=== PATIENT | female | born 1940 | race Caucasian/White ===

== ENCOUNTER 2020-06-05 23:23 | Inpatient (IN) | payer MEDICARE, OTHER, SELFPAY ==
[2020-06-05 23:24] VITALS: PULSE 84; RESP 26; TEMP 36.2; O2SAT 63; BMI 34.2
--- NOTE | 2020-06-05 23:25 | EKG12_ITS ---
Test Reason : SOB Blood Pressure : / mmHG Vent. Rate : 068 BPM Atrial Rate : 277 BPM P-R Int : 000 ms QRS Dur : 098 ms QT Int : 406 ms P-R-T Axes : 000 -02 052 degrees QTc Int : 431 ms Normal sinus rhythm Otherwise normal ECG Confirmed by ELI HAWKINS, SAM ([id number]), graphics editor RY PATTERSON ([id number]) on 06/08/2020 8:37:30 AM Referred By: MARISOL Confirmed By:SAM BENITEZ MD
[2020-06-05 23:31] VITALS: BP 160/66; PULSE 66; PULSE 71; RESP 18; RESP 19; TEMP 36.3; O2SAT 100; O2SAT 99
--- NOTE | 2020-06-05 23:45 | ED.VIS.GEN ---
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 Pulse ox was reported to be 50% on room air. She arrived with nonrebreather. Moving her from the EMS cot to the hospital cot patient was disconnected from oxygen. Her breathing became labored. I was informed her oxygen dropped to 63%. Her breathing was labored. She was placed back on the nonrebreather. She denies history of asthma, COPD or congestive heart failure. She denies chest pain. She denies history of PE or DVT. She denies leg pain or leg swelling. Slight discoloration of her legs. She has no known exposure to Covid. Patient's nurse informed me that she has other medical problems which included COPD and end-stage renal disease. She states she was told by her doctor she cannot have IV contrast. Prior similar symptoms: No Recent Illness/Hospitalization: No - Past Medical History (1) History of hypertension Status: Acute (2) History of breast cancer Status: Acute (3) History of colon cancer Status: Acute (4) History of COPD Status: Chronic (5) History of end stage renal disease Status: Acute Past Medical History - Allergies and Home Meds Allergies/Adverse Reactions: Allergies No Known Allergies Allergy (Verified 03/17/17 13:26) Primary Care Physician: Bryan Tolbert III, MD [Primary Care Provider] - Prior records reviewed: Yes Surgical History: noncontributory Lives: With Family Smoking Status: Former smoker Alcohol: None Drugs: None Review of Systems General: Denies: Chills, Fever, Malaise, Subjective, Sweats Eyes: Denies: Visual changes - bilaterally, Blurred Vision - bilaterally ENT: Denies: Bilateral ear pain, Rhinorrhea, Sore throat Cardiovascular: Denies: Chest pain, Palpitations Respiratory: Reports: Dyspnea, Dyspnea on exertion. Denies: Cough, Sputum, Orthopnea, Paroxysmal nocturnal dyspnea Gastrointestinal: Denies: Abdominal pain, Nausea, Vomiting, Diarrhea, Melena, Hematochezia Genitourinary: Denies: Dysuria, Hematuria, Frequency Musculoskeletal: Denies: Myalgias, Arthralgias, Neck pain, Back pain, Swelling, Extremity Pain, -, - Skin: Denies: Rash, Wounds Neurological: Denies: Headache, Weakness, Parasthesia Endocrine: Denies: Polyuria, Polydipsia Hematologic: Denies: Easy bruising, Easy bleeding Allergy: Denies: Uticaria Physical Exam Vital Signs/Narrative: Vital Signs Temp Pulse Resp BP Pulse Ox 06/05/20 23:31 97.3 F L 66 19 H 160/66 H 99 06/05/20 23:24 97.2 F L 84 26 H 63 Inital Vital Signs reviewed: Yes General: Well nourished, Well developed, Acute Distress Head: Normocephalic, Atraumatic Eyes: Perrl, EOMI. Negative for: Pale conjunctiva, Scleral icterus ENT: Moist mucous membranes, No rhinorrhea Neck: Supple, Nontender, No lymphadenopathy, No JVD, - - He is midline. There is no inspiratory expiratory stridor. Cardiovascular: Regular rate, Regular rhythm, No murmurs, Normal S1, Normal S2 Respiratory: Wheezing, Decreased Air Movement. Negative for: No distress - Initially patient was in no distress. After oxygen was removed she developed distress. Abdomen: Soft, Nontender, Nondistended, Normal bowel sounds, No masses Back: Nontender, Normal Inspection Extremities: Nontender, No edema. Negative for: Calf Tenderness - There is no asymmetry, swelling, discoloration, leg vein distention, palpable cords or tenderness along the distribution of the deep venous system. Skin: Normal color, No rash, No Trauma. Negative for: Cyanosis, Diaphoresis, Jaundice Neurological: Alert, Oriented x3, Cranial nerves II-XII grossly intact, Normal Strength, Normal Sensation Psychological: Normal affect Diagnostic/Tx/Re-eval Chest X-Ray - ED: 1 View, Read by ED Physician, Normal, Heart, Bony Structures, Right Infiltrate, Left Infiltrate, - - There are multiple pulmonary nodules on the right which raises concern for pulmonary embolus. Impressions Chest X-Ray 06/05/20 23:50 IMPRESSION: 1. Cardiomegaly and pulmonary vascular congestion. 2. Right-sided pulmonary nodules. Electronically Signed: Deb Stone MD at 0:36 EST , Service support , Chest CTA 06/06/20 00:47 IMPRESSION: 1. No CTA demonstrated pulmonary embolism or arterial dissection. 2. Findings suggest early pulmonary edema. 3. Pulmonary vascular congestion with COPD. 4. Bilateral basilar atelectasis with possible right lower lobe pneumonia. 5. Intraluminal thrombus within the descending thoracic aorta. Electronically Signed: Deb Stone MD at 2:12 EST , Service support , 06/05/20 23:50 Chest 1 View (Portable) [RAD] Stat 06/06/20 00:47 CTA Chest W/WO Contrast [CT] Stat Laboratory Results 06/05/20 06/05/20 06/05/20 23:30 23:30 23:30 WBC 6.0 RBC 3.37 L Hgb 8.1 L Hct 29.5 L MCV 87.5 MCH 24.0 L MCHC 27.5 L RDW Std Deviation 55.6 H RDW Coeff of Ismael 17.4 H Plt Count 237 MPV 11.6 Immature Gran % (Auto) 1.700 H Neut % (Auto) 79.9 H Lymph % (Auto) 8.7 L [place] % (Auto) 8.5 Eos % (Auto) 1.0 Baso % (Auto) 0.2 Absolute Neuts (auto) 4.8 Absolute Lymphs (auto) 0.52 L Nucleated RBC % 0 Differential Comment SCANNED Platelet Estimate ADEQUATE Polychromasia RARE Hypochromasia 1+ Anisocytosis 1+ Microcytosis 1+ Schistocytes RARE Specimen Type Sample Site pH Bicarbonate Actual Total CO2 Base Excess O2 Saturation O2 % ABG pCO2 ABG pO2 Eliot Test O2 Delivery Device Sodium 143 Potassium 3.9 Chloride 97 L Carbon Dioxide 42.0 H Anion Gap 4 L BUN 39 H Creatinine 1.33 H Estim Creat Clear Calc 27.44 Est GFR (MDRD) Af Amer 49 L Est GFR (MDRD) Non-Af 41 L BUN/Creatinine Ratio 29.3 H Glucose 179 H Lactic Acid 2.6 H* Calcium 9.6 Total Bilirubin 0.60 AST 24 ALT 33 Alkaline Phosphatase 110 Troponin I 0.020 B-Natriuretic Peptide Total Protein 7.0 Albumin 3.4 Globulin 3.6 Albumin/Globulin Ratio 0.9 COVID-19 (NBA) 06/05/20 06/05/20 06/05/20 23:30 23:35 23:56 WBC RBC Hgb Hct MCV MCH MCHC RDW Std Deviation RDW Coeff of Ismael Plt Count MPV Immature Gran % (Auto) Neut % (Auto) Lymph % (Auto) [place] % (Auto) Eos % (Auto) Baso % (Auto) Absolute Neuts (auto) Absolute Lymphs (auto) Nucleated RBC % Differential Comment Platelet Estimate Polychromasia Hypochromasia Anisocytosis Microcytosis Schistocytes Specimen Type YADIRA Sample Site R Radial pH 7.30 L Bicarbonate Actual 43.3 H Total CO2 46 Base Excess 17 H O2 Saturation 49 L O2 % 50 ABG pCO2 87.6 H* ABG pO2 31 L* Eliot Test Positive O2 Delivery Device Venti Mask Sodium Potassium Chloride Carbon Dioxide Anion Gap BUN Creatinine Estim Creat Clear Calc Est GFR (MDRD) Af Amer Est GFR (MDRD) Non-Af BUN/Creatinine Ratio Glucose Lactic Acid Calcium Total Bilirubin AST ALT Alkaline Phosphatase Troponin I B-Natriuretic Peptide 232.8 H Total Protein Albumin Globulin Albumin/Globulin Ratio COVID-19 (NBA) Not Detected Covid test is pending. Patient has a acute respiratory failure with hypercapnia and hypoxia. She is on BiPAP. A MOLST form was completed. Patient specified no CPR and no invasive ventilation. BiPAP is acceptable. Placement of central line, cardioversion, use of pressors are acceptable. No nodules were noted on the CAT scan. Suspect those are infiltrates. BNP of 232 no orthopnea, no pedal edema no PND doubt this is heart failure. Her wheezing improved with aerosols and Decadron. - EKG Initial EKG Interpretation: Sinus Rhythm - Presumed sinus rhythm with a ventricular rate of 68. Unable to determine KY interval because of significant artifact. And beat foreign beat by P waves were noted and suspect KY interval is approximately 160 ms. QRS duration is 98 ms. QT duration is 406 ms. Reading is normal. Prior: Unchanged - EKG performed on November 25, 2011 reveals a sinus rhythm with a ventricular rate of 68. - Medical Decision Making With history of shortness of breath that started [place] need to evaluate for infectious etiology versus cardiac versus VTE. If there is no evidence of pneumonia or cardiac etiology will obtain CTA to rule out PE. COVID-19 test was ordered. Patient stated she does not want to be intubated and does not want CPR performed. Since patient has history of COPD and is wheezing she was treated with DuoNeb and albuterol. Because there is concern for Covid she received 10 mg of Decadron. ABG reveals acute on chronic CO2 retention. Chest x-ray reveals bilateral interstitial infiltrates which raises concern for atypical pneumonia versus Covid. There are also old nodules which raises concern for pulmonary embolus. CTA of the chest was ordered. Patient was informed the reason why the CTA of the chest needed to be performed. She understands this may cause a rise in her creatinine. The lactate elevated due to hypoxia, type a lactic acidosis. The case was discussed with hospitalist. Hospitalist requested 20 of Lasix. - Critical Care Time Critical care time (excluding procedures): 30-74 minutes - Critical care time 37 minutes. This includes obtaining history, review of prior records, documentation, interpretation of laboratory results, initiation of therapy and discussion with hospitalist for admission. ED Disposition - Plan for ED Patient: Disposition: Acute Care Hospital [facility] Diagnosis: Respiratory failure with hypoxia and hypercapnia, Right lower lobe pulmonary infiltrate, COPD with exacerbation, Acute bronchospasm, Severe sepsis Referrals: Bryan Tolbert III, MD [Primary Care Provider] -
--- NOTE | 2020-06-05 23:50 | RAD_ITS ---
STUDY: X-RAY CHEST REASON FOR EXAM: Female, 80 years old patient with shortness of breath. TECHNIQUE: Single AP portable view of the chest. COMPARISON: Prior comparison studies are not available for review at this time. FINDINGS: Cardiac monitoring leads are present. The lungs are expanded. There are prominent bronchovascular markings in both lungs. There appear to be two right-sided mid pulmonary nodular opacities measuring approximately 1.8 cm in size. There is a small right-sided pleural effusion. There is no demonstrated pleural abnormality. There is mild cardiac enlargement. Normal mediastinum and steven. There is prominence of the pulmonary hilar arteries with peripheral pulmonary vascular congestion. There is atherosclerotic calcification of the aortic arch with tortuosity. Normal visualized thoracic spine. Normal visualized ribs, clavicles, and shoulders. There is no demonstrated abnormality of the visualized soft tissue structures of the upper abdomen. RAD/Chest 1 View (Portable) IMPRESSION: 1. Cardiomegaly and pulmonary vascular congestion. 2. Right-sided pulmonary nodules. Electronically Signed: Deb Stone MD at 0:36 EST , Service support ,
--- NOTE | 2020-06-05 23:56 | CPS ---
ABG results read to in ER. Physician aware of critical results.
--- NOTE | 2020-06-05 23:56 | ED.RN ---
PT STATES SHE IS DNRCC-A. NO INTUBATION. PT GAVE ME PERMISSION TO SPEAK WITH HER DAUGHTER ANGELA WHO WILL BE HER POA HER SPOUSE HAS PASSED. PT IS UNSURE IF PAPERWORK STATES DAUGHTER POA. CALLED ANGELA WOODWARD, JEREMIEA, DAUGHTER AT [phone]. PLAN OF CARE GIVEN, QUESTIONS ANSWERED, REASSURED DAUGHTER. DAUGHTER DID VERIFY THAT PT DOES NOT WANT INTUBATED OR CPR.
[2020-06-06] VITALS (36 sets, daily range): BP systolic 120–155; BP diastolic 47–79; PULSE 56–93; RESP 12–24; TEMP 36–36.8; O2SAT 87–100; BMI 34.0
[2020-06-06 00:03] LABS: ALB/GLOB Ratio 0.9 RATIO (0.9-2.4); AST(SGOT) 24 U/L (15-37); Alanine Aminotransfer ALT/SGPT 33 U/L (13-56); Albumin, Serum 3.4 g/dL (3.2-5.0); Alkaline Phosphatase 110 U/L (45-117); Anion Gap 4 (5-15); BUN 39 mg/dL (7-18); BUN/Creat Ratio 29.3 RATIO (10-20); Calcium,Total 9.6 mg/dL (8.5-10.1); Chloride 97 mmol/L (98-107); Creatinine, Serum 1.33 mg/dL (0.55-1.02); EST Glomerular Filtration Rate 41 mL/min (>60); Est Glom Filt Rate - Afr Amer 49 mL/min (>60); Estimated Creatinine Clearance 27.44 ml/min; Globulin 3.6 g/dL (2.2-4.2); Glucose 179 mg/dL (74-106); Potassium 3.9 mmol/L (3.5-5.1); Sodium Level 143 mmol/L (136-145)
[2020-06-06 00:05] LABS: Allen Test Positive; Base Excess 17 mmol/L (-2 to +2); Bicarbonate 43.3 mmol/L (22-26); FI02 50; O2 Delivery Device Venti Mask; PO2 31 mmHG (75-100); SITE R Radial; SO2 49 % (95-99); Total Carbon Dioxide 46 mmol/L; pCO2 87.6 mmHg (35-45)
[2020-06-06 00:07] LABS: Absolute Lymphocyte Count 0.52 X10^3/uL (0.83-4.51); Absolute Neutrophil Count 4.8 X10^3/uL (2.0-7.7); Basophil# 0.01 X10^3/uL; Basophil% 0.2 % (0-1); Eosinophil# 0.06 X10^3/uL; Hematocrit 29.5 % (37-47); Hemoglobin 8.1 g/dL (12.0-15.0); Lactic Acid 2.6 mmol/L (0.4-1.9); Lymphocyte # 0.52 X10^3/ul (4.0); Lymphocyte % 8.7 % (19-41); Mean Corp Hgb Conc 27.5 g/dL (32-36); Mean Corpuscular Volume 87.5 fL (81-99); Mean Platelet Vol. 11.6 fl (6.2-12.0); Monocyte# 0.51 X10^3/uL; Monocyte% 8.5 % (0-10); NRBC Flagged by Analyzer 0 % (0-5); Neutrophil # 4.81 X10^3/uL (2.7-7.7); Neutrophil % 79.9 % (47-70); POSITIVE DIFFERENTIAL YES; Platelet Count 237 K/mm3 (150-450); RBC Distribution Width CV 17.4 % (11.6-14.6); RBC Distribution Width SD 55.6 fl (35.1-43.9); Red Blood Count 3.37 M/mm3 (4.2-5.4)
[2020-06-06 00:11] LABS: Differential Indicated SCAN CRITERIA MET
[2020-06-06] MEDS: Albuterol 2.5 MG/3 ML VIAL.NEB. INHALATION ×3 (00:25)
[2020-06-06] MEDS: Ipratropium/Albuterol Sulfate 3 ML AMPUL.NEB INHALATION ×6 (00:25→22:40)
[2020-06-06 00:38] LABS: BNP,B-Type NATRIURETIC PEPTIDE 232.8 pg/mL (0-100)
[2020-06-06] MEDS: dexAMETHasone 10 MG/ML Vial IV (00:39)
[2020-06-06] MEDS: Ceftriaxone 1 GM/50 ML BAG IV (00:41)
[2020-06-06 00:47] LABS: Anisocytosis 1+; Differential Comment SCANNED; Hypochromasia 1+; Microcytosis 1+
--- NOTE | 2020-06-06 00:47 | CT_ITS ---
STUDY: CTA CHEST REASON FOR EXAM: Female, 80 years old patient with worsening shortness of breath since 05/25/2020. Past medical history of colon and breast cancer. Patient has had HTN, COPD, and emphysema. Prior cholecystectomy and colon resection. RADIATION DOSAGE (If Supplied By Facility): CTDIvol = ( 12.84 ) mGy, DLP = ( 496.04 ) mGycm TECHNIQUE: The examination was performed with the intravenous administration of 100 ml of Isovue-370. Post-processing of the angiographic images was performed, with multiplanar reformation and 3D reconstruction. Individualized dose optimization techniques were used for this CT. COMPARISON: Prior comparison studies are not available for review at this time. FINDINGS: Cardiac monitoring leads are present. Normal enhancement of the main pulmonary artery and right and left pulmonary arteries. Normal enhancement of the bilateral peripheral pulmonary arteries. There is no demonstrated pulmonary embolism. There is prominence of the main pulmonary arteries and peripheral pulmonary arteries, consistent with pulmonary edema. There is atherosclerotic calcification of the aortic arch with tortuosity. Maximum transverse dimension of the ascending thoracic aorta measures approximately 3.5 cm. There is no demonstrated aortic dissection. There appears to be thrombus within the descending thoracic aorta. This could serve as a source for emboli. There is cardiomegaly. There are calcifications of the coronary arteries. Normal mediastinum. Normal hilar regions. Normal visualized trachea and bronchi. The lungs are well expanded. There is heterogeneous groundglass attenuation within both lungs interspersed with multiple lucencies consistent with severe centrilobular emphysema. There is thickening of interlobular septa. There is bilateral basilar dependent atelectasis right lower lobe airspace disease and possible pneumonia.. Normal pleura. Normal chest wall structures. There are degenerative changes of thoracic spine. Increased thoracic kyphosis. The sternum appears to be intact. There is mild curvature of the thoracic spine convexity towards the left. There is a left-sided renal cyst measuring approximately [address]/CTA Chest W/WO Contrast IMPRESSION: 1. No CTA demonstrated pulmonary embolism or arterial dissection. 2. Findings suggest early pulmonary edema. 3. Pulmonary vascular congestion with COPD. 4. Bilateral basilar atelectasis with possible right lower lobe pneumonia. 5. Intraluminal thrombus within the descending thoracic aorta. Electronically Signed: Deb Stone MD at 2:12 EST , Service support ,
[2020-06-06 00:48] LABS: Platelet Estimate ADEQUATE (ADEQ)
[2020-06-06 00:49] LABS: Polychromasia RARE; Schistocytes RARE
[2020-06-06 01:08] LABS: Blood Gas Specimen Type VEN
--- NOTE | 2020-06-06 02:32 | HP.PCM_ITS ---
Problem List (1) Respiratory failure with hypoxia and hypercapnia Status: Acute Qualifiers: Chronicity: acute Qualified Code(s): J96.01 - Acute respiratory failure with hypoxia; J96.02 - Acute respiratory failure with hypercapnia (2) Right lower lobe pulmonary infiltrate Status: Acute (3) COPD with exacerbation Status: Acute (4) History of breast cancer Status: Chronic (5) History of colon cancer Status: Chronic History of Present Illness Date of Admission: 06/06/20 Chief Complaint: SOB - since The patient is a 80 year old F with past medical history of COPD, stage IV CKD comes in with progressive shortness of breath ongoing since . Patient admits to having bilateral leg swelling, denies orthopnea or PND. She lives alone. She has progressive shortness of breath, denies any fever or chills. She denies any sick contact. Her oxygen level was said to be In the 50s on arrival with the EMS. She was managed on 10 L on a nonrebreather mask. Patient was found to be saturating 63% on room air in the ED. The ED, her temperature was 90 7.2F, heart rate 84, respiratory rate 26, 2 saturating 73% room air, improved to 99% on 2 L of oxygen, FiO2 50%. WBC count of 6.0, hemoglobin 8.1, platelet count 237, VBG showed pH 7.3, PCO2 was 87.6, pH was 31. Sodium was 143, potassium 3.9, chloride 97, carbon 39, creatinine 1.33, lactic acid 2.6, BNP 5232.8. COVID-19 PCR negative Chest x-ray showed cardiomegaly, pulmonary vascular congestion, right-sided pulmonary nodules. CTA of the chest showed no PE. Showed early pulmonary edema, pulmonary vascular congestion, lateral basilar atelectasis with possible right lower lobe pneumonia, Past Medical History Past Medical History (Chronic Problems): Chronic Problems History of breast cancer (Chronic) History of colon cancer (Chronic) History of COPD (Chronic) Allergies No Known Allergies Allergy (Verified 03/17/17 13:26) Home Medications: Ambulatory Orders Medication Instructions Recorded Aspirin 325 mg PO DAILY 03/17/17 Diltiazem HCl [Cartia Xt] 300 mg PO DAILY 03/17/17 Doxycycline 100 mg PO DAILY 03/17/17 Lisinopril [Zestril] 10 mg PO DAILY 03/17/17 Oxygen, Home [Home Oxygen] 3 lpm NASAL DAILY 03/17/17 Pravastatin [Pravachol] 20 mg PO DAILY 03/17/17 Sertraline HCl [Zoloft] 50 mg PO DAILY 03/17/17 hydroCHLOROthiazide 12.5 mg PO DAILY 03/17/17 [Hydrochlorothiazide] Cholecalciferol (Vitamin D3) 1 tab PO DAILY 06/05/20 [Vitamin D3] Surgical History: colectomy, mastectomy Psychiatric History: Anxiety, Depression APPLICATION INTEGRATION SPECIALIST History: No pertinent APPLICATION INTEGRATION SPECIALIST history Lives: With Family Smoking Status: Former smoker Alcohol: None Drugs: None - *Family History Maternal History Items: Cancer - colon Paternal History Items: Unknown Review of Systems Constitutional: Reports: Anorexia, Malaise, Weakness, Fatigue. Denies: Chills, Fever, Night Sweats, Weight Change Eyes: Denies: Blurred vision, Cataracts, Conjunctivae Inflammation, Pain, Redness, Vision Change HEENT: Denies: Difficulty Hearing, Difficulty Swallowing, Head Aches, Hearing Changes, Sinus Congestion, Sinus Drainage Cardiovascular: Reports: Edema. Denies: Chest Pain, Light Headedness, Orthopnea, Palpitations, Paroxysmal Noc. Dyspnea, Syncope Respiratory: Reports: Shortness of Breath, Shortness of breath at rest, Shortness of breath upon exertion. Denies: Cough, Hemoptysis, Sputum production Gastrointestinal: Denies: Abdominal Pain, Constipation, Hematemesis, Hematochezia, Nausea, Vomiting Genitourinary: Denies: Dysuria, Frequency, Incontinence, Nocturia Musculoskeletal: Denies: Joint Pain, Joint stiffness, Joint swelling, Joint Tenderness Skin: Denies: Rash, Wounds Neurological: Denies: Numbness, Tingling, Focal weakness Psychiatric: Denies: Anxiety, Depression, Homicidal Ideations, Suicidal Ideations Hematologic/ Lymphatic: Denies: Easy Bruising, Easy Bleeding VTE Information - Inpt Only VTE Present on Admission: No VTE Pharm Prophylaxis ordered?: Yes Patient Problems: Active and Suspected Problems History of hypertension (Acute) History of end stage renal disease (Acute) Respiratory failure with hypoxia and hypercapnia (Acute) Right lower lobe pulmonary infiltrate (Acute) COPD with exacerbation (Acute) Acute bronchospasm (Acute) Severe sepsis (Acute) - Physical Exam Vitals/I&O's: Vital Signs Temp Pulse Resp BP Pulse Ox 97.8 F 63 18 155/69 H 100 06/06/20 01:38 06/06/20 01:38 06/06/20 01:38 06/06/20 01:38 06/06/20 01:38 Oxygen Flow Rate (L/min) 15 Oxygen Delivery Method Bi-pap Weight: 87.725 kg Body Mass Index (BMI) 34.2 Intake and Output for Last 24 Hours 06/04/20 06/05/20 06/06/20 23:59 23:59 23:59 Intake Total 50.5 / 50.5 Balance 50.5 / 50.5 General: Alert, Oriented x3, Cooperative, - - Mild respiratory distress, on BiPAP HEENT: Atraumatic, PERRLA, EOMI, Normocephalic Oral: Moist Mucosa Neck: Supple Lungs: Diminished Cardiovascular: Regular rate, Regular Rhythm, No murmurs Abdomen: Bowel Sounds Present, Soft, Non Tender, Non-Distended, No Hepato- splenomegaly Extremities: Edema - trace bilateral edema Skin: No rashes Musculoskeletal: No Tenderness to Palpation of Joints or Extremities Lymphatic: No Cervical, Supraclavicular, or Inguinal Adenopathy Neurological: Cranial nerves II-XII grossly intact, Neuro grossly intact Psych/Mental Status: Normal Affect, Appropriate Laboratory Results 06/05/20 23:30: WBC 6.0, RBC 3.37 L, Hgb 8.1 L, Hct 29.5 L, MCV 87.5, MCH 24.0 L , MCHC 27.5 L, RDW Std Deviation 55.6 H, RDW Coeff of Ismael 17.4 H, Plt Count 237, MPV 11.6, Immature Gran % (Auto) 1.700 H, Neut % (Auto) 79.9 H, Lymph % (Auto) 8.7 L, [place] % (Auto) 8.5, Eos % (Auto) 1.0, Baso % (Auto) 0.2, Absolute Neuts (auto) 4.8, Absolute Lymphs (auto) 0.52 L, Nucleated RBC % 0, Differential Comment SCANNED, Platelet Estimate ADEQUATE, Polychromasia RARE, Hypochromasia 1+, Anisocytosis 1+, Microcytosis 1+, Schistocytes RARE 06/05/20 23:30: Sodium 143, Potassium 3.9, Chloride 97 L, Carbon Dioxide 42.0 H, Anion Gap 4 L, BUN 39 H, Creatinine 1.33 H, Estim Creat Clear Calc 27.44, Est GFR (MDRD) Af Amer 49 L, Est GFR (MDRD) Non-Af 41 L, BUN/Creatinine Ratio 29.3 H , Glucose 179 H, Calcium 9.6, Total Bilirubin 0.60, AST 24, ALT 33, Alkaline Phosphatase 110, Troponin I 0.020, Total Protein 7.0, Albumin 3.4, Globulin 3.6, Albumin/Globulin Ratio 0.9 06/05/20 23:30: Lactic Acid 2.6 H* 06/05/20 23:30: B-Natriuretic Peptide 232.8 H 06/05/20 23:35: COVID-19 (NBA) Not Detected 06/05/20 23:56: Specimen Type YADIRA, Sample Site R Radial, pH 7.30 L, Bicarbonate Actual 43.3 H, Total CO2 46, Base Excess 17 H, O2 Saturation 49 L, O2 % 50, ABG pCO2 87.6 H*, ABG pO2 31 L*, Eliot Test Positive, O2 Delivery Device Venti Mask Current Medications Sodium Chloride () 250 mls @ 15 mls/hr IV .[id number] PRN PRN Reason: Saline Flush Last Infusion: 06/06/20 00:41 Dose: 0 mls/hr Documented by: Sodium Chloride () 250 mls @ 15 mls/hr IV .[id number] PRN PRN Reason: Additional IVPB Infusion Sodium Chloride 1,000 ml/ N/A 1,000 mls @ 263.175 mls/hr IV .[id number] SHANE Stop: 06/06/20 07:51 Last Admin: 06/06/20 01:10 Dose: 3 ml/kg/hr, 263.2 mls/hr Documented by: Assessment/Plan All Active Problems History of hypertension (Acute) History of end stage renal disease (Acute) Respiratory failure with hypoxia and hypercapnia (Acute) Right lower lobe pulmonary infiltrate (Acute) COPD with exacerbation (Acute) Acute bronchospasm (Acute) Severe sepsis (Acute) 1. Acute respiratory failure secondary to acute COPD exacerbation/probable CHF exacerbation Patient was saturating 63% on room air, improved on BiPAP We will continue and BiPAP, breathing treatments, pulmonology consult 2. Lactic acidosis secondary to hypoxia, admitting lactic acid 2.6, will trend per protocol 3. Acute COPD exacerbation, history of underlying COPD Continue IV Solu-Medrol, breathing treatment Check respiratory panel 4. Probable Acute CHF, no known history of CHF in our system Patient received Lasix 20 mg IV x1 We will continue Lasix 40 mg daily, monitor renal function, 2D echo 5. CKD stage IV, admitting creatinine is 1.33, unclear previous baseline creatinine 6. Hypertension/hyperlipidemia, remains stable Would hold home lisinopril and hydrochlorothiazide for now Continue on home pravastatin 7. Anxiety/depression, continue on Zoloft 8. DVT prophylaxis with heparin subcu 9. CODE STATUS: DNR CCA -ED physician discussed with patient; she does not want to be intubated. I confirmed this with her. We will obtain records from Dr. Bryan Tolbert's office?her primary care doctor?as we do not have much records about patient's history in [facility]. Inpatient E&M: [id number] Init Hosp L3
[2020-06-06] MEDS: Furosemide 20 MG/2 ML VIAL IV (03:09)
[2020-06-06 03:37] LABS: Reflex Lactate? Y
--- NOTE | 2020-06-06 03:42 | PCS.PANDOC ---
PANDEMIC DOCUMENTATION INITIATED: Date: 06/06/20 Time: 03:23
[2020-06-06 04:14] LABS: Absolute Lymphocyte Count 0.11 X10^3/uL (0.83-4.51); Absolute Neutrophil Count 6.2 X10^3/uL (2.0-7.7); Basophil# 0.01 X10^3/uL; Basophil% 0.2 % (0-1); Hematocrit 27.6 % (37-47); Hemoglobin 7.6 g/dL (12.0-15.0); Lymphocyte # 0.11 X10^3/ul (4.0); Lymphocyte % 1.7 % (19-41); Mean Corp Hgb Conc 27.5 g/dL (32-36); Mean Corpuscular Hgb 24.1 pg (27.0-32.0); Mean Corpuscular Volume 87.6 fL (81-99); Mean Platelet Vol. 11.7 fl (6.2-12.0); Monocyte# 0.08 X10^3/uL; Monocyte% 1.2 % (0-10); NRBC Flagged by Analyzer 0 % (0-5); Neutrophil # 6.19 X10^3/uL (2.7-7.7); Neutrophil % 96.3 % (47-70); POSITIVE DIFFERENTIAL YES; Platelet Count 220 K/mm3 (150-450); RBC Distribution Width CV 17.4 % (11.6-14.6); RBC Distribution Width SD 55.1 fl (35.1-43.9); Red Blood Count 3.15 M/mm3 (4.2-5.4); White Blood Count 6.4 K/mm3 (4.4-11.0)
[2020-06-06 04:24] LABS: Differential Indicated SCAN CRITERIA MET
--- NOTE | 2020-06-06 04:30 | ECHOD_ITS ---
Reason For Study: SOB Procedure This was a 2D Doppler, Color Flow transthoracic echocardiogram. The study was technically difficult. Exam performed portable in patient room. Left Ventricle Normal LV size. Moderate concentric left ventricular hypertrophy. Left ventricular systolic function is normal. The estimated ejection fraction is 65 %. There is evidence of diastolic dysfunction. No regional wall motion abnormalities noted. Right Ventricle Normal RV size. Normal systolic function. Atria The left atrium is moderately enlarged. The right atrium is mildly enlarged. No doppler evidence for ASD. Mitral Valve There is mild to moderate mitral annular calcification. Extension of the mitral annular calcification on the base of the posterior mitral valve leaflet. Trivial mitral valve insufficiency. Tricuspid Valve Normal tricuspid valve. Trivial tricuspid valve insufficiency. Unable to estimate RV systolic pressure/pulmonary artery pressure due to technically difficult study. Aortic Valve The aortic valve leaflets not well visualized, however, based upon the 2D echocardiographic images obtained there appears to be diffuse thickening, calcification, and partial restriction. Moderately severe aortic valve stenosis. Pulmonic Valve The pulmonic valve is not well visualized. Great Vessels Normal sized aortic root. Calcified aortic root. Pericardium/Pleural No pericardial effusion. MMode/2D Measurements & Calculations LVIDd: 4.8 cm IVSd: 1.4 cm LVOT diam: 2.0 cm LVIDs: 2.9 cm LVPWd: 1.4 cm LVOT area: 3.1 cm2 RVDd: 3.7 cm FS: 39.9 % Ao root diam: 3.7 cm LAV(MOD-bp): 85.6 ml LVAd ap4: 28.3 cm2 LAV(MOD-bp) Indexed: 45.0 ml/m2 EDV(MOD-sp4): 84.4 ml LAV(MOD-sp2): 91.3 ml EDV(sp4-el): 83.6 ml LAV(MOD-sp4): 77.6 ml LVAs ap4: 15.5 cm2 ESV(MOD-sp4): 31.5 ml ESV(sp4-el): 31.7 ml EF(MOD-sp4): 62.6 % EF(sp4-el): 62.1 % SV(MOD-sp4): 52.8 ml SV(sp4-el): 51.9 ml LA A4 area: 24.5 cm2 LA dimension(2D): 5.4 cm RA A4 area: 24.0 cm2 Doppler Measurements & Calculations MV E max ronaldo: 99.1 cm/sec Lat Peak E' Ronaldo: 8.6 cm/sec Med Peak E' Ronaldo: 6.1 cm/sec MV A max ronaldo: 157.8 cm/sec E/E' lat: 11.5 E/E' med: 16.3 MV E/A: 0.63 MV V2 max: 155.2 cm/sec MV P1/2t max ronaldo: 98.4 cm/sec Ao V2 max: 436.1 cm/sec MV max P.6 mmHg MV P1/2t: 88.9 msec Ao max P.1 mmHg MV V2 mean: 86.0 cm/sec Ao V2 mean: 299.2 cm/sec MV mean P.4 mmHg MV dec slope: 324.1 cm/sec2 Ao mean P.3 mmHg MV V2 VTI: 35.2 cm MVA(P1/2t): 2.5 cm2 Ao V2 VTI: 88.7 cm MVA(VTI): 3.1 cm2 ELIZABETH(I,D): 1.2 cm2 ELIZABETH(V,D): 1.1 cm2 LV V1 max: 150.6 cm/sec SV(LVOT): 109.2 ml PA V2 max: 161.6 cm/sec LV V1 max P.1 mmHg LV V1 mean P.8 mmHg LV V1 mean: 103.1 cm/sec LV V1 VTI: 35.3 cm Interpretation Summary The study was technically difficult. Left ventricular systolic function is normal. The estimated ejection fraction is 65 %. Moderate concentric left ventricular hypertrophy. The left atrium is moderately enlarged. The right atrium is mildly enlarged. There is mild to moderate mitral annular calcification. Extension of the mitral annular calcification on the base of the posterior mitral valve leaflet. Trivial mitral valve insufficiency. Trivial tricuspid valve insufficiency. The aortic valve leaflets not well visualized, however, based upon the 2D echocardiographic images obtained there appears to be diffuse thickening, calcification, and partial restriction. Moderately severe aortic valve stenosis. Calcified aortic root. Unable to estimate RV systolic pressure/pulmonary artery pressure due to technically difficult study. There is evidence of diastolic dysfunction. Ordering Physician: Izzy Duggan Referring Physician: LAURIE Tolbert M.D. Performed By: María Headley RDCS
[2020-06-06 04:37] LABS: AST(SGOT) 26 U/L (15-37); Alanine Aminotransfer ALT/SGPT 32 U/L (13-56); Albumin, Serum 3.3 g/dL (3.2-5.0); Alkaline Phosphatase 101 U/L (45-117); Anion Gap 4 (5-15); BUN 39 mg/dL (7-18); BUN/Creat Ratio 33.1 RATIO (10-20); Calcium,Total 8.9 mg/dL (8.5-10.1); Chloride 97 mmol/L (98-107); Creatinine, Serum 1.18 mg/dL (0.55-1.02); EST Glomerular Filtration Rate 47 mL/min (>60); Est Glom Filt Rate - Afr Amer 57 mL/min (>60); Estimated Creatinine Clearance 30.93 ml/min; Globulin 3.4 g/dL (2.2-4.2); Glucose 176 mg/dL (74-106); Lactic Acid 1.4 mmol/L (0.4-1.9); Potassium 4.1 mmol/L (3.5-5.1); Protein, Total 6.7 g/dL (6.4-8.2); Sodium Level 139 mmol/L (136-145)
[2020-06-06 04:44] LABS: Anisocytosis 1+; Differential Comment SCANNED; Hypochromasia 2+; Polychromasia RARE; Schistocytes RARE
[2020-06-06] MEDS: Heparin Injection (Vial) 5,000 UNIT/ML VIAL 5000 UNIT SC (06:11)
[2020-06-06] MEDS: 0.9% Saline Lock 10 ML Syringe IV ×2 (06:12→16:44)
[2020-06-06 08:03] LABS: Ferritin 21 ng/mL (8-252); Iron 20 ug/dL (50-170); Iron Binding Capacity,Total 535 ug/dL (250-450); PERCENT IRON SATURATION 3.7 % (15.0-55.0)
[2020-06-06] MEDS: dilTIAZem CD 300 MG Capsule PO (09:54)
[2020-06-06] MEDS: Aspirin 325 MG Tablet PO (09:54)
[2020-06-06] MEDS: Sertraline 50 MG Tablet PO (09:55)
[2020-06-06] MEDS: Furosemide 40 MG/4 ML Vial IV ×2 (09:55→21:52)
[2020-06-06] MEDS: levoFLOXacin IV 750 MG/150 ML BAG 100 MG IV (10:08)
--- NOTE | 2020-06-06 10:14 | CASEMGMT ---
ANASTASIIA SHEN assessment: Phone interview with patient for initial transition planning/care coordination assessment as pt is currently in precautions at this time. ANASTASIIA SHEN introduced self and role at [facility], pt voices understanding and consents to assessment at this time. Pt is A/Ox4 at this time and answers all questions appropriately at this time. Pt is currently on 4L nc at this time and speaks in full sentences with no SOB on phone at this time. Per Marixa LAURENT, pt was placed back on bipap after CM assessment complete d/t low sats. Care providers, pharmacy, and demographics verified at this time. Presentation: SOB, worsening since [place] Admitting dx: Resp failure, COPD exac PCP: Didi SULLIVAN Specialists: surgeon Segun Kruger Pharmacy: [facility] Insurance: MCR A/B, [employer] Prescription Benefit: Yes Living Will/HPOA: Pt states does not have LW/HPOA but would like to complete AD info at this time. Matheus SW aware, voices understanding. LNOK: Meghana Carrillo, daughter Living Arrangements: Pt states lives alone in 1 story home and states no concerns at home at this time. Pt states is independent with ADL's. Transportation: Pt states family drives and states no transportation concerns at this time. DME/HHC: Pt states has the following DME: cane, walker, grab bars, BSC, tub bench, transport chair, and 3-4L nc home oxygen thru [facility]. Message left with Cherry at [facility] to check on liter flow order at this time. Pt states no need for any further DME at this time. Pt states no hx of HHC or SNF in the past. Pt states no concerns with going home at time of discharge. Pt states is retired. Pt states does not smoke cigarettes or drink ETOH. Pt states no further concerns/needs at this time. CM to follow for increase home oxygen need, PT/OT notes, and any further discharge planning/needs. Pt Goal: Home Plan[place] ANASTASIIA SHEN
--- NOTE | 2020-06-06 10:35 | NURSING ---
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 increased to 6l now 92%
--- NOTE | 2020-06-06 10:36 | NURSING ---
1015 patient talking on phone o2 sats 79-80% placed back on bipap now up to 94% asymptomatic
--- NOTE | 2020-06-06 13:51 | PCM.PN.HOSP ---
Patient Problems: Active and Suspected Problems History of hypertension (Acute) History of end stage renal disease (Acute) Respiratory failure with hypoxia and hypercapnia (Acute) Right lower lobe pulmonary infiltrate (Acute) COPD with exacerbation (Acute) Acute bronchospasm (Acute) Severe sepsis (Acute) Subjective: Patient seen and examined. She was admitted in the early hours of today with a complaint of shortness of breath. Symptoms have been going on since [place]. She also had associated lower extremity swelling. She was saturating in the 50s when the EMS arrived, and was placed on 10 L of oxygen by nonrebreather mask. On admission in the ED, she was saturating at 63%. Chest x-ray showed pulmonary vascular congestion and right-sided pulmonary nodules and CT of the chest showed no evidence of PE but did show any pulmonary edema with pulmonary vascular congestion as well as lateral basal atelectasis and possible right lower lobe pneumonia. Patient usually wears 3 to 4 L of oxygen at home. She has been managed for acute on chronic hypoxic respiratory failure due to COPD exacerbation and probable heart failure. She is on IV Solu-Medrol and being diuresed with Lasix. Patient seen. She said her shortness of breath was getting better but anytime she talked, it worsened. He denied any chest pain, palpitations or dizziness, nausea vomiting or diarrhea. Review systems otherwise negative. Hemoglobin is dropped from 8.1-7.6. There is no known baseline in the EMR. She had lactic acidosis on admission but this is now trended down to 1.4. Vitals/I&O's: Vital Signs Temp Pulse Resp BP Pulse Ox 98.3 F 75 17 150/79 H 96 06/06/20 08:00 06/06/20 11:05 06/06/20 11:05 06/06/20 10:00 06/06/20 10:30 Oxygen Flow Rate (L/min) 6 Oxygen Delivery Method Nasal Cannula Weight: 185 lb 6.54 oz Body Mass Index (BMI) 34.0 Intake and Output for Last 24 Hours 06/04/20 06/05/20 06/06/20 23:59 23:59 23:59 Intake Total 1647.41 / 1647.41 Output Total 450 / 450 Balance 1197.41 / 1197.41 General: Alert, Oriented x3, Cooperative, No apparent distress HEENT: Atraumatic, PERRLA, EOMI, Normocephalic Oral: Dry Mucosa Neck: Supple, No JVD, Negative Carotid Bruits Lungs: - - diminished breath sounds in all lung grider; wheezing and rackles in all lung grider. Cardiovascular: Regular rate, Normal S1, Normal S2, No murmurs Abdomen: Bowel Sounds Present, Soft, Non Tender, Non-Distended, No Hepato-splenomegaly Extremities: No clubbing, No cyanosis, No edema, Capillary Refill Less than 3 Seconds Skin: No rashes, No breakdown Musculoskeletal: No Tenderness to Palpation of Joints or Extremities Lymphatic: No Cervical, Supraclavicular, or Inguinal Adenopathy Neurological: Cranial nerves II-XII grossly intact, Neuro grossly intact, Motor Exam 5/5 strength throughout Psych/Mental Status: Normal Affect, Appropriate, Alert and oriented to time, place, person, mood and affect Microbiology Past 72 Hours 06/06/20 09:39 Mucosa - Nasopharyngeal Respiratory Panel (PCR) - Final Laboratory Results 06/05/20 23:30: WBC 6.0, RBC 3.37 L, Hgb 8.1 L, Hct 29.5 L, MCV 87.5, MCH 24.0 L, MCHC 27.5 L, RDW Std Deviation 55.6 H, RDW Coeff of Ismael 17.4 H, Plt Count 237, MPV 11.6, Immature Gran % (Auto) 1.700 H, Neut % (Auto) 79.9 H, Lymph % (Auto) 8.7 L, [place] % (Auto) 8.5, Eos % (Auto) 1.0, Baso % (Auto) 0.2, Absolute Neuts (auto) 4.8, Absolute Lymphs (auto) 0.52 L, Nucleated RBC % 0, Differential Comment SCANNED, Platelet Estimate ADEQUATE, Polychromasia RARE, Hypochromasia 1+, Anisocytosis 1+, Microcytosis 1+, Schistocytes RARE 06/05/20 23:30: Sodium 143, Potassium 3.9, Chloride 97 L, Carbon Dioxide 42.0 H, Anion Gap 4 L, BUN 39 H, Creatinine 1.33 H, Estim Creat Clear Calc 27.44, Est GFR (MDRD) Af Amer 49 L, Est GFR (MDRD) Non-Af 41 L, BUN/Creatinine Ratio 29.3 H, Glucose 179 H, Calcium 9.6, Total Bilirubin 0.60, AST 24, ALT 33, Alkaline Phosphatase 110, Troponin I 0.020, Total Protein 7.0, Albumin 3.4, Globulin 3.6, Albumin/Globulin Ratio 0.9 06/05/20 23:30: Lactic Acid 2.6 H* 06/05/20 23:30: B-Natriuretic Peptide 232.8 H 06/05/20 23:35: COVID-19 (NBA) Not Detected 06/05/20 23:56: Specimen Type YADIRA, Sample Site R Radial, pH 7.30 L, Bicarbonate Actual 43.3 H, Total CO2 46, Base Excess 17 H, O2 Saturation 49 L, O2 % 50, ABG pCO2 87.6 H*, ABG pO2 31 L*, Eliot Test Positive, O2 Delivery Device Venti Mask 06/06/20 04:06: WBC 6.4, RBC 3.15 L, Hgb 7.6 L, Hct 27.6 L, MCV 87.6, MCH 24.1 L, MCHC 27.5 L, RDW Std Deviation 55.1 H, RDW Coeff of Ismael 17.4 H, Plt Count 220, MPV 11.7, Immature Gran % (Auto) 0.600, Neut % (Auto) 96.3 H, Lymph % (Auto) 1.7 L, [place] % (Auto) 1.2, Eos % (Auto) 0.0, Baso % (Auto) 0.2, Absolute Neuts (auto) 6.2, Absolute Lymphs (auto) 0.11 L, Nucleated RBC % 0, Differential Comment SCANNED, Polychromasia RARE, Hypochromasia 2+, Anisocytosis 1+, Schistocytes RARE 06/06/20 04:06: Sodium 139, Potassium 4.1, Chloride 97 L, Carbon Dioxide 38.0 H, Anion Gap 4 L, BUN 39 H, Creatinine 1.18 H, Estim Creat Clear Calc 30.93, Est GFR (MDRD) Af Amer 57 L, Est GFR (MDRD) Non-Af 47 L, BUN/Creatinine Ratio 33.1 H, Glucose 176 H, Calcium 8.9, Total Bilirubin 0.30, AST 26, ALT 32, Alkaline Phosphatase 101, Total Protein 6.7, Albumin 3.3, Globulin 3.4, Albumin/Globulin Ratio 1.0 06/06/20 04:06: Lactic Acid 1.4 01/06/21 04:06: Iron 20 L, TIBC 535 H, Iron Saturation 3.7 L, Ferritin 21 Diagnostic Data Chest X-Ray 06/05/20 23:50 IMPRESSION: 1. Cardiomegaly and pulmonary vascular congestion. 2. Right-sided pulmonary nodules. Electronically Signed: Deb Stone MD at 0:36 EST , Service support , Chest CTA 06/06/20 00:47 IMPRESSION: 1. No CTA demonstrated pulmonary embolism or arterial dissection. 2. Findings suggest early pulmonary edema. 3. Pulmonary vascular congestion with COPD. 4. Bilateral basilar atelectasis with possible right lower lobe pneumonia. 5. Intraluminal thrombus within the descending thoracic aorta. Electronically Signed: Deb Stone MD at 2:12 EST , Service support , Current Medications Acetaminophen (Acetaminophen 325 Mg Tablet) 650 mg PO Q6H PRN PRN PRN Reason: Pain Score 1-10/Temp > 100.7 F Al Hydroxide/Mg Hydroxide (Mag Hydrox/Al Hydrox/Simeth 30 Ml Udc) 30 ml PO Q6H PRN PRN PRN Reason: Gastric Burning Albuterol/Ipratropium (Ipratropium/Albuterol Sulfate 3 Ml Ampul.Neb) 3 ml INHALATION Q4H.RT [facility] Last Admin: 06/06/20 10:57 Dose: 3 ml Documented by: Aspirin (Aspirin 325 Mg Tablet) [facility] Last Admin: 06/06/20 09:54 Dose: 325 mg Documented by: Cholecalciferol (Cholecalciferol (Vit D3) 1,000 Unit (25mcg)) 2,000 unit PO DAILY [facility] Last Admin: 06/06/20 09:55 Dose: 2,000 unit Documented by: Diltiazem HCl (Diltiazem Cd 300 Mg Capsule) 300 mg PO DAILY [facility] Last Admin: 06/06/20 09:54 Dose: 300 mg Documented by: Furosemide (Furosemide 40 Mg/4 Ml Vial) 40 mg IV BIDLX [facility] Last Admin: 06/06/20 09:55 Dose: 40 mg Documented by: Levofloxacin (Levaquin Iv) 750 mg in 150 mls @ 100 mls/hr IV Q48 [facility] Last Infusion: 06/06/20 11:55 Dose: Infused Documented by: Methylprednisolone (Methylprednisolone 40 Mg/Ml Vial) 40 mg IV Q8 [facility] Last Admin: 06/06/20 06:11 Dose: 40 mg Documented by: Ondansetron HCl (Ondansetron 4 Mg/2 Ml Vial) 4 mg IV Q8H PRN PRN PRN Reason: NAUSEA/VOMITING Pravastatin Sodium (Pravastatin 20 Mg Tablet) 20 mg PO QHS [facility] Sertraline HCl (Sertraline 50 Mg Tablet) 50 mg PO DAILY [facility] Last Admin: 06/06/20 09:55 Dose: 50 mg Documented by: Sodium Chloride (0.9% Saline Lock 10 Ml Syringe) 10 - 40 ml IV UD PRN PRN Reason: SALINE FLUSH Last Admin: 06/06/20 06:12 Dose: 20 ml Documented by: STROKE Vital Signs/Narrative: Vital Signs Pulse Resp BP Pulse Ox 06/06/20 11:05 75 17 06/06/20 10:30 76 22 H 96 06/06/20 10:00 78 18 150/79 H 87 Medical Necessity - Tobacco Use Smoking Status: Former smoker Tobacco Use: Cigarettes Assessment/Plan All Active Problems History of hypertension (Acute) History of end stage renal disease (Acute) Respiratory failure with hypoxia and hypercapnia (Acute) Right lower lobe pulmonary infiltrate (Acute) COPD with exacerbation (Acute) Acute bronchospasm (Acute) Severe sepsis (Acute) #Acute hypoxic and hypercapnic respiratory failure due to COPD exacerbation and Acute HFpEF Patient usually on 3 to 4 L of oxygen at home. Was requiring 6 L today and had to be put on BiPAP as needed as well. On IV Solu-Medrol and being diuresed with IV Lasix. Pulmonology on board. On breathing treatments with bronchodilators. Titrate oxygen to maintain saturation above 90%. 2D echo showed EF of 65% with normal left ventricular systolic function and no evidence of diastolic dysfunction. Left atrium moderately enlarged and right atrium mildly enlarged with moderately severe aortic valve stenosis. Continue diuresing and monitor intake and output. Fluid restriction 1500 cc daily. #Acute COPD exacerbation: As above. Respiratory panel was negative. Covid test was also negative. 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 2D echo showed severe aortic stenosis. #Descending thoracic aortic thrombus CTA of the chest done was negative for PE. There was a transverse dimension of the ascending thoracic aorta measuring 3.5 cm with no demonstrated aortic dissection and appearance of thrombus within the descending was a source of emboli. Is unclear whether this is a new finding. Will reach out to PCP and also obtain records from PCP. Patient will need anticoagulation for this aortic thrombus. However hemoglobin is dropped to 7.6 and iron panel shows severe iron deficiency anemia. Will check stool for occult blood before deciding on anticoagulation #Iron deficiency anemia. Globin was 8.1 on admission and is now down to 7.6. Iron panel done showed iron level of 20 with TIBC of 535 and iron saturation of 3.7. Ferritin is only 21. Will check stool for occult blood. Patient does have a history of colon cancer and states he has had multiple colonoscopies in the past. She cannot remember exactly when the last one was done. Records requested from [facility]. Will transfuse with 1 unit of packed red blood cells on account of heart failure. Will give Lasix with the blood give oral iron supplementation Give IV PPI #A. fib: On Cardizem. #Hypertension: Lisinopril currently on hold. Hydrochlorothiazide also on hold plan. #Hyperlipidemia: On statin #Depression: On Zoloft DVT prophylaxis: hold heparin o/a of anemia. SCDs Inpatient E&M: [id number] [facility] L3
--- NOTE | 2020-06-06 14:38 | CASEMGMT ---
SW was informed by RN HERMELINDA and RN that patient wanted to complete Healthcare Power of [employer] papers. SW went to patient's room, introduced self and role at [facility]. She said her daughter completed the documents. Patient said she did not sign yet. SW told her SW will be right back and bring another person so we can witness her signing the documents. SW then asked ANASTASIIA SHEN to witness signature. Copies were made and given to patient along with original. A copy was also placed in patient's chart. Yi MONTEZ MSW
--- NOTE | 2020-06-06 16:50 | CON.PCM_ITS ---
Problem List (1) History of hypertension Status: Acute (2) History of breast cancer Status: Chronic (3) History of colon cancer Status: Chronic (4) History of COPD Status: Chronic (5) History of end stage renal disease Status: Acute (6) Right lower lobe pulmonary infiltrate Status: Acute (7) COPD with exacerbation Status: Acute (8) Severe sepsis Status: Acute Reason for Consult Date of Consultation: 06/06/20 Reason for Consultation: COPD exacerbation History of Present Illness: The patient is an 80 year old F, with past medical history listed below, who presented to [facility] on 06/05/2020 secondary to worsening shortness of breath and hypoxia. Patient arrived via EMS and was noted to have a saturation of 50% on room air. Patient arrived on a nonrebreather. Patient reportedly does have a history of COPD, but has been following only with her primary care doctor for the last 10 years. Patient reports symptoms had developed gradually over the last 1 to 2 weeks. In the ER, patient was noted to be 63% on room air. Patient was also tachypneic at 26 breaths/min. Chest x-ray showed bilateral infiltrates with right-sided pulmonary nodules. This was followed by a CTA of the chest suggesting pulmonary edema, bibasilar atelectasis and advanced emphysematous changes. Laboratory work-up showed no leukocytosis, but a relative anemia at 8.1. Chemistries were significant for an elevated bicarbonate of 42, creatinine of 1.33, lactate of 2.6 and normal liver function studies. A VBG showed a pH of 7.3 and BNP was slightly elevated at 232. COVID-19 testing was negative. Patient was admitted to the floor for further evaluation. Patient reports that she feels subjectively improved compared to presentation. Patient reportedly lives alone and develops that she was going downhill for several days. Patient had called her PCP and was placed on doxycycline. Patient reports that she does have a history of COPD that was followed by Dr. Phillip in the past. Patient does not go on prednisone frequently. Patient states her last pulmonary function test was years ago but believes her COPD was relatively advanced. Patient is unclear if she is ever had issues with congestive heart failure previously. Review of systems otherwise negative from a constitutional, HEENT, respiratory, cardiovascular, GI, genitourinary, musculoskeletal, skin, neurologic, psychiatric and hematologic system unless stated above. Past Medical History Past Medical History (Chronic Problems): Chronic Problems History of breast cancer (Chronic) History of colon cancer (Chronic) History of COPD (Chronic) Allergies No Known Allergies Allergy (Verified 03/17/17 13:26) Home Medications: Ambulatory Orders Medication Instructions Recorded Aspirin 325 mg PO DAILY 03/17/17 Diltiazem HCl [Cartia Xt] 300 mg PO DAILY 03/17/17 Doxycycline 100 mg PO DAILY 03/17/17 Lisinopril [Zestril] 10 mg PO DAILY 03/17/17 Oxygen, Home [Home Oxygen] 3 lpm NASAL DAILY 03/17/17 Pravastatin [Pravachol] 20 mg PO DAILY 03/17/17 Sertraline HCl [Zoloft] 50 mg PO DAILY 03/17/17 hydroCHLOROthiazide 12.5 mg PO DAILY 03/17/17 [Hydrochlorothiazide] Cholecalciferol (Vitamin D3) 1 tab PO DAILY 06/05/20 [Vitamin D3] Surgical History: colectomy, mastectomy Psychiatric History: Anxiety, Depression [employer] History: No pertinent [employer] history Lives: With Family Smoking Status: Former smoker Tobacco Use: Cigarettes Alcohol: None Drugs: None - *Family History Maternal History Items: Cancer - colon Paternal History Items: Unknown Review of Systems Comment: See HPI Patient Problems: Active and Suspected Problems History of hypertension (Acute) History of end stage renal disease (Acute) Respiratory failure with hypoxia and hypercapnia (Acute) Right lower lobe pulmonary infiltrate (Acute) COPD with exacerbation (Acute) Acute bronchospasm (Acute) Severe sepsis (Acute) Objective: All imaging was personally reviewed. Echocardiogram showed an EF of 65% with moderate LVH and bilateral atrial enlargement. Patient also noted to have moderately severe aortic stenosis. CT of the chest showed no PE, but patient did have significant emphysematous changes bilaterally. - Physical Exam Vitals/I&O's: Vital Signs Temp Pulse Resp BP Pulse Ox 36.6 C 73 23 H 123/63 H 97 06/06/20 12:00 06/06/20 15:00 06/06/20 15:00 06/06/20 15:00 06/06/20 15:00 Oxygen Flow Rate (L/min) 6 Oxygen Delivery Method Bi-pap Weight: 84.1 kg Body Mass Index (BMI) 34.0 Intake and Output for Last 24 Hours 01/09/1906/05/20 06/06/20 23:59 23:59 23:59 Intake Total 2227.41 / 2227.41 Output Total 1350 / 1350 Balance 877.41 / 877.41 General: Alert, Oriented x3, Cooperative, - - Mild conversational dyspnea. Obese. HEENT: Atraumatic, PERRLA, EOMI, Normocephalic, - - No scleral icterus or injection noted Oral: Moist Mucosa, No Gingival or Mucosal Lesions/ Ulcerations Neck: Supple, No JVD, No Nodes, Trachea Midline Lungs: No rhonchi, Diminished, Rales - Right greater than left, Wheezes - End exhalation Cardiovascular: Normal S1, Normal S2, Irregular Rate, Murmur - Grade 3 out of 6 systolic ejection murmur at the right sternal border, No rub noted, No Gallop Abdomen: Bowel Sounds Present, Soft, Non Tender, Non-Distended, Obese Extremities: No clubbing, No cyanosis, Edema - Trace to 1+ lower extremity Skin: No rashes, No breakdown, - - Dermal atrophy noted Musculoskeletal: No Tenderness to Palpation of Joints or Extremities Lymphatic: No Cervical, Supraclavicular, or Inguinal Adenopathy Neurological: Cranial nerves II-XII grossly intact, Neuro grossly intact, Motor Exam 5/5 strength throughout Psych/Mental Status: Alert and oriented to time, place, person, mood and affect Microbiology Past 72 Hours 06/06/20 09:39 Mucosa - Nasopharyngeal Respiratory Panel (PCR) - Final Laboratory Results 06/05/20 23:30: WBC 6.0, RBC 3.37 L, Hgb 8.1 L, Hct 29.5 L, MCV 87.5, MCH 24.0 L , MCHC 27.5 L, RDW Std Deviation 55.6 H, RDW Coeff of Ismael 17.4 H, Plt Count 237, MPV 11.6, Immature Gran % (Auto) 1.700 H, Neut % (Auto) 79.9 H, Lymph % (Auto) 8.7 L, [place] % (Auto) 8.5, Eos % (Auto) 1.0, Baso % (Auto) 0.2, Absolute Neuts (auto) 4.8, Absolute Lymphs (auto) 0.52 L, Nucleated RBC % 0, Differential Comment SCANNED, Platelet Estimate ADEQUATE, Polychromasia RARE, Hypochromasia 1+, Anisocytosis 1+, Microcytosis 1+, Schistocytes RARE 06/05/20 23:30: Sodium 143, Potassium 3.9, Chloride 97 L, Carbon Dioxide 42.0 H, Anion Gap 4 L, BUN 39 H, Creatinine 1.33 H, Estim Creat Clear Calc 27.44, Est GFR (MDRD) Af Amer 49 L, Est GFR (MDRD) Non-Af 41 L, BUN/Creatinine Ratio 29.3 H , Glucose 179 H, Calcium 9.6, Total Bilirubin 0.60, AST 24, ALT 33, Alkaline Phosphatase 110, Troponin I 0.020, Total Protein 7.0, Albumin 3.4, Globulin 3.6, Albumin/Globulin Ratio 0.9 06/05/20 23:30: Lactic Acid 2.6 H* 06/05/20 23:30: B-Natriuretic Peptide 232.8 H 06/05/20 23:35: COVID-19 (NBA) Not Detected 06/05/20 23:56: Specimen Type YADIRA, Sample Site R Radial, pH 7.30 L, Bicarbonate Actual 43.3 H, Total CO2 46, Base Excess 17 H, O2 Saturation 49 L, O2 % 50, ABG pCO2 87.6 H*, ABG pO2 31 L*, Eliot Test Positive, O2 Delivery Device Venti Mask 06/06/20 04:06: WBC 6.4, RBC 3.15 L, Hgb 7.6 L, Hct 27.6 L, MCV 87.6, MCH 24.1 L , MCHC 27.5 L, RDW Std Deviation 55.1 H, RDW Coeff of Ismael 17.4 H, Plt Count 220, MPV 11.7, Immature Gran % (Auto) 0.600, Neut % (Auto) 96.3 H, Lymph % (Auto) 1.7 L, [place] % (Auto) 1.2, Eos % (Auto) 0.0, Baso % (Auto) 0.2, Absolute Neuts (auto) 6.2, Absolute Lymphs (auto) 0.11 L, Nucleated RBC % 0, Differential Comment SCANNED, Polychromasia RARE, Hypochromasia 2+, Anisocytosis 1+, Schistocytes RARE 06/06/20 04:06: Sodium 139, Potassium 4.1, Chloride 97 L, Carbon Dioxide 38.0 H, Anion Gap 4 L, BUN 39 H, Creatinine 1.18 H, Estim Creat Clear Calc 30.93, Est GFR (MDRD) Af Amer 57 L, Est GFR (MDRD) Non-Af 47 L, BUN/Creatinine Ratio 33.1 H , Glucose 176 H, Calcium 8.9, Total Bilirubin 0.30, AST 26, ALT 32, Alkaline Phosphatase 101, Total Protein 6.7, Albumin 3.3, Globulin 3.4, Albumin/Globulin Ratio 1.0 06/06/20 04:06: Lactic Acid 1.4 06/06/20 04:06: Iron 20 L, TIBC 535 H, Iron Saturation 3.7 L, Ferritin 21 06/06/20 15:52: Blood Type Pending, Antibody Screen Pending, Crossmatch See Det ail Current Medications Acetaminophen (Acetaminophen 325 Mg Tablet) 650 mg PO Q6H PRN PRN PRN Reason: Pain Score 1-10/Temp > 100.7 F Al Hydroxide/Mg Hydroxide (Mag Hydrox/Al Hydrox/Simeth 30 Ml Udc) 30 ml PO Q6H PRN PRN PRN Reason: Gastric Burning Albuterol/Ipratropium (Ipratropium/Albuterol Sulfate 3 Ml Ampul.Neb) 3 ml INHALATION Q4H.RT [facility] Last Admin: 06/06/20 14:40 Dose: 3 ml Documented by: Aspirin ([facility] 325 Mg Tablet) [facility] Admin: 06/06/20 09:54 Dose: 325 mg Documented by: Cholecalciferol (Cholecalciferol (Vit D3) 1,000 Unit (25mcg)) 2,000 unit PO DAILY [facility] Last Admin: 06/06/20 09:55 Dose: 2,000 unit Documented by: Diltiazem HCl (Diltiazem Cd 300 Mg Capsule) 300 mg PO DAILY [facility] Last Admin: 06/06/20 09:54 Dose: 300 mg Documented by: Furosemide (Furosemide 40 Mg/4 Ml Vial) 40 mg IV BIDLX [facility] Last Admin: 06/06/20 09:55 Dose: 40 mg Documented by: Levofloxacin (Levaquin Iv) 750 mg in 150 mls @ 100 mls/hr IV Q48 [facility] Last Infusion: 06/06/20 11:55 Dose: Infused Documented by: Pantoprazole Sodium 40 mg/ (Sodium Chloride) 110 mls @ 330 mls/hr IV Q12 [facility] Last Admin: 06/06/20 16:44 Dose: 330 mls/hr Documented by: Methylprednisolone (Methylprednisolone 40 Mg/Ml Vial) 40 mg IV Q8 [facility] Last Admin: 06/06/20 14:23 Dose: 40 mg Documented by: Ondansetron HCl (Ondansetron 4 Mg/2 Ml Vial) 4 mg IV Q8H PRN PRN PRN Reason: NAUSEA/VOMITING Pravastatin Sodium (Pravastatin 20 Mg Tablet) 20 mg PO QHS [facility] Sertraline HCl (Sertraline 50 Mg Tablet) 50 mg PO DAILY [facility] Last Admin: 06/06/20 09:55 Dose: 50 mg Documented by: Sodium Chloride (0.9% Saline Lock 10 Ml Syringe) 10 - 40 ml IV UD PRN PRN Reason: SALINE FLUSH Last Admin: 06/06/20 16:44 Dose: 10 ml Documented by: Clinical Impression(s) from Imaging Studies Chest X-Ray 06/05/20 23:50 IMPRESSION: 1. Cardiomegaly and pulmonary vascular congestion. 2. Right-sided pulmonary nodules. Electronically Signed: Deb Stone MD at 0:36 EST , Service support , Chest CTA 06/06/20 00:47 IMPRESSION: 1. No CTA demonstrated pulmonary embolism or arterial dissection. 2. Findings suggest early pulmonary edema. 3. Pulmonary vascular congestion with COPD. 4. Bilateral basilar atelectasis with possible right lower lobe pneumonia. 5. Intraluminal thrombus within the descending thoracic aorta. Electronically Signed: Deb Stone MD at 2:12 EST , Service support , Assessment/Plan All Active Problems History of hypertension (Acute) History of end stage renal disease (Acute) Respiratory failure with hypoxia and hypercapnia (Acute) Right lower lobe pulmonary infiltrate (Acute) COPD with exacerbation (Acute) Acute bronchospasm (Acute) Severe sepsis (Acute) RECOMMENDATIONS: 1. Continue antibiotics, bronchodilators and steroids 2. Agree with diuretic challenge 3. Wean oxygen as tolerated 4. Walking oximetry prior to discharge 5. Repeat complete PFT as an outpatient IMPRESSIONS: 1. Acute hypoxic respiratory failure secondary to probable COPD exacerbation Patient may have an element of concomitant congestive heart failure, but advanced emphysematous changes are noted on CT scan of the chest. Patient has a negative viral panel, but empiric antibiotics until cultures can be obtained would be appropriate. Agree with challenge of diuretic therapy. Patient is appropriately on antibiotics, bronchodilators and steroids. Patient will need a walking oximetry prior to discharge. Some concern for protracted hypoxia and would be at risk for pulmonary hypertension despite echo findings. This would also be complicated by aortic stenosis. 2. Descending aortic thrombus Unclear etiology. Patient may need a CTA of the abdomen and pelvis for evaluation of dissection. Patient is not showing any signs or symptoms of peripheral embolization on my exam. Patient does have a decreased hemoglobin and this will exacerbate underlying lung disease. 3. A. fib/aortic stenosis/advanced age/hypertension/hyperlipidemia/depression Complicates care, management, recovery and prognosis. Likely okay to continue with baseline medications except for lisinopril may need to be held secondary to active diuresis. Okay to continue statin Zoloft from my perspective. Inpatient E&M: 16094 Init Hosp L2
[2020-06-06] MEDS: Pravastatin 20 MG Tablet PO (21:53)
--- NOTE | 2020-06-06 23:00 | CPS ---
pt stated does not want to wear bipap tonight-pt states breathing well sats 95% on 3 l/m
[2020-06-07] VITALS (16 sets, daily range): BP systolic 146–159; BP diastolic 58–92; PULSE 68–79; RESP 15–26; TEMP 36.5–36.7; O2SAT 91–98
[2020-06-07 01:57] LABS: Hematocrit 28.7 % (37-47); Hemoglobin 8.6 g/dL (12.0-15.0)
[2020-06-07 02:56] LABS: International Normalized Ratio 0.9; Partial Thromboplast Time 24.3 Seconds (24.1-36.2); Prothrombin Time (Protime)PT. 11.9 SECONDS (11.7-14.9)
[2020-06-07] MEDS: Heparin Injection (Vial) 5,000 UNIT/ML VIAL 4000 UNIT IV (02:58)
[2020-06-07] MEDS: HEPARIN/D5w 25,000 UNITS 25,000 UNITS/250 ML IV.SOLN. 10 UNITS IV (02:59)
[2020-06-07] MEDS: Ipratropium/Albuterol Sulfate 3 ML AMPUL.NEB INHALATION ×6 (03:01→23:25)
[2020-06-07] MEDS: 0.9% Saline Lock 10 ML Syringe IV (05:07)
[2020-06-07 05:57] LABS: Hematocrit 29.8 % (37-47); Hemoglobin 8.9 g/dL (12.0-15.0); Lymphocyte % 1.9 % (19-41); Mean Corp Hgb Conc 29.9 g/dL (32-36); Mean Corpuscular Hgb 25.2 pg (27.0-32.0); Mean Corpuscular Volume 84.4 fL (81-99); Mean Platelet Vol. 11.8 fl (6.2-12.0); Monocyte# 0.11 X10^3/uL; Monocyte% 2.1 % (0-10); NRBC Flagged by Analyzer 0 % (0-5); Neutrophil # 4.95 X10^3/uL (2.7-7.7); Neutrophil % 95.4 % (47-70); POSITIVE DIFFERENTIAL YES; Platelet Count 208 K/mm3 (150-450); RBC Distribution Width CV 16.7 % (11.6-14.6); RBC Distribution Width SD 50.9 fl (35.1-43.9); Red Blood Count 3.53 M/mm3 (4.2-5.4); White Blood Count 5.2 K/mm3 (4.4-11.0)
[2020-06-07 06:11] LABS: Anion Gap 6 (5-15); BUN 35 mg/dL (7-18); BUN/Creat Ratio 27.3 RATIO (10-20); Calcium,Total 9.1 mg/dL (8.5-10.1); Chloride 91 mmol/L (98-107); Creatinine, Serum 1.28 mg/dL (0.55-1.02); EST Glomerular Filtration Rate 43 mL/min (>60); Est Glom Filt Rate - Afr Amer 51 mL/min (>60); Estimated Creatinine Clearance 28.51 ml/min; Glucose 181 mg/dL (74-106); Magnesium 1.9 mg/dL (1.6-2.6); Phosphorus 3.5 mg/dL (2.5-4.9); Potassium 3.3 mmol/L (3.5-5.1); Sodium Level 138 mmol/L (136-145)
[2020-06-07 06:17] LABS: Differential Indicated SCAN CRITERIA MET
[2020-06-07 06:57] LABS: Differential Comment SCANNED; Hypochromasia 2+
[2020-06-07] MEDS: Furosemide 40 MG/4 ML Vial IV ×2 (09:37→17:40)
[2020-06-07] MEDS: dilTIAZem CD 300 MG Capsule PO (09:37)
[2020-06-07] MEDS: Sertraline 50 MG Tablet PO (09:37)
[2020-06-07 10:03] LABS: Partial Thromboplast Time 67.5 Seconds (24.1-36.2)
--- NOTE | 2020-06-07 10:41 | CASEMGMT ---
OLESYA met with patient and discussed d/c plan. She really wants to go home, but if she went anywhere she would stay here at [facility] in TCU. OLESYA told her SW can put her name on the list in case she is not strong enough for home. OLESYA offered a list of local nursing homes and she refused stating she would only go to TCU. OLESYA told her we will continue to follow and assist with appropriate d/c plan. OLESYA called [facility] with [facility]CU and they would have a bed for patient. Plan: TCU vs home with home health Yi MONTEZ MSW
--- NOTE | 2020-06-07 10:49 | PN_ITS ---
Patient Problems: Active and Suspected Problems History of hypertension (Acute) History of end stage renal disease (Acute) Respiratory failure with hypoxia and hypercapnia (Acute) Right lower lobe pulmonary infiltrate (Acute) COPD with exacerbation (Acute) Acute bronchospasm (Acute) Severe sepsis (Acute) Subjective: Patient did okay overnight. No acute issues were reported. Patient still requiring significant nasal cannula oxygen to maintain saturations. Patient states that she feels subjectively slightly improved compared to yesterday. Patient still having paroxysmal type cough. - Physical Exam Vitals/I&O's: Vital Signs Temp Pulse Resp BP Pulse Ox 36.6 C 78 20 H 159/68 H 96 06/07/20 09:32 06/07/20 09:32 06/07/20 09:32 06/07/20 09:32 06/07/20 09:32 Oxygen Flow Rate (L/min) 5 Oxygen Delivery Method Nasal Cannula Weight: 85 kg Body Mass Index (BMI) 34.0 Intake and Output for Last 24 Hours 06/05/20 06/06/20 06/07/20 23:59 23:59 23:59 Intake Total 2737.41 / 2737.41 185.67 / 185.67 Output Total 1350 / 1350 1000 / 1000 Balance 1387.41 / 1387.41 -814.33 / -814.33 General: Alert, Oriented x3, Cooperative, No apparent distress, - - Only mild conversational dyspnea. Obese. HEENT: Atraumatic, PERRLA, EOMI, Normocephalic, - - No scleral icterus or injection noted. Glasses in place. Oral: Moist Mucosa, No Gingival or Mucosal Lesions/ Ulcerations Neck: Supple, No JVD, No Nodes, Trachea Midline Lungs: No rhonchi, No rales, Diminished, Wheezes - Sporadic at end exhalation Cardiovascular: Regular rate, Regular Rhythm, Normal S1, Normal S2, No murmurs, No rub noted, No Gallop Abdomen: Bowel Sounds Present, Soft, Non Tender, Non-Distended, Obese Extremities: No clubbing, No cyanosis, Edema Skin: No rashes, No breakdown, - - Dermal atrophy noted. Musculoskeletal: No Tenderness to Palpation of Joints or Extremities Lymphatic: No Cervical, Supraclavicular, or Inguinal Adenopathy Neurological: Cranial nerves II-XII grossly intact, Neuro grossly intact, Motor Exam 5/5 strength throughout Psych/Mental Status: Alert and oriented to time, place, person, mood and affect Microbiology Past 72 Hours 06/07/20 09:30 Stool Stool Occult Blood (SHANTELL) - Final 06/06/20 09:39 Mucosa - Nasopharyngeal Respiratory Panel (PCR) - Final Laboratory Results 06/06/20 15:52: Blood Type O POSITIVE, Antibody Screen NEGATIVE, Crossmatch See Detail 06/07/20 01:50: Hgb 8.6 L, Hct 28.7 L 06/07/20 02:40: PT 11.9, INR 0.9, APTT 24.3 06/07/20 02:40: WBC 5.2, RBC 3.53 L, Hgb 8.9 L, Hct 29.8 L, MCV 84.4, MCH 25.2 L , MCHC 29.9 L D, RDW Std Deviation 50.9 H, RDW Coeff of Ismael 16.7 H, Plt Count 208, MPV 11.8, Immature Gran % (Auto) 0.600, Neut % (Auto) 95.4 H, Lymph % (Auto) 1.9 L, Daniels % (Auto) 2.1, Eos % (Auto) 0.0, Baso % (Auto) 0.0, Absolute Neuts (auto) 5.0, Absolute Lymphs (auto) 0.10 L, Nucleated RBC % 0, Differential Comment SCANNED, Hypochromasia 2+ 06/07/20 02:40: Sodium 138, Potassium 3.3 L, Chloride 91 L, Carbon Dioxide 41.0 H, Anion Gap 6, BUN 35 H, Creatinine 1.28 H, Estim Creat Clear Calc 28.51, Est GFR (MDRD) Af Amer 51 L, Est GFR (MDRD) Non-Af 43 L, BUN/Creatinine Ratio 27.3 H , Glucose 181 H, Calcium 9.1, Phosphorus 3.5, Magnesium 1.9 06/07/20 09:30: APTT 67.5 H Current Medications Acetaminophen (Acetaminophen 325 Mg Tablet) 650 mg PO Q6H PRN PRN PRN Reason: Pain Score 1-10/Temp > 100.7 F Al Hydroxide/Mg Hydroxide (Mag Hydrox/Al Hydrox/Simeth 30 Ml Udc) 30 ml PO Q6H PRN PRN PRN Reason: Gastric Burning Albuterol/Ipratropium (Ipratropium/Albuterol Sulfate 3 Ml Ampul.Neb) 3 ml INHALATION Q4H.RT [facility] Last Admin: 06/07/20 06:36 Dose: 3 ml Documented by: Aspirin (Aspirin 325 Mg Tablet) 325 mg PO DAILYCM [facility] Last Admin: 06/06/20 09:54 Dose: 325 mg Documented by: Cholecalciferol (Cholecalciferol (Vit D3) 1,000 Unit (25mcg)) 2,000 unit PO DAILY [facility] Last Admin: 06/07/20 09:37 Dose: 2,000 unit Documented by: Diltiazem HCl (Diltiazem Cd 300 Mg Capsule) 300 mg PO DAILY [facility] Last Admin: 06/07/20 09:37 Dose: 300 mg Documented by: Furosemide (Furosemide 40 Mg/4 Ml Vial) 40 mg IV BIDLX [facility] Last Admin: 06/07/20 09:37 Dose: 40 mg Documented by: Heparin Sodium (Porcine) (Heparin Injection (Vial) 5,000 Unit/Ml Vial) 0 unit IV UD PRN; Protocol PRN Reason: dose adjustment Levofloxacin (Levaquin Iv) 750 mg in 150 mls @ 100 mls/hr IV Q48 [facility] Last Infusion: 06/06/20 11:55 Dose: Infused Documented by: Pantoprazole Sodium 40 mg/ (Sodium Chloride) 110 mls @ 330 mls/hr IV Q12 [facility] Last Infusion: 06/07/20 10:33 Dose: Infused Documented by: Heparin Sodium/Dextrose () 25,000 units in 250 mls @ 10 mls/hr IV .Q25H [facility]; Protocol Last Titration: 06/07/20 10:33 Dose: 900 units/hr, 9 mls/hr Documented by: Methylprednisolone (Methylprednisolone 40 Mg/Ml Vial) 40 mg IV Q8 [facility] Last Admin: 06/07/20 05:06 Dose: 40 mg Documented by: Ondansetron HCl (Ondansetron 4 Mg/2 Ml Vial) 4 mg IV Q8H PRN PRN PRN Reason: NAUSEA/VOMITING Pravastatin Sodium (Pravastatin 20 Mg Tablet) 20 mg PO QHS [facility] Last Admin: 06/06/20 21:53 Dose: 20 mg Documented by: Sertraline HCl (Sertraline 50 Mg Tablet) 50 mg PO DAILY [facility] Last Admin: 06/07/20 09:37 Dose: 50 mg Documented by: Sodium Chloride (0.9% Saline Lock 10 Ml Syringe) 10 - 40 ml IV UD PRN PRN Reason: SALINE FLUSH Last Admin: 06/07/20 05:07 Dose: 10 ml Documented by: Medical Necessity - Tobacco Use Smoking Status: Former smoker Tobacco Use: Cigarettes Assessment/Plan All Active Problems History of hypertension (Acute) History of end stage renal disease (Acute) Respiratory failure with hypoxia and hypercapnia (Acute) Right lower lobe pulmonary infiltrate (Acute) COPD with exacerbation (Acute) Acute bronchospasm (Acute) Severe sepsis (Acute) RECOMMENDATIONS: 1. Continue antibiotics, bronchodilators and steroids at current dosing 2. Agree with diuretic challenge. Potassium repletion as necessary 3. Wean oxygen as tolerated 4. Walking oximetry prior to discharge 5. Repeat complete PFT as an outpatient IMPRESSIONS: 1. Acute hypoxic respiratory failure secondary to probable COPD exacerbation Patient may have an element of concomitant congestive heart failure, but advanced emphysematous changes are noted on CT scan of the chest. Patient has a negative viral panel, but empiric antibiotics until cultures can be obtained would be appropriate. Anticipate 5 days of antibiotics would be sufficient. Agree with challenge of diuretic therapy. Patient is appropriately on antibiotics, bronchodilators and steroids. Patient will need a walking oximetry prior to discharge. Some concern for protracted hypoxia and would be at risk for pulmonary hypertension despite echo findings. Pulmonary hypertension would also be complicated by aortic stenosis. Further outpatient optimization of COPD may also be helpful. 2. Descending aortic thrombus Unclear etiology. Patient may need a CTA of the abdomen and pelvis for evaluation of dissection. Patient is not showing any signs or symptoms of peripheral embolization on my exam. Patient does have a decreased hemoglobin and this will exacerbate underlying lung disease. 3. A. fib/aortic stenosis/advanced age/hypertension/hyperlipidemia/depression Complicates care, management, recovery and prognosis. Likely okay to continue with baseline medications except for lisinopril may need to be held secondary to active diuresis. Okay to continue statin Zoloft from my perspective. Inpatient E&M: 27863 Subs Hosp L2
--- NOTE | 2020-06-07 13:36 | PN_ITS ---
Patient Problems: Active and Suspected Problems History of hypertension (Acute) History of end stage renal disease (Acute) Respiratory failure with hypoxia and hypercapnia (Acute) Right lower lobe pulmonary infiltrate (Acute) COPD with exacerbation (Acute) Acute bronchospasm (Acute) Severe sepsis (Acute) Subjective: Patient seen and examined. She remains short of breath, and says her shortness of breath seems to get worse with movement. She has no other complaints and review of systems is otherwise negative. She has otherwise remained hemodynamically stable. She was on BiPAP at the time I was seeing her though she had been on 5 L of oxygen for most of the day. Potassium was 3.3 today. CBC showed hemoglobin of 8.9. Of note, patient was started on heparin drip overnight on account of descending thoracic aortic thrombus. She was transfused with 1 unit of packed red blood cells yesterday. Vitals/I&O's: Vital Signs Temp Pulse Resp BP Pulse Ox 97.8 F 77 21 H 159/68 H 96 06/07/20 09:32 06/07/20 11:12 06/07/20 11:12 06/07/20 09:32 06/07/20 09:32 Oxygen Flow Rate (L/min) 5 Oxygen Delivery Method Nasal Cannula Weight: 187 lb 6.287 oz Body Mass Index (BMI) 34.0 Intake and Output for Last 24 Hours 06/05/20 06/06/20 06/07/20 23:59 23:59 23:59 Intake Total 2737.41 / 2737.41 185.67 / 185.67 Output Total 1350 / 1350 1000 / 1000 Balance 1387.41 / 1387.41 -814.33 / -814.33 General: Alert, Oriented x3, Cooperative, No apparent distress HEENT: Atraumatic, PERRLA, EOMI, Normocephalic Oral: Dry Mucosa Neck: Supple, No JVD, Negative Carotid Bruits Lungs: - - diminished breath sounds in all lung grider; mild wheezing in all lung grider. On 5L of oxygen, with BIPAP prn Cardiovascular: Regular rate, Normal S1, Normal S2, No murmurs Abdomen: Bowel Sounds Present, Soft, Non Tender, Non-Distended, No Hepato- splenomegaly Extremities: No clubbing, No cyanosis, No edema, Capillary Refill Less than 3 Seconds Skin: No rashes, No breakdown Musculoskeletal: No Tenderness to Palpation of Joints or Extremities Lymphatic: No Cervical, Supraclavicular, or Inguinal Adenopathy Neurological: Cranial nerves II-XII grossly intact, Neuro grossly intact, Motor Exam 5/5 strength throughout Psych/Mental Status: Normal Affect, Appropriate, Alert and oriented to time, place, person, mood and affect Microbiology Past 72 Hours 06/07/20 09:30 Stool Stool Occult Blood (SHANTELL) - Final 06/06/20 09:39 Mucosa - Nasopharyngeal Respiratory Panel (PCR) - Final Laboratory Results 06/06/20 15:52: Blood Type O POSITIVE, Antibody Screen NEGATIVE, Crossmatch See Detail 06/07/20 01:50: Hgb 8.6 L, Hct 28.7 L 06/07/20 02:40: PT 11.9, INR 0.9, APTT 24.3 06/07/20 02:40: WBC 5.2, RBC 3.53 L, Hgb 8.9 L, Hct 29.8 L, MCV 84.4, MCH 25.2 L , MCHC 29.9 L D, RDW Std Deviation 50.9 H, RDW Coeff of Ismael 16.7 H, Plt Count 208, MPV 11.8, Immature Gran % (Auto) 0.600, Neut % (Auto) 95.4 H, Lymph % (Auto) 1.9 L, Appling % (Auto) 2.1, Eos % (Auto) 0.0, Baso % (Auto) 0.0, Absolute Neuts (auto) 5.0, Absolute Lymphs (auto) 0.10 L, Nucleated RBC % 0, Differential Comment SCANNED, Hypochromasia 2+ 06/07/20 02:40: Sodium 138, Potassium 3.3 L, Chloride 91 L, Carbon Dioxide 41.0 H, Anion Gap 6, BUN 35 H, Creatinine 1.28 H, Estim Creat Clear Calc 28.51, Est GFR (MDRD) Af Amer 51 L, Est GFR (MDRD) Non-Af 43 L, BUN/Creatinine Ratio 27.3 H , Glucose 181 H, Calcium 9.1, Phosphorus 3.5, Magnesium 1.9 06/07/20 09:30: APTT 67.5 H Current Medications Acetaminophen (Acetaminophen 325 Mg Tablet) 650 mg PO Q6H PRN PRN PRN Reason: Pain Score 1-10/Temp > 100.7 F Al Hydroxide/Mg Hydroxide (Mag Hydrox/Al Hydrox/Simeth 30 Ml Udc) 30 ml PO Q6H PRN PRN PRN Reason: Gastric Burning Albuterol/Ipratropium (Ipratropium/Albuterol Sulfate 3 Ml Ampul.Neb) 3 ml INHALATION Q4H.RT [facility] Last Admin: 06/07/20 11:12 Dose: 3 ml Documented by: Aspirin (Aspirin 325 Mg Tablet) 325 mg PO DAILYCM [facility] Last Admin: 06/06/20 09:54 Dose: 325 mg Documented by: Bisacodyl (Bisacodyl 5 Mg Tablet) 20 mg PO 1400 ONE Stop: 06/07/20 14:01 Cholecalciferol (Cholecalciferol (Vit D3) 1,000 Unit (25mcg)) 2,000 unit PO DAILY [facility] Last Admin: 06/07/20 09:37 Dose: 2,000 unit Documented by: Diltiazem HCl (Diltiazem Cd 300 Mg Capsule) 300 mg PO DAILY [facility] Last Admin: 06/07/20 09:37 Dose: 300 mg Documented by: Furosemide (Furosemide 40 Mg/4 Ml Vial) 40 mg IV BIDLX [facility] Last Admin: 06/07/20 09:37 Dose: 40 mg Documented by: Heparin Sodium (Porcine) (Heparin Injection (Vial) 5,000 Unit/Ml Vial) 0 unit IV UD PRN; Protocol PRN Reason: dose adjustment Levofloxacin (Levaquin Iv) 750 mg in 150 mls @ 100 mls/hr IV Q48 [facility] Last Infusion: 06/06/20 11:55 Dose: Infused Documented by: Pantoprazole Sodium 40 mg/ (Sodium Chloride) 110 mls @ 330 mls/hr IV Q12 [facility] Last Infusion: 06/07/20 10:33 Dose: Infused Documented by: Heparin Sodium/Dextrose () 25,000 units in 250 mls @ 10 mls/hr IV .Q25H [facility]; Protocol Last Titration: 06/07/20 10:33 Dose: 900 units/hr, 9 mls/hr Documented by: Methylprednisolone (Methylprednisolone 40 Mg/Ml Vial) 40 mg IV Q8 [facility] Last Admin: 06/07/20 05:06 Dose: 40 mg Documented by: Ondansetron HCl (Ondansetron 4 Mg/2 Ml Vial) 4 mg IV Q8H PRN PRN PRN Reason: NAUSEA/VOMITING Polyethylene Glycol (Polyethylene Glycol 3350 Bowel Prep) 0 bottle PO DAILY@1600 ONE Stop: 06/07/20 16:01 Pravastatin Sodium (Pravastatin 20 Mg Tablet) 20 mg PO QHS [facility] Last Admin: 06/06/20 21:53 Dose: 20 mg Documented by: Sertraline HCl (Sertraline 50 Mg Tablet) 50 mg PO DAILY [facility] Last Admin: 06/07/20 09:37 Dose: 50 mg Documented by: Sodium Chloride (0.9% Saline Lock 10 Ml Syringe) 10 - 40 ml IV UD PRN PRN Reason: SALINE FLUSH Last Admin: 06/07/20 05:07 Dose: 10 ml Documented by: STROKE Vital Signs/Narrative: Vital Signs Pulse Resp 06/07/20 11:12 77 21 H Medical Necessity - Tobacco Use Smoking Status: Former smoker Tobacco Use: Cigarettes Assessment/Plan All Active Problems History of hypertension (Acute) History of end stage renal disease (Acute) Respiratory failure with hypoxia and hypercapnia (Acute) Right lower lobe pulmonary infiltrate (Acute) COPD with exacerbation (Acute) Acute bronchospasm (Acute) Severe sepsis (Acute) #Acute hypoxic and hypercapnic respiratory failure due to COPD exacerbation and Acute HFpEF * on 5L and BIPAP prn * On IV Solu-Medrol and being diuresed with IV Lasix. * Pulmonology on board. On breathing treatments with bronchodilators. * Titrate oxygen to maintain saturation above 90%. * 2D echo showed EF of 65% with normal left ventricular systolic function and no evidence of diastolic dysfunction. Left atrium moderately enlarged and right atrium mildly enlarged with moderately severe aortic valve stenosis. * in cumulative positive balance by 573mls * #Acute COPD exacerbation: As above. Respiratory panel was negative. Covid test was also negative. 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 2D echo showed severe aortic stenosis. #Descending thoracic aortic thrombus * CTA of the chest done was negative for PE. There was a transverse dimension of the ascending thoracic aorta measuring 3.5 cm with no demonstrated aortic dissection and appearance of thrombus within the descending was a source of emboli. * I did discuss this with her PCP and there is no record of her having this thrombus in the past. * Patient was started on heparin drip overnight. * Stool for occult blood done is negative. * #Iron deficiency anemia. * It is post transfusion of 1 unit of packed red blood cells. Hemoglobin today is 8.9. * Records obtained from her PCP showed that hemoglobin is usually between 12 and 13. * She does have a history of colon cancer back in 2002 s/p resection. She has been fine since then after she received chemotherapy. * From the records, patient's last colonoscopy was in 2013 and she was supposed received in 2016 but she declined it in 2016. * Iron panel shows severe iron deficiency anemia. Even though stool for occult blood is negative, in light of patient needing anticoagulation on account of the thoracic aortic thrombus, will consult general surgery. * For EGD and colonoscopy tomorrow. * To hold heparin drip at 5 AM on 06/08/2020 * on IV pantoprazole * * #A. fib: On Cardizem. currentlyu rate controlled. #Hypertension: Lisinopril currently on hold. Hydrochlorothiazide also on hold. IV hydralazine prn #Hyperlipidemia: On statin #Depression: On Zoloft DVT prophylaxis: on heparin drip Inpatient E&M: [id number] [facility] Hosp L3
[2020-06-07] MEDS: Bisacodyl 5 MG Tablet 20 MG PO (13:57)
--- NOTE | 2020-06-07 15:54 | CON.PCM_ITS ---
Problem List (1) Iron deficiency anemia Status: Acute Qualifiers: Iron deficiency anemia type: unspecified iron deficiency Qualified Code(s): D50.9 - Iron deficiency anemia, unspecified Reason for Consult Date of Consultation: 06/07/20 History of Present Illness: The patient is a 80 year old F presented to the hospital and was found to have iron deficiency anemia. Fecal occult blood was positive. The patient was found to have a thrombus in her descending aorta and was started on a heparin drip. The patient has a history of right hemicolectomy for colon cancer is not had a colonoscopy since 2013. She is not having any gross blood in her stool has no abdominal pain. Past Medical History Past Medical History (Chronic Problems): Chronic Problems History of breast cancer (Chronic) History of colon cancer (Chronic) History of COPD (Chronic) Allergies No Known Allergies Allergy (Verified 03/17/17 13:26) Home Medications: Ambulatory Orders Medication Instructions Recorded Aspirin 325 mg PO DAILY 03/17/17 Diltiazem HCl [Cartia Xt] 300 mg PO DAILY 03/17/17 Doxycycline 100 mg PO DAILY 03/17/17 Lisinopril [Zestril] 10 mg PO DAILY 03/17/17 Oxygen, Home [Home Oxygen] 3 lpm NASAL DAILY 03/17/17 Pravastatin [Pravachol] 20 mg PO DAILY 03/17/17 Sertraline HCl [Zoloft] 50 mg PO DAILY 03/17/17 hydroCHLOROthiazide 12.5 mg PO DAILY 03/17/17 [Hydrochlorothiazide] Cholecalciferol (Vitamin D3) 1 tab PO DAILY 06/05/20 [Vitamin D3] Surgical History: colectomy, mastectomy Psychiatric History: Anxiety, Depression 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: No pertinent MOTH EXTERMINATOR history Lives: With Family Smoking Status: Former smoker Tobacco Use: Cigarettes Alcohol: None Drugs: None - *Family History Maternal History Items: Cancer - colon Paternal History Items: Unknown Review of Systems Constitutional: Denies: Anorexia, Fever HEENT: Denies: Difficulty Swallowing, Hard of Hearing Cardiovascular: Denies: Chest Pain, Edema Respiratory: Denies: Cough, Shortness of Breath Gastrointestinal: Denies: Abdominal Pain, Constipation, Diarrhea, Hematemesis, Hematochezia, Nausea, Vomiting Musculoskeletal: Denies: Joint Tenderness Skin: Denies: Jaundice Neurological: Denies: Balance problems Psychiatric: Denies: Depression Hematologic/ Lymphatic: Reports: Anemia Patient Problems: Active and Suspected Problems History of hypertension (Acute) History of end stage renal disease (Acute) Respiratory failure with hypoxia and hypercapnia (Acute) Right lower lobe pulmonary infiltrate (Acute) COPD with exacerbation (Acute) Acute bronchospasm (Acute) Severe sepsis (Acute) - Physical Exam Vitals/I&O's: Vital Signs Temp Pulse Resp BP Pulse Ox 97.7 F L 72 20 H 146/82 H 95 06/07/20 15:27 06/07/20 15:27 06/07/20 15:27 06/07/20 15:27 06/07/20 15:27 Oxygen Flow Rate (L/min) 5 Oxygen Delivery Method Nasal Cannula Weight: 187 lb 6.287 oz Body Mass Index (BMI) 34.0 Intake and Output for Last 24 Hours 06/05/20 06/06/20 06/07/20 23:59 23:59 23:59 Intake Total 2737.41 / 2737.41 185.67 / 185.67 Output Total 1350 / 1350 1000 / 1000 Balance 1387.41 / 1387.41 -814.33 / -814.33 General: Alert, Oriented x3 HEENT: Atraumatic Lungs: Normal air movement Cardiovascular: Regular rate, Regular Rhythm Abdomen: Soft, Non Tender, Non-Distended Musculoskeletal: No Muscle Wasting Neurological: Cranial nerves II-XII grossly intact Psych/Mental Status: Normal Affect Microbiology Past 72 Hours 06/07/20 09:30 Stool Stool Occult Blood (SHANTELL) - Final 06/06/20 09:39 Mucosa - Nasopharyngeal Respiratory Panel (PCR) - Final Laboratory Results 06/06/20 15:52: Blood Type O POSITIVE, Antibody Screen NEGATIVE, Crossmatch See Detail 06/07/20 01:50: Hgb 8.6 L, Hct 28.7 L 06/07/20 02:40: PT 11.9, INR 0.9, APTT 24.3 06/07/20 02:40: WBC 5.2, RBC 3.53 L, Hgb 8.9 L, Hct 29.8 L, MCV 84.4, MCH 25.2 L , MCHC 29.9 L D, RDW Std Deviation 50.9 H, RDW Coeff of Ismael 16.7 H, Plt Count 208, MPV 11.8, Immature Gran % (Auto) 0.600, Neut % (Auto) 95.4 H, Lymph % (Auto) 1.9 L, Wirt % (Auto) 2.1, Eos % (Auto) 0.0, Baso % (Auto) 0.0, Absolute Neuts (auto) 5.0, Absolute Lymphs (auto) 0.10 L, Nucleated RBC % 0, Differential Comment SCANNED, Hypochromasia 2+ 06/07/20 02:40: Sodium 138, Potassium 3.3 L, Chloride 91 L, Carbon Dioxide 41.0 H, Anion Gap 6, BUN 35 H, Creatinine 1.28 H, Estim Creat Clear Calc 28.51, Est GFR (MDRD) Af Amer 51 L, Est GFR (MDRD) Non-Af 43 L, BUN/Creatinine Ratio 27.3 H , Glucose 181 H, Calcium 9.1, Phosphorus 3.5, Magnesium 1.9 06/07/20 09:30: APTT 67.5 H Current Medications Acetaminophen (Acetaminophen 325 Mg Tablet) 650 mg PO Q6H PRN PRN PRN Reason: Pain Score 1-10/Temp > 100.7 F Al Hydroxide/Mg Hydroxide (Mag Hydrox/Al Hydrox/Simeth 30 Ml Udc) 30 ml PO Q6H PRN PRN PRN Reason: Gastric Burning Albuterol/Ipratropium (Ipratropium/Albuterol Sulfate 3 Ml Ampul.Neb) 3 ml INHALATION Q4H.RT [facility] Last Admin: 06/07/20 11:12 Dose: 3 ml Documented by: Aspirin (A[facility]in 325 Mg Tablet) [facility] Last Admin: 06/06/20 09:54 Dose: 325 mg Documented by: Cholecalciferol (Cholecalciferol (Vit D3) 1,000 Unit (25mcg)) 2,000 unit PO DAILY [facility] Last Admin: 06/07/20 09:37 Dose: 2,000 unit Documented by: Diltiazem HCl (Diltiazem Cd 300 Mg Capsule) 300 mg PO DAILY [facility] Last Admin: 06/07/20 09:37 Dose: 300 mg Documented by: Furosemide (Furosemide 40 Mg/4 Ml Vial) 40 mg IV BIDLX [facility] Last Admin: 06/07/20 09:37 Dose: 40 mg Documented by: Heparin Sodium (Porcine) (Heparin Injection (Vial) 5,000 Unit/Ml Vial) 0 unit IV UD PRN; Protocol PRN Reason: dose adjustment Levofloxacin (Levaquin Iv) 750 mg in 150 mls @ 100 mls/hr IV Q48 [facility] Last Infusion: 06/06/20 11:55 Dose: Infused Documented by: Pantoprazole Sodium 40 mg/ (Sodium Chloride) 110 mls @ 330 mls/hr IV Q12 [facility] Last Infusion: 06/07/20 10:33 Dose: Infused Documented by: Heparin Sodium/Dextrose () 25,000 units in 250 mls @ 10 mls/hr IV .Q25H [facility]; Protocol Last Titration: 06/07/20 10:33 Dose: 900 units/hr, 9 mls/hr Documented by: Methylprednisolone (Methylprednisolone 40 Mg/Ml Vial) 40 mg IV Q8 [facility] Last Admin: 06/07/20 13:57 Dose: 40 mg Documented by: Ondansetron HCl (Ondansetron 4 Mg/2 Ml Vial) 4 mg IV Q8H PRN PRN PRN Reason: NAUSEA/VOMITING Polyethylene Glycol (Polyethylene Glycol 3350 Bowel Prep) 0 bottle PO DAILY@1600 ONE Stop: 06/07/20 16:01 Pravastatin Sodium (Pravastatin 20 Mg Tablet) 20 mg PO QHS [facility] Last Admin: 06/06/20 21:53 Dose: 20 mg Documented by: Sertraline HCl (Sertraline 50 Mg Tablet) 50 mg PO DAILY [facility] Last Admin: 06/07/20 09:37 Dose: 50 mg Documented by: Sodium Chloride (0.9% Saline Lock 10 Ml Syringe) 10 - 40 ml IV UD PRN PRN Reason: SALINE FLUSH Last Admin: 06/07/20 05:07 Dose: 10 ml Documented by: Assessment/Plan All Active Problems History of hypertension (Acute) History of end stage renal disease (Acute) Respiratory failure with hypoxia and hypercapnia (Acute) Right lower lobe pulmonary infiltrate (Acute) COPD with exacerbation (Acute) Acute bronchospasm (Acute) Severe sepsis (Acute) Iron deficiency anemia (Acute) 80-year-old female with iron deficiency anemia 1. Patient has a thrombus of the descending aorta and requires anticoagulation. The patient has negative fecal occult blood but has positive iron deficiency anemia. The patient is overdue for colonoscopy. She does not describe any ulcer-like symptoms. I was consulted for EGD and colonoscopy before starting the patient on full anticoagulation. The patient is currently on a heparin drip. 2. I explained endoscopy in detail to the patient. I explained the risks including but not limited to stroke or heart attack with anesthesia, perforation of the GI tract, bleeding, infection. I explained that any of these could necessitate further emergency surgery. The patient understands and all questions were answered sufficiently. The patient wishes to proceed with procedure. 3. Patient has bowel prep which is starting now and I will plan for EGD and colonoscopy tomorrow. Hold heparin 5 hours before the procedure. Olvin Newsome MD Pager: [facility] [address] [place] [address], [address] [place] [address] Office:
[2020-06-07] MEDS: Polyethylene Glycol 3350 BOWEL PREP PO (16:42)
[2020-06-07 17:24] LABS: Partial Thromboplast Time 53.8 Seconds (24.1-36.2)
[2020-06-07] MEDS: Pravastatin 20 MG Tablet PO (22:09)
[2020-06-07 23:54] LABS: Partial Thromboplast Time 79.2 Seconds (24.1-36.2)
[2020-06-08] VITALS (16 sets, daily range): BP systolic 112–140; BP diastolic 56–76; PULSE 60–86; RESP 18–22; TEMP 36.3–36.8; O2SAT 91–95; BMI 33.2
[2020-06-08] MEDS: Magnesium Hydroxide 30 ML UDC PO (00:19)
[2020-06-08] MEDS: Polyethylene Glycol 3350 BOWEL PREP 1 BOTTLE PO (00:55)
[2020-06-08] MEDS: Ipratropium/Albuterol Sulfate 3 ML AMPUL.NEB INHALATION ×6 (02:30→23:55)
[2020-06-08] MEDS: 0.9% Saline Lock 10 ML Syringe IV (05:20)
--- NOTE | 2020-06-08 05:55 | EKG12_ITS ---
Test Reason : AM EKG Blood Pressure : / mmHG Vent. Rate : 075 BPM Atrial Rate : 075 BPM P-R Int : 110 ms QRS Dur : 096 ms QT Int : 416 ms P-R-T Axes : 042 001 016 degrees QTc Int : 464 ms Sinus rhythm with short IL with Premature supraventricular complexes Otherwise normal ECG Confirmed by ANABELLE HAWKINS, CAMELIA ([id number]), editorial director RY PATTERSON ([id number]) on 06/11/2020 10:01:55 AM Referred By: MYLES Confirmed By:CAMELIA AHN MD
[2020-06-08 06:35] LABS: Absolute Lymphocyte Count 0.12 X10^3/uL (0.83-4.51); Absolute Neutrophil Count 10.3 X10^3/uL (2.0-7.7); Hematocrit 34.2 % (37-47); Hemoglobin 10.1 g/dL (12.0-15.0); Lymphocyte # 0.12 X10^3/ul (4.0); Lymphocyte % 1.1 % (19-41); Mean Corp Hgb Conc 29.5 g/dL (32-36); Mean Corpuscular Hgb 24.9 pg (27.0-32.0); Mean Corpuscular Volume 84.2 fL (81-99); Mean Platelet Vol. 11.3 fl (6.2-12.0); Monocyte# 0.45 X10^3/uL; Monocyte% 4.1 % (0-10); NRBC Flagged by Analyzer 0 % (0-5); Neutrophil # 10.28 X10^3/uL (2.7-7.7); Neutrophil % 94.2 % (47-70); POSITIVE DIFFERENTIAL YES; Platelet Count 295 K/mm3 (150-450); RBC Distribution Width CV 17.2 % (11.6-14.6); RBC Distribution Width SD 53.2 fl (35.1-43.9); Red Blood Count 4.06 M/mm3 (4.2-5.4); White Blood Count 10.9 K/mm3 (4.4-11.0)
[2020-06-08 06:42] LABS: Differential Indicated SCAN CRITERIA MET
[2020-06-08 06:44] LABS: Prothrombin Time (Protime)PT. 12.1 SECONDS (11.7-14.9)
[2020-06-08 06:47] LABS: Partial Thromboplast Time 56.1 Seconds (24.1-36.2)
[2020-06-08 06:56] LABS: Anion Gap 8 (5-15); Anisocytosis RARE; BUN 44 mg/dL (7-18); BUN/Creat Ratio 25.7 RATIO (10-20); Calcium,Total 8.6 mg/dL (8.5-10.1); Chloride 86 mmol/L (98-107); Creatinine, Serum 1.71 mg/dL (0.55-1.02); Differential Comment SCANNED; EST Glomerular Filtration Rate 30 mL/min (>60); Est Glom Filt Rate - Afr Amer 37 mL/min (>60); Estimated Creatinine Clearance 21.34 ml/min; Glucose 169 mg/dL (74-106); Hypochromasia 1+; Microcytosis RARE; Potassium 3.3 mmol/L (3.5-5.1); Sodium Level 133 mmol/L (136-145)
[2020-06-08] MEDS: levoFLOXacin IV 750 MG/150 ML BAG 100 MG IV (08:34)
[2020-06-08] MEDS: Potassium Chloride 10mEq/100mL 10 MEQ/100 ML IV.SOLN. 100 MEQ IV BOLUS ×4 (08:54→12:23)
--- NOTE | 2020-06-08 09:05 | PCM.PN.PUL ---
Patient Problems: Active and Suspected Problems History of hypertension (Acute) History of end stage renal disease (Acute) Respiratory failure with hypoxia and hypercapnia (Acute) Right lower lobe pulmonary infiltrate (Acute) COPD with exacerbation (Acute) Acute bronchospasm (Acute) Severe sepsis (Acute) Iron deficiency anemia (Acute) Subjective: Patient did well overnight. No acute issues were reported. Patient tolerating baseline nasal cannula oxygen at this time. Patient continues to have a cough. Patient reportedly to have an upper and lower GI. - Physical Exam Vitals/I&O's: Vital Signs Temp Pulse Resp BP Pulse Ox 36.8 C 60 18 112/56 L 93 06/08/20 08:46 06/08/20 08:46 06/08/20 08:46 06/08/20 08:46 06/08/20 08:46 Oxygen Flow Rate (L/min) 3 Oxygen Delivery Method Nasal Cannula Weight: 85 kg Body Mass Index (BMI) 33.2 Intake and Output for Last 24 Hours 06/06/20 06/07/20 06/08/20 23:59 23:59 23:59 Intake Total 2737.41 / 2737.41 360.92 / 360.92 3209.08 / 3209.08 Output Total 1350 / 1350 1000 / 1000 Balance 1387.41 / 1387.41 -639.08 / -639.08 3209.08 / 3209.08 General: Alert, Oriented x3, Cooperative, - - Mild conversational dyspnea. Obese. HEENT: Atraumatic, PERRLA, EOMI, Normocephalic, - - Scleral icterus or injection noted Oral: No Gingival or Mucosal Lesions/ Ulcerations, Dry Mucosa Neck: Supple, No JVD, No Nodes, Trachea Midline Lungs: No rhonchi, No rales, Diminished, Wheezes - Sporadic Cardiovascular: Regular rate, Regular Rhythm, Normal S1, Normal S2, No murmurs, No rub noted, No Gallop Abdomen: Bowel Sounds Present, Soft, Non Tender, Non-Distended, Obese Extremities: No clubbing, No cyanosis, Edema Skin: - - No change from previous Musculoskeletal: No Tenderness to Palpation of Joints or Extremities Lymphatic: No Cervical, Supraclavicular, or Inguinal Adenopathy Neurological: Cranial nerves II-XII grossly intact, Neuro grossly intact, Motor Exam 5/5 strength throughout Psych/Mental Status: Alert and oriented to time, place, person, mood and affect Microbiology Past 72 Hours 06/06/20 00:30 Blood Culture (Wb) - Left Forearm Blood Culture - Preliminary No growth in 48 hours. 06/05/20 23:30 Blood Culture (Wb) - Anticubital Left Blood Culture - Preliminary No growth in 48 hours. 06/07/20 09:30 Stool Stool Occult Blood (SHATNELL) - Final 06/06/20 09:39 Mucosa - Nasopharyngeal Respiratory Panel (PCR) - Final Laboratory Results 06/07/20 09:30: APTT 67.5 H 06/07/20 16:47: APTT 53.8 H 06/07/20 23:34: APTT 79.2 H 06/08/20 06:10: WBC 10.9, RBC 4.06 L, Hgb 10.1 L, Hct 34.2 L, MCV 84.2, MCH 24.9 L, MCHC 29.5 L, RDW Std Deviation 53.2 H, RDW Coeff of Ismael 17.2 H, Plt Count 295, MPV 11.3, Immature Gran % (Auto) 0.600, Neut % (Auto) 94.2 H, Lymph % (Auto) 1.1 L, [place] % (Auto) 4.1, Eos % (Auto) 0.0, Baso % (Auto) 0.0, Absolute Neuts (auto) 10.3 H, Absolute Lymphs (auto) 0.12 L, Nucleated RBC % 0, Differential Comment SCANNED, Hypochromasia 1+, Anisocytosis RARE, Microcytosis RARE 06/08/20 06:10: Sodium 133 L, Potassium 3.3 L, Chloride 86 L, Carbon Dioxide 39.0 H, Anion Gap 8, BUN 44 H, Creatinine 1.71 H, Estim Creat Clear Calc 21.34, Est GFR (MDRD) Af Amer 37 L, Est GFR (MDRD) Non-Af 30 L, BUN/Creatinine Ratio 25.7 H, Glucose 169 H, Calcium 8.6 06/08/20 06:10: PT 12.1, INR 1.0, APTT 56.1 H Current Medications Acetaminophen (Acetaminophen 325 Mg Tablet) 650 mg PO Q6H PRN PRN PRN Reason: Pain Score 1-10/Temp > 100.7 F Al Hydroxide/Mg Hydroxide (Mag Hydrox/Al Hydrox/Simeth 30 Ml Udc) 30 ml PO Q6H PRN PRN PRN Reason: Gastric Burning Albuterol/Ipratropium (Ipratropium/Albuterol Sulfate 3 Ml Ampul.Neb) 3 ml INHALATION Q4H.RT [facility] Last Admin: 06/08/20 06:55 Dose: 3 ml Documented by: Aspirin (Aspirin 325 Mg Tablet) 325 mg PO DAILYCM [facility] Last Admin: 06/06/20 09:54 Dose: 325 mg Documented by: Cholecalciferol (Cholecalciferol (Vit D3) 1,000 Unit (25mcg)) 2,000 unit PO DAILY [facility] Last Admin: 06/07/20 09:37 Dose: 2,000 unit Documented by: Diltiazem HCl (Diltiazem Cd 300 Mg Capsule) 300 mg PO DAILY [facility] Last Admin: 06/07/20 09:37 Dose: 300 mg Documented by: Furosemide (Furosemide 40 Mg/4 Ml Vial) 40 mg IV BIDLX [facility] Last Admin: 06/07/20 17:40 Dose: 40 mg Documented by: Heparin Sodium (Porcine) (Heparin Injection (Vial) 5,000 Unit/Ml Vial) 0 unit IV UD PRN; Protocol PRN Reason: dose adjustment Levofloxacin (Levaquin Iv) 750 mg in 150 mls @ 100 mls/hr IV Q48 [facility] Last Admin: 06/08/20 08:34 Dose: 100 mls/hr Documented by: Pantoprazole Sodium 40 mg/ (Sodium Chloride) 110 mls @ 330 mls/hr IV Q12 [facility] Last Admin: 06/08/20 08:34 Dose: 330 mls/hr Documented by: Heparin Sodium/Dextrose () 25,000 units in 250 mls @ 10 mls/hr IV .Q25H [facility]; Protocol Last Titration: 06/08/20 05:15 Dose: Infused Documented by: Potassium Chloride () 10 meq in 100 mls @ 100 mls/hr IV BOLUS Q1H [facility] Stop: 06/08/20 12:29 Last Admin: 06/08/20 08:54 Dose: 100 mls/hr Documented by: Methylprednisolone (Methylprednisolone 40 Mg/Ml Vial) 40 mg IV Q8 [facility] Last Admin: 06/08/20 05:41 Dose: 40 mg Documented by: Ondansetron HCl (Ondansetron 4 Mg/2 Ml Vial) 4 mg IV Q8H PRN PRN PRN Reason: NAUSEA/VOMITING Pravastatin Sodium (Pravastatin 20 Mg Tablet) 20 mg PO QHS [facility] Last Admin: 06/07/20 22:09 Dose: 20 mg Documented by: Sertraline HCl (Sertraline 50 Mg Tablet) 50 mg PO DAILY [facility] Last Admin: 06/07/20 09:37 Dose: 50 mg Documented by: Sodium Chloride (0.9% Saline Lock 10 Ml Syringe) 10 - 40 ml IV UD PRN PRN Reason: SALINE FLUSH Last Admin: 06/08/20 05:20 Dose: 10 ml Documented by: Medical Necessity - Tobacco Use Smoking Status: Former smoker Tobacco Use: Cigarettes Assessment/Plan All Active Problems History of hypertension (Acute) History of end stage renal disease (Acute) Respiratory failure with hypoxia and hypercapnia (Acute) Right lower lobe pulmonary infiltrate (Acute) COPD with exacerbation (Acute) Acute bronchospasm (Acute) Severe sepsis (Acute) Iron deficiency anemia (Acute) RECOMMENDATIONS: 1. Continue antibiotics, bronchodilators and steroids at current dosing 2. Discontinue diuretic challenge. Potassium repletion as necessary 3. Transition to prednisone tomorrow given procedures today. Anticipate wean over 12 to 14 days 4. Walking oximetry prior to discharge 5. Repeat complete PFT as an outpatient 6. Possible discharge tomorrow pending results of endoscopy IMPRESSIONS: 1. Acute hypoxic respiratory failure secondary to probable COPD exacerbation Patient may have an element of concomitant congestive heart failure, but advanced emphysematous changes are noted on CT scan of the chest. Patient has a negative viral panel, but empiric antibiotics until cultures can be obtained would be appropriate. Anticipate 5 days of antibiotics would be sufficient. Agree with challenge of diuretic therapy. Patient is appropriately on antibiotics, bronchodilators and steroids. Patient will need a walking oximetry prior to discharge. Patient with some renal insufficiency secondary to diuretics. These should be held. Potassium supplementation can be ordered by primary service. Anticipate transition to prednisone therapy tomorrow and wean over the next 12 to 14 days. 2. Descending aortic thrombus Unclear etiology. Patient may need a CTA of the abdomen and pelvis for evaluation of dissection. Patient is not showing any signs or symptoms of peripheral embolization on my exam. Patient does have a decreased hemoglobin and this will exacerbate underlying lung disease. 3. A. fib/aortic stenosis/advanced age/hypertension/hyperlipidemia/depression Complicates care, management, recovery and prognosis. Likely okay to continue with baseline medications except for lisinopril may need to be held secondary to active diuresis. Okay to continue statin Zoloft from my perspective. Inpatient E&M: 73145 Subs Hosp L2
--- NOTE | 2020-06-08 10:13 | NURSING ---
PER AC SCOPE CANCELLED FOR TODAY. PT WILL GO TOMORROW
[2020-06-08] MEDS: HEPARIN/D5w 25,000 UNITS 25,000 UNITS/250 ML IV.SOLN. 9 UNITS IV (10:24)
[2020-06-08] MEDS: Sertraline 50 MG Tablet PO (10:29)
[2020-06-08] MEDS: dilTIAZem CD 300 MG Capsule PO (10:29)
--- NOTE | 2020-06-08 10:53 | CASEMGMT ---
This RN CM received call back from Cherry at [facility] and she states pt's home oxygen order is for 2liters continous. Iram RN updated at this time. CM to follow for increased O2 need and any further discharge planning/needs. Amber LAURENT CM
--- NOTE | 2020-06-08 11:41 | CASEMGMT ---
SW completed a Palliative Care screening tool on patient due to her diagnosis of COPD. She scored between a 3 and 4. SW did not talk with patient about Palliative Care as she has not been seeing a Piggyback Clerk to help manage her COPD. She has not had more than one hospital admission or ED visit. SW could consider re-doing screening tool if patient is readmitted. Yi MONTEZ MSW
--- NOTE | 2020-06-08 12:04 | PCM.PN.SRG ---
Patient Problems: Active and Suspected Problems History of hypertension (Acute) History of end stage renal disease (Acute) Respiratory failure with hypoxia and hypercapnia (Acute) Right lower lobe pulmonary infiltrate (Acute) COPD with exacerbation (Acute) Acute bronchospasm (Acute) Severe sepsis (Acute) Iron deficiency anemia (Acute) Subjective: The patient did not respond to bowel prep yesterday afternoon and received another bowel prep overnight. She did not have any bowel movements until this morning and she is still having thick brown bowel movements. - Physical Exam Vitals/I&O's: Vital Signs Temp Pulse Resp BP Pulse Ox 98.2 F 70 18 112/56 L 91 06/08/20 08:46 06/08/20 10:58 06/08/20 10:58 06/08/20 08:46 06/08/20 09:56 Oxygen Flow Rate (L/min) 3 Oxygen Delivery Method Nasal Cannula Weight: 188 lb 14.978 oz Body Mass Index (BMI) 33.2 Intake and Output for Last 24 Hours 06/06/20 06/07/20 06/08/20 23:59 23:59 23:59 Intake Total 2737.41 / 2737.41 360.92 / 360.92 3669.08 / 3669.08 Output Total 1350 / 1350 1000 / 1000 Balance 1387.41 / 1387.41 -639.08 / -639.08 3669.08 / 3669.08 General: Alert, Oriented x3 Neck: No JVD Cardiovascular: Regular rate, Regular Rhythm Abdomen: Soft, Non Tender, Non-Distended Microbiology Past 72 Hours 06/06/20 00:30 Blood Culture (Wb) - Left Forearm Blood Culture - Preliminary No growth in 48 hours. 06/05/20 23:30 Blood Culture (Wb) - Anticubital Left Blood Culture - Preliminary No growth in 48 hours. 06/07/20 09:30 Stool Stool Occult Blood (SHANTELL) - Final 06/06/20 09:39 Mucosa - Nasopharyngeal Respiratory Panel (PCR) - Final Laboratory Results 06/07/20 16:47: APTT 53.8 H 06/07/20 23:34: APTT 79.2 H 06/08/20 06:10: WBC 10.9, RBC 4.06 L, Hgb 10.1 L, Hct 34.2 L, MCV 84.2, MCH 24.9 L, MCHC 29.5 L, RDW Std Deviation 53.2 H, RDW Coeff of Ismael 17.2 H, Plt Count 295, MPV 11.3, Immature Gran % (Auto) 0.600, Neut % (Auto) 94.2 H, Lymph % (Auto) 1.1 L, [place] % (Auto) 4.1, Eos % (Auto) 0.0, Baso % (Auto) 0.0, Absolute Neuts (auto) 10.3 H, Absolute Lymphs (auto) 0.12 L, Nucleated RBC % 0, Differential Comment SCANNED, Hypochromasia 1+, Anisocytosis RARE, Microcytosis RARE 06/08/20 06:10: Sodium 133 L, Potassium 3.3 L, Chloride 86 L, Carbon Dioxide 39.0 H, Anion Gap 8, BUN 44 H, Creatinine 1.71 H, Estim Creat Clear Calc 21.34, Est GFR (MDRD) Af Amer 37 L, Est GFR (MDRD) Non-Af 30 L, BUN/Creatinine Ratio 25.7 H, Glucose 169 H, Calcium 8.6 06/08/20 06:10: PT 12.1, INR 1.0, APTT 56.1 H Current Medications Acetaminophen (Acetaminophen 325 Mg Tablet) 650 mg PO Q6H PRN PRN PRN Reason: Pain Score 1-10/Temp > 100.7 F Al Hydroxide/Mg Hydroxide (Mag Hydrox/Al Hydrox/Simeth 30 Ml Udc) 30 ml PO Q6H PRN PRN PRN Reason: Gastric Burning Albuterol/Ipratropium (Ipratropium/Albuterol Sulfate 3 Ml Ampul.Neb) 3 ml INHALATION Q4H.RT [facility] Last Admin: 06/08/20 10:57 Dose: 3 ml Documented by: Aspirin ([facility] 325 Mg Tablet) [facility] Last Admin: 06/06/20 09:54 Dose: 325 mg Documented by: Cholecalciferol (Cholecalciferol (Vit D3) 1,000 Unit (25mcg)) 2,000 unit PO DAILY [facility] Last Admin: 06/08/20 10:29 Dose: 2,000 unit Documented by: Diltiazem HCl (Diltiazem Cd 300 Mg Capsule) 300 mg PO DAILY [facility] Last Admin: 06/08/20 10:29 Dose: 300 mg Documented by: Heparin Sodium (Porcine) (Heparin Injection (Vial) 5,000 Unit/Ml Vial) 0 unit IV UD PRN; Protocol PRN Reason: dose adjustment Levofloxacin (Levaquin Iv) 750 mg in 150 mls @ 100 mls/hr IV Q48 [facility] Last Infusion: 06/08/20 10:07 Dose: Infused Documented by: Pantoprazole Sodium 40 mg/ (Sodium Chloride) 110 mls @ 330 mls/hr IV Q12 [facility] Last Infusion: 06/08/20 09:00 Dose: Infused Documented by: Heparin Sodium/Dextrose () 25,000 units in 250 mls @ 10 mls/hr IV .Q25H [facility]; Protocol Last Admin: 06/08/20 10:24 Dose: 900 units/hr, 9 mls/hr Documented by: Potassium Chloride () 10 meq in 100 mls @ 100 mls/hr IV BOLUS Q1H [facility] Stop: 06/08/20 12:29 Last Admin: 06/08/20 11:25 Dose: 100 mls/hr Documented by: Methylprednisolone (Methylprednisolone 40 Mg/Ml Vial) 40 mg IV Q8 [facility] Last Admin: 06/08/20 05:41 Dose: 40 mg Documented by: Ondansetron HCl (Ondansetron 4 Mg/2 Ml Vial) 4 mg IV Q8H PRN PRN PRN Reason: NAUSEA/VOMITING Pravastatin Sodium (Pravastatin 20 Mg Tablet) 20 mg PO QHS [facility] Last Admin: 06/07/20 22:09 Dose: 20 mg Documented by: Sertraline HCl (Sertraline 50 Mg Tablet) 50 mg PO DAILY [facility] Last Admin: 06/08/20 10:29 Dose: 50 mg Documented by: Sodium Chloride (0.9% Saline Lock 10 Ml Syringe) 10 - 40 ml IV UD PRN PRN Reason: SALINE FLUSH Last Admin: 06/08/20 05:20 Dose: 10 ml Documented by: Medical Necessity - Tobacco Use Smoking Status: Former smoker Tobacco Use: Cigarettes Assessment/Plan All Active Problems History of hypertension (Acute) History of end stage renal disease (Acute) Respiratory failure with hypoxia and hypercapnia (Acute) Right lower lobe pulmonary infiltrate (Acute) COPD with exacerbation (Acute) Acute bronchospasm (Acute) Severe sepsis (Acute) Iron deficiency anemia (Acute) 80-year female with iron deficiency anemia 1. The patient has iron deficiency anemia but the bowel prep did not work overnight. She is still having thick brown bowel movements. I have delayed her EGD and colonoscopy till tomorrow Dr. Seo will perform them in the morning. I discussed this with the patient in detail. I will give the patient clears today and make her n.p.o. after midnight. If she is not having clear bowel movements by this afternoon I will order additional prep for her. Patient's heparin drip may continue and stop at midnight. Olvin Newsome MD Pager: [facility] [address] [place] [address], [address] [place] [address] Office:
--- NOTE | 2020-06-08 12:50 | CASEMGMT ---
SW spoke with patient about her plan at d/c. She said she is not sure as tomorrow she is having a colonoscopy and she would like to talk with her family. SW left a list of home health agencies with Medicare ratings in her room in the event she chooses home with home health. There is a bed in TCU for patient should she choose to go to TCU. Plan: d/c to TCU vs home with home health. Yi MONTEZ GEOSPATIAL SCIENTIST
--- NOTE | 2020-06-08 12:58 | PN_ITS ---
Patient Problems: Active and Suspected Problems History of hypertension (Acute) History of end stage renal disease (Acute) Respiratory failure with hypoxia and hypercapnia (Acute) Right lower lobe pulmonary infiltrate (Acute) COPD with exacerbation (Acute) Acute bronchospasm (Acute) Severe sepsis (Acute) Iron deficiency anemia (Acute) Subjective: Patient seen and examined. She has no complaints this morning. Patient was due to have colonoscopy and EGD this morning. However she had not yet started having any bowel movements from her colon prep. Therefore per general surgery, this could not be done today. She is to be started back on her heparin drip and to be put on clear liquid diet and for n.p.o. past midnight. To likely have colonoscopy tomorrow. She has remained hemodynamically stable. She is in cumulative positive balance by 4.5 L. Vitals/I&O's: Vital Signs Temp Pulse Resp BP Pulse Ox 98.2 F 70 18 112/56 L 91 06/08/20 08:46 06/08/20 10:58 06/08/20 10:58 06/08/20 08:46 06/08/20 09:56 Oxygen Flow Rate (L/min) 3 Oxygen Delivery Method Nasal Cannula Weight: 188 lb 14.978 oz Body Mass Index (BMI) 33.2 Intake and Output for Last 24 Hours 06/06/20 06/07/20 06/08/20 23:59 23:59 23:59 Intake Total 2737.41 / 2737.41 360.92 / 360.92 3765.75 / 3765.75 Output Total 1350 / 1350 1000 / 1000 Balance 1387.41 / 1387.41 -639.08 / -639.08 3765.75 / 3765.75 General: Alert, Oriented x3, Cooperative, No apparent distress HEENT: Atraumatic, PERRLA, EOMI, Normocephalic Oral: Dry Mucosa Neck: Supple, No JVD, Negative Carotid Bruits Lungs: - - diminished breath sounds in all lung grider; mild wheezing in all lung grider. On 3L of oxygen, with BIPAP prn Cardiovascular: Regular rate, Normal S1, Normal S2, No murmurs Abdomen: Bowel Sounds Present, Soft, Non Tender, Non-Distended, No Hepato- splenomegaly Extremities: No clubbing, No cyanosis, No edema, Capillary Refill Less than 3 Seconds Skin: No rashes, No breakdown Musculoskeletal: No Tenderness to Palpation of Joints or Extremities Lymphatic: No Cervical, Supraclavicular, or Inguinal Adenopathy Neurological: Cranial nerves II-XII grossly intact, Neuro grossly intact, Motor Exam 5/5 strength throughout Psych/Mental Status: Normal Affect, Appropriate, Alert and oriented to time, place, person, mood and affect Microbiology Past 72 Hours 06/06/20 00:30 Blood Culture (Wb) - Left Forearm Blood Culture - Preliminary No growth in 48 hours. 06/05/20 23:30 Blood Culture (Wb) - Anticubital Left Blood Culture - Preliminary No growth in 48 hours. 06/07/20 09:30 Stool Stool Occult Blood (SHANTELL) - Final 06/06/20 09:39 Mucosa - Nasopharyngeal Respiratory Panel (PCR) - Final Laboratory Results 06/07/20 16:47: APTT 53.8 H 06/07/20 23:34: APTT 79.2 H 06/08/20 06:10: WBC 10.9, RBC 4.06 L, Hgb 10.1 L, Hct 34.2 L, MCV 84.2, MCH 24.9 L, MCHC 29.5 L, RDW Std Deviation 53.2 H, RDW Coeff of Ismael 17.2 H, Plt Count 295, MPV 11.3, Immature Gran % (Auto) 0.600, Neut % (Auto) 94.2 H, Lymph % (Auto) 1.1 L, Mcnairy % (Auto) 4.1, Eos % (Auto) 0.0, Baso % (Auto) 0.0, Absolute Neuts (auto) 10.3 H, Absolute Lymphs (auto) 0.12 L, Nucleated RBC % 0, Differential Comment SCANNED, Hypochromasia 1+, Anisocytosis RARE, Microcytosis RARE 06/08/20 06:10: Sodium 133 L, Potassium 3.3 L, Chloride 86 L, Carbon Dioxide 39.0 H, Anion Gap 8, BUN 44 H, Creatinine 1.71 H, Estim Creat Clear Calc 21.34, Est GFR (MDRD) Af Amer 37 L, Est GFR (MDRD) Non-Af 30 L, BUN/Creatinine Ratio 25.7 H, Glucose 169 H, Calcium 8.6 06/08/20 06:10: PT 12.1, INR 1.0, APTT 56.1 H Diagnostic Data Chest X-Ray 06/05/20 23:50 IMPRESSION: 1. Cardiomegaly and pulmonary vascular congestion. 2. Right-sided pulmonary nodules. Electronically Signed: Deb Stone MD at 0:36 EST , Service support , Chest CTA 06/06/20 00:47 IMPRESSION: 1. No CTA demonstrated pulmonary embolism or arterial dissection. 2. Findings suggest early pulmonary edema. 3. Pulmonary vascular congestion with COPD. 4. Bilateral basilar atelectasis with possible right lower lobe pneumonia. 5. Intraluminal thrombus within the descending thoracic aorta. Electronically Signed: Deb Stone MD at 2:12 EST , Service support , Current Medications Acetaminophen (Acetaminophen 325 Mg Tablet) 650 mg PO Q6H PRN PRN PRN Reason: Pain Score 1-10/Temp > 100.7 F Al Hydroxide/Mg Hydroxide (Mag Hydrox/Al Hydrox/Simeth 30 Ml Udc) 30 ml PO Q6H PRN PRN PRN Reason: Gastric Burning Albuterol/Ipratropium (Ipratropium/Albuterol Sulfate 3 Ml Ampul.Neb) 3 ml INHALATION Q4H.RT [facility] Last Admin: 06/08/20 10:57 Dose: 3 ml Documented by: Aspirin (Aspirin 325 Mg Tablet) [facility] Last Admin: 06/06/20 09:54 Dose: 325 mg Documented by: Cholecalciferol (Cholecalciferol (Vit D3) 1,000 Unit (25mcg)) 2,000 unit PO DAILY [facility] Last Admin: 06/08/20 10:29 Dose: 2,000 unit Documented by: Diltiazem HCl (Diltiazem Cd 300 Mg Capsule) 300 mg PO DAILY [facility] Last Admin: 06/08/20 10:29 Dose: 300 mg Documented by: Heparin Sodium (Porcine) (Heparin Injection (Vial) 5,000 Unit/Ml Vial) 0 unit IV UD PRN; Protocol PRN Reason: dose adjustment Levofloxacin (Levaquin Iv) 750 mg in 150 mls @ 100 mls/hr IV Q48 [facility] Last Infusion: 06/08/20 10:07 Dose: Infused Documented by: Pantoprazole Sodium 40 mg/ (Sodium Chloride) 110 mls @ 330 mls/hr IV Q12 [facility] Last Infusion: 06/08/20 09:00 Dose: Infused Documented by: Heparin Sodium/Dextrose () 25,000 units in 250 mls @ 10 mls/hr IV .Q25H [facility]; Protocol Last Admin: 06/08/20 10:24 Dose: 900 units/hr, 9 mls/hr Documented by: Methylprednisolone (Methylprednisolone 40 Mg/Ml Vial) 40 mg IV Q8 [facility] Last Admin: 06/08/20 05:41 Dose: 40 mg Documented by: Ondansetron HCl (Ondansetron 4 Mg/2 Ml Vial) 4 mg IV Q8H PRN PRN PRN Reason: NAUSEA/VOMITING Pravastatin Sodium (Pravastatin 20 Mg Tablet) 20 mg PO QHS [facility] Last Admin: 06/07/20 22:09 Dose: 20 mg Documented by: Sertraline HCl (Sertraline 50 Mg Tablet) 50 mg PO DAILY [facility] Last Admin: 06/08/20 10:29 Dose: 50 mg Documented by: Sodium Chloride (0.9% Saline Lock 10 Ml Syringe) 10 - 40 ml IV UD PRN PRN Reason: SALINE FLUSH Last Admin: 06/08/20 05:20 Dose: 10 ml Documented by: STROKE Vital Signs/Narrative: Vital Signs Pulse Resp Pulse Ox 06/08/20 10:58 70 18 06/08/20 09:56 91 Medical Necessity - Tobacco Use Smoking Status: Former smoker Tobacco Use: Cigarettes Assessment/Plan All Active Problems History of hypertension (Acute) History of end stage renal disease (Acute) Respiratory failure with hypoxia and hypercapnia (Acute) Right lower lobe pulmonary infiltrate (Acute) COPD with exacerbation (Acute) Acute bronchospasm (Acute) Severe sepsis (Acute) Iron deficiency anemia (Acute) #Acute hypoxic and hypercapnic respiratory failure due to COPD exacerbation and Acute HFpEF * on 3L and BIPAP prn * On IV Solu-Medrol and being diuresed with IV Lasix. * Pulmonology on board. On breathing treatments with bronchodilators. * Titrate oxygen to maintain saturation above 90%. * 2D echo showed EF of 65% with normal left ventricular systolic function and no evidence of diastolic dysfunction. Left atrium moderately enlarged and right atrium mildly enlarged with moderately severe aortic valve stenosis. * in cumulative positive balance by 4.5L, though I doubt this is very accurate a s patient's oxygen levels are improving and she is feeling less short of breath * #Acute COPD exacerbation: As above. Respiratory panel was negative. Covid test was also negative. 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 2D echo showed severe aortic stenosis. #Descending thoracic aortic thrombus * CTA of the chest done was negative for PE. There was a transverse dimension of the ascending thoracic aorta measuring 3.5 cm with no demonstrated aortic dissection and appearance of thrombus within the descending was a source of emboli. * I did discuss this with her PCP and there is no record of her having this thrombus in the past. * on heparin drip * stool for occult blood negative. * #Iron deficiency anemia. * It is post transfusion of 1 unit of packed red blood cells. Hemoglobin today is 8.9. * Records obtained from her PCP showed that hemoglobin is usually between 12 and 13. * She does have a history of colon cancer back in 2002 s/p resection. She has been fine since then after she received chemotherapy. * From the records, patient's last colonoscopy was in 2013 and she was supposed received in 2016 but she declined it in 2017. * Iron panel shows severe iron deficiency anemia. Even though stool for occult blood is negative, in light of patient needing anticoagulation on account of the thoracic aortic thrombus, will consult general surgery. * couldnt have colonoscopy today due to insufficient bowel prep * for colonoscopy tomorrow * #A. fib: On Cardizem. currently rate controlled. #Hypertension: Lisinopril currently on hold. Hydrochlorothiazide also on hold. IV hydralazine prn #Hyperlipidemia: On statin #Depression: On Zoloft DVT prophylaxis: on heparin drip Inpatient E&M: [id number] [facility] Hosp L3
[2020-06-08 17:28] LABS: Partial Thromboplast Time 59.2 Seconds (24.1-36.2)
[2020-06-08] MEDS: Electrolyte Solution/Peg's 4000 ML 2000 ML PO (17:38)
[2020-06-08] MEDS: Pravastatin 20 MG Tablet PO (20:54)
[2020-06-09] VITALS (23 sets, daily range): BP systolic 110–184; BP diastolic 54–161; PULSE 58–96; RESP 14–24; TEMP 35.8–36.7; O2SAT 4–100
[2020-06-09 00:03] LABS: Partial Thromboplast Time 91.9 Seconds (24.1-36.2)
[2020-06-09] MEDS: 0.9% Saline Lock 10 ML Syringe IV ×3 (00:08→20:13)
[2020-06-09] MEDS: Ipratropium/Albuterol Sulfate 3 ML AMPUL.NEB INHALATION ×6 (03:20→23:53)
[2020-06-09] MEDS: Bisacodyl 5 MG Tablet 10 MG PO (04:03)
--- NOTE | 2020-06-09 05:55 | EKG12_ITS ---
Test Reason : AM EKG Blood Pressure : / mmHG Vent. Rate : 068 BPM Atrial Rate : 068 BPM P-R Int : 154 ms QRS Dur : 100 ms QT Int : 436 ms P-R-T Axes : 001 -03 043 degrees QTc Int : 463 ms Normal sinus rhythm Normal ECG When compared with ECG of 08-JUN-2020 06:53, MANUAL COMPARISON REQUIRED, DATA IS UNCONFIRMED Confirmed by ELI HAWKINS, SAM ([id number]), scientific editor RY PATTERSON ([id number]) on 06/11/2020 1:11:19 PM Referred By: WESLEY Confirmed By:SAM BENITEZ MD
--- NOTE | 2020-06-09 08:48 | PCM.PN.PUL ---
Patient Problems: Active and Suspected Problems History of hypertension (Acute) History of end stage renal disease (Acute) Respiratory failure with hypoxia and hypercapnia (Acute) Right lower lobe pulmonary infiltrate (Acute) COPD with exacerbation (Acute) Acute bronchospasm (Acute) Severe sepsis (Acute) Iron deficiency anemia (Acute) Subjective: Patient did okay overnight. Patient is down to baseline oxygen requirements. Patient to have endoscopies this morning. Patient resting comfortably during my evaluation. - Physical Exam Vitals/I&O's: Vital Signs Temp Pulse Resp BP Pulse Ox 36.5 C L 72 18 145/81 H 90 06/09/20 05:58 06/09/20 07:00 06/09/20 06:51 06/09/20 05:58 06/09/20 06:51 Oxygen Flow Rate (L/min) 4 Oxygen Delivery Method Nasal Cannula Weight: 85.9 kg Body Mass Index (BMI) 33.2 Intake and Output for Last 24 Hours 06/07/20 06/08/20 06/09/20 23:59 23:59 23:59 Intake Total 360.92 / 360.92 3975.75 / 4725.75 873.45 / 873.45 Output Total 1000 / 1000 150 / 150 Balance -639.08 / -639.08 3975.75 / 4725.75 723.45 / 723.45 General: Alert, Oriented x3, Cooperative, No apparent distress, - - Obese. No conversational dyspnea. HEENT: Atraumatic, PERRLA, EOMI, Normocephalic, - - No scleral icterus or injection noted Oral: Moist Mucosa, No Gingival or Mucosal Lesions/ Ulcerations Neck: Supple, No JVD, No Nodes, Trachea Midline Lungs: No rhonchi, No wheeze, No rales, Diminished, - - Symmetric expansion Cardiovascular: Regular rate, Regular Rhythm, Normal S1, Normal S2, No murmurs, No rub noted, No Gallop Abdomen: Bowel Sounds Present, Soft, Non Tender, Non-Distended, Obese Extremities: No clubbing, No cyanosis, No edema Skin: - Musculoskeletal: No Tenderness to Palpation of Joints or Extremities - Dermal atrophy noted Lymphatic: No Cervical, Supraclavicular, or Inguinal Adenopathy Neurological: Cranial nerves II-XII grossly intact, Neuro grossly intact, Motor Exam 5/5 strength throughout Psych/Mental Status: Normal Affect, Appropriate Microbiology Past 72 Hours 06/06/20 00:30 Blood Culture (Wb) - Left Forearm Blood Culture - Preliminary No growth in 48 hours. 06/05/20 23:30 Blood Culture (Wb) - Anticubital Left Blood Culture - Preliminary No growth in 48 hours. 06/07/20 09:30 Stool Stool Occult Blood (SHANTELL) - Final 06/06/20 09:39 Mucosa - Nasopharyngeal Respiratory Panel (PCR) - Final Laboratory Results 06/08/20 16:53: APTT 59.2 H 06/08/20 22:56: APTT 91.9 H* Current Medications Acetaminophen (Acetaminophen 325 Mg Tablet) 650 mg PO Q6H PRN PRN PRN Reason: Pain Score 1-10/Temp > 100.7 F Al Hydroxide/Mg Hydroxide (Mag Hydrox/Al Hydrox/Simeth 30 Ml Udc) 30 ml PO Q6H PRN PRN PRN Reason: Gastric Burning Albuterol/Ipratropium (Ipratropium/Albuterol Sulfate 3 Ml Ampul.Neb) 3 ml INHALATION Q4H.RT [facility] Last Admin: 06/09/20 06:51 Dose: 3 ml Documented by: Aspirin (Aspirin 325 Mg Tablet) [facility] Last Admin: 06/06/20 09:54 Dose: 325 mg Documented by: Cholecalciferol (Cholecalciferol (Vit D3) 1,000 Unit (25mcg)) 2,000 unit PO DAILY [facility] Last Admin: 06/08/20 10:29 Dose: 2,000 unit Documented by: Diltiazem HCl (Diltiazem Cd 300 Mg Capsule) 300 mg PO DAILY [facility] Last Admin: 06/08/20 10:29 Dose: 300 mg Documented by: Heparin Sodium (Porcine) (Heparin Injection (Vial) 5,000 Unit/Ml Vial) 0 unit IV UD PRN; Protocol PRN Reason: dose adjustment Levofloxacin (Levaquin Iv) 750 mg in 150 mls @ 100 mls/hr IV Q48 [facility] Last Infusion: 06/08/20 10:07 Dose: Infused Documented by: Pantoprazole Sodium 40 mg/ (Sodium Chloride) 110 mls @ 330 mls/hr IV Q12 [facility] Last Infusion: 06/08/20 22:21 Dose: Infused Documented by: Heparin Sodium/Dextrose () 25,000 units in 250 mls @ 10 mls/hr IV .Q25H [facility]; Protocol Last Titration: 06/09/20 00:07 Dose: 0 units/hr, 0 mls/hr Documented by: Methylprednisolone (Methylprednisolone 40 Mg/Ml Vial) 40 mg IV Q8 [facility] Last Admin: 06/09/20 05:53 Dose: 40 mg Documented by: Ondansetron HCl (Ondansetron 4 Mg/2 Ml Vial) 4 mg IV Q8H PRN PRN PRN Reason: NAUSEA/VOMITING Pravastatin Sodium (Pravastatin 20 Mg Tablet) 20 mg PO QHS [facility] Last Admin: 06/08/20 20:54 Dose: 20 mg Documented by: Sertraline HCl (Sertraline 50 Mg Tablet) 50 mg PO DAILY [facility] Last Admin: 06/08/20 10:29 Dose: 50 mg Documented by: Sodium Chloride (0.9% Saline Lock 10 Ml Syringe) 10 - 40 ml IV UD PRN PRN Reason: SALINE FLUSH Last Admin: 06/09/20 05:54 Dose: 10 ml Documented by: Medical Necessity - Tobacco Use Smoking Status: Former smoker Tobacco Use: Cigarettes Assessment/Plan All Active Problems History of hypertension (Acute) History of end stage renal disease (Acute) Respiratory failure with hypoxia and hypercapnia (Acute) Right lower lobe pulmonary infiltrate (Acute) COPD with exacerbation (Acute) Acute bronchospasm (Acute) Severe sepsis (Acute) Iron deficiency anemia (Acute) RECOMMENDATIONS: 1. Complete 5 days of antibiotics 2. Discontinue diuretic challenge. Potassium repletion as necessary 3. Transition to prednisone when okay with surgery. Anticipate wean over 12 to 14 days 4. Walking oximetry prior to discharge 5. Repeat complete PFT as an outpatient 6. Okay to discharge from a pulmonary perspective with follow-up in office 2 weeks with nurse practitioner IMPRESSIONS: 1. Acute hypoxic respiratory failure secondary to probable COPD exacerbation Patient may have an element of concomitant congestive heart failure, but advanced emphysematous changes are noted on CT scan of the chest. Patient has a negative viral panel, but empiric antibiotics until cultures can be obtained would be appropriate. Anticipate 5 days of antibiotics would be sufficient. Patient is appropriately on antibiotics, bronchodilators and steroids. Patient will need a walking oximetry prior to discharge. Patient with some renal insufficiency secondary to diuretics. These should be held. Potassium supplementation can be ordered by primary service. Anticipate transition to prednisone therapy tomorrow and wean over the next 12 to 14 days. 2. Descending aortic thrombus Unclear etiology. Patient may need a CTA of the abdomen and pelvis for evaluation of dissection. Patient is not showing any signs or symptoms of peripheral embolization on my exam. Patient does have a decreased hemoglobin and this will exacerbate underlying lung disease. 3. A. fib/aortic stenosis/advanced age/hypertension/hyperlipidemia/depression Complicates care, management, recovery and prognosis. Likely okay to continue with baseline medications except for lisinopril may need to be held secondary to active diuresis. Okay to continue statin Zoloft from my perspective. Inpatient E&M: 32183 Subs Hosp L2
--- NOTE | 2020-06-09 08:57 | OP.CCLET_ITS ---
06/09/2020 Bryan Tolbert [address] [place] [address] Re : Upper GI endoscopy procedure for Maxine Sullivan Dear Dr. Tolbert This procedure was performed on Tuesday, June 09, 2020. My impressions and recommendations are as follows: Impressions : - Z-line irregular, 40 cm from the incisors. - Normal examined duodenum. - Normal stomach. - Grade II esophageal varices-single at 20 cm- small. - No specimens collected. Recommendations : - [facility] same day. - Resume previous diet. - Continue present medications. My findings are described in the full procedure note, which is enclosed. If I can be of further assistance, please feel free to contact me at Doctor phone number(s): , Work: . Sincerely, MD Мария Cartagena MD 06/09/2020 8:57:25 AM This report has been signed electronically.
--- NOTE | 2020-06-09 08:57 | OP.EGD_ITS ---
Patient Name: Maxine Sullivan Procedure Date: 06/09/2020 7:10 AM Date of : 1940 Age: 80 Procedure: Upper GI endoscopy Indications: Iron deficiency anemia, Heme positive stool Providers: Мария Urias MD Medicines: Monitored Anesthesia Care Patient Profile: This is an 80 year old female. Complications: No immediate complications. Procedure: Pre-Anesthesia Assessment: - Prior to the procedure, a History and Physical was performed, and patient medications and allergies were reviewed. The patient's tolerance of previous anesthesia was also reviewed. The risks and benefits of the procedure and the sedation options and risks were discussed with the patient. All questions were answered, and informed consent was obtained. Prior Anticoagulants: The patient has taken heparin, last dose was 1 day prior to procedure. ASA Grade Assessment: Per anesthesia. After reviewing the risks and benefits, the patient was deemed in satisfactory condition to undergo the procedure. After obtaining informed consent, the endoscope was passed under direct vision. Throughout the procedure, the patient's blood pressure, pulse, and oxygen saturations were monitored continuously. The Endoscope was introduced through the mouth, and advanced to the second part of duodenum. The upper GI endoscopy was accomplished without difficulty. The patient tolerated the procedure well. Scope In: 8:12:55 AM Scope Out: 8:16:25 AM Total Procedure Duration Time 0 hours 3 minutes 30 seconds Findings: The Z-line was irregular and was found 40 cm from the incisors. The examined duodenum was normal. The cardia and gastric fundus were normal on retroflexion. The stomach was normal. A grade II varix was found in the upper third of the esophagus. It was less than 5 mm in diameter. Impression: - Z-line irregular, 40 cm from the incisors. - Normal examined duodenum. - Normal stomach. - Grade II esophageal varices-single at 20 cm- small. - No specimens collected. Recommendation: - [facility] possible [facility] same day. - Resume previous diet. - Continue present medications. Procedure Code(s): --- Professional --- 43844, Esophagogastroduodenoscopy, flexible, transoral; diagnostic, including collection of specimen(s) by brushing or washing, when performed (separate procedure) Diagnosis Code(s): --- Professional --- K22.8, Other specified diseases of esophagus K21.9, Gastro-esophageal reflux disease without esophagitis D50.9, Iron deficiency anemia, unspecified R19.5, Other fecal abnormalities CPT copyright 2017 [employer]. All rights reserved. The codes documented in this report are preliminary and upon tank builder supervisor review may be revised to meet current compliance requirements. MD Мария Cartagena MD 06/09/2020 8:57:25 AM This report has been signed electronically. Number of Addenda: 0 Note Initiated On: 06/09/2020 7:10 AM
--- NOTE | 2020-06-09 09:04 | OP.CCLET_ITS ---
06/09/2020 Bryan [address]bert [address] [place] [address] Re : Colonoscopy procedure for Maxine Sullivan Dear Dr. Tolbert This procedure was performed on Tuesday, June 09, 2020. My impressions and recommendations are as follows: Impressions : - Hemorrhoids found on perianal exam. - Non-bleeding internal hemorrhoids. - Diverticulosis in the sigmoid colon and in the descending colon. - Stool in the transverse colon. - No specimens collected. Recommendations : - [facility] to [facility] for possible discharge same day. - High fiber diet. - Continue present medications. - No repeat colonoscopy due to current age (66 years or older). My findings are described in the full procedure note, which is enclosed. If I can be of further assistance, please feel free to contact me at Doctor phone number(s): , Work: . Sincerely, MD Мария Cartagena MD 06/09/2020 9:04:04 AM This report has been signed electronically.
--- NOTE | 2020-06-09 09:04 | OP.COLON_ITS ---
Patient Name: Maxine Sullivan Procedure Date: 06/09/2020 8:18 AM Date of : 1940 Age: 80 Procedure: Colonoscopy Indications: Heme positive stool, Iron deficiency anemia Providers: Мария Urias MD Medicines: Monitored Anesthesia Care Patient Profile: This is an 80 year old female. This is an 80 year old female. Last Colonoscopy: date unknown. Complications: No immediate complications. Procedure: Pre-Anesthesia Assessment: - Prior to the procedure, a History and Physical was performed, and patient medications and allergies were reviewed. The patient's tolerance of previous anesthesia was also reviewed. The risks and benefits of the procedure and the sedation options and risks were discussed with the patient. All questions were answered, and informed consent was obtained. Prior Anticoagulants: The patient has taken heparin, last dose was 1 day prior to procedure. ASA Grade Assessment: Per anesthesia. After reviewing the risks and benefits, the patient was deemed in satisfactory condition to undergo the procedure. After I obtained informed consent, the scope was passed under direct vision. Throughout the procedure, the patient's blood pressure, pulse, and oxygen saturations were monitored continuously. The colonoscope was introduced through the anus and advanced to the ileocolonic anastomosis. The colonoscopy was somewhat difficult due to poor bowel prep. The patient tolerated the procedure well. The quality of the bowel preparation was adequate to identify polyps 6 mm and larger in size. Scope In: 8:19:50 AM Scope Withdrawal Time 0 hours 12 minutes 9 seconds Scope Out: 8:45:12 AM Total Procedure Duration Time 0 hours 25 minutes 22 seconds Findings: Hemorrhoids were found on perianal exam. Non-bleeding internal hemorrhoids were found. The hemorrhoids were Grade I (internal hemorrhoids that do not prolapse). Many small and large-mouthed diverticula were found in the sigmoid colon and descending colon. A moderate amount of semi-liquid Fibrous debris stool was found in the transverse colon, interfering with visualization. Lavage of the area was performed, resulting in incomplete clearance with fair visualization. Impression: - Hemorrhoids found on perianal exam. - Non-bleeding internal hemorrhoids. - Diverticulosis in the sigmoid colon and in the descending colon. - Stool in the transverse colon. - No specimens collected. Recommendation: - [facility] same day. - High fiber diet. - Continue present medications. - No repeat colonoscopy due to current age (66 years or older). Procedure Code(s): --- Professional --- 53025, Colonoscopy, flexible; diagnostic, including collection of specimen(s) by brushing or washing, when performed (separate procedure) Diagnosis Code(s): --- Professional --- K64.0, First degree hemorrhoids R19.5, Other fecal abnormalities D50.9, Iron deficiency anemia, unspecified K57.30, Diverticulosis of large intestine without perforation or abscess without bleeding CPT copyright 2017 [employer]. All rights reserved. The codes documented in this report are preliminary and upon recruiting coordinator review may be revised to meet current compliance requirements. MD Мария Cartagena MD 06/09/2020 9:04:04 AM This report has been signed electronically. Number of Addenda: 0 Note Initiated On: 06/09/2020 8:18 AM
[2020-06-09] MEDS: dilTIAZem CD 300 MG Capsule PO (10:16)
[2020-06-09] MEDS: Sertraline 50 MG Tablet PO (10:16)
[2020-06-09 10:20] LABS: Absolute Lymphocyte Count 0.07 X10^3/uL (0.83-4.51); Absolute Neutrophil Count 6.5 X10^3/uL (2.0-7.7); Hematocrit 30.2 % (37-47); Lymphocyte # 0.07 X10^3/ul (4.0); Mean Corp Hgb Conc 29.8 g/dL (32-36); Mean Corpuscular Hgb 24.7 pg (27.0-32.0); Mean Corpuscular Volume 82.7 fL (81-99); Mean Platelet Vol. 11.1 fl (6.2-12.0); Monocyte# 0.36 X10^3/uL; Monocyte% 5.1 % (0-10); NRBC Flagged by Analyzer 0 % (0-5); Neutrophil # 6.54 X10^3/uL (2.7-7.7); Neutrophil % 93.2 % (47-70); POSITIVE DIFFERENTIAL YES; Platelet Count 230 K/mm3 (150-450); RBC Distribution Width CV 17.1 % (11.6-14.6); RBC Distribution Width SD 51.4 fl (35.1-43.9); Red Blood Count 3.65 M/mm3 (4.2-5.4)
[2020-06-09 10:22] LABS: Differential Indicated SCAN CRITERIA MET
[2020-06-09 10:28] LABS: International Normalized Ratio 0.9; Partial Thromboplast Time 25.1 Seconds (24.1-36.2); Prothrombin Time (Protime)PT. 12.1 SECONDS (11.7-14.9)
--- NOTE | 2020-06-09 10:36 | CASEMGMT ---
SW met w/pt in room, she states she wants to go home, is agreeable to home health care. She states her children are available and can assist her at home. OLESYA let CM know, she will follow up w/pt regarding home care. OLESYA left a message on the TCU referral line letting Emely know pt is going home. ANGELICA Redd
[2020-06-09 10:41] LABS: Anion Gap 11 (5-15); BUN 51 mg/dL (7-18); BUN/Creat Ratio 30.2 RATIO (10-20); Calcium,Total 7.7 mg/dL (8.5-10.1); Chloride 83 mmol/L (98-107); Creatinine, Serum 1.69 mg/dL (0.55-1.02); EST Glomerular Filtration Rate 31 mL/min (>60); Est Glom Filt Rate - Afr Amer 37 mL/min (>60); Glucose 142 mg/dL (74-106); Potassium 3.5 mmol/L (3.5-5.1); Sodium Level 129 mmol/L (136-145)
[2020-06-09 10:58] LABS: Hypochromasia 2+; Platelet Estimate ADEQUATE (ADEQ); Polychromasia RARE; Schistocytes RARE
--- NOTE | 2020-06-09 11:34 | CASEMGMT ---
SW assisted pt in completing LW/POA on this admission. ANGELICA Redd
--- NOTE | 2020-06-09 12:12 | CM.UR ---
Met face to face with patient and daughter. Explained that I was there to discuss home health with her. She states, Oh, I don't need that. Her daughter interjected stating, Yes, you do. I explained that SN and PT was recommended. She asked what a nurse would do. Explained that a nurse would listen to her lungs, check her bp, check her oxygen level, etc. She was agreeable to both SN and PT then. Asked if they knew a HHC they would like to use. Both patient and daughter state they don't know anything about any HHC agencies. Explained I can bring them a list of HHC agencies explaining there are many around. Mentioned the hospital has one. Said we can't use them. Offered to give a list so they can look at others but she declined. Explained they will call her within a couple days of her going home. Daughter mentions they were going to send her home today but she is still too weak so she is staying til tomorrow. Explained if her o2 needs increase we will also fax new orders to [facility]. Sandy Kirby RN, CCM.
--- NOTE | 2020-06-09 12:51 | PN_ITS ---
Patient Problems: Active and Suspected Problems History of hypertension (Acute) History of end stage renal disease (Acute) Respiratory failure with hypoxia and hypercapnia (Acute) Right lower lobe pulmonary infiltrate (Acute) COPD with exacerbation (Acute) Acute bronchospasm (Acute) Severe sepsis (Acute) Iron deficiency anemia (Acute) Subjective: Patient seen and examined. She had just come back from a EGD and colonoscopy. She did feel quite worn out from the procedure but had no active complaints. Review of symptoms otherwise negative. She has remained hemodynamically stable. Sodium is down to 129 today and bicarb is 35. Potassium was 3.5 and creatinine is trended down slightly to 1.69. Hemoglobin is 9. Vitals/I&O's: Vital Signs Temp Pulse Resp BP Pulse Ox 97.4 F L 63 18 113/86 H 94 06/09/20 09:36 06/09/20 10:22 06/09/20 10:22 06/09/20 09:36 06/09/20 09:36 Oxygen Flow Rate (L/min) 4 Oxygen Delivery Method Nasal Cannula Weight: 189 lb 6.033 oz Body Mass Index (BMI) 33.2 Intake and Output for Last 24 Hours 06/07/20 06/08/20 06/09/20 23:59 23:59 23:59 Intake Total 360.92 / 360.92 3975.75 / 4725.75 983.45 / 983.45 Output Total 1000 / 1000 150 / 150 Balance -639.08 / -639.08 3975.75 / 4725.75 833.45 / 833.45 General: Alert, Oriented x3, Cooperative, No apparent distress, lethargic HEENT: Atraumatic, PERRLA, EOMI, Normocephalic Oral: Dry Mucosa Neck: Supple, No JVD, Negative Carotid Bruits Lungs: - - diminished breath sounds in all lung grider; mild wheezing in all lung grider. On 5L of oxygen Cardiovascular: Regular rate, Normal S1, Normal S2, No murmurs Abdomen: Bowel Sounds Present, Soft, Non Tender, Non-Distended, No Hepato- splenomegaly Extremities: No clubbing, No cyanosis, No edema, Capillary Refill Less than 3 Seconds Skin: No rashes, No breakdown Musculoskeletal: No Tenderness to Palpation of Joints or Extremities Lymphatic: No Cervical, Supraclavicular, or Inguinal Adenopathy Neurological: Cranial nerves II-XII grossly intact, Neuro grossly intact, Motor Exam 5/5 strength throughout Psych/Mental Status: Normal Affect, Appropriate, Alert and oriented to time, place, person, mood and affect Microbiology Past 72 Hours 06/06/20 00:30 Blood Culture (Wb) - Left Forearm Blood Culture - Preliminary No growth in 48 hours. 06/05/20 23:30 Blood Culture (Wb) - Anticubital Left Blood Culture - Preliminary No growth in 48 hours. 06/07/20 09:30 Stool Stool Occult Blood (SHANTELL) - Final 06/06/20 09:39 Mucosa - Nasopharyngeal Respiratory Panel (PCR) - Final Laboratory Results 06/08/20 16:53: APTT 59.2 H 06/08/20 22:56: APTT 91.9 H* 06/09/20 10:12: WBC 7.0, RBC 3.65 L, Hgb 9.0 L, Hct 30.2 L, MCV 82.7, MCH 24.7 L , MCHC 29.8 L, RDW Std Deviation 51.4 H, RDW Coeff of Ismael 17.1 H, Plt Count 230, MPV 11.1, Immature Gran % (Auto) 0.700, Neut % (Auto) 93.2 H, Lymph % (Auto) 1.0 L, [place] % (Auto) 5.1, Eos % (Auto) 0.0, Baso % (Auto) 0.0, Absolute Neuts (auto) 6.5, Absolute Lymphs (auto) 0.07 L, Nucleated RBC % 0, Platelet Estimate ADEQUATE, Polychromasia RARE, Hypochromasia 2+, Schistocytes RARE 06/09/20 10:12: PT 12.1, INR 0.9, APTT 25.1 06/09/20 10:12: Sodium 129 L, Potassium 3.5, Chloride 83 L, Carbon Dioxide 35.0 H, Anion Gap 11, BUN 51 H, Creatinine 1.69 H, Estim Creat Clear Calc 21.60, Est GFR (MDRD) Af Amer 37 L, Est GFR (MDRD) Non-Af 31 L, BUN/Creatinine Ratio 30.2 H , Glucose 142 H, Calcium 7.7 L Diagnostic Data Chest X-Ray 06/05/20 23:50 IMPRESSION: 1. Cardiomegaly and pulmonary vascular congestion. 2. Right-sided pulmonary nodules. Electronically Signed: Deb Stone MD at 0:36 EST , Service support , Chest CTA 06/06/20 00:47 IMPRESSION: 1. No CTA demonstrated pulmonary embolism or arterial dissection. 2. Findings suggest early pulmonary edema. 3. Pulmonary vascular congestion with COPD. 4. Bilateral basilar atelectasis with possible right lower lobe pneumonia. 5. Intraluminal thrombus within the descending thoracic aorta. Electronically Signed: Deb Stone MD at 2:12 EST , Service support , Current Medications Acetaminophen (Acetaminophen 325 Mg Tablet) 650 mg PO Q6H PRN PRN PRN Reason: Pain Score 1-10/Temp > 100.7 F Al Hydroxide/Mg Hydroxide (Mag Hydrox/Al Hydrox/Simeth 30 Ml Udc) 30 ml PO Q6H PRN PRN PRN Reason: Gastric Burning Albuterol/Ipratropium (Ipratropium/Albuterol Sulfate 3 Ml Ampul.Neb) 3 ml INHALATION Q4H.RT [facility] Last Admin: 06/09/20 10:22 Dose: 3 ml Documented by: Apixaban (Apixaban 2.5 Mg Tablet) 2.5 mg PO BID SHANE Aspirin (Aspirin 325 Mg Tablet) 325 mg PO DAILYCM [facility] Last Admin: 06/06/20 09:54 Dose: 325 mg Documented by: Cholecalciferol (Cholecalciferol (Vit D3) 1,000 Unit (25mcg)) 2,000 unit PO DAILY [facility] Last Admin: 06/09/20 10:16 Dose: 2,000 unit Documented by: Diltiazem HCl (Diltiazem Cd 300 Mg Capsule) 300 mg PO DAILY [facility] Last Admin: 06/09/20 10:16 Dose: 300 mg Documented by: Levofloxacin (Levaquin Iv) 750 mg in 150 mls @ 100 mls/hr IV Q48 [facility] Last Infusion: 06/08/20 10:07 Dose: Infused Documented by: Pantoprazole Sodium 40 mg/ (Sodium Chloride) 110 mls @ 330 mls/hr IV Q12 [facility] Last Infusion: 06/09/20 10:34 Dose: Infused Documented by: Methylprednisolone (Methylprednisolone 40 Mg/Ml Vial) 40 mg IV Q8 [facility] Last Admin: 06/09/20 05:53 Dose: 40 mg Documented by: Ondansetron HCl (Ondansetron 4 Mg/2 Ml Vial) 4 mg IV Q8H PRN PRN PRN Reason: NAUSEA/VOMITING Pravastatin Sodium (Pravastatin 20 Mg Tablet) 20 mg PO QHS [facility] Last Admin: 06/08/20 20:54 Dose: 20 mg Documented by: Sertraline HCl (Sertraline 50 Mg Tablet) 50 mg PO DAILY [facility] Last Admin: 06/09/20 10:16 Dose: 50 mg Documented by: Sodium Chloride (0.9% Saline Lock 10 Ml Syringe) 10 - 40 ml IV UD PRN PRN Reason: SALINE FLUSH Last Admin: 06/09/20 05:54 Dose: 10 ml Documented by: STROKE Vital Signs/Narrative: Vital Signs Temp Pulse Resp BP Pulse Ox 06/09/20 10:22 63 18 06/09/20 09:36 97.4 F L 75 20 H 113/86 H 94 06/09/20 09:15 97.6 F L 69 18 149/70 H 97 06/09/20 09:10 73 18 184/161 H 4 06/09/20 09:05 74 18 140/112 H 97 06/09/20 09:00 62 18 158/95 H 4 06/09/20 08:55 62 18 119/54 L 100 Medical Necessity - Tobacco Use Smoking Status: Former smoker Tobacco Use: Cigarettes Assessment/Plan All Active Problems History of hypertension (Acute) History of end stage renal disease (Acute) Respiratory failure with hypoxia and hypercapnia (Acute) Right lower lobe pulmonary infiltrate (Acute) COPD with exacerbation (Acute) Acute bronchospasm (Acute) Severe sepsis (Acute) Iron deficiency anemia (Acute) #Acute hypoxic and hypercapnic respiratory failure due to COPD exacerbation and Acute HFpEF * on 5L today, and BIPAP prn * On IV Solu-Medrol and being diuresed with IV Lasix. Will switch to PO lasix today. * Pulmonology on board. On breathing treatments with bronchodilators. * Titrate oxygen to maintain saturation above 90%. * 2D echo showed EF of 65% with normal left ventricular systolic function and no evidence of diastolic dysfunction. Left atrium moderately enlarged and right atrium mildly enlarged with moderately severe aortic valve stenosis. * * #Acute COPD exacerbation: As above. Respiratory panel was negative. Covid test was also negative. 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 2D echo showed severe aortic stenosis. #Descending thoracic aortic thrombus * CTA of the chest done was negative for PE. There was a transverse dimension of the ascending thoracic aorta measuring 3.5 cm with no demonstrated aortic dissection and appearance of thrombus within the descending was a source of emboli. * I did discuss this with her PCP and there is no record of her having this thrombus in the past. * on heparin drip; switch to PO eliquis 2.5mg bid. In light of patient's extensive comorbidities and frail status, I dont think she will be and ideal candidate for surgery. * To follow up with her PCP, for referral to cardiothoracic surgery as appropriate * stool for occult blood negative. * #Iron deficiency anemia. * It is post transfusion of 1 unit of packed red blood cells. Hemoglobin today is 9 * Records obtained from her PCP showed that hemoglobin is usually between 12 and 13. * She does have a history of colon cancer back in 2002 s/p resection. She has been fine since then after she received chemotherapy. * From the records, patient's last colonoscopy was in 2013 and she was supposed received in 2016 but she declined it in 2016. 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 * give IV venofer #A. fib: On Cardizem. currently rate controlled. #Hypertension: Lisinopril currently on hold. Hydrochlorothiazide also on hold. IV hydralazine prn #Hyperlipidemia: On statin #Depression: On Zoloft DVT prophylaxis:now on eliquis Inpatient E&M: 30018 Subs Hosp L2
[2020-06-09] MEDS: APIXABAN 2.5 MG TABLET PO ×2 (13:36→20:10)
--- NOTE | 2020-06-09 15:19 | CPS ---
Pt was increased to 10 lpm. Saturation to 98%. Pt was offered Bipap for increased work of breathing but refused. Pt's nurse was informed of pt's increase in oxygen and her refusal of Bipap.
--- NOTE | 2020-06-09 15:53 | CPS ---
Pt agreed to being placed on Bipap. Pt was placed on at previous settings of 12/01. Pt resting comfortably on Bipap.
[2020-06-09] MEDS: Pravastatin 20 MG Tablet PO (20:10)
[2020-06-10] VITALS (19 sets, daily range): BP systolic 115–160; BP diastolic 44–75; PULSE 55–70; RESP 14–24; TEMP 36.3–36.7; O2SAT 93–99
[2020-06-10] MEDS: Ipratropium/Albuterol Sulfate 3 ML AMPUL.NEB INHALATION ×6 (03:46→23:32)
[2020-06-10] MEDS: 0.9% Saline Lock 10 ML Syringe IV ×2 (05:18→20:53)
--- NOTE | 2020-06-10 05:55 | EKG12_ITS ---
Test Reason : AM EKG Blood Pressure : / mmHG Vent. Rate : 061 BPM Atrial Rate : 061 BPM P-R Int : 146 ms QRS Dur : 104 ms QT Int : 444 ms P-R-T Axes : -28 -08 -03 degrees QTc Int : 446 ms Sinus rhythm with Premature atrial complexes Otherwise normal ECG When compared with ECG of 09-JUN-2020 05:30, MANUAL COMPARISON REQUIRED, DATA IS UNCONFIRMED Confirmed by ELI HAWKINS, SAM ([id number]), commissioning editor RY PATTERSON ([id number]) on 06/11/2020 1:13:19 PM Referred By: DR OLSON Confirmed By:SAM BENITEZ MD
[2020-06-10 05:57] LABS: Absolute Lymphocyte Count 0.07 X10^3/uL (0.83-4.51); Absolute Neutrophil Count 4.5 X10^3/uL (2.0-7.7); Hematocrit 29.3 % (37-47); Hemoglobin 8.7 g/dL (12.0-15.0); Lymphocyte # 0.07 X10^3/ul (4.0); Lymphocyte % 1.4 % (19-41); Mean Corp Hgb Conc 29.7 g/dL (32-36); Mean Corpuscular Hgb 24.8 pg (27.0-32.0); Mean Corpuscular Volume 83.5 fL (81-99); Monocyte# 0.36 X10^3/uL; Monocyte% 7.3 % (0-10); NRBC Flagged by Analyzer 0 % (0-5); Neutrophil # 4.51 X10^3/uL (2.7-7.7); Neutrophil % 90.9 % (47-70); POSITIVE DIFFERENTIAL YES; Platelet Count 198 K/mm3 (150-450); RBC Distribution Width CV 17.1 % (11.6-14.6); RBC Distribution Width SD 51.7 fl (35.1-43.9); Red Blood Count 3.51 M/mm3 (4.2-5.4)
[2020-06-10 06:01] LABS: Differential Indicated SCAN CRITERIA MET
[2020-06-10 06:36] LABS: Anion Gap 5 (5-15); BUN 44 mg/dL (7-18); BUN/Creat Ratio 30.1 RATIO (10-20); Calcium,Total 8.1 mg/dL (8.5-10.1); Chloride 91 mmol/L (98-107); Creatinine, Serum 1.46 mg/dL (0.55-1.02); EST Glomerular Filtration Rate 37 mL/min (>60); Est Glom Filt Rate - Afr Amer 44 mL/min (>60); Glucose 143 mg/dL (74-106); Potassium 3.8 mmol/L (3.5-5.1); Sodium Level 136 mmol/L (136-145)
--- NOTE | 2020-06-10 09:01 | PN_ITS ---
Patient Problems: Active and Suspected Problems History of hypertension (Acute) History of end stage renal disease (Acute) Respiratory failure with hypoxia and hypercapnia (Acute) Right lower lobe pulmonary infiltrate (Acute) COPD with exacerbation (Acute) Acute bronchospasm (Acute) Severe sepsis (Acute) Iron deficiency anemia (Acute) Subjective: Patient did okay through procedures yesterday. However, overnight, patient's oxygen requirements is increased to 9 L/min. Patient states that she feels more weak and shaky compared to previous. No bleeding has been reported. - Physical Exam Vitals/I&O's: Vital Signs Temp Pulse Resp BP Pulse Ox 36.5 C L 60 16 115/75 96 06/10/20 05:16 06/10/20 07:08 06/10/20 07:08 06/10/20 05:16 06/10/20 07:08 Oxygen Flow Rate (L/min) 9 Oxygen Delivery Method Nasal Cannula Weight: 83.8 kg Body Mass Index (BMI) 33.2 Intake and Output for Last 24 Hours 06/08/20 06/09/20 06/10/20 23:59 23:59 23:59 Intake Total 3975.75 / 4725.75 1992.45 / 1992.45 0 / 0 Output Total 650 / 650 300 / 300 Balance 3975.75 / 4725.75 1343.45 / 1343.45 -300 / -300 General: Alert, Oriented x3, Cooperative, - - Slight increase in conversational dyspnea HEENT: Atraumatic, PERRLA, EOMI, Normocephalic, - - Slight jaw tremor noted. Oral: Moist Mucosa, No Gingival or Mucosal Lesions/ Ulcerations Neck: Supple, No Nodes, Trachea Midline, JVD, Right Lungs: No rhonchi, No wheeze, Diminished, Rales - Right base, - - Symmetric expansion Cardiovascular: Normal S1, Normal S2, No murmurs, Irregular Rate, No rub noted, No Gallop Abdomen: Bowel Sounds Present, Soft, Non Tender, Non-Distended, Obese Extremities: No clubbing, No cyanosis, Edema - 1+ lower extremities Skin: - - Dermal atrophy. Musculoskeletal: No Tenderness to Palpation of Joints or Extremities Lymphatic: No Cervical, Supraclavicular, or Inguinal Adenopathy Neurological: Cranial nerves II-XII grossly intact, Neuro grossly intact, Motor Exam 5/5 strength throughout Psych/Mental Status: Anxious, Restless Microbiology Past 72 Hours 06/06/20 00:30 Blood Culture (Wb) - Left Forearm Blood Culture - Preliminary No growth in 48 hours. 06/05/20 23:30 Blood Culture (Wb) - Anticubital Left Blood Culture - Preliminary No growth in 48 hours. 06/07/20 09:30 Stool Stool Occult Blood (SHANTELL) - Final Laboratory Results 06/09/20 10:12: WBC 7.0, RBC 3.65 L, Hgb 9.0 L, Hct 30.2 L, MCV 82.7, MCH 24.7 L , MCHC 29.8 L, RDW Std Deviation 51.4 H, RDW Coeff of Ismael 17.1 H, Plt Count 230, MPV 11.1, Immature Gran % (Auto) 0.700, Neut % (Auto) 93.2 H, Lymph % (Auto) 1.0 L, [place] % (Auto) 5.1, Eos % (Auto) 0.0, Baso % (Auto) 0.0, Absolute Neuts (auto) 6.5, Absolute Lymphs (auto) 0.07 L, Nucleated RBC % 0, Platelet Estimate ADEQUATE, Polychromasia RARE, Hypochromasia 2+, Schistocytes RARE 06/09/20 10:12: PT 12.1, INR 0.9, APTT 25.1 06/09/20 10:12: Sodium 129 L, Potassium 3.5, Chloride 83 L, Carbon Dioxide 35.0 H, Anion Gap 11, BUN 51 H, Creatinine 1.69 H, Estim Creat Clear Calc 21.60, Est GFR (MDRD) Af Amer 37 L, Est GFR (MDRD) Non-Af 31 L, BUN/Creatinine Ratio 30.2 H , Glucose 142 H, Calcium 7.7 L 06/10/20 05:25: WBC 5.0, RBC 3.51 L, Hgb 8.7 L, Hct 29.3 L, MCV 83.5, MCH 24.8 L , MCHC 29.7 L, RDW Std Deviation 51.7 H, RDW Coeff of Ismael 17.1 H, Plt Count 198, MPV 12.0, Immature Gran % (Auto) 0.400, Neut % (Auto) 90.9 H, Lymph % (Auto) 1.4 L, [place] % (Auto) 7.3, Eos % (Auto) 0.0, Baso % (Auto) 0.0, Absolute Neuts (auto) 4.5, Absolute Lymphs (auto) 0.07 L, Nucleated RBC % 0 06/10/20 05:25: Sodium 136, Potassium 3.8, Chloride 91 L, Carbon Dioxide 40.0 H, Anion Gap 5, BUN 44 H, Creatinine 1.46 H, Estim Creat Clear Calc 25.00, Est GFR (MDRD) Af Amer 44 L, Est GFR (MDRD) Non-Af 37 L, BUN/Creatinine Ratio 30.1 H, Glucose 143 H, Calcium 8.1 L Current Medications Acetaminophen (Acetaminophen 325 Mg Tablet) 650 mg PO Q6H PRN PRN PRN Reason: Pain Score 1-10/Temp > 100.7 F Al Hydroxide/Mg Hydroxide (Mag Hydrox/Al Hydrox/Simeth 30 Ml Udc) 30 ml PO Q6H PRN PRN PRN Reason: Gastric Burning Albuterol/Ipratropium (Ipratropium/Albuterol Sulfate 3 Ml Ampul.Neb) 3 ml INHALATION Q4H.RT [facility] Last Admin: 06/10/20 07:08 Dose: 3 ml Documented by: Apixaban (Apixaban 2.5 Mg Tablet) 2.5 mg PO BID [facility] Last Admin: 06/09/20 20:10 Dose: 2.5 mg Documented by: Aspirin ([facility] 325 Mg Tablet) [facility] Last Admin: 06/06/20 09:54 Dose: 325 mg Documented by: Cholecalciferol (Cholecalciferol (Vit D3) 1,000 Unit (25mcg)) 2,000 unit PO DAILY [facility] Last Admin: 06/09/20 10:16 Dose: 2,000 unit Documented by: Diltiazem HCl (Diltiazem Cd 300 Mg Capsule) 300 mg PO DAILY [facility] Last Admin: 06/09/20 10:16 Dose: 300 mg Documented by: Levofloxacin (Levaquin Iv) 750 mg in 150 mls @ 100 mls/hr IV Q48 [facility] Last Infusion: 06/08/20 10:07 Dose: Infused Documented by: Pantoprazole Sodium 40 mg/ (Sodium Chloride) 110 mls @ 330 mls/hr IV Q12 [facility] Last Infusion: 06/09/20 20:33 Dose: Infused Documented by: Ondansetron HCl (Ondansetron 4 Mg/2 Ml Vial) 4 mg IV Q8H PRN PRN PRN Reason: NAUSEA/VOMITING Pravastatin Sodium (Pravastatin 20 Mg Tablet) 20 mg PO QHS [facility] Last Admin: 06/09/20 20:10 Dose: 20 mg Documented by: Prednisone (Prednisone 20 Mg Tablet) 40 mg PO DAILY@0800 [facility] Sertraline HCl (Sertraline 50 Mg Tablet) 50 mg PO DAILY [facility] Last Admin: 06/09/20 10:16 Dose: 50 mg Documented by: Sodium Chloride (0.9% Saline Lock 10 Ml Syringe) 10 - 40 ml IV UD PRN PRN Reason: SALINE FLUSH Last Admin: 06/10/20 05:18 Dose: 10 ml Documented by: Medical Necessity - Tobacco Use Smoking Status: Former smoker Tobacco Use: Cigarettes Assessment/Plan All Active Problems History of hypertension (Acute) History of end stage renal disease (Acute) Respiratory failure with hypoxia and hypercapnia (Acute) Right lower lobe pulmonary infiltrate (Acute) COPD with exacerbation (Acute) Acute bronchospasm (Acute) Severe sepsis (Acute) Iron deficiency anemia (Acute) RECOMMENDATIONS: 1. Complete 5 days of antibiotics 2. We will give a dose of Lasix today given increased FiO2 3. Transition to prednisone and wean over 12 to 14 days 4. Walking oximetry prior to discharge 5. Repeat complete PFT as an outpatient 6. Okay to discharge from a pulmonary perspective with follow-up in office 2 weeks with nurse practitioner if makes it to baseline oxygen requirements IMPRESSIONS: 1. Acute hypoxic respiratory failure secondary to probable COPD exacerbation Patient may have an element of concomitant congestive heart failure, but advanced emphysematous changes are noted on CT scan of the chest. Patient has a negative viral panel, but empiric antibiotics until cultures can be obtained would be appropriate. Anticipate 5 days of antibiotics would be sufficient. Patient is appropriately on antibiotics, bronchodilators and steroids. Patient will be transitioned to prednisone. This can wean over the next 12 to 14 days. Increased oxygen today may be secondary to volume. Patient will be given a dose of Lasix. If patient makes it to baseline oxygen requirement, potentially able to discharge later today from a pulmonary perspective with a 2-week follow-up with nurse practitioner. 2. Descending aortic thrombus Unclear etiology. Patient may need a CTA of the abdomen and pelvis for evaluation of dissection. Patient is not showing any signs or symptoms of peripheral embolization on my exam. Patient does have a decreased hemoglobin and this will exacerbate underlying lung disease. Patient reportedly is to have this evaluated as an outpatient. 3. A. fib/aortic stenosis/advanced age/hypertension/hyperlipidemia/depression Complicates care, management, recovery and prognosis. Likely okay to continue with baseline medications except for lisinopril may need to be held secondary to active diuresis. Okay to continue statin Zoloft from my perspective. Inpatient E&M: 95523 Subs Hosp L2
[2020-06-10] MEDS: Furosemide 20 MG/2 ML VIAL IV (09:27)
[2020-06-10] MEDS: Sertraline 50 MG Tablet PO (09:28)
[2020-06-10] MEDS: dilTIAZem CD 300 MG Capsule PO (09:29)
[2020-06-10] MEDS: APIXABAN 2.5 MG TABLET PO ×2 (09:29→20:53)
[2020-06-10] MEDS: levoFLOXacin IV 750 MG/150 ML BAG 100 MG IV (09:44)
[2020-06-10] MEDS: predniSONE 20 MG Tablet 40 MG PO (11:42)
--- NOTE | 2020-06-10 12:30 | PN_ITS ---
Patient Problems: Active and Suspected Problems History of hypertension (Acute) History of end stage renal disease (Acute) Respiratory failure with hypoxia and hypercapnia (Acute) Right lower lobe pulmonary infiltrate (Acute) COPD with exacerbation (Acute) Acute bronchospasm (Acute) Severe sepsis (Acute) Iron deficiency anemia (Acute) Subjective: Patient seen and examined. She got more short of breath overnight, and is now on 9L of oxygen. She has no other complaints this morning, and review of systems is otherwise negative. Vitals/I&O's: Vital Signs Temp Pulse Resp BP Pulse Ox 97.3 F L 62 16 121/44 H 95 06/10/20 09:14 06/10/20 10:56 06/10/20 10:56 06/10/20 09:14 06/10/20 09:38 Oxygen Flow Rate (L/min) 9 Oxygen Delivery Method Nasal Cannula Weight: 184 lb 11.958 oz Body Mass Index (BMI) 33.2 Intake and Output for Last 24 Hours 06/08/20 06/09/20 06/10/20 23:59 23:59 23:59 Intake Total 3975.75 / 4725.75 1993.45 / 1992.45 260 / 260 Output Total 650 / 650 300 / 300 Balance 3975.75 / 4725.75 1343.45 / 1343.45 -40 / -40 General: Alert, Oriented x3, Cooperative, No apparent distress HEENT: Atraumatic, PERRLA, EOMI, Normocephalic Oral: Dry Mucosa Neck: Supple, No JVD, Negative Carotid Bruits Lungs: - - diminished breath sounds in all lung grider; coarse crackles in all lung grider bilaterally. On 9L of oxygen, with BIPAP prn Cardiovascular: Regular rate, Normal S1, Normal S2, No murmurs Abdomen: Bowel Sounds Present, Soft, Non Tender, Non-Distended, No Hepato- splenomegaly Extremities: No clubbing, No cyanosis, No edema, Capillary Refill Less than 3 Seconds Skin: No rashes, No breakdown Musculoskeletal: No Tenderness to Palpation of Joints or Extremities Lymphatic: No Cervical, Supraclavicular, or Inguinal Adenopathy Neurological: Cranial nerves II-XII grossly intact, Neuro grossly intact, Motor Exam 5/5 strength throughout Psych/Mental Status: Normal Affect, Appropriate, Alert and oriented to time, place, person, mood and affect Microbiology Past 72 Hours 06/06/20 00:30 Blood Culture (Wb) - Left Forearm Blood Culture - Preliminary No growth in 48 hours. 06/05/20 23:30 Blood Culture (Wb) - Anticubital Left Blood Culture - Preliminary No growth in 48 hours. 06/07/20 09:30 Stool Stool Occult Blood (SHANTELL) - Final Laboratory Results 06/10/20 05:25: WBC 5.0, RBC 3.51 L, Hgb 8.7 L, Hct 29.3 L, MCV 83.5, MCH 24.8 L , MCHC 29.7 L, RDW Std Deviation 51.7 H, RDW Coeff of Ismael 17.1 H, Plt Count 198, MPV 12.0, Immature Gran % (Auto) 0.400, Neut % (Auto) 90.9 H, Lymph % (Auto) 1.4 L, [place] % (Auto) 7.3, Eos % (Auto) 0.0, Baso % (Auto) 0.0, Absolute Neuts (auto) 4.5, Absolute Lymphs (auto) 0.07 L, Nucleated RBC % 0 06/10/20 05:25: Sodium 136, Potassium 3.8, Chloride 91 L, Carbon Dioxide 40.0 H, Anion Gap 5, BUN 44 H, Creatinine 1.46 H, Estim Creat Clear Calc 25.00, Est GFR (MDRD) Af Amer 44 L, Est GFR (MDRD) Non-Af 37 L, BUN/Creatinine Ratio 30.1 H, Glucose 143 H, Calcium 8.1 L Current Medications Acetaminophen (Acetaminophen 325 Mg Tablet) 650 mg PO Q6H PRN PRN PRN Reason: Pain Score 1-10/Temp > 100.7 F Al Hydroxide/Mg Hydroxide (Mag Hydrox/Al Hydrox/Simeth 30 Ml Udc) 30 ml PO Q6H PRN PRN PRN Reason: Gastric Burning Albuterol/Ipratropium (Ipratropium/Albuterol Sulfate 3 Ml Ampul.Neb) 3 ml INHALATION Q4H.RT SHANE Last Admin: 06/10/20 10:56 Dose: 3 ml Documented by: Apixaban (Apixaban 2.5 Mg Tablet) 2.5 mg PO BID SHANE Last Admin: 06/10/20 09:29 Dose: 2.5 mg Documented by: Aspirin (Aspirin 325 Mg Tablet) 325 mg PO DAILYCM [facility] Last Admin: 06/06/20 09:54 Dose: 325 mg Documented by: Cholecalciferol (Cholecalciferol (Vit D3) 1,000 Unit (25mcg)) 2,000 unit PO DAILY [facility] Last Admin: 06/10/20 09:28 Dose: 2,000 unit Documented by: Diltiazem HCl (Diltiazem Cd 300 Mg Capsule) 300 mg PO DAILY [facility] Last Admin: 06/10/20 09:29 Dose: 300 mg Documented by: Levofloxacin (Levaquin Iv) 750 mg in 150 mls @ 100 mls/hr IV Q48 [facility] Last Infusion: 06/10/20 12:28 Dose: Infused Documented by: Pantoprazole Sodium 40 mg/ (Sodium Chloride) 110 mls @ 330 mls/hr IV Q12 [facility] Last Infusion: 06/10/20 10:33 Dose: Infused Documented by: Ondansetron HCl (Ondansetron 4 Mg/2 Ml Vial) 4 mg IV Q8H PRN PRN PRN Reason: NAUSEA/VOMITING Pravastatin Sodium (Pravastatin 20 Mg Tablet) 20 mg PO QHS [facility] Last Admin: 06/09/20 20:10 Dose: 20 mg Documented by: Prednisone (Prednisone 20 Mg Tablet) 40 mg PO DAILY@0800 [facility] Last Admin: 06/10/20 11:42 Dose: 40 mg Documented by: Sertraline HCl (Sertraline 50 Mg Tablet) 50 mg PO DAILY [facility] Last Admin: 06/10/20 09:28 Dose: 50 mg Documented by: Sodium Chloride (0.9% Saline Lock 10 Ml Syringe) 10 - 40 ml IV UD PRN PRN Reason: SALINE FLUSH Last Admin: 06/10/20 05:18 Dose: 10 ml Documented by: STROKE Vital Signs/Narrative: Vital Signs Temp Pulse Resp BP Pulse Ox 06/10/20 10:56 62 16 06/10/20 09:38 95 06/10/20 09:14 97.3 F L 63 20 H 121/44 H 95 Medical Necessity - Tobacco Use Smoking Status: Former smoker Tobacco Use: Cigarettes Assessment/Plan All Active Problems History of hypertension (Acute) History of end stage renal disease (Acute) Respiratory failure with hypoxia and hypercapnia (Acute) Right lower lobe pulmonary infiltrate (Acute) COPD with exacerbation (Acute) Acute bronchospasm (Acute) Severe sepsis (Acute) Iron deficiency anemia (Acute) #Acute hypoxic and hypercapnic respiratory failure due to COPD exacerbation and Acute HFpEF * up to 9L today. she says she got more short of breath overnight. * will keep on IV lasix. now on PO prednisone 40mg daily * Pulmonology on board. On breathing treatments with bronchodilators. * Titrate oxygen to maintain saturation above 90%. * 2D echo showed EF of 65% with normal left ventricular systolic function and no evidence of diastolic dysfunction. Left atrium moderately enlarged and right atrium mildly enlarged with moderately severe aortic valve stenosis. * * #Acute COPD exacerbation: As above. Respiratory panel was negative. Covid test was also negative. 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 2D echo showed severe aortic stenosis. #Descending thoracic aortic thrombus * CTA of the chest done was negative for PE. There was a transverse dimension of the ascending thoracic aorta measuring 3.5 cm with no demonstrated aortic dissection and appearance of thrombus within the descending was a source of emboli. * on eliquis 2.5mg bid. * To follow up with her PCP, for referral to cardiothoracic surgery as appropriate * stool for occult blood negative. * #Iron deficiency anemia. * is post transfusion of 1 unit of packed red blood cells. Hemoglobin today is 8.7 * Records obtained from her PCP showed that hemoglobin is usually between 12 and 13. * She does have a history of colon cancer back in 2002 s/p resection. She has been fine since then after she received chemotherapy. * From the records, patient's last colonoscopy was in 2013 and she was supposed received in 2016 but she declined it in 2017. * colonoscopy during this admission was negative for any evidence of bleeding; EGD showed a grade II varix in the esophagus, with no evidence of bleeding. * give IV venofer #A. fib: On Cardizem. currently rate controlled. #Hypertension: Lisinopril currently on hold. Hydrochlorothiazide also on hold. IV hydralazine prn #Hyperlipidemia: On statin #Depression: On Zoloft DVT prophylaxis:on eliquis Inpatient E&M: [id number] [facility] Hosp L2
--- NOTE | 2020-06-10 15:16 | CPS ---
Pt decreased to 7 lpm. Saturation 95%. Nurse aware of change
[2020-06-10] MEDS: Furosemide 40 MG/4 ML Vial IV (17:14)
[2020-06-10] MEDS: Pravastatin 20 MG Tablet PO (20:53)
[2020-06-11] VITALS (14 sets, daily range): BP systolic 110–149; BP diastolic 45–53; PULSE 57–67; RESP 16–20; TEMP 36.8–37.1; O2SAT 88–95
[2020-06-11 06:01] LABS: Absolute Lymphocyte Count 0.08 X10^3/uL (0.83-4.51); Absolute Neutrophil Count 6.2 X10^3/uL (2.0-7.7); Basophil# 0.01 X10^3/uL; Basophil% 0.1 % (0-1); Hematocrit 27.8 % (37-47); Hemoglobin 7.9 g/dL (12.0-15.0); Lymphocyte # 0.08 X10^3/ul (4.0); Lymphocyte % 1.2 % (19-41); Mean Corp Hgb Conc 28.4 g/dL (32-36); Mean Corpuscular Hgb 24.5 pg (27.0-32.0); Mean Corpuscular Volume 86.1 fL (81-99); Mean Platelet Vol. 11.6 fl (6.2-12.0); Monocyte# 0.63 X10^3/uL; Monocyte% 9.1 % (0-10); NRBC Flagged by Analyzer 0 % (0-5); Neutrophil # 6.17 X10^3/uL (2.7-7.7); Neutrophil % 88.9 % (47-70); POSITIVE DIFFERENTIAL YES; Platelet Count 182 K/mm3 (150-450); RBC Distribution Width CV 17.1 % (11.6-14.6); RBC Distribution Width SD 53.6 fl (35.1-43.9); Red Blood Count 3.23 M/mm3 (4.2-5.4); White Blood Count 6.9 K/mm3 (4.4-11.0)
[2020-06-11 06:14] LABS: Differential Indicated SCAN CRITERIA MET
[2020-06-11 06:34] LABS: BUN 46 mg/dL (7-18); BUN/Creat Ratio 30.5 RATIO (10-20); Calcium,Total 7.8 mg/dL (8.5-10.1); Carbon Dioxide > 45.0 mmol/L (21.0-32.0); Chloride 92 mmol/L (98-107); Creatinine, Serum 1.51 mg/dL (0.55-1.02); EST Glomerular Filtration Rate 35 mL/min (>60); Est Glom Filt Rate - Afr Amer 43 mL/min (>60); Estimated Creatinine Clearance 24.17 ml/min; Glucose 139 mg/dL (74-106); Potassium 3.7 mmol/L (3.5-5.1); Sodium Level 138 mmol/L (136-145)
[2020-06-11] MEDS: Ipratropium/Albuterol Sulfate 3 ML AMPUL.NEB INHALATION ×4 (07:01→20:01)
[2020-06-11] MEDS: Furosemide 40 MG/4 ML Vial IV ×2 (08:23→17:07)
[2020-06-11] MEDS: dilTIAZem CD 300 MG Capsule PO (08:26)
[2020-06-11] MEDS: APIXABAN 2.5 MG TABLET PO ×2 (08:26→21:31)
[2020-06-11] MEDS: predniSONE 20 MG Tablet 40 MG PO (08:26)
[2020-06-11] MEDS: 0.9% Saline Lock 10 ML Syringe IV ×3 (08:26→21:31)
[2020-06-11] MEDS: Sertraline 50 MG Tablet PO (08:27)
--- NOTE | 2020-06-11 10:18 | PN_ITS ---
Patient Problems: Active and Suspected Problems History of hypertension (Acute) History of end stage renal disease (Acute) Respiratory failure with hypoxia and hypercapnia (Acute) Right lower lobe pulmonary infiltrate (Acute) COPD with exacerbation (Acute) Acute bronchospasm (Acute) Severe sepsis (Acute) Iron deficiency anemia (Acute) Reason for Visit: Acute hypoxic respiratory failure COPD with acute exacerbation Acute congestive heart failure with preserved ejection fraction Subjective: Patient is an 80-year-old with past medical history segment for COPD, congestive heart failure admitted with progressive shortness of breath Objective: GENERAL: cooperative HEENT: Atraumatic; EYES; Anicteric, Normal Conjunctiva NECK; supple, normal thyroid, RESPIRATORY: Diminished to auscultation CARDIOVASCULAR: Regular S1 S2, systolic murmur GI: soft, normoactive bowel sounds, : No Renal angle tenderness; EXTREMITIES: No edema, no clubbing, MUSCULOSKELETAL: no muscle waisting NEURO: Awake; no lateralizing signs. SKIN: No Rash PSYCH; Flat affect Vitals/I&O's: Vital Signs Temp Pulse Resp BP Pulse Ox 98.8 F 63 20 H 119/45 L 94 06/11/20 09:45 06/11/20 09:45 06/11/20 09:45 06/11/20 09:45 06/11/20 09:45 Oxygen Flow Rate (L/min) 4 Oxygen Delivery Method Nasal Cannula Weight: 85.5 kg Body Mass Index (BMI) 33.2 Intake and Output for Last 24 Hours 06/09/20 06/10/20 06/11/20 23:59 23:59 23:59 Intake Total 1992.45 / 1992.45 1090 / 1090 105.5 / 105.5 Output Total 650 / 650 2100 / 2100 300 / 300 Balance 1343.45 / 1343.45 -1010 / -1010 -194.5 / -194.5 Microbiology Past 72 Hours 06/06/20 00:30 Blood Culture (Wb) - Left Forearm Blood Culture - Final No growth in 5 days. 06/05/20 23:30 Blood Culture (Wb) - Anticubital Left Blood Culture - Final No growth in 5 days. Laboratory Results 06/11/20 05:45: WBC 6.9, RBC 3.23 L, Hgb 7.9 L, Hct 27.8 L, MCV 86.1, MCH 24.5 L , MCHC 28.4 L, RDW Std Deviation 53.6 H, RDW Coeff of Ismael 17.1 H, Plt Count 182, MPV 11.6, Immature Gran % (Auto) 0.700, Neut % (Auto) 88.9 H, Lymph % (Auto) 1.2 L, [place] % (Auto) 9.1, Eos % (Auto) 0.0, Baso % (Auto) 0.1, Absolute Neuts (auto) 6.2, Absolute Lymphs (auto) 0.08 L, Nucleated RBC % 0 06/11/20 05:45: Sodium 138, Potassium 3.7, Chloride 92 L, Carbon Dioxide > 45.0 H*, Anion Gap TNP, BUN 46 H, Creatinine 1.51 H, Estim Creat Clear Calc 24.17, Est GFR (MDRD) Af Amer 43 L, Est GFR (MDRD) Non-Af 35 L, BUN/Creatinine Ratio 30.5 H, Glucose 139 H, Calcium 7.8 L Current Medications Acetaminophen (Acetaminophen 325 Mg Tablet) 650 mg PO Q6H PRN PRN PRN Reason: Pain Score 1-10/Temp > 100.7 F Al Hydroxide/Mg Hydroxide (Mag Hydrox/Al Hydrox/Simeth 30 Ml Udc) 30 ml PO Q6H PRN PRN PRN Reason: Gastric Burning Albuterol/Ipratropium (Ipratropium/Albuterol Sulfate 3 Ml Ampul.Neb) 3 ml INHALATION Q4H.RT [facility] Last Admin: 06/11/20 07:01 Dose: 3 ml Documented by: Apixaban (Apixaban 2.5 Mg Tablet) 2.5 mg PO BID [facility] Last Admin: 06/11/20 08:26 Dose: 2.5 mg Documented by: Aspirin ([facility] 325 Mg Tablet) [facility] Last Admin: 06/06/20 09:54 Dose: 325 mg Documented by: Cholecalciferol (Cholecalciferol (Vit D3) 1,000 Unit (25mcg)) 2,000 unit PO DAILY [facility] Last Admin: 06/11/20 08:26 Dose: 2,000 unit Documented by: Diltiazem HCl (Diltiazem Cd 300 Mg Capsule) 300 mg PO DAILY [facility] Last Admin: 06/11/20 08:26 Dose: 300 mg Documented by: Furosemide (Furosemide 40 Mg/4 Ml Vial) 40 mg IV BID@1000,1800 [facility] Last Admin: 06/11/20 08:23 Dose: 40 mg Documented by: Levofloxacin (Levaquin Iv) 750 mg in 150 mls @ 100 mls/hr IV Q48 [facility] Last Infusion: 06/10/20 12:28 Dose: Infused Documented by: Pantoprazole Sodium 40 mg/ (Sodium Chloride) 110 mls @ 330 mls/hr IV Q12 [facility] Last Infusion: 06/11/20 08:26 Dose: 0 mls/hr Documented by: Ondansetron HCl (Ondansetron 4 Mg/2 Ml Vial) 4 mg IV Q8H PRN PRN PRN Reason: NAUSEA/VOMITING Pravastatin Sodium (Pravastatin 20 Mg Tablet) 20 mg PO QHS [facility] Last Admin: 06/10/20 20:53 Dose: 20 mg Documented by: Prednisone (Prednisone 20 Mg Tablet) 40 mg PO DAILY@0800 [facility] Last Admin: 06/11/20 08:26 Dose: 40 mg Documented by: Sertraline HCl (Sertraline 50 Mg Tablet) 50 mg PO DAILY [facility] Last Admin: 06/11/20 08:27 Dose: 50 mg Documented by: Sodium Chloride (0.9% Saline Lock 10 Ml Syringe) 10 - 40 ml IV UD PRN PRN Reason: SALINE FLUSH Last Admin: 06/11/20 08:26 Dose: 10 ml Documented by: STROKE Vital Signs/Narrative: Vital Signs Temp Pulse Resp BP Pulse Ox 06/11/20 09:45 98.8 F 63 20 H 119/45 L 94 06/11/20 07:01 60 16 94 06/11/20 06:53 57 L Medical Necessity - Tobacco Use Smoking Status: Former smoker Tobacco Use: Cigarettes Assessment/Plan All Active Problems History of hypertension (Acute) History of end stage renal disease (Acute) Respiratory failure with hypoxia and hypercapnia (Acute) Right lower lobe pulmonary infiltrate (Acute) COPD with exacerbation (Acute) Acute bronchospasm (Acute) Severe sepsis (Acute) Iron deficiency anemia (Acute) Patient is an 80-year-old with past medical history segment for COPD, congestive heart failure admitted with progressive shortness of breath 1. Acute hypoxic and hypercapnic respiratory failure ?Due to combination of COPD and acute congestive heart failure with preserved ejection fraction 2. COPD with acute exacerbation ?Managed with aerosol treatments as well as prednisone in addition to supplemental oxygen 3. Acute congestive heart failure with preserved ejection fraction ?The echo obtained demonstrated Left ventricular systolic function is normal. The estimated ejection fraction is 65 %. Moderate concentric left ventricular hypertrophy. Moderately severe aortic valve stenosis. Patient is on Lasix 4. Valvular heart disease ?Echo demonstrated evidence of moderate to severe aortic stenosis and to follow- up with cardiology 4. Descending thoracic aortic thrombus ?CT of the chest was negative for PE patient placed on Eliquis 6. Severe iron deficiency anemia ?Patient underwent endoscopic evaluation on 06/09/2020 colonoscopy demonstrated nonbleeding internal hemorrhoids and diverticulosis in the sigmoid colon, EGD revealed normal duodenum and stomach and grade 2 esophageal varices no evidence of bleeding. Patient has since been managed with systemic iron IV Venofer 7. History of colon cancer ?Status post colon resection with subsequent chemotherapy patient has since remained in remission since 2002 8. Paroxysmal atrial fibrillation ?Rate controlled; on systemic with Eliquis 9. Dyslipidemia -Patient is on statin therapy, continued at home dose 10. Essential hypertension ?Antihypertensives on hold patient blood pressure relatively stable 11. Depression ?Patient is on SSRI Inpatient E&M: 45421 Subs Hosp L2
--- NOTE | 2020-06-11 11:44 | CPS ---
Pt increased to 5 lpm. Saturation 92% on 5 lpm. Nurse aware of change
[2020-06-11] MEDS: Pravastatin 20 MG Tablet PO (21:31)
[2020-06-12] VITALS (18 sets, daily range): BP systolic 113–125; BP diastolic 60–97; PULSE 55–68; RESP 12–20; TEMP 36.7–37.1; O2SAT 83–96
[2020-06-12] MEDS: Ipratropium/Albuterol Sulfate 3 ML AMPUL.NEB INHALATION ×3 (01:04→18:29)
[2020-06-12 06:25] LABS: BUN 54 mg/dL (7-18); BUN/Creat Ratio 35.8 RATIO (10-20); Calcium,Total 8.4 mg/dL (8.5-10.1); Carbon Dioxide > 45.0 mmol/L (21.0-32.0); Chloride 90 mmol/L (98-107); Creatinine, Serum 1.51 mg/dL (0.55-1.02); EST Glomerular Filtration Rate 35 mL/min (>60); Est Glom Filt Rate - Afr Amer 43 mL/min (>60); Estimated Creatinine Clearance 24.17 ml/min; Glucose 119 mg/dL (74-106); Magnesium 2.1 mg/dL (1.6-2.6); Potassium 3.7 mmol/L (3.5-5.1); Sodium Level 140 mmol/L (136-145)
[2020-06-12 06:47] LABS: Hematocrit 28.9 % (37-47); Hemoglobin 8.3 g/dL (12.0-15.0); Mean Corp Hgb Conc 28.7 g/dL (32-36); Mean Corpuscular Hgb 24.6 pg (27.0-32.0); Mean Corpuscular Volume 85.8 fL (81-99); Mean Platelet Vol. 11.9 fl (6.2-12.0); Platelet Count 195 K/mm3 (150-450); RBC Distribution Width CV 17.5 % (11.6-14.6); RBC Distribution Width SD 54.9 fl (35.1-43.9); Red Blood Count 3.37 M/mm3 (4.2-5.4); White Blood Count 8.1 K/mm3 (4.4-11.0)
--- NOTE | 2020-06-12 08:25 | DCINST_ITS ---
- Discharge Diagnoses Current Active Problems: Current Active and Chronic Problems History of hypertension (Acute) History of breast cancer (Chronic) History of colon cancer (Chronic) History of COPD (Chronic) History of end stage renal disease (Acute) Respiratory failure with hypoxia and hypercapnia (Acute) Right lower lobe pulmonary infiltrate (Acute) COPD with exacerbation (Acute) Acute bronchospasm (Acute) Severe sepsis (Acute) Iron deficiency anemia (Acute) You will use the following diet at home:: Cardiac, Fluid restricted (specify 2000 mls, 1500 mls) - 1500 Your food should be the consistency of: Regular Allergies/Adverse Reactions: Allergies No Known Allergies Allergy (Verified 03/17/17 13:26) Medications to take at Discharge Aspirin 325 mg PO DAILY 03/17/17 Diltiazem HCl [Cartia Xt] 300 mg PO DAILY 03/17/17 Oxygen, Home [Home Oxygen] 3 lpm NASAL DAILY 03/17/17 Pravastatin [Pravachol] 20 mg PO DAILY 03/17/17 Sertraline HCl [Zoloft] 50 mg PO DAILY 03/17/17 Cholecalciferol (Vitamin D3) [Vitamin D3] 1 tab PO DAILY 06/05/20 Apixaban [Eliquis] 2.5 mg PO BID #120 tab 06/12/20 Furosemide [Lasix] 40 mg PO DAILY #60 tab 06/12/20 Levofloxacin [Levaquin] 500 mg PO DAILY #5 tab 06/12/20 predniSONE tablet 40 mg PO DAILY@0800 #10 tab 06/12/20 The following prescriptions were given: Apixaban [Eliquis] 2.5 mg PO BID #120 tab Transmission Status: Received by SURINDER YAÑEZ [facility] Furosemide [Lasix] 40 mg PO DAILY #60 tab Transmission Status: Received by SURINDER YAÑEZ [facility] Levofloxacin [Levaquin] 500 mg PO DAILY #5 tab Transmission Status: Received by SURINDER [id number] [place] [address] predniSONE tablet 40 mg PO DAILY@0800 #10 tab Transmission Status: Received by SURINDER YAÑEZ [facility] Primary Care Physician: Bryan Tolbert III, MD [Primary Care Provider] - Please follow up with your Primary Care Physician in: in 1-2 weeks Test Results: Test results from this visit will be discussed in further detail at your follow- up appointment, if applicable. Proposed Discharge Date: 06/12/20
--- NOTE | 2020-06-12 08:25 | PCM.DC.SUM ---
Discharge Date and Diagnosis - Problem List Patient Problems: Active and Suspected Problems History of hypertension (Acute) History of end stage renal disease (Acute) Respiratory failure with hypoxia and hypercapnia (Acute) Right lower lobe pulmonary infiltrate (Acute) COPD with exacerbation (Acute) Acute bronchospasm (Acute) Severe sepsis (Acute) Iron deficiency anemia (Acute) Date of Admission: 06/06/20 Date of Discharge: 06/12/20 - Primary Discharge Diagnosis Acute Problems: Active Problems History of hypertension (Acute) History of end stage renal disease (Acute) Respiratory failure with hypoxia and hypercapnia (Acute) Right lower lobe pulmonary infiltrate (Acute) COPD with exacerbation (Acute) Acute bronchospasm (Acute) Severe sepsis (Acute) Iron deficiency anemia (Acute) - Secondary Discharge Diagnosis Chronic Problems: Chronic Problems History of breast cancer (Chronic) History of colon cancer (Chronic) History of COPD (Chronic) Hospital Course and Treatment Imaging Results: Clinical Impression(s) from Imaging Studies Chest X-Ray 06/05/20 23:50 IMPRESSION: 1. Cardiomegaly and pulmonary vascular congestion. 2. Right-sided pulmonary nodules. Electronically Signed: Deb Stone MD at 0:36 EST , Service support , Chest CTA 06/06/20 00:47 IMPRESSION: 1. No CTA demonstrated pulmonary embolism or arterial dissection. 2. Findings suggest early pulmonary edema. 3. Pulmonary vascular congestion with COPD. 4. Bilateral basilar atelectasis with possible right lower lobe pneumonia. 5. Intraluminal thrombus within the descending thoracic aorta. Electronically Signed: Deb Stone MD at 2:12 EST , Service support , Summary of Care Provided: Patient is an 80-year-old with past medical history segment for COPD, congestive heart failure admitted with progressive shortness of breath 1. Acute hypoxic and hypercapnic respiratory failure ?Due to combination of COPD and acute congestive heart failure with preserved ejection fraction 2. COPD with acute exacerbation ?Managed with aerosol treatments as well as prednisone in addition to supplemental oxygen 3. Acute congestive heart failure with preserved ejection fraction ?The echo obtained demonstrated Left ventricular systolic function is normal. The estimated ejection fraction is 65 %. Moderate concentric left ventricular hypertrophy. Moderately severe aortic valve stenosis. Patient was treated with Lasix which was continued on discharge 4. Valvular heart disease ?Echo demonstrated evidence of moderate to severe aortic stenosis and to follow-up with cardiology 4. Descending thoracic aortic thrombus ?CT of the chest was negative for PE patient placed on Eliquis 6. Severe iron deficiency anemia ?Patient underwent endoscopic evaluation on 06/09/2020 colonoscopy demonstrated nonbleeding internal hemorrhoids and diverticulosis in the sigmoid colon, EGD revealed normal duodenum and stomach and grade 2 esophageal varices no evidence of bleeding. Patient has since been managed with systemic iron IV Venofer 7. History of colon cancer ?Status post colon resection with subsequent chemotherapy patient has since remained in remission since 2002 8. Paroxysmal atrial fibrillation ?Rate controlled; on systemic with Eliquis 9. Dyslipidemia -Patient is on statin therapy, continued at home dose 10. Essential hypertension ?Antihypertensives on hold patient blood pressure relatively stable 11. Depression ?Patient is on SSRI Patient Problems: Active and Suspected Problems History of hypertension (Acute) History of end stage renal disease (Acute) Respiratory failure with hypoxia and hypercapnia (Acute) Right lower lobe pulmonary infiltrate (Acute) COPD with exacerbation (Acute) Acute bronchospasm (Acute) Severe sepsis (Acute) Iron deficiency anemia (Acute) Objective: GENERAL: cooperative HEENT: Atraumatic; EYES; Anicteric, Normal Conjunctiva NECK; supple, normal thyroid, RESPIRATORY: Diminished to auscultation CARDIOVASCULAR: Regular S1 S2, systolic murmur GI: soft, normoactive bowel sounds, : No Renal angle tenderness; PSYCH; Flat affect - Physical Exam Vitals/I&O's: Vital Signs Temp Pulse Resp BP Pulse Ox 98.7 F 61 18 125/97 H 95 06/12/20 03:50 06/12/20 07:00 06/12/20 04:05 06/12/20 03:50 06/12/20 08:19 Oxygen Flow Rate (L/min) 6 Oxygen Delivery Method Nasal Cannula Weight: 85.1 kg Body Mass Index (BMI) 33.2 Intake and Output for Last 24 Hours 06/10/20 06/11/20 06/12/20 23:59 23:59 23:59 Intake Total 1090 / 1090 1160.0 / 1160.0 0 / 0 Output Total 2099 / 2099 1350 / 1350 Balance -1010 / -1010 -190.0 / -190.0 0 / 0 Microbiology Past 72 Hours 06/06/20 00:30 Blood Culture (Wb) - Left Forearm Blood Culture - Final No growth in 5 days. 06/05/20 23:30 Blood Culture (Wb) - Anticubital Left Blood Culture - Final No growth in 5 days. Laboratory Results 06/12/20 05:14: Sodium 140, Potassium 3.7, Chloride 90 L, Carbon Dioxide > 45.0 H*, Anion Gap TNP, BUN 54 H, Creatinine 1.51 H, Estim Creat Clear Calc 24.17, Est GFR (MDRD) Af Amer 43 L, Est GFR (MDRD) Non-Af 35 L, BUN/Creatinine Ratio 35.8 H, Glucose 119 H, Calcium 8.4 L, Magnesium 2.1 06/12/20 06:28: WBC 8.1, RBC 3.37 L, Hgb 8.3 L, Hct 28.9 L, MCV 85.8, MCH 24.6 L, MCHC 28.7 L, RDW Std Deviation 54.9 H, RDW Coeff of Ismael 17.5 H, Plt Count 195, MPV 11.9 Current Medications Acetaminophen (Acetaminophen 325 Mg Tablet) 650 mg PO Q6H PRN PRN PRN Reason: Pain Score 1-10/Temp > 100.7 F Al Hydroxide/Mg Hydroxide (Mag Hydrox/Al Hydrox/Simeth 30 Ml Udc) 30 ml PO Q6H PRN PRN PRN Reason: Gastric Burning Albuterol/Ipratropium (Ipratropium/Albuterol Sulfate 3 Ml Ampul.Neb) 3 ml INHALATION Q4H.RT [facility] Last Admin: 06/12/20 01:04 Dose: 3 ml Documented by: Apixaban (Apixaban 2.5 Mg Tablet) 2.5 mg PO BID [facility] Last Admin: 06/11/20 21:31 Dose: 2.5 mg Documented by: Aspirin ([facility] 325 Mg Tablet) [facility] Admin: 06/06/20 09:54 Dose: 325 mg Documented by: Cholecalciferol (Cholecalciferol (Vit D3) 1,000 Unit (25mcg)) 2,000 unit PO DAILY [facility] Last Admin: 06/11/20 08:26 Dose: 2,000 unit Documented by: Diltiazem HCl (Diltiazem Cd 300 Mg Capsule) 300 mg PO DAILY [facility] Last Admin: 06/11/20 08:26 Dose: 300 mg Documented by: Furosemide (Furosemide 40 Mg/4 Ml Vial) 40 mg IV BID@1000,1800 [facility] Last Admin: 06/11/20 17:07 Dose: 40 mg Documented by: Levofloxacin (Levaquin Iv) 750 mg in 150 mls @ 100 mls/hr IV Q48 [facility] Last Infusion: 06/10/20 12:28 Dose: Infused Documented by: Pantoprazole Sodium 40 mg/ (Sodium Chloride) 110 mls @ 330 mls/hr IV Q12 [facility] Last Infusion: 06/11/20 22:00 Dose: Infused Documented by: Ondansetron HCl (Ondansetron 4 Mg/2 Ml Vial) 4 mg IV Q8H PRN PRN PRN Reason: NAUSEA/VOMITING Pravastatin Sodium (Pravastatin 20 Mg Tablet) 20 mg PO QHS [facility] Last Admin: 06/11/20 21:31 Dose: 20 mg Documented by: Prednisone (Prednisone 20 Mg Tablet) 40 mg PO DAILY@0800 [facility] Last Admin: 06/11/20 08:26 Dose: 40 mg Documented by: Sertraline HCl (Sertraline 50 Mg Tablet) 50 mg PO DAILY [facility] Last Admin: 06/11/20 08:27 Dose: 50 mg Documented by: Sodium Chloride (0.9% Saline Lock 10 Ml Syringe) 10 - 40 ml IV UD PRN PRN Reason: SALINE FLUSH Last Admin: 06/11/20 21:31 Dose: 10 ml Documented by: Discharge Diet: Low fat/ Low Cholesterol, 8 Cup Fluid Restriciton Home Medications: Medications to take at Discharge Aspirin 325 mg PO DAILY 03/17/17 Diltiazem HCl [Cartia Xt] 300 mg PO DAILY 03/17/17 Oxygen, Home [Home Oxygen] 3 lpm NASAL DAILY 03/17/17 Pravastatin [Pravachol] 20 mg PO DAILY 03/17/17 Sertraline HCl [Zoloft] 50 mg PO DAILY 03/17/17 Cholecalciferol (Vitamin D3) [Vitamin D3] 1 tab PO DAILY 06/05/20 Apixaban [Eliquis] 2.5 mg PO BID #120 tab 06/12/20 Furosemide [Lasix] 40 mg PO DAILY #60 tab 06/12/20 Levofloxacin [Levaquin] 500 mg PO DAILY #5 tab 06/12/20 predniSONE tablet 40 mg PO DAILY@0800 #10 tab 06/12/20 Following Prescriptions Were Given to Patient: Apixaban [Eliquis] 2.5 mg PO BID #120 tab Transmission Status: Received by [facility] Furosemide [Lasix] 40 mg PO DAILY #60 tab Transmission Status: Received by [facility] [place] [address] Levofloxacin [Levaquin] 500 mg PO DAILY #5 tab Transmission Status: Received by [facility] BELLAMY[address] [place] [address] predniSONE tablet 40 mg PO DAILY@0800 #10 tab Transmission Status: Received by [facility]LLAM[facility] [place] [address] Primary Care Physician: Bryan Tolbert III, MD [Primary Care Provider] - Please follow up with your Primary Care Physician in: in 1-2 weeks Disposition: Home Minutes spent on discharge:: 35 Patient Condition:: Stable Medical Necessity - Tobacco Use Smoking Status: Former smoker Tobacco Use: Cigarettes Meaningful Use Info Meaningful Use Diagnoses (Choose all that apply): CHF - CHF JOSESITO/ARB ordered at discharge?: No Reason JOSESITO/ARB not ordered?: Worsening renal disease Documented LVEF (%): 65 Inpatient E&M: 59677 Disch Hosp
[2020-06-12] MEDS: predniSONE 20 MG Tablet 40 MG PO (08:33)
--- NOTE | 2020-06-12 09:40 | CASEMGMT ---
Addendum entered by Marybeth Cabrera 06/12/20 13:31: D/C summary faxed to [facility] at this time. Amber RN CM Addendum entered by Marybeth Cabrera 06/12/20 13:24: Call back from Kathe at [place] and she states drivers will be out later afternoon and advised them to call daughter to get concentrator set up at home prior to pt discharge, voices understanding. Amber RN CM Addendum entered by Marybeth Cabrera 06/12/20 13:07: Testing on 4L obtained and faxed to [facility] at this time. Amber RN CM Addendum entered by Marybeth Rick 06/12/20 11:56: Pt and daughter updated that pt will need a new 10L concentrator at home, voice understanding. Per Laury, pt needs tested on 4L with ambulation to prove that she needs more than 4L and Claudette RN aware, voices understanding. Amber RN CM Addendum entered by Marybeth Cabrera 06/12/20 11:15: Pt qualifies for 4L nc at rest and 6L with ambulation at this time. New order faxed to [facility] at this time. Call to [facility] to notify of new order at this time and to see if pt's concentrator goes up to 6L at this time. Per Kathe jessica will review at this time and they are also aware that pt to discharge today. Pt also to be sent home on Eliquis at discharge and med e-scribed to [facility]. Call to [facility] pharmacist, and he states 60 day supply that was sent in is $93.63 at this time. Pt provided with Eliquis 30 day trial card with instructions at this time, voices understanding. Pt voices no further questions/concerns/needs at this time. Amber LAURENT CM Original Note: Per Rebecca at [facility], referral was sent over on 06/09/20 for SN and PT. This RN CM to room to discuss with pt and pt is still agreeable to [facility] at this time. Pt to be tested on 2L nc as this is her home order and pt/Claudette RN are aware at this time. Pt voices no further questions/concerns/needs at this time. Call to Rebecca at [facility] to notify that pt to be discharged home today, voices understanding. Amber LAURENT CM
[2020-06-12] MEDS: APIXABAN 2.5 MG TABLET PO (09:59)
[2020-06-12] MEDS: dilTIAZem CD 300 MG Capsule PO (09:59)
[2020-06-12] MEDS: Sertraline 50 MG Tablet PO (09:59)
[2020-06-12] MEDS: Furosemide 40 MG/4 ML Vial IV (10:12)
[2020-06-12] MEDS: levoFLOXacin IV 750 MG/150 ML BAG 100 MG IV (10:59)
--- NOTE | 2020-06-12 11:40 | PHA.DC.MC ---
Pharmacy Service has performed discharge medication reconciliation and counseling for this patient. 1. APIXABAN 2.5MG PO BID 2. FUROSEMIDE 40MG PO DAILY 3. LEVOFLOXACIN 500MG PO DAILY 4. PREDNISONE 40MG PO DAILY X 5 DAYS The patient's discharge medication list was reviewed for discrepancies and discrepancies were resolved. This [facility] spoke with Dr. Hightower regarding aspirin dosing. Pt started on Eliquis and aspirin 325mg was continued. TORB to decrease to 81mg. Patient has some 81mg tablets at home and dose not need a prescription. Home Medications Diltiazem HCl [Cartia Xt] 300 mg PO DAILY 03/17/17 Oxygen, Home [Home Oxygen] 3 lpm NASAL DAILY 03/17/17 Pravastatin [Pravachol] 20 mg PO DAILY 03/17/17 Sertraline HCl [Zoloft] 50 mg PO DAILY 03/17/17 Cholecalciferol (Vitamin D3) [Vitamin D3] 1 tab PO DAILY 06/05/20 Apixaban [Eliquis] 2.5 mg PO BID #120 tab 06/12/20 Aspirin [Aspirin, Baby] 81 mg PO DAILY@0800 06/12/20 Furosemide [Lasix] 40 mg PO DAILY #60 tab 06/12/20 Levofloxacin [Levaquin] 500 mg PO DAILY #5 tab 06/12/20 predniSONE tablet 40 mg PO DAILY@0800 #10 tab 06/12/20 The patient was counseled on the following discharge medications and changes in medications for homegoing were reviewed. The Reason for Use, instructions for use, and potential side effects were reviewed for all new medications. The patient's questions regarding all of their medications were answered. The patient was able to verbally demonstrate an understanding of their discharge medications. Patient was counseled by pharmacy general managerBen.
--- NOTE | 2020-06-13 15:27 | CASEMGMT ---
Addendum entered by Marybeth Cabrera 06/14/20 10:15: Call to pt this am and she answered. Pt states she is 'doing pretty good' since discharge, just tired. Pt states no questions regarding discharge instructions or medications at this time. Pt states [facility] came out yesterday for SOC. Pt states that daughter did have to call 911 yesterday as pt's O2 tube came unhooked from concentrator and they could not get it hooked back up. Pt states they did not think about using portable tank at the time but she does have a portable tank right next to her chair at this time. Pt states was not aware of f/u with Denys Borja on 06/25/20 but is aware now and this RN HERMELINDA advised pt to go back through discharge paperwork, voices understanding. Pt states no suggestions for WC at this time and states 'Everybody was just wonderful.' Pt thanks this RN HERMELINDA for call and states no further questions/concerns/needs at this time. Amber LAURENT CM Addendum entered by Marybeth Cabrera 06/13/20 16:01: Attempted to reach pt again at this time and phone rang and rang and then went to busy signal. ANASTASIIA SHEN will attempt again tomorrow. Amber LAURENT CM Original Note: ANASTASIIA SHEN Discharge F/U Phone Call LACE: 12 Strata: 3 Discharge date: 06/12/20 Call date: 06/13/20 Attempted to reach pt without success at this time as phone is busy, will attempt again later. Amber LAURENT CM Admission dx: Resp failure, COPD exac
== END 2020-06-12 18:47 | disposition home or self-care (01) | DRG 189 ==
LOC: ED 06-06 02:34 → PCU 06-06 02:46
PROVIDERS: Anesthesiology; Internal Medicine Critical Care Medicine; Student in an Organized Health Care Education/Training Program; Surgery; Admitting Provider Internal Medicine; Emergency Provider Emergency Medicine; PCP Family Medicine; Visit Provider Internal Medicine
PROC: 0DJD8ZZ Inspection of Lower Intestinal Tract, Via Natural or Artificial Opening Endoscopic (ICD-10-PCS; CPT 45378; principal; 2020-06-09 07:55)
DX: J96.01 Acute respiratory failure with hypoxia (principal); I50.31 Acute diastolic (congestive) heart failure; J44.1 Chronic obstructive pulmonary disease with (acute) exacerbation; I13.2 Hypertensive heart and chronic kidney disease with heart failure and with stage 5 chronic kidney disease, or end stage renal disease; E87.2 Acidosis; I74.11 Embolism and thrombosis of thoracic aorta; I85.00 Esophageal varices without bleeding; J98.11 Atelectasis; J96.02 Acute respiratory failure with hypercapnia; F32.9 Major depressive disorder, single episode, unspecified; F41.9 Anxiety disorder, unspecified; Z66 Do not resuscitate; D50.9 Iron deficiency anemia, unspecified; I48.0 Paroxysmal atrial fibrillation; K64.0 First degree hemorrhoids; K57.30 Diverticulosis of large intestine without perforation or abscess without bleeding; E78.5 Hyperlipidemia, unspecified; I35.0 Nonrheumatic aortic (valve) stenosis; Z23 Encounter for immunization; Z85.038 Personal history of other malignant neoplasm of large intestine; Z85.3 Personal history of malignant neoplasm of breast; Z79.899 Other long term (current) drug therapy; Z79.82 Long term (current) use of aspirin; Z90.49 Acquired absence of other specified parts of digestive tract; Z87.891 Personal history of nicotine dependence
CPT/HCPCS: 36415; 36600; 71045; 71275; 80048; 80053; 82274; 82728; 82803; 83540; 83550; 83605; 83735; 83880; 84100; 84484; 85014; 85018; 85025; 85027; 85610; 85730; 86850; 86900; 86901; 86920; 86922; 87040; 87633; 87635; 93005; 93306; 94002; 94003; 94640; 94762; 97110; 97162; 97166; 97530; 97535; 97802; 97803; 99251; 99285; G0008; J7030; J7040; J7050; P9016; Q9957; Q9967; 90686; A4216; G0463; J1940; J2916; U0002

== ENCOUNTER 2020-07-15 10:28 | Inpatient (IN) | payer MEDICARE, OTHER, SELFPAY ==
[2020-06-08 00:34] VITALS: BMI 33.2
[2020-07-15] VITALS (19 sets, daily range): BP systolic 117–160; BP diastolic 53–72; PULSE 55–77; RESP 12–22; TEMP 36.5–37.3; O2SAT 82–98; BMI 31.9; BMI 31.1
--- NOTE | 2020-07-15 10:39 | EKG12_ITS ---
Test Reason : SOB Blood Pressure : / mmHG Vent. Rate : 058 BPM Atrial Rate : 058 BPM P-R Int : 152 ms QRS Dur : 096 ms QT Int : 426 ms P-R-T Axes : 060 -02 035 degrees QTc Int : 418 ms Sinus bradycardia with Premature atrial complexes Nonspecific ST abnormality Abnormal ECG Confirmed by ANABELLE HAWKINS, CAMELIA ([id number]), society editor AMI GRAVES ([id number]) on 07/19/2020 1:28:11 PM Referred By: CAIO Confirmed By:CAMELIA AHN MD
--- NOTE | 2020-07-15 10:39 | RAD_ITS ---
STUDY: X-RAY CHEST REASON FOR EXAM: Female, 80 years old. increase SOB TECHNIQUE: Single AP portable view of the chest. 2 images COMPARISON: Chest x-ray 06/05/2020, chest CTA 06/06/2020 FINDINGS: Cardiac monitoring leads are present. In this patient with known emphysematous change that remains interstitial prominence particularly in association with the periphery of the lungs and greater in the right upper lobe than the lung bases though there does appear some hypoventilatory/atelectatic change at both lung bases. The pattern is similar to that seen previously and can be seen on prior CT exam. I suspect this relates to underlying chronic pulmonary fibrotic change. Mild pulmonary vascular congestion however may also contribute as there does appear small persistent right pleural effusion. There is borderline cardiomegaly. Normal mediastinum and steven. Normal visualized pulmonary arteries. There is atherosclerotic calcification of the aorta. There are diffuse degenerative changes of the visualized thoracic spine. Normal visualized ribs, clavicles, and shoulders. There is no demonstrated abnormality of the visualized soft tissue structures of the upper abdomen. RAD/Chest 1 View (Portable) IMPRESSION: Emphysema with chronic interstitial lung disease. There does appear a very small right pleural effusion and superimposed mild pulmonary vascular congestion also considered. No significant interval change. Electronically Signed: Elsa Eubanks MD at 11:39 EST , Service support ,
--- NOTE | 2020-07-15 10:41 | ED.VISSUMM ---
- ER Visit Summary Date of Service: 07/15/20 Chief Complaint: Shortness of breath History of Present Illness: The patient is a [address] Bryan Tolbert. 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 She reports she has shortness of breath began 2 to 3 days ago. Is gradually gotten worse. It is severe with exertion or even eating. It is also worsened by laying flat. She has got minimal relief with her nebulizer and oxygen. She has a nonproductive cough. She denies any fever, chills, or chest pain. Upon EMS arrival patient's pulse ox was 78% on 8 L nasal cannula at home. She denies sick contacts. She reports she does not leave the house. She did has not received a Covid vaccine. On review of systems she complains of generalized weakness. Physical Examination: Vitals: Stable. Afebrile. General: Well-nourished and well-developed. Head: Normocephalic atraumatic. Neck: Supple, no lymphadenopathy. No JVD. Nontender. Cardiovascular: Regular rate and rhythm. No murmurs. Respiratory: Mild respiratory distress. Mild wheezing bilaterally with greatly decreased air movement. Abdominal: Soft, nontender, nondistended, normal bowel sounds. No guarding, rebound, or peritoneal signs. Back: Nontender. Extremities: Nontender, 2+ edema lower extremities bilaterally. Skin: Normal color, no rash. Neurologic: Alert and oriented ?3. Cranial nerves II through XII are intact. Normal strength and sensation. Psych: Normal affect. Test Results: EKG is sinus bradycardia at a rate of 58 with PACs. There are nonspecific ST changes and a great deal of artifact. Troponin 0 0.025. BNP is 347.1. Lactic acid is 0.8. Chem-7 shows a sodium 146, chloride 93, CO2 of greater than 45, BUN 28, creatinine 1.04, glucose 140. CBC shows hemoglobin of 7.1 with hematocrit of 26.7, 7585, lymphocytes of 5, triggering sites 1.6%. COVID-19 is negative. Clinical Impression(s) from Imaging Studies Chest X-Ray 07/15/20 10:39 IMPRESSION: Emphysema with chronic interstitial lung disease. There does appear a very small right pleural effusion and superimposed mild pulmonary vascular congestion also considered. No significant interval change. Electronically Signed: Elsa Eubanks MD at 11:39 EST , Service support , Emergency Department Course and Treatment: Patient had an IV placed. She was given Solu-Medrol IV. She was given albuterol Atrovent aerosols. Her pulse ox is 99% on a nonrebreather. Treatment Plan: Patient had a type and screen sent. She will be discussed with the hospitalist admitted for further evaluation and treatment. Disposition: Admitted in improved condition. Impression: 1. Acute on chronic respiratory failure. 2. Anemia. 3. Coagulopathy on Eliquis. 3. COPD exacerbation. This note was generated with [employer] dictation software. It may contain incorrect words, spelling, and punctuation that were not noted in review of the chart prior to signing ED Disposition - Plan for ED Patient: Referrals: Bryan Tolbert III, MD [Primary Care Provider] -
[2020-07-15] MEDS: Ipratropium/Albuterol Sulfate 3 ML AMPUL.NEB INHALATION ×3 (10:56→19:51)
[2020-07-15 11:01] LABS: Absolute Lymphocyte Count 0.26 X10^3/uL (0.83-4.51); Absolute Neutrophil Count 4.4 X10^3/uL (2.0-7.7); Basophil# 0.01 X10^3/uL; Basophil% 0.2 % (0-1); Eosinophil# 0.03 X10^3/uL; Eosinophils% 0.6 % (0-5); Hematocrit 26.7 % (37-47); Hemoglobin 7.1 g/dL (12.0-15.0); Lymphocyte # 0.26 X10^3/ul (4.0); Mean Corp Hgb Conc 26.6 g/dL (32-36); Mean Corpuscular Hgb 27.5 pg (27.0-32.0); Mean Corpuscular Volume 103.5 fL (81-99); Mean Platelet Vol. 10.1 fl (6.2-12.0); Monocyte# 0.41 X10^3/uL; NRBC Flagged by Analyzer 0.6 % (0-5); Neutrophil # 4.36 X10^3/uL (2.7-7.7); Neutrophil % 84.6 % (47-70); POSITIVE DIFFERENTIAL YES; POSITIVE MORPHOLOGY YES; Platelet Count 252 K/mm3 (150-450); RBC Distribution Width CV 21.3 % (11.6-14.6); RBC Distribution Width SD 80.7 fl (35.1-43.9); Red Blood Count 2.58 M/mm3 (4.2-5.4); White Blood Count 5.2 K/mm3 (4.4-11.0)
[2020-07-15 11:12] LABS: Differential Indicated SCAN CRITERIA MET
[2020-07-15 11:16] LABS: Anisocytosis 2+; Differential Comment SCANNED; Macrocytosis 1+; Microcytosis 1+
[2020-07-15] MEDS: MethylPREDNISolone 125 MG/2 ML Vial IV (11:25)
[2020-07-15 11:26] LABS: BNP,B-Type NATRIURETIC PEPTIDE 347.1 pg/mL (0-100)
[2020-07-15 11:27] LABS: Lactic Acid 0.8 mmol/L (0.4-1.9)
[2020-07-15 11:31] LABS: BUN 28 mg/dL (7-18); BUN/Creat Ratio 26.9 RATIO (10-20); Calcium,Total 9.6 mg/dL (8.5-10.1); Carbon Dioxide > 45.0 mmol/L (21.0-32.0); Chloride 93 mmol/L (98-107); Creatinine, Serum 1.04 mg/dL (0.55-1.02); EST Glomerular Filtration Rate 54 mL/min (>60); Est Glom Filt Rate - Afr Amer 65 mL/min (>60); Estimated Creatinine Clearance 35.09 ml/min; Glucose 140 mg/dL (74-106); Potassium 3.5 mmol/L (3.5-5.1); Sodium Level 146 mmol/L (136-145)
--- NOTE | 2020-07-15 11:53 | HP.PCM_ITS ---
Problem List (1) Acute bronchospasm Status: Acute (2) COPD with exacerbation Status: Acute (3) History of hypertension Status: Chronic (4) Iron deficiency anemia Status: Chronic Qualifiers: Iron deficiency anemia type: unspecified iron deficiency Qualified Code(s): D50.9 - Iron deficiency anemia, unspecified (5) Respiratory failure with hypoxia and hypercapnia Status: Acute Qualifiers: Chronicity: acute Qualified Code(s): J96.01 - Acute respiratory failure with hypoxia; J96.02 - Acute respiratory failure with hypercapnia (6) Right lower lobe pulmonary infiltrate Status: Resolved (7) Severe sepsis Status: Resolved (8) History of COPD Status: Chronic (9) History of breast cancer Status: Chronic (10) History of colon cancer Status: Chronic History of Present Illness Date of Admission: 07/15/20 Chief Complaint: Shortness of breath The patient is a 80 year old F with multiple comorbidities including COPD and chronic congestive heart failure who presented with shortness of breath. 3 days prior to her admission. She has noticed increasing shortness of breath with minimal activity. She also did experience wheezing as well as a nonproductive cough. Patient also did notice swelling involving both lower extremities. She finally called the squad and was brought to the ED. Upon arrival at patient's home found her to be hypoxic saturating 79% on 8 L of home oxygen. Was placed on nonrebreather and transferred to the ED. history obtained in the emergency department demonstrated Emphysema with chronic interstitial lung disease. There does appear a very small right pleural effusion and superimposed mild pulmonary vascular congestion also considered. No significant interval change. She did receive aerosol treatment as well as Lasix and admitted to a monitored bed for further management Past Medical History Past Medical History (Chronic Problems): Chronic Problems History of hypertension (Chronic) History of breast cancer (Chronic) History of colon cancer (Chronic) History of COPD (Chronic) Iron deficiency anemia (Chronic) Allergies No Known Allergies Allergy (Verified 07/15/20 10:35) Home Medications: Ambulatory Orders Medication Instructions Recorded Diltiazem HCl [Cartia Xt] 300 mg PO DAILY 03/17/17 Oxygen, Home [Home Oxygen] 4 - 6 lpm NASAL DAILY 03/17/17 Pravastatin [Pravachol] 20 mg PO DAILY 03/17/17 Sertraline HCl [Zoloft] 50 mg PO DAILY 03/17/17 Cholecalciferol (Vitamin D3) 1 tab PO DAILY 06/05/20 [Vitamin D3] Apixaban [Eliquis] 2.5 mg PO BID #120 tab 06/12/20 Aspirin [Aspirin, Baby] 81 mg PO DAILY@0800 06/12/20 Furosemide [Lasix] 40 mg PO DAILY #60 tab 06/12/20 Surgical History: colectomy, mastectomy Psychiatric History: Anxiety, Depression 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 Denies: Chest Pain, Orthopnea, Palpitations Respiratory: Reports: Cough, Shortness of Breath Gastrointestinal: Denies: Abdominal Pain, Hematemesis, Hematochezia, Nausea, Melena, Vomiting Genitourinary: Denies: Dysuria, Frequency, Hematuria, Urgency Musculoskeletal: Denies: Joint Pain, Joint Tenderness Skin: Denies: Rash Neurological: Denies: Focal weakness, Numbness, Tingling Psychiatric: Denies: Homicidal Ideations, Suicidal Ideations Hematologic/ Lymphatic: Denies: Easy Bruising, Easy Bleeding VTE Information - Inpt Only VTE Present on Admission: No VTE Mechan Device Prophylaxis: None VTE Pharm Prophylaxis ordered?: Yes Patient Problems: Active and Suspected Problems Respiratory failure with hypoxia and hypercapnia (Acute) COPD with exacerbation (Acute) Acute bronchospasm (Acute) Objective: GENERAL: cooperative but dyspneic at rest HEENT: Atraumatic; EYES; Anicteric, Normal Conjunctiva NECK; supple, normal thyroid, RESPIRATORY: Diminished to auscultation CARDIOVASCULAR: Regular S1 S2, systolic murmur GI: soft, normoactive bowel sounds, : No Renal angle tenderness; EXTREMITIES: jasbir edema, no clubbing, MUSCULOSKELETAL: no muscle waisting NEURO: Awake; no lateralizing signs. SKIN: No Rash PSYCH; Flat affect - Physical Exam Vitals/I&O's: Vital Signs Temp Pulse Resp BP Pulse Ox 97.8 F 55 L 20 H 141/62 H 92 07/15/20 10:29 07/15/20 11:28 07/15/20 11:28 07/15/20 11:28 07/15/20 11:28 Oxygen Flow Rate (L/min) 9 Oxygen Delivery Method Nasal Cannula Weight: 81.9 kg Body Mass Index (BMI) 31.9 Microbiology Past 72 Hours 07/15/20 11:07 Mucosa - Nose SARS-CoV-2 Antigen (Rapid) - Final Laboratory Results 07/15/20 10:50: WBC 5.2, RBC 2.58 L, Hgb 7.1 L, Hct 26.7 L, MCV 103.5 H, MCH 27.5, MCHC 26.6 L, RDW Std Deviation 80.7 H, RDW Coeff of Ismael 21.3 H, Plt Count 252, MPV 10.1, Immature Gran % (Auto) 1.600 H, Neut % (Auto) 84.6 H, Lymph % (Auto) 5.0 L, Dunn % (Auto) 8.0, Eos % (Auto) 0.6, Baso % (Auto) 0.2, Absolute Neuts (auto) 4.4, Absolute Lymphs (auto) 0.26 L, Nucleated RBC % 0.6, Differential Comment SCANNED, Anisocytosis 2+, Microcytosis 1+, Macrocytosis 1+ 07/15/20 10:50: Sodium 146 H, Potassium 3.5, Chloride 93 L, Carbon Dioxide > 45.0 H*, Anion Gap TNP, BUN 28 H, Creatinine 1.04 H, Estim Creat Clear Calc 35.09, Est GFR (MDRD) Af Amer 65, Est GFR (MDRD) Non-Af 54 L, BUN/Creatinine Ratio 26.9 H, Glucose 140 H, Calcium 9.6, Troponin I 0.025 07/15/20 10:50: Lactic Acid 0.8 07/15/20 10:50: B-Natriuretic Peptide 347.1 H Assessment/Plan All Active Problems Respiratory failure with hypoxia and hypercapnia (Acute) Right lower lobe pulmonary infiltrate (Resolved) COPD with exacerbation (Acute) Acute bronchospasm (Acute) Severe sepsis (Resolved) Patient is an 80-year-old with past medical history segment for COPD, congestive heart failure admitted with progressive shortness of breath 1. Acute hypoxic and hypercapnic respiratory failure ?Due to combination of COPD and acute congestive heart failure with preserved ejection fraction 2. COPD with acute exacerbation ?Admitted to monitored bed patient managed with aerosol treatments as well as systemic steroids in addition to supplemental oxygen 3. Acute congestive heart failure with preserved ejection fraction ?2D echo obtained on 06/06/2020 demonstrated EF of 65% with moderate concentric left ventricular hypertrophy. Patient has been admitted to monitored bed placed on fluid restriction strict input and output, daily weight as well as treatment with IV Lasix with subsequent monitoring of electrolyte 4. Valvular heart disease ?Echo demonstrated evidence of moderate to severe aortic stenosis during patient previous admission. 4. Descending thoracic aortic thrombus ?CT of the chest was negative for PE patient placed on Eliquis. Did continue 6. Severe iron deficiency anemia ?Patient underwent endoscopic evaluation on 06/09/2020 colonoscopy demonstrated nonbleeding internal hemorrhoids and diverticulosis in the sigmoid colon, EGD revealed normal duodenum and stomach and grade 2 esophageal varices no evidence of bleeding. With patient presented with symptomatic anemia and order was given for patient to be transfused with 1 unit PRBC with subsequent monitoring of H&H ordered 7. History of colon cancer ?Status post colon resection with subsequent chemotherapy patient has since remained in remission since 2002 8. Paroxysmal atrial fibrillation ?Rate controlled; on systemic with Eliquis 9. Dyslipidemia -Patient is on statin therapy, continued at home dose 10. Essential hypertension ?Antihypertensives on hold patient blood pressure relatively stable 11. Depression ?Patient is on SSRI 12. DVT prophylaxis ?On Eliquis Advance planning; did discuss with the patient regarding advanced directives as well as CODE STATUS. Did explain the various scenarios involved ( FULL CODE, DNR CCA, DNR CCA with no intubation, and DNR CC and what each meant) patient elected to be DNR CCA no intubation. Order was placed. Time spent on discussion 18 minutes. Inpatient E&M: 89484 Init Hosp L3 Procedures: 89545 Advncd Care Plan 30 Min
[2020-07-15] MEDS: Furosemide 40 MG/4 ML Vial IV ×2 (13:53→17:24)
[2020-07-15 21:28] LABS: Blood Gas Specimen Type ART
[2020-07-15 21:29] LABS: Allen Test POS; FI02 65; O2 Delivery Device CPAP; SITE L RADIAL
[2020-07-15 21:30] LABS: Base Excess > 30 mmol/L (-2 to +2); Bicarbonate 67.1 mmol/L (22-26); PO2 71 mmHG (75-100); SO2 93 % (95-99); Time Given 2100; Total Carbon Dioxide > 50 mmol/L; pCO2 84.3 mmHg (35-45)
[2020-07-15] MEDS: APIXABAN 2.5 MG TABLET PO (21:59)
[2020-07-15] MEDS: Pravastatin 20 MG Tablet PO (21:59)
--- NOTE | 2020-07-15 23:24 | PCS.PANDOC ---
PANDEMIC DOCUMENTATION INITIATED: Date: 07/15/2020 Time: 1900
--- NOTE | 2020-07-15 23:43 | CPS ---
Dr. Johnson notified regarding pt.'s critical ABG values. pCO2 = 84.3mmHg & BE(ecf) > 30 mmol/L
[2020-07-16] VITALS (25 sets, daily range): BP systolic 114–150; BP diastolic 49–70; PULSE 57–88; RESP 12–24; TEMP 36.3–37.2; O2SAT 53–98
[2020-07-16] MEDS: Ipratropium/Albuterol Sulfate 3 ML AMPUL.NEB INHALATION ×6 (03:29→22:29)
[2020-07-16] MEDS: 0.9% Saline Lock 10 ML Syringe IV ×4 (05:11→18:12)
[2020-07-16 06:00] LABS: Absolute Lymphocyte Count 0.08 X10^3/uL (0.83-4.51); Absolute Neutrophil Count 4.7 X10^3/uL (2.0-7.7); Basophil# 0.01 X10^3/uL; Basophil% 0.2 % (0-1); Hematocrit 27.9 % (37-47); Hemoglobin 7.9 g/dL (12.0-15.0); Lymphocyte # 0.08 X10^3/ul (4.0); Lymphocyte % 1.6 % (19-41); Mean Corp Hgb Conc 28.3 g/dL (32-36); Mean Corpuscular Hgb 27.4 pg (27.0-32.0); Mean Corpuscular Volume 96.9 fL (81-99); Mean Platelet Vol. 10.6 fl (6.2-12.0); Neutrophil % 94.4 % (47-70); POSITIVE DIFFERENTIAL YES; POSITIVE MORPHOLOGY YES; Platelet Count 256 K/mm3 (150-450); RBC Distribution Width CV 20.8 % (11.6-14.6); RBC Distribution Width SD 73.8 fl (35.1-43.9); Red Blood Count 2.88 M/mm3 (4.2-5.4)
[2020-07-16 06:24] LABS: Differential Indicated SCAN CRITERIA MET
[2020-07-16 06:45] LABS: BUN 32 mg/dL (7-18); BUN/Creat Ratio 28.8 RATIO (10-20); Calcium,Total 9.2 mg/dL (8.5-10.1); Carbon Dioxide > 45.0 mmol/L (21.0-32.0); Chloride 92 mmol/L (98-107); Creatinine, Serum 1.11 mg/dL (0.55-1.02); EST Glomerular Filtration Rate 50 mL/min (>60); Est Glom Filt Rate - Afr Amer 61 mL/min (>60); Estimated Creatinine Clearance 31.44 ml/min; Glucose 157 mg/dL (74-106); Magnesium 2.4 mg/dL (1.6-2.6); Phosphorus 3.6 mg/dL (2.5-4.9); Potassium 3.9 mmol/L (3.5-5.1); Sodium Level 143 mmol/L (136-145)
[2020-07-16] MEDS: APIXABAN 2.5 MG TABLET PO ×2 (09:32→21:26)
[2020-07-16] MEDS: Furosemide 40 MG/4 ML Vial IV ×2 (09:32→18:12)
[2020-07-16] MEDS: Sertraline 50 MG Tablet PO (09:32)
[2020-07-16] MEDS: dilTIAZem CD 300 MG Capsule PO (09:32)
--- NOTE | 2020-07-16 10:23 | CASEMGMT ---
Patient has a Healthcare Power of Nursing Care Partner (HCPOA) and it is on file at [facility]. She does not have a Healthcare Living Will. Her daughter Meghana Carrillo is her HCPOA. Yi DUNCAN
--- NOTE | 2020-07-16 10:41 | CASEMGMT ---
ANASTASIIA SHEN assessment: Face to Face with patient for initial transition planning/care coordination assessment. ANASTASIIA SHEN introduced self and role at [facility], pt voices understanding and consents to assessment at this time. Pt is sitting up in bed on airvo at this time. Pt is A/Ox4 at this time and answers all questions appropriately at this time. Care providers, pharmacy, and demographics verified at this time. Presentation: SOB since , 2-3wks ago she states she was admitted for same and dx w/ PE. Per EMS, pt was 79%on 8L of oxygen at home, they put her on NRB and got her up to 94% Admitting dx: Acute dyspnea PCP: Didi SULLIVAN Specialists: Pt to have pulmonary consulted here and then f/u with pulm at discharge. [facility]acy: [facility] Insurance: [facility] A/B, [employer] Prescription Benefit: MCR D Living Will/HPOA: Pt states has LW and is aware that it's not on file at [facility] at this time. Pt does have HPOA that is on file at [facility] and her daughter, Meghana Carrillo, is HPOA. LNOK: Meghana Carrillo, daughter/HPOA Living Arrangements: Pt states lives alone in 1 story home with 3 steps in but her son has been staying with her for last several weeks but he will be moving out in the next week or so. Pt states has been having difficulty with ADL's at home and son has been assisting. Transportation: Pt states family drives and states no transportation concerns at this time. DME/HHC: Pt states has the following DME: cane, walker, transport chair, BSC, grab bars, shower chair, and 4-6L home oxygen thru [facility]. Pt states no need for any further DME at this time. Pt is current with [facility]HC for SN at this time and states has not been to SNF in the past. Pt states would like TCU, if SNF recommended at discharge. Pt does state concerns with going home at time of discharge and would like to be put on the TCU list at this time. Pt states safety concerns at home and fear of falling. Pt states daughter can come stay with her after her son moves out. Pt states is retired. Pt states does not smoke cigarettes or drink ETOH. Pt states no further concerns/needs at this time. CM to follow increased O2 need, therapy notes, and any further discharge planning/needs. Advised pt to ask for CM if any further questions/concerns/needs arise, voices understanding. Pt Goal: Home Plan: TBD, pending oxygen need, therapy notes. SStnancy RN CM
--- NOTE | 2020-07-16 10:58 | CASEMGMT ---
Per RN CM patient is not sure she will be able to return home at d/c. She asked to have her name put on the TCU list. SW called [facility] and put patient's name on the list. TCU does not have any beds currently and it is not know when they will have beds. This changes often so SW will continue to follow. Yi MONTEZ MSW
--- NOTE | 2020-07-16 14:21 | PCM.CONS.PUL ---
Problem List (1) History of hypertension Status: Chronic (2) History of breast cancer Status: Chronic (3) History of colon cancer Status: Chronic (4) History of COPD Status: Chronic (5) History of end stage renal disease Status: Inactive (6) Respiratory failure with hypoxia and hypercapnia Status: Acute Qualifiers: Chronicity: acute Qualified Code(s): J96.01 - Acute respiratory failure with hypoxia; J96.02 - Acute respiratory failure with hypercapnia (7) Iron deficiency anemia Status: Chronic Qualifiers: Iron deficiency anemia type: unspecified iron deficiency Qualified Code(s): D50.9 - Iron deficiency anemia, unspecified Reason for Consult Date of Consultation: 07/16/20 Reason for Consultation: Acute on chronic hypoxic respiratory failure History of Present Illness: The patient is an 80 year old F, with past medical history listed below, who presented to [facility] on 07/15/2020 secondary to progressive shortness of breath over the last 2 to 3 days. Patient reportedly had noticed worsening shortness of breath with lower extremity edema. Patient states that the breathlessness was also worse with lying flat. Patient had denied any constitutional symptoms such as fever, chills, productive cough or chest pain. Patient is on 4 to 6 L at baseline. Patient reportedly had noted that her pulse ox was 70% on 8 L, so called EMS to transport her to the emergency department for evaluation. In the emergency department, patient was noted to be sinus bradycardia with an elevated BNP of 347, but normal lactate and troponin. Chemistry showed an elevated bicarbonate and anemia of 7.1. COVID-19 testing was negative. However, patient was requiring significant amount of oxygen, so chest x-ray was obtained showing no significant change compared to last month. Patient was admitted to the floor on Airvo for evaluation. Since being admitted to the hospital, patient feels subjectively improved. Patient is requiring Airvo with 47% FiO2 to maintain saturations. Patient was seen last month for a similar type presentation and had completed antibiotics and steroids at that time. Patient did not follow-up with our office secondary to the thought that her PCP would be able to manage her condition. Patient does not routinely change her oxygen requirements at home and has been using between 4 and 6 L nasal cannula. Patient does state that her saturations tends to be in the 80s most of the time. Patient also admits that she intermittently does not take her Lasix secondary to interference with normal activities. Review of systems otherwise negative from a constitutional, HEENT, respiratory, cardiovascular, GI, genitourinary, musculoskeletal, skin, neurologic, psychiatric and hematologic system unless stated above. Past Medical History Past Medical History (Chronic Problems): Chronic Problems History of hypertension (Chronic) History of breast cancer (Chronic) History of colon cancer (Chronic) History of COPD (Chronic) Iron deficiency anemia (Chronic) Allergies No Known Allergies Allergy (Verified 07/15/20 10:35) Home Medications: Ambulatory Orders Medication Instructions Recorded Diltiazem HCl [Cartia Xt] 300 mg PO DAILY 03/17/17 Oxygen, Home [Home Oxygen] 4 - 6 lpm NASAL DAILY 03/17/17 Pravastatin [Pravachol] 20 mg PO DAILY 03/17/17 Sertraline HCl [Zoloft] 50 mg PO DAILY 03/17/17 Cholecalciferol (Vitamin D3) 1 tab PO DAILY 06/05/20 [Vitamin D3] Apixaban [Eliquis] 2.5 mg PO BID #120 tab 06/12/20 Aspirin [Aspirin, Baby] 81 mg PO DAILY@0800 06/12/20 Furosemide [Lasix] 40 mg PO DAILY #60 tab 06/12/20 Surgical History: colectomy, mastectomy Psychiatric History: Anxiety, Depression SENIOR ACCOUNTING 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 There does not appear to be any significant change in chest x-rays. CT showed extensive emphysematous changes without nodules or mediastinal lymphadenopathy. - Physical Exam Vitals/I&O's: Vital Signs Temp Pulse Resp BP Pulse Ox 36.9 C 71 20 H 130/64 H 92 07/16/20 09:28 07/16/20 10:29 07/16/20 10:29 07/16/20 09:28 07/16/20 13:30 Oxygen Flow Rate (L/min) 40 Oxygen Delivery Method Airvo Weight: 79.6 kg Body Mass Index (BMI) 31.1 Intake and Output for Last 24 Hours 07/14/20 07/15/20 07/16/20 23:59 23:59 23:59 Intake Total 100 / 100 645 / 645 Output Total 1600 / 1600 900 / 900 Balance -1500 / -1500 -255 / -255 General: Alert, Oriented x3, Cooperative, No apparent distress, - - No conversational dyspnea. Obese. Appears stated age. HEENT: Atraumatic, PERRLA, EOMI, Normocephalic, - - No scleral icterus or injection noted Oral: Moist Mucosa, No Gingival or Mucosal Lesions/ Ulcerations Neck: Supple, No JVD, No Nodes, Trachea Midline Lungs: No rhonchi, No wheeze, No rales, Diminished, - - Symmetric expansion. No dullness to percussion Cardiovascular: Normal S1, No murmurs, Irregular Rate, No rub noted, No Gallop, - - Accentuated S2. Abdomen: Bowel Sounds Present, Soft, Non Tender, Non-Distended, Obese Extremities: No cyanosis, Clubbing, Edema Skin: No rashes, No breakdown, - - Dermal atrophy Musculoskeletal: No Tenderness to Palpation of Joints or Extremities Lymphatic: No Cervical, Supraclavicular, or Inguinal Adenopathy Neurological: Cranial nerves II-XII grossly intact, Neuro grossly intact, Motor Exam 5/5 strength throughout Psych/Mental Status: Alert and oriented to time, place, person, mood and affect Microbiology Past 72 Hours 07/15/20 11:07 Mucosa - Nose SARS-CoV-2 Antigen (Rapid) - Final Laboratory Results 07/15/20 11:47: Crossmatch See Detail 07/15/20 21:00: Specimen Type ART, Sample Site L RADIAL, pH 7.50 H, Bicarbonate Actual 67.1 H, Total CO2 > 50, Base Excess > 30 H, O2 Saturation 93 L, O2 % 65, ABG pCO2 84.3 H*, ABG pO2 71 L, Eliot Test POS, O2 Delivery Device CPAP, Liter Flow 55.0, Blood Gas Notified Whom CHELO HAWKINS, Blood Gas Notified Time 209907/16/20 05:36: WBC 5.0, RBC 2.88 L, Hgb 7.9 L, Hct 27.9 L, MCV 96.9 D, MCH 27.4, MCHC 28.3 L D, RDW Std Deviation 73.8 H, RDW Coeff of Ismael 20.8 H, Plt Count 256, MPV 10.6, Immature Gran % (Auto) 1.800 H, Neut % (Auto) 94.4 H, Lymph % (Auto) 1.6 L, [place] % (Auto) 2.0, Eos % (Auto) 0.0, Baso % (Auto) 0.2, Absolute Neuts (auto) 4.7, Absolute Lymphs (auto) 0.08 L, Nucleated RBC % 1.0 07/16/20 05:36: Sodium 143, Potassium 3.9, Chloride 92 L, Carbon Dioxide > 45.0 H*, Anion Gap TNP, BUN 32 H, Creatinine 1.11 H, Estim Creat Clear Calc 31.44, Est GFR (MDRD) Af Amer 61, Est GFR (MDRD) Non-Af 50 L, BUN/Creatinine Ratio 28.8 H, Glucose 157 H, Calcium 9.2, Phosphorus 3.6, Magnesium 2.4 Current Medications Acetaminophen (Acetaminophen 325 Mg Tablet) 650 mg PO Q6H PRN PRN PRN Reason: Pain Score 1-10/Temp > 100.7 F Al Hydroxide/Mg Hydroxide (Mag Hydrox/Al Hydrox/Simeth 30 Ml Udc) 30 ml PO Q6H PRN PRN PRN Reason: Gastric Burning Albuterol Sulfate (Albuterol 2.5 Mg/3 Ml Vial.Neb.) 2.5 mg INHALATION Q2H PRN PRN PRN Reason: SOB/Wheezing Albuterol/Ipratropium (Ipratropium/Albuterol Sulfate 3 Ml Ampul.Neb) 3 ml INHALATION Q4H.RT [facility] Last Admin: 07/16/20 10:29 Dose: 3 ml Documented by: Apixaban (Apixaban 2.5 Mg Tablet) 2.5 mg PO BID [facility] Last Admin: 07/16/20 09:32 Dose: 2.5 mg Documented by: Cholecalciferol (Cholecalciferol (Vit D3) 1,000 Unit (25mcg)) [facility] Last Admin: 07/16/20 09:32 Dose: 2,000 unit Documented by: Diltiazem HCl (Diltiazem Cd 300 Mg Capsule) 300 mg PO DAILY [facility] Last Admin: 07/16/20 09:32 Dose: 300 mg Documented by: Furosemide (Furosemide 40 Mg/4 Ml Vial) 40 mg IV BID@1000,1800 [facility] Last Admin: 07/16/20 09:32 Dose: 40 mg Documented by: Guaifenesin (Guaifenesin 10 Ml Udc (200mg/10ml)) 20 ml PO Q4H PRN PRN PRN Reason: COUGH Melatonin (Melatonin 3 Mg Tablet) 3 mg PO QHS PRN PRN PRN Reason: INSOMNIA Methylprednisolone (Methylprednisolone 40 Mg/Ml Vial) 40 mg IV Q8 [facility] Stop: 07/16/20 22:01 Last Admin: 07/16/20 05:12 Dose: 40 mg Documented by: Nitroglycerin (Nitroglycerin (Inpatient Use) 0.4 Mg Tab.Subl) 0.4 mg SUBLINGUAL Q5M PRN PRN Reason: CARDIAC/CHEST PAIN Ondansetron HCl (Ondansetron 4 Mg/2 Ml Vial) 4 mg IV Q8H PRN PRN PRN Reason: NAUSEA/VOMITING Oxycodone HCl (Oxycodone 5 Mg Tablet) 5 mg PO Q4H PRN PRN PRN Reason: Pain Score 4-10 Pravastatin Sodium (Pravastatin 20 Mg Tablet) 20 mg PO DAILY@2200 [facility] Last Admin: 07/15/20 21:59 Dose: 20 mg Documented by: Prednisone (Prednisone 20 Mg Tablet) 40 mg PO DAILY@0800 [facility] Senna/Docusate Sodium (Senna/Docusate Sodium 1 Tablet) 2 tablet PO BID PRN PRN PRN Reason: Constipation Sertraline HCl (Sertraline 50 Mg Tablet) 50 mg PO DAILY [facility] Last Admin: 07/16/20 09:32 Dose: 50 mg Documented by: Sodium Chloride (0.9% Saline Lock 10 Ml Syringe) 10 - 40 ml IV UD PRN PRN Reason: SALINE FLUSH Last Admin: 07/16/20 09:31 Dose: 10 ml Documented by: Assessment/Plan All Active Problems Respiratory failure with hypoxia and hypercapnia (Acute) Right lower lobe pulmonary infiltrate (Resolved) COPD with exacerbation (Acute) Acute bronchospasm (Acute) Severe sepsis (Resolved) RECOMMENDATIONS: 1. Continue bronchodilators and steroids. Doubt antibiotics indicated 2. Agree with diuretic challenge 3. Wean oxygen as tolerated 4. Walking oximetry prior to discharge 5. Repeat complete PFT as an outpatient IMPRESSIONS: 1. Acute hypoxic respiratory failure secondary to probable cor pulmonale Clinical suspicion patient has cor pulmonale leading to recurrent exacerbations. Patient is recovering quickly and has not had any fevers or leukocytosis noted. Clinical suspicion patient is desaturating at home and not adjusting supplemental oxygen leading to elevated pulmonary artery pressures with extravasation. Agree with diuretic therapy. Antibiotics are likely not indicated. Steroids can be used, but doubt this indicates a true COPD exacerbation. Stressed to the patient the importance of following up with pulmonary for optimization. Patient is on anticoagulation, so a pulmonary embolism is unlikely. 2. Descending aortic thrombus Unclear etiology. This can be followed up as an outpatient and likely does not require inpatient intervention. Patient is not showing any signs or symptoms of peripheral embolization on my exam. Patient does have a decreased hemoglobin and this will exacerbate underlying lung disease. Patient is a very poor operative candidate from known history. 3. A. fib/aortic stenosis/advanced age/hypertension/hyperlipidemia/depression Complicates care, management, recovery and prognosis. Likely okay to continue with baseline medications except for lisinopril may need to be held secondary to active diuresis. Okay to continue statin Zoloft from my perspective. Inpatient E&M: 19080 Init Hosp L3
--- NOTE | 2020-07-16 14:30 | CASEMGMT ---
Pt qualifies for a Palliative referral per the [facility] palliative screening tool at this time. Dr. Andrade aware and states ok for Palliative c/s at this time. Palliative updated at this time. Amber LAURENT CM
--- NOTE | 2020-07-16 15:23 | PN_ITS ---
Patient Problems: Active and Suspected Problems Respiratory failure with hypoxia and hypercapnia (Acute) COPD with exacerbation (Acute) Acute bronchospasm (Acute) Subjective: breathing well on Airvo. Vitals/I&O's: Vital Signs Temp Pulse Resp BP Pulse Ox 36.9 C 61 18 130/64 H 91 07/16/20 09:28 07/16/20 14:45 07/16/20 14:45 07/16/20 09:28 07/16/20 14:45 Oxygen Flow Rate (L/min) 6 Oxygen Delivery Method Nasal Cannula Weight: 79.6 kg Body Mass Index (BMI) 31.1 Intake and Output for Last 24 Hours 07/14/20 07/15/20 07/16/20 23:59 23:59 23:59 Intake Total 100 / 100 645 / 645 Output Total 1600 / 1600 900 / 900 Balance -1500 / -1500 -255 / -255 General: Alert, No apparent distress, - - awake, no conversational dyspnea. on Airvo HEENT: Atraumatic, Normocephalic Oral: Moist Mucosa, No Gingival or Mucosal Lesions/ Ulcerations Neck: No Nodes, Thyroid Normal Size and Texture Lungs: Diminished, - - coarse breath sounds bilaterally. Cardiovascular: Regular rate, Regular Rhythm, Normal S1, Normal S2, No murmurs Abdomen: Bowel Sounds Present, Soft, Non Tender, Non-Distended, No Hepato- splenomegaly Extremities: No edema, No Calf Tenderness Skin: No rashes, No breakdown Musculoskeletal: No Tenderness to Palpation of Joints or Extremities, No Muscle Wasting Psych/Mental Status: Normal Affect, Appropriate Microbiology Past 72 Hours 07/15/20 11:07 Mucosa - Nose SARS-CoV-2 Antigen (Rapid) - Final Laboratory Results 07/15/20 11:47: Crossmatch See Detail 07/15/20 21:00: Specimen Type ART, Sample Site L RADIAL, pH 7.50 H, Bicarbonate Actual 67.1 H, Total CO2 > 50, Base Excess > 30 H, O2 Saturation 93 L, O2 % 65, ABG pCO2 84.3 H*, ABG pO2 71 L, Eliot Test POS, O2 Delivery Device CPAP, Liter Flow 55.0, Blood Gas Notified Whom CHELO HAWKINS, Blood Gas Notified Time 2100 07/16/20 05:36: WBC 5.0, RBC 2.88 L, Hgb 7.9 L, Hct 27.9 L, MCV 96.9 D, MCH 27.4, MCHC 28.3 L D, RDW Std Deviation 73.8 H, RDW Coeff of Ismael 20.8 H, Plt Count 256, MPV 10.6, Immature Gran % (Auto) 1.800 H, Neut % (Auto) 94.4 H, Lymph % (Auto) 1.6 L, Izard % (Auto) 2.0, Eos % (Auto) 0.0, Baso % (Auto) 0.2, Absolute Neuts (auto) 4.7, Absolute Lymphs (auto) 0.08 L, Nucleated RBC % 1.0 07/16/20 05:36: Sodium 143, Potassium 3.9, Chloride 92 L, Carbon Dioxide > 45.0 H*, Anion Gap TNP, BUN 32 H, Creatinine 1.11 H, Estim Creat Clear Calc 31.44, Es t GFR (MDRD) Af Amer 61, Est GFR (MDRD) Non-Af 50 L, BUN/Creatinine Ratio 28.8 H , Glucose 157 H, Calcium 9.2, Phosphorus 3.6, Magnesium 2.4 Current Medications Acetaminophen (Acetaminophen 325 Mg Tablet) 650 mg PO Q6H PRN PRN PRN Reason: Pain Score 1-10/Temp > 100.7 F Al Hydroxide/Mg Hydroxide (Mag Hydrox/Al Hydrox/Simeth 30 Ml Udc) 30 ml PO Q6H PRN PRN PRN Reason: Gastric Burning Albuterol Sulfate (Albuterol 2.5 Mg/3 Ml Vial.Neb.) 2.5 mg INHALATION Q2H PRN PRN PRN Reason: SOB/Wheezing Albuterol/Ipratropium (Ipratropium/Albuterol Sulfate 3 Ml Ampul.Neb) 3 ml INHALATION Q4H.RT [facility] Last Admin: 07/16/20 14:45 Dose: 3 ml Documented by: Apixaban (Apixaban 2.5 Mg Tablet) 2.5 mg PO BID [facility] Last Admin: 07/16/20 09:32 Dose: 2.5 mg Documented by: Cholecalciferol (Cholecalciferol (Vit D3) 1,000 Unit (25mcg)) 2,000 unit PO DAILYCM [facility] Last Admin: 07/16/20 09:32 Dose: 2,000 unit Documented by: Diltiazem HCl (Diltiazem Cd 300 Mg Capsule) 300 mg PO DAILY [facility] Last Admin: 07/16/20 09:32 Dose: 300 mg Documented by: Furosemide (Furosemide 40 Mg/4 Ml Vial) 40 mg IV BID@1000,1800 [facility] Last Admin: 07/16/20 09:32 Dose: 40 mg Documented by: Guaifenesin (Guaifenesin 10 Ml Udc (200mg/10ml)) 20 ml PO Q4H PRN PRN PRN Reason: COUGH Melatonin (Melatonin 3 Mg Tablet) 3 mg PO QHS PRN PRN PRN Reason: INSOMNIA Methylprednisolone (Methylprednisolone 40 Mg/Ml Vial) 40 mg IV Q8 [facility] Stop: 07/16/20 22:01 Last Admin: 07/16/20 14:39 Dose: 40 mg Documented by: Nitroglycerin (Nitroglycerin (Inpatient Use) 0.4 Mg Tab.Subl) 0.4 mg SUBLINGUAL Q5M PRN PRN Reason: CARDIAC/CHEST PAIN Ondansetron HCl (Ondansetron 4 Mg/2 Ml Vial) 4 mg IV Q8H PRN PRN PRN Reason: NAUSEA/VOMITING Oxycodone HCl (Oxycodone 5 Mg Tablet) 5 mg PO Q4H PRN PRN PRN Reason: Pain Score 4-10 Pravastatin Sodium (Pravastatin 20 Mg Tablet) 20 mg PO DAILY@2200 [facility] Last Admin: 07/15/20 21:59 Dose: 20 mg Documented by: Prednisone (Prednisone 20 Mg Tablet) 40 mg PO DAILY@0800 [facility] Senna/Docusate Sodium (Senna/Docusate Sodium 1 Tablet) 2 tablet PO BID PRN PRN PRN Reason: Constipation Sertraline HCl (Sertraline 50 Mg Tablet) 50 mg PO DAILY [facility] Last Admin: 07/16/20 09:32 Dose: 50 mg Documented by: Sodium Chloride (0.9% Saline Lock 10 Ml Syringe) 10 - 40 ml IV UD PRN PRN Reason: SALINE FLUSH Last Admin: 07/16/20 14:39 Dose: 10 ml Documented by: STROKE Vital Signs/Narrative: Vital Signs Pulse Resp Pulse Ox 07/16/20 14:45 61 18 91 07/16/20 14:40 92 07/16/20 13:30 92 Medical Necessity - Tobacco Use Smoking Status: Former smoker Assessment/Plan All Active Problems Respiratory failure with hypoxia and hypercapnia (Acute) Right lower lobe pulmonary infiltrate (Resolved) COPD with exacerbation (Acute) Acute bronchospasm (Acute) Severe sepsis (Resolved) 1. Acute hypoxic and hypercapnic respiratory failure * multifactorial: AECOPD + Ac HFpEF +/- pulmonary HTN (last echo unable to assess RV pressures) * wean oxygen as tolerated * treat the underlying processes * follow up with pulm as outpt * pulm consulted 2. COPD with acute exacerbation * continue BDs and steroids 3. Acute congestive heart failure with preserved ejection fraction * ?2D echo obtained on 06/06/2020 demonstrated EF of 65% with moderate concentric left ventricular hypertrophy. * fluid restriction strict input and output, daily weight as well as treatment with IV Lasix with subsequent monitoring of electrolyte * complicated by severe 4. Valvular heart disease * ?Echo demonstrated evidence of moderate to severe aortic stenosis during patient previous admission. * follow up with cards as outpt. 4. Descending thoracic aortic thrombus * CT of the chest was negative for PE patient placed on Eliquis. Did continue 6. Severe iron deficiency anemia * Patient underwent endoscopic evaluation on 06/09/2020 colonoscopy demonstrated nonbleeding internal hemorrhoids and diverticulosis in the sigmoid colon, EGD revealed normal duodenum and stomach and grade 2 esophageal varices no evidence of bleeding. * With patient presented with symptomatic anemia and order was given for patient to be transfused with 1 unit PRBC with subsequent monitoring of H&H ordered * keep Hg around 8 * 07/16: venofer 7. History of colon cancer * Status post colon resection with subsequent chemotherapy patient has since remained in remission since 2002 8. Paroxysmal atrial fibrillation * Rate controlled; on systemic with Eliquis 9. Dyslipidemia * Patient is on statin therapy, continued at home dose 10. Essential hypertension * Antihypertensives on hold patient blood pressure relatively stable 11. Depression * Patient is on SSRI 12. DVT prophylaxis * On Eliquis Inpatient E&M: 95500 Subs Hosp L2
--- NOTE | 2020-07-16 18:42 | CPS ---
Per Dr.Arthur chavez to keep patient's SpO2 88-92% because of patient's CO2 retention
[2020-07-16] MEDS: Pravastatin 20 MG Tablet PO (21:26)
[2020-07-17] VITALS (36 sets, daily range): BP systolic 94–135; BP diastolic 51–89; PULSE 50–138; RESP 12–24; TEMP 36.4–36.9; O2SAT 84–96
[2020-07-17] MEDS: Ipratropium/Albuterol Sulfate 3 ML AMPUL.NEB INHALATION ×3 (03:08→19:16)
[2020-07-17 05:45] LABS: Absolute Lymphocyte Count 0.08 X10^3/uL (0.83-4.51); Absolute Neutrophil Count 7.6 X10^3/uL (2.0-7.7); Basophil# 0.01 X10^3/uL; Basophil% 0.1 % (0-1); Hemoglobin 7.4 g/dL (12.0-15.0); Lymphocyte # 0.08 X10^3/ul (4.0); Mean Corp Hgb Conc 27.4 g/dL (32-36); Mean Corpuscular Hgb 27.7 pg (27.0-32.0); Mean Corpuscular Volume 101.1 fL (81-99); Mean Platelet Vol. 10.5 fl (6.2-12.0); Monocyte# 0.25 X10^3/uL; Monocyte% 3.1 % (0-10); NRBC Flagged by Analyzer 0.4 % (0-5); Neutrophil # 7.55 X10^3/uL (2.7-7.7); POSITIVE DIFFERENTIAL YES; POSITIVE MORPHOLOGY YES; Platelet Count 234 K/mm3 (150-450); RBC Distribution Width CV 20.4 % (11.6-14.6); RBC Distribution Width SD 76.2 fl (35.1-43.9); Red Blood Count 2.67 M/mm3 (4.2-5.4)
[2020-07-17 05:53] LABS: Differential Indicated SCAN CRITERIA MET
[2020-07-17 06:11] LABS: Hypochromasia 2+; Microcytosis 2+
[2020-07-17 06:25] LABS: ALB/GLOB Ratio 0.9 RATIO (0.9-2.4); AST(SGOT) 18 U/L (15-37); Alanine Aminotransfer ALT/SGPT 13 U/L (13-56); Albumin, Serum 2.7 g/dL (3.2-5.0); Alkaline Phosphatase 75 U/L (45-117); BUN 37 mg/dL (7-18); BUN/Creat Ratio 38.3 RATIO (10-20); Carbon Dioxide > 45.0 mmol/L (21.0-32.0); Chloride 89 mmol/L (98-107); Creatinine, Serum 0.96 mg/dL (0.55-1.02); EST Glomerular Filtration Rate 59 mL/min (>60); Est Glom Filt Rate - Afr Amer 71 mL/min (>60); Estimated Creatinine Clearance 38.02 ml/min; Glucose 177 mg/dL (74-106); Potassium 3.1 mmol/L (3.5-5.1); Protein, Total 5.7 g/dL (6.4-8.2); Sodium Level 140 mmol/L (136-145)
--- NOTE | 2020-07-17 07:08 | EKG12_ITS ---
Test Reason : CP Blood Pressure : / mmHG Vent. Rate : 123 BPM Atrial Rate : 123 BPM P-R Int : 128 ms QRS Dur : 210 ms QT Int : 372 ms P-R-T Axes : 000 -22 -73 degrees QTc Int : 532 ms Atrial Flutter wit 2:1 Block Non-specific intra-ventricular conduction block Abnormal ECG When compared with ECG of 15-JUL-2020 10:44, MANUAL COMPARISON REQUIRED, DATA IS UNCONFIRMED Confirmed by ELI HAWKINS, SAM ([id number]), loan expeditor AMI GRAVES ([id number]) on 07/18/2020 1:31:16 PM Referred By: SAIMA Confirmed By:SAM BENITEZ MD
--- NOTE | 2020-07-17 07:09 | NURSING ---
TELE RHYTHM NOTED TO HAVE CHANGED, EKG ORDERED. RESPIRATORY THERAPY NOTIFIED.
[2020-07-17] MEDS: Nitroglycerin (INPATIENT USE) 0.4 MG TAB.SUBL SUBLINGUAL (07:28)
--- NOTE | 2020-07-17 07:39 | NURSING ---
This RN and dayshift RN received pt vitals, and gave x1 Nitro for chest pressure 4/10.
[2020-07-17] MEDS: Sertraline 50 MG Tablet PO (07:46)
[2020-07-17] MEDS: dilTIAZem CD 300 MG Capsule PO (07:46)
[2020-07-17] MEDS: predniSONE 20 MG Tablet 40 MG PO (07:46)
[2020-07-17] MEDS: APIXABAN 2.5 MG TABLET PO ×2 (07:46→21:16)
[2020-07-17] MEDS: 0.9% Saline Lock 10 ML Syringe IV ×2 (07:54→09:51)
[2020-07-17] MEDS: Potassium Chloride Oral Tablet 20 MEQ 40 MEQ PO ×2 (07:54→18:23)
--- NOTE | 2020-07-17 07:54 | PN_ITS ---
Patient Problems: Active and Suspected Problems Respiratory failure with hypoxia and hypercapnia (Acute) COPD with exacerbation (Acute) Acute bronchospasm (Acute) Subjective: Patient did okay overnight. Patient states she feels improved compared to yesterday. Patient did wear BiPAP for approximately 3 hours overnight, but had some difficulty with pain at the bridge of her nose. Patient was found this morning with a sat of 66% while sleeping on 7 L nasal cannula. Patient did report a headache at that time. - Physical Exam Vitals/I&O's: Vital Signs Temp Pulse Resp BP Pulse Ox 36.5 C L 126 H 20 H 135/83 H 96 07/17/20 07:27 07/17/20 07:28 07/17/20 07:27 07/17/20 07:28 07/17/20 07:27 Oxygen Flow Rate (L/min) 7 Oxygen Delivery Method Airvo Weight: 79.6 kg Body Mass Index (BMI) 31.1 Intake and Output for Last 24 Hours 07/15/20 07/16/20 07/17/20 23:59 23:59 23:59 Intake Total 100 / 100 1155 / 1355 500 / 500 Output Total 1600 / 1600 1150 / 1750 800 / 800 Balance -1500 / -1500 5 / -395 -300 / -300 General: Alert, Oriented x3, Cooperative, - - Morbidly obese. No conversational dyspnea. HEENT: Atraumatic, PERRLA, EOMI, Normocephalic, - - Slight scleral injection without icterus Oral: Moist Mucosa, No Gingival or Mucosal Lesions/ Ulcerations Neck: Supple, No JVD, No Nodes, Trachea Midline Lungs: No rhonchi, No wheeze, No rales, Diminished, - - Symmetric expansion. No dullness to percussion. Cardiovascular: Regular rate, Regular Rhythm, Normal S1, Normal S2, Murmur, No rub noted, No Gallop Abdomen: Bowel Sounds Present, Soft, Non Tender, Non-Distended, Obese Extremities: No cyanosis, Edema Skin: - - No change from previous Musculoskeletal: No Tenderness to Palpation of Joints or Extremities Lymphatic: No Cervical, Supraclavicular, or Inguinal Adenopathy Neurological: Cranial nerves II-XII grossly intact, Neuro grossly intact, Motor Exam 5/5 strength throughout Psych/Mental Status: Alert and oriented to time, place, person, mood and affect Microbiology Past 72 Hours 07/15/20 11:07 Mucosa - Nose SARS-CoV-2 Antigen (Rapid) - Final Laboratory Results 07/17/20 05:35: WBC 8.0, RBC 2.67 L, Hgb 7.4 L, Hct 27.0 L, MCV 101.1 H, MCH 27.7, MCHC 27.4 L, RDW Std Deviation 76.2 H, RDW Coeff of Ismael 20.4 H, Plt Count 234, MPV 10.5, Immature Gran % (Auto) 0.800, Neut % (Auto) 95.0 H, Lymph % (Auto) 1.0 L, Grand % (Auto) 3.1, Eos % (Auto) 0.0, Baso % (Auto) 0.1, Absolute Neuts (auto) 7.6, Absolute Lymphs (auto) 0.08 L, Nucleated RBC % 0.4, Hypochromasia 2+, Microcytosis 2+ 07/17/20 05:35: Sodium 140, Potassium 3.1 L, Chloride 89 L, Carbon Dioxide > 45.0 H*, Anion Gap TNP, BUN 37 H, Creatinine 0.96, Estim Creat Clear Calc 38.02, Est GFR (MDRD) Af Amer 71, Est GFR (MDRD) Non-Af 59 L, BUN/Creatinine Ratio 38.3 H, Glucose 177 H, Calcium 9.0, Total Bilirubin 0.50, AST 18, ALT 13, Alkaline Phosphatase 75, Total Protein 5.7 L, Albumin 2.7 L, Globulin 3.0, Albumin/Globulin Ratio 0.9 07/17/20 05:35: Troponin I 0.049 H Current Medications Acetaminophen (Acetaminophen 325 Mg Tablet) 650 mg PO Q6H PRN PRN PRN Reason: Pain Score 1-10/Temp > 100.7 F Al Hydroxide/Mg Hydroxide (Mag Hydrox/Al Hydrox/Simeth 30 Ml Udc) 30 ml PO Q6H PRN PRN PRN Reason: Gastric Burning Albuterol Sulfate (Albuterol 2.5 Mg/3 Ml Vial.Neb.) 2.5 mg INHALATION Q2H PRN PRN PRN Reason: SOB/Wheezing Albuterol/Ipratropium (Ipratropium/Albuterol Sulfate 3 Ml Ampul.Neb) 3 ml INHALATION Q4H.RT [facility] Last Admin: 07/17/20 03:08 Dose: 3 ml Documented by: Apixaban (Apixaban 2.5 Mg Tablet) 2.5 mg PO BID [facility] Last Admin: 07/16/20 21:26 Dose: 2.5 mg Documented by: Cholecalciferol (Cholecalciferol (Vit D3) 1,000 Unit (25mcg)) [facility] Last Admin: 07/16/20 09:32 Dose: 2,000 unit Documented by: Diltiazem HCl (Diltiazem Cd 300 Mg Capsule) 300 mg PO DAILY [facility] Last Admin: 07/16/20 09:32 Dose: 300 mg Documented by: Furosemide (Furosemide 40 Mg/4 Ml Vial) 40 mg IV BID@1000,1800 [facility] Last Admin: 07/16/20 18:12 Dose: 40 mg Documented by: Guaifenesin (Guaifenesin 10 Ml Udc (200mg/10ml)) 20 ml PO Q4H PRN PRN PRN Reason: COUGH Melatonin (Melatonin 3 Mg Tablet) 3 mg PO QHS PRN PRN PRN Reason: INSOMNIA Nitroglycerin (Nitroglycerin (Inpatient Use) 0.4 Mg Tab.Subl) 0.4 mg SUBLINGUAL Q5M PRN PRN Reason: CARDIAC/CHEST PAIN Last Admin: 07/17/20 07:28 Dose: 0.4 mg Documented by: Ondansetron HCl (Ondansetron 4 Mg/2 Ml Vial) 4 mg IV Q8H PRN PRN PRN Reason: NAUSEA/VOMITING Oxycodone HCl (Oxycodone 5 Mg Tablet) 5 mg PO Q4H PRN PRN PRN Reason: Pain Score 4-10 Potassium Chloride (Potassium Chloride Oral Tablet 20 Meq) [facility] Stop: 07/17/20 17:01 Pravastatin Sodium (Pravastatin 20 Mg Tablet) 20 mg PO DAILY@2200 [facility] Last Admin: 07/16/20 21:26 Dose: 20 mg Documented by: Prednisone (Prednisone 20 Mg Tablet) 40 mg PO DAILY@0800 [facility] Senna/Docusate Sodium (Senna/Docusate Sodium 1 Tablet) 2 tablet PO BID PRN PRN PRN Reason: Constipation Sertraline HCl (Sertraline 50 Mg Tablet) 50 mg PO DAILY [facility] Last Admin: 07/16/20 09:32 Dose: 50 mg Documented by: Sodium Chloride (0.9% Saline Lock 10 Ml Syringe) 10 - 40 ml IV UD PRN PRN Reason: SALINE FLUSH Last Admin: 07/16/20 18:12 Dose: 10 ml Documented by: Medical Necessity - Tobacco Use Smoking Status: Former smoker Assessment/Plan All Active Problems Respiratory failure with hypoxia and hypercapnia (Acute) Right lower lobe pulmonary infiltrate (Resolved) COPD with exacerbation (Acute) Acute bronchospasm (Acute) Severe sepsis (Resolved) RECOMMENDATIONS: 1. Continue bronchodilators and steroids. Doubt antibiotics indicated 2. Agree with diuretic challenge 3. Wean oxygen as tolerated 4. Walking oximetry prior to discharge 5. Repeat complete PFT as an outpatient 6. Patient will need to be evaluated for AVAPS at home secondary to chronic respiratory failure and hypoxia IMPRESSIONS: 1. Acute hypoxic respiratory failure secondary to probable cor pulmonale Clinical suspicion patient has cor pulmonale leading to recurrent exacerbations. Patient is recovering quickly and has not had any fevers or leukocytosis noted. Clinical suspicion patient is desaturating at home and not adjusting supplemental oxygen leading to elevated pulmonary artery pressures with extravasation. Agree with diuretic therapy. Patient with significant desaturation with sleep. This will lead to increased pulmonary artery pressures. Patient does not have an appropriate response to hypoxia indicating persistence. This may be leading to repeated hospitalizations. Patient would be a good candidate for AVAPS at home as this could control oxygenation with addressing CO2 retention. 2. Descending aortic thrombus Unclear etiology. This can be followed up as an outpatient and likely does not require inpatient intervention. Patient is not showing any signs or symptoms of peripheral embolization on my exam. Patient does have a decreased hemoglobin and this will exacerbate underlying lung disease. Patient is a very poor operative candidate from known history. 3. A. fib/aortic stenosis/advanced age/hypertension/hyperlipidemia/depression Complicates care, management, recovery and prognosis. Likely okay to continue with baseline medications except for lisinopril may need to be held secondary to active diuresis. Okay to continue statin Zoloft from my perspective. Inpatient E&M: [id number] [facility] Hosp L3
[2020-07-17] MEDS: Furosemide 40 MG/4 ML Vial IV ×2 (08:03→18:23)
--- NOTE | 2020-07-17 09:00 | NURSING ---
handoff provided to Kevin RN at this time
[2020-07-17] MEDS: dilTIAZem 25 MG/5 ML Vial 10 MG IV BOLUS (09:50)
--- NOTE | 2020-07-17 13:50 | CASEMGMT ---
Call from Elsa at Palliative and she states Krystal COPY HOLDER will be over to see pt after 1500 today. Kevin LAURENT and Marlyn, PCU charge, updated at this time, voices understanding. Amber LAURENT CM
--- NOTE | 2020-07-17 15:36 | PCM.PN.HOSP ---
Patient Problems: Active and Suspected Problems Respiratory failure with hypoxia and hypercapnia (Acute) COPD with exacerbation (Acute) Acute bronchospasm (Acute) Subjective: developed chest pain and hand paresthesia. found to be in aflutter with RVR in 120s. No effect after an hour, so bolused IV dilt then gtt. Subsequent rhythm in 70s, but still in flutter. Vitals/I&O's: Vital Signs Temp Pulse Resp BP Pulse Ox 36.8 C 68 23 H 112/89 H 90 07/17/20 13:00 07/17/20 15:05 07/17/20 15:00 07/17/20 15:00 07/17/20 15:00 Oxygen Flow Rate (L/min) 40 Oxygen Delivery Method Airvo Weight: 79.6 kg Body Mass Index (BMI) 31.1 Intake and Output for Last 24 Hours 07/15/20 07/16/20 07/17/20 23:59 23:59 23:59 Intake Total 100 / 100 1155 / 1355 764.83 / 764.83 Output Total 1600 / 1600 1150 / 1750 1250 / 1250 Balance -1500 / -1500 5 / -395 -485.17 / -485.17 General: Alert, No apparent distress HEENT: Atraumatic, Normocephalic Oral: Moist Mucosa, No Gingival or Mucosal Lesions/ Ulcerations Neck: No Nodes, Thyroid Normal Size and Texture Lungs: Diminished Cardiovascular: Irregular Rate, Tachycardic Abdomen: Bowel Sounds Present, Soft, Non Tender, Non-Distended Extremities: No edema, No Calf Tenderness Skin: No rashes, No breakdown Musculoskeletal: No Tenderness to Palpation of Joints or Extremities, No Muscle Wasting Neurological: Muscle tone normal, Coordination normal Psych/Mental Status: Appropriate, Anxious Microbiology Past 72 Hours 07/15/20 11:16 Blood Culture (Wb) #2 - Left Wrist Blood Culture - Preliminary No growth in 48 hours. 07/15/20 10:50 Blood Culture (Wb) - Anticubital Left Blood Culture - Preliminary No growth in 48 hours. 07/15/20 11:07 Mucosa - Nose SARS-CoV-2 Antigen (Rapid) - Final Laboratory Results 07/17/20 05:35: WBC 8.0, RBC 2.67 L, Hgb 7.4 L, Hct 27.0 L, MCV 101.1 H, MCH 27.7, MCHC 27.4 L, RDW Std Deviation 76.2 H, RDW Coeff of Ismael 20.4 H, Plt Count 234, MPV 10.5, Immature Gran % (Auto) 0.800, Neut % (Auto) 95.0 H, Lymph % (Auto) 1.0 L, Ocean % (Auto) 3.1, Eos % (Auto) 0.0, Baso % (Auto) 0.1, Absolute Neuts (auto) 7.6, Absolute Lymphs (auto) 0.08 L, Nucleated RBC % 0.4, Hypochromasia 2+, Microcytosis 2+ 07/17/20 05:35: Sodium 140, Potassium 3.1 L, Chloride 89 L, Carbon Dioxide > 45.0 H*, Anion Gap TNP, BUN 37 H, Creatinine 0.96, Estim Creat Clear Calc 38.02, Est GFR (MDRD) Af Amer 71, Est GFR (MDRD) Non-Af 59 L, BUN/Creatinine Ratio 38.3 H, Glucose 177 H, Calcium 9.0, Total Bilirubin 0.50, AST 18, ALT 13, Alkaline Phosphatase 75, Total Protein 5.7 L, Albumin 2.7 L, Globulin 3.0, Albumin/Globulin Ratio 0.9 07/17/20 05:35: Troponin I 0.049 H 07/17/20 08:35: Troponin I 0.043 07/17/20 11:05: Troponin I 0.056 H Current Medications Acetaminophen (Acetaminophen 325 Mg Tablet) 650 mg PO Q6H PRN PRN PRN Reason: Pain Score 1-10/Temp > 100.7 F Al Hydroxide/Mg Hydroxide (Mag Hydrox/Al Hydrox/Simeth 30 Ml Udc) 30 ml PO Q6H PRN PRN PRN Reason: Gastric Burning Albuterol Sulfate (Albuterol 2.5 Mg/3 Ml Vial.Neb.) 2.5 mg INHALATION Q2H PRN PRN PRN Reason: SOB/Wheezing Albuterol/Ipratropium (Ipratropium/Albuterol Sulfate 3 Ml Ampul.Neb) 3 ml INHALATION Q4H.RT SHANE Last Admin: 07/17/20 14:36 Dose: 3 ml Documented by: Apixaban (Apixaban 2.5 Mg Tablet) 2.5 mg PO BID [facility] Last Admin: 07/17/20 07:46 Dose: 2.5 mg Documented by: Cholecalciferol (Cholecalciferol (Vit D3) 1,000 Unit (25mcg)) 2,000 unit PO [facility] Last Admin: 07/17/20 07:46 Dose: 2,000 unit Documented by: Diltiazem HCl (Diltiazem Cd 300 Mg Capsule) 300 mg PO DAILY [facility] Last Admin: 07/17/20 07:46 Dose: 300 mg Documented by: Furosemide (Furosemide 40 Mg/4 Ml Vial) 40 mg IV BID@1000,1800 [facility] Last Admin: 07/17/20 08:03 Dose: 40 mg Documented by: Guaifenesin (Guaifenesin 10 Ml Udc (200mg/10ml)) 20 ml PO Q4H PRN PRN PRN Reason: COUGH Diltiazem HCl 125 mg/ Dextrose 125 mls @ 5 mls/hr IV .Q25H [facility]; Protocol Last Titration: 07/17/20 15:00 Dose: 5 mg/hr, 5 mls/hr Documented by: Melatonin (Melatonin 3 Mg Tablet) 3 mg PO QHS PRN PRN PRN Reason: INSOMNIA Nitroglycerin (Nitroglycerin (Inpatient Use) 0.4 Mg Tab.Subl) 0.4 mg SUBLINGUAL Q5M PRN PRN Reason: CARDIAC/CHEST PAIN Last Admin: 07/17/20 07:28 Dose: 0.4 mg Documented by: Ondansetron HCl (Ondansetron 4 Mg/2 Ml Vial) 4 mg IV Q8H PRN PRN PRN Reason: NAUSEA/VOMITING Oxycodone HCl (Oxycodone 5 Mg Tablet) 5 mg PO Q4H PRN PRN PRN Reason: Pain Score 4-10 Potassium Chloride (Potassium Chloride Oral Tablet 20 Meq) 40 meq PO [facility]ID[facility] Stop: 07/17/20 17:01 Last Admin: 07/17/20 07:54 Dose: 40 meq Documented by: Pravastatin Sodium (Pravastatin 20 Mg Tablet) 20 mg PO DAILY@2200 [facility] Last Admin: 07/16/20 21:26 Dose: 20 mg Documented by: Prednisone (Prednisone 20 Mg Tablet) 40 mg PO DAILY@0800 [facility] Last Admin: 07/17/20 07:46 Dose: 40 mg Documented by: Senna/Docusate Sodium (Senna/Docusate Sodium 1 Tablet) 2 tablet PO BID PRN PRN PRN Reason: Constipation Sertraline HCl (Sertraline 50 Mg Tablet) 50 mg PO DAILY [facility]ANE Last Admin: 07/17/20 07:46 Dose: 50 mg Documented by: Sodium Chloride (0.9% Saline Lock 10 Ml Syringe) 10 - 40 ml IV UD PRN PRN Reason: SALINE FLUSH Last Admin: 07/17/20 09:51 Dose: 10 ml Documented by: STROKE Vital Signs/Narrative: Vital Signs Temp Pulse Resp BP Pulse Ox 07/17/20 15:05 68 07/17/20 15:00 68 23 H 112/89 H 90 07/17/20 14:47 72 18 07/17/20 14:00 24 H 101/54 L 90 07/17/20 13:00 36.8 C 76 20 H 126/72 H 92 07/17/20 12:00 67 20 H 106/63 92 Medical Necessity - Tobacco Use Smoking Status: Former smoker Assessment/Plan All Active Problems Respiratory failure with hypoxia and hypercapnia (Acute) Right lower lobe pulmonary infiltrate (Resolved) COPD with exacerbation (Acute) Acute bronchospasm (Acute) Severe sepsis (Resolved) 1. Acute hypoxic and hypercapnic respiratory failure multifactorial: AECOPD + Ac HFpEF +/- pulmonary HTN (last echo unable to assess RV pressures) wean oxygen as tolerated treat the underlying processes follow up with pulm as outpt pulm following 2. COPD with acute exacerbation continue BDs and steroids, changed to prednisone 3. Acute congestive heart failure with preserved ejection fraction 2D echo obtained on 06/06/2020 demonstrated EF of 65% with moderate concentric left ventricular hypertrophy. fluid restriction strict input and output, daily weight as well as treatment with IV Lasix with subsequent monitoring of electrolyte complicated by severe 4. aflutter w RVR improved with dilt bolus and gtt DC gtt and observe with PO dilt if recurs, consult cardiology for further recs (amio). Avoid BBs if able given COPD. 5. Valvular heart disease ?Echo demonstrated evidence of moderate to severe aortic stenosis during patient previous admission. follow up with cards as outpt. 6. Descending thoracic aortic thrombus CT of the chest was negative for PE patient placed on Eliquis. Did continue 7. Severe iron deficiency anemia Patient underwent endoscopic evaluation on 06/09/2020 colonoscopy demonstrated nonbleeding internal hemorrhoids and diverticulosis in the sigmoid colon, EGD revealed normal duodenum and stomach and grade 2 esophageal varices no evidence of bleeding. With patient presented with symptomatic anemia and order was given for patient to be transfused with 1 unit PRBC with subsequent monitoring of H&H ordered keep Hg around 8 07/16: rock 8. History of colon cancer Status post colon resection with subsequent chemotherapy patient has since remained in remission since 2002 9. Paroxysmal atrial fibrillation Rate controlled; on systemic with Eliquis 10. Dyslipidemia Patient is on statin therapy, continued at home dose 11. Essential hypertension Antihypertensives on hold patient blood pressure relatively stable 12. Depression Patient is on SSRI 13. DVT prophylaxis On Eliquis Inpatient E&M: 35929 Subs Hosp L3
--- NOTE | 2020-07-17 17:16 | CON.PCM_ITS ---
Problem List (1) Shortness of breath Status: Acute Comment: acute on chronic (2) Respiratory failure with hypoxia and hypercapnia Status: Acute Qualifiers: Chronicity: acute on chronic Qualified Code(s): J96.21 - Acute and chronic respiratory failure with hypoxia; J96.22 - Acute and chronic respiratory failure with hypercapnia (3) COPD with exacerbation Status: Acute (4) CHF (congestive heart failure) Status: Chronic Qualifiers: Heart failure type: diastolic History of Present Illness Date of Consult: 07/17/20 Reason for Consult: dyspnea Requesting physician: Dr. Andrade Primary care physician: Dr. Bryan Tolbert III, MD - History of Present Illness The patient is a 80 year old F, patient of Dr. Bryan Tolbert, who is being seen today for palliative care consultation at [facility]. She presented with progressive shortness of breath and lower extremity edema over the course of approximately 3 days. She also complained of increased wheezing, nonproductive cough, and an increase in lower extremity edema. Patient wears baseline oxygen with oxygen supplementation of 4 to 6 L, which was recently decreased to 2 to 4 L per nasal cannula. Patient called EMS, who found her to be 79% on 8 L of oxygen. She was admitted for acute hypoxic and hypercapnic respiratory failure, COPD with acute exacerbation, and acute CHF. Chest CT showed extensive and some modest changes/interstitial lung disease. Pulmonary was consulted and recommended to continue bronchodilators and steroids, no antibiotics. Also continued diuresis and wean oxygen as tolerated. Plans to do a walking oximetry prior to discharge and complete PFTs as an outpatient. We will also need evaluated for AVAPS at home secondary to chronic hypoxemic respiratory failure and CO2 retention. Pulmonary reports clinical suspicion for cor pulmonale leading to recurrent exacerbations. Also noted that patient only wore BiPAP overnight last night for approximately 3 hours, but had pain at the bridge of her nose so removed it. She was found this morning with a saturation of 66% while sleeping on 7 L per nasal cannula. Patient had prior admission June 06- for respiratory failure and COPD exacerbation, sepsis, and iron deficiency anemia for which she had an EGD that showed grade 2 esophageal varices with no evidence of bleeding and a normal duodenum. Also showed diverticulosis of the sigmoid colon and nonbleeding internal hemorrhoids. She received 1 unit of PRBCs due to symptomatic anemia. CT the chest 06/06/2020 showed a descending thoracic aortic thrombus for which she was put on anticoagulation, pulmonary edema, and vascular congestion. She also had right lower lobe pneumonia but no PE. An echo at that time revealed moderate to severe aortic stenosis and a preserved ejection fraction of 65%, also moderate concentric LVH. She was diuresed with Lasix and discharged on steroids and her home O2. Other past medical history includes hypertension, invasive lobular right breast cancer, colon cancer, COPD, CHF, anxiety and depression, and SHELDON. She is a former smoker with a [id number] history, quit May 1995. Surgical history includes colectomy and mastectomy. Patient is a DNR CCA with no intubation. Patient notes she has been in remission from stage III ascending colon cancer since 2002. She follows with Dr. Avilez, oncology. She did undergo a 6 months of adjuvant chemotherapy with 5-FU and leucovorin. 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 She declined adjuvant chemotherapy for her breast cancer. Patient noted to have chronic back pain for several years with left lumbar radiculopathy. He has chronic lateral lower extremity neuropathy. Patient does not feel congested in her chest. Denies any current wheezing, shortness of breath, or productive cough. In early June she was having hemoptysis, but denies since. Denies any oral or nasal ulcers, however she has occasional nosebleeds from wearing oxygen. Reports anxiety with use of BiPAP, plus it hurts her her nose and face significantly so she declines to wear. Her shortness of breath really did not improve with blood transfusion, she received 1 unit this admission. She denies any previous cardiac history. Saw Dr. Phillip, home performance consultant in the past. We discussed palliative care, patient would like to enroll for symptom management of her shortness of breath. States it has been much worse the last couple of months and she would like to improve her quality of life. She has a very supportive family of 3 children, 4 grandchildren, and 7 great- grandchildren. All live in the area and are very attentive to her needs. Patient does live alone but her son Denys is living with her until next month. Then, her daughter Meghana plans on moving in with the patient. Meghana is her healthcare and financial POA. Also has a son Yamil. Patient asking if she can receive the COVID vaccination prior to discharge. Patient Problems: Chronic Problems History of hypertension (Chronic) History of breast cancer (Chronic) History of colon cancer (Chronic) History of COPD (Chronic) Iron deficiency anemia (Chronic) CHF (congestive heart failure) (Chronic) Surgical History: colectomy, mastectomy Psychiatric History: Anxiety, Depression Home Medications: Ambulatory Orders Medication Instructions Recorded Diltiazem HCl [Cartia Xt] 300 mg PO DAILY 03/17/17 Oxygen, Home [Home Oxygen] 4 - 6 lpm NASAL DAILY 03/17/17 Pravastatin [Pravachol] 20 mg PO DAILY 03/17/17 Sertraline HCl [Zoloft] 50 mg PO DAILY 03/17/17 Cholecalciferol (Vitamin D3) 1 tab PO DAILY 06/05/20 [Vitamin D3] Apixaban [Eliquis] 2.5 mg PO BID #120 tab 06/12/20 Aspirin [Aspirin, Baby] 81 mg PO DAILY@0800 06/12/20 Furosemide [Lasix] 40 mg PO DAILY #60 tab 06/12/20 Allergies No Known Allergies Allergy (Verified 07/15/20 10:35) Maternal Family History: Family History (Last Updated 07/17/20 @ 18:28 by MARTY Jordan) Sister Alzheimer disease Mother Colon cancer Father CAD (coronary artery disease) History Items: Cancer - colon Paternal Family History: Family History (Last Updated 07/17/20 @ 18:28 by MARTY Jordan) Sister Alzheimer disease Mother Colon cancer Father CAD (coronary artery disease) - Social History Lives: Alone, - - son living there temporarily Smoking Status: Former smoker Alcohol: None Drugs: None Code Status: DNRCC-A Review of Systems Constitutional: Reports: Weakness, Fatigue. Denies: Anorexia, Chills, Fever Eyes: Denies: Vision Change HEENT: Reports: Head Aches. Denies: Difficulty Hearing, Difficulty Swallowing, Sinus Congestion, Sore Throat Cardiovascular: Reports: Edema, Orthopnea. Denies: Chest Pain, Chest Tightness, Syncope Respiratory: Reports: Cough, Shortness of Breath. Denies: Hemoptysis, Sputum production Gastrointestinal: Reports: Constipation. Denies: Abdominal Pain, Diarrhea, Dyspepsia, Hematochezia, Nausea, Melena, Vomiting Genitourinary: Reports: - - s. Denies: Dysuria, Incontinence Musculoskeletal: Reports: Back Pain, Leg Pain Skin: Reports: Dryness. Denies: Rash Neurological: Reports: Numbness, Tingling - bilat LEs. Denies: Slurred speech, Tremor, Seizures Psychiatric: Reports: Anxiety. Denies: Depression Endocrine: Denies: Heat/ Cold Intolerance, Polydipsia Hematologic/ Lymphatic: Reports: Anemia, Easy Bruising, Hx of blood clot, Hx of blood transfusion. Denies: Adenopathy Physical Exam General: Alert, Oriented x3, Cooperative, No apparent distress HEENT: Atraumatic, PERRLA, EOMI Oral: Dry Mucosa Neck: Supple, Trachea Midline Lungs: No rhonchi, No wheeze, No rales, Diminished Cardiovascular: Regular rate, Normal S1, Normal S2, Murmur, - - ectopy Abdomen: Bowel Sounds Present, Soft, Non Tender, Obese Extremities: No clubbing, No cyanosis, Edema, Peripheral Pulses Normal Skin: No rashes, No breakdown, - - arms and legs ecchymotic Musculoskeletal: No Tenderness to Palpation of Joints or Extremities Lymphatic: No Cervical, Supraclavicular, or Inguinal Adenopathy Neurological: Cranial nerves II-XII grossly intact Psych/Mental Status: Normal Affect, Appropriate, Alert and oriented to time, place, person, mood and affect Objective: Vital Signs Temp Pulse Resp BP Pulse Ox 98.2 F 76 21 H 104/54 L 91 07/17/20 13:00 07/17/20 16:20 07/17/20 16:20 07/17/20 16:20 07/17/20 16:20 Oxygen Flow Rate (L/min) 40 Oxygen Delivery Method Airvo Weight: 79.6 kg Body Mass Index (BMI) 31.1 Intake and Output for Last 24 Hours 07/15/20 07/16/20 07/17/20 23:59 23:59 23:59 Intake Total 100 / 100 1155 / 1355 771.50 / 771.50 Output Total 1600 / 1600 1150 / 1750 1250 / 1250 Balance -1500 / -1500 5 / -395 -478.50 / -478.50 Microbiology Past 72 Hours 07/15/20 11:16 Blood Culture - Preliminary Blood Culture (Wb) #2 - Left Wrist No growth in 48 hours. 07/15/20 10:50 Blood Culture - Preliminary Blood Culture (Wb) - Anticubital Left No growth in 48 hours. 07/15/20 11:07 SARS-CoV-2 Antigen (Rapid) - Final Mucosa - Nose Laboratory Tests Past 24 Hrs 07/17/20 07/17/20 07/17/20 05:35 05:35 05:35 WBC 8.0 RBC 2.67 L Hgb 7.4 L Hct 27.0 L MCV 101.1 H MCH 27.7 MCHC 27.4 L RDW Std Deviation 76.2 H RDW Coeff of Ismael 20.4 H Plt Count 234 MPV 10.5 Immature Gran % (Auto) 0.800 Neut % (Auto) 95.0 H Lymph % (Auto) 1.0 L [place] % (Auto) 3.1 Eos % (Auto) 0.0 Baso % (Auto) 0.1 Absolute Neuts (auto) 7.6 Absolute Lymphs (auto) 0.08 L Nucleated RBC % 0.4 Hypochromasia 2+ Microcytosis 2+ Sodium 140 Potassium 3.1 L Chloride 89 L Carbon Dioxide > 45.0 H* Anion Gap TNP BUN 37 H Creatinine 0.96 Estim Creat Clear Calc 38.02 Est GFR (MDRD) Af Amer 71 Est GFR (MDRD) Non-Af 59 L BUN/Creatinine Ratio 38.3 H Glucose 177 H Calcium 9.0 Total Bilirubin 0.50 AST 18 ALT 13 Alkaline Phosphatase 75 Troponin I 0.049 H Total Protein 5.7 L Albumin 2.7 L Globulin 3.0 Albumin/Globulin Ratio 0.9 07/17/20 07/17/20 08:35 11:05 WBC RBC Hgb Hct MCV MCH MCHC RDW Std Deviation RDW Coeff of Ismael Plt Count MPV Immature Gran % (Auto) Neut % (Auto) Lymph % (Auto) [place] % (Auto) Eos % (Auto) Baso % (Auto) Absolute Neuts (auto) Absolute Lymphs (auto) Nucleated RBC % Hypochromasia Microcytosis Sodium Potassium Chloride Carbon Dioxide Anion Gap BUN Creatinine Estim Creat Clear Calc Est GFR (MDRD) Af Amer Est GFR (MDRD) Non-Af BUN/Creatinine Ratio Glucose Calcium Total Bilirubin AST ALT Alkaline Phosphatase Troponin I 0.043 0.056 H Total Protein Albumin Globulin Albumin/Globulin Ratio Assessment/Plan All Active Problems Respiratory failure with hypoxia and hypercapnia (Acute) Right lower lobe pulmonary infiltrate (Resolved) COPD with exacerbation (Acute) Acute bronchospasm (Acute) Severe sepsis (Resolved) Shortness of breath (Acute) 80-year-old female who is being admitted to palliative care for symptom management of shortness of breath, history of COPD, new CHF, and acute hypoxic and hypercapnic respiratory requiring supplemental oxygen. 1. Shortness of breath/: Multifactorial, seems to have been progressing for several months, significantly worsened beginning in June. No recent PFTs. Recent pulmonary hospital consult, will be having PFTs as an outpatient. Admit to palliative care for symptom management shortness of breath and goal of improving quality of life. We discussed options for pharmacological management of her dyspnea, no need to add rx at this point but will reevaluate as an outpatient. Could try a small dose of Roxanol 2.5 mg every 4 hours as needed for shortness of breath if worsens. 2. Acute hypoxic and hypercapnic respiratory failure/COPD with acute exacerbation: Complicates overall care and management, pulmonary and hospitalist to manage.
[2020-07-17] MEDS: MELATONIN 3 MG TABLET PO (21:15)
[2020-07-17] MEDS: Pravastatin 20 MG Tablet PO (21:16)
--- NOTE | 2020-07-17 23:18 | CPS ---
water changed on airvo
[2020-07-18] VITALS (27 sets, daily range): BP systolic 93–123; BP diastolic 53–84; PULSE 68–106; RESP 12–23; TEMP 36.6–37.1; O2SAT 92–100
[2020-07-18 05:58] LABS: Absolute Neutrophil Count 7.6 X10^3/uL (2.0-7.7); Basophil# 0.01 X10^3/uL; Basophil% 0.1 % (0-1); Hematocrit 28.2 % (37-47); Hemoglobin 7.9 g/dL (12.0-15.0); Lymphocyte % 3.5 % (19-41); Mean Corpuscular Hgb 28.2 pg (27.0-32.0); Mean Corpuscular Volume 100.7 fL (81-99); Monocyte# 0.57 X10^3/uL; Monocyte% 6.6 % (0-10); Neutrophil # 7.61 X10^3/uL (2.7-7.7); Neutrophil % 87.5 % (47-70); POSITIVE DIFFERENTIAL YES; POSITIVE MORPHOLOGY YES; Platelet Count 248 K/mm3 (150-450); RBC Distribution Width CV 20.1 % (11.6-14.6); RBC Distribution Width SD 74.4 fl (35.1-43.9); White Blood Count 8.7 K/mm3 (4.4-11.0)
[2020-07-18 06:07] LABS: Differential Indicated SCAN CRITERIA MET
[2020-07-18 06:30] LABS: Anisocytosis 1+; Differential Comment SCANNED; Polychromasia RARE
[2020-07-18 06:31] LABS: Microcytosis RARE
[2020-07-18 06:32] LABS: BUN 42 mg/dL (7-18); BUN/Creat Ratio 42.1 RATIO (10-20); Calcium,Total 8.8 mg/dL (8.5-10.1); Carbon Dioxide > 45.0 mmol/L (21.0-32.0); Chloride 91 mmol/L (98-107); EST Glomerular Filtration Rate 57 mL/min (>60); Est Glom Filt Rate - Afr Amer 69 mL/min (>60); Glucose 144 mg/dL (74-106); Hypochromasia 2+; Macrocytosis RARE; Potassium 3.7 mmol/L (3.5-5.1); Sodium Level 141 mmol/L (136-145)
--- NOTE | 2020-07-18 07:00 | PCM.PN.PUL ---
Patient Problems: Active and Suspected Problems Respiratory failure with hypoxia and hypercapnia (Acute) COPD with exacerbation (Acute) Acute bronchospasm (Acute) Shortness of breath (Acute) acute on chronic Subjective: Patient did okay overnight. Patient has developed A. fib and was started on a Cardizem drip. Patient remains in a flutter with 3-1 block on telemetry. Patient reportedly had refused AVAPS overnight in lieu of Airvo. Oxygenation was much better controlled. Patient is not reporting headache this morning. - Physical Exam Vitals/I&O's: Vital Signs Temp Pulse Resp BP Pulse Ox 36.6 C 68 18 93/53 L 94 07/18/20 04:00 07/18/20 06:00 07/18/20 04:00 07/18/20 06:00 07/18/20 04:00 Oxygen Flow Rate (L/min) 40 Oxygen Delivery Method Airvo Weight: 79.6 kg Body Mass Index (BMI) 31.1 Intake and Output for Last 24 Hours 07/16/20 07/17/20 07/18/20 23:59 23:59 23:59 Intake Total 1155 / 1355 1044.83 / 1049.83 37.5 / 37.5 Output Total 1150 / 1750 1650 / 2300 800 / 800 Balance 5 / -395 -605.17 / -1250.17 -762.5 / -762.5 General: Alert, Oriented x3, Cooperative, No apparent distress, - - Obese. No conversational dyspnea. HEENT: Atraumatic, PERRLA, EOMI, Normocephalic, - - No scleral icterus or injection noted Oral: Moist Mucosa, No Gingival or Mucosal Lesions/ Ulcerations Neck: Supple, No Nodes, Trachea Midline, - - JVD difficult to assess secondary to body habitus Lungs: No rhonchi, No wheeze, No rales, Diminished Cardiovascular: Normal S1, Normal S2, Irregular Rate, Murmur, No rub noted, No Gallop, - - A flutter noted on telemetry Abdomen: Bowel Sounds Present, Soft, Non Tender, Non-Distended Extremities: No clubbing, No cyanosis, Edema Skin: - - No change from previous Musculoskeletal: No Tenderness to Palpation of Joints or Extremities Lymphatic: No Cervical, Supraclavicular, or Inguinal Adenopathy Neurological: Cranial nerves II-XII grossly intact, Neuro grossly intact, Motor Exam 5/5 strength throughout Psych/Mental Status: Alert and oriented to time, place, person, mood and affect Microbiology Past 72 Hours 07/15/20 11:16 Blood Culture (Wb) #2 - Left Wrist Blood Culture - Preliminary No growth in 48 hours. 07/15/20 10:50 Blood Culture (Wb) - Anticubital Left Blood Culture - Preliminary No growth in 48 hours. 07/15/20 11:07 Mucosa - Nose SARS-CoV-2 Antigen (Rapid) - Final Laboratory Results 07/17/20 05:35: Troponin I 0.049 H 07/17/20 08:35: Troponin I 0.043 07/17/20 11:05: Troponin I 0.056 H 07/18/20 05:25: Sodium 141, Potassium 3.7, Chloride 91 L, Carbon Dioxide > 45.0 H*, Anion Gap TNP, BUN 42 H, Creatinine 1.00, Estim Creat Clear Calc 36.50, Est GFR (MDRD) Af Amer 69, Est GFR (MDRD) Non-Af 57 L, BUN/Creatinine Ratio 42.1 H, Glucose 144 H, Calcium 8.8 07/18/20 05:25: WBC 8.7, RBC 2.80 L, Hgb 7.9 L, Hct 28.2 L, MCV 100.7 H, MCH 28.2, MCHC 28.0 L, RDW Std Deviation 74.4 H, RDW Coeff of Ismael 20.1 H, Plt Count 248, MPV 11.0, Immature Gran % (Auto) 2.300 H, Neut % (Auto) 87.5 H, Lymph % (Auto) 3.5 L, [place] % (Auto) 6.6, Eos % (Auto) 0.0, Baso % (Auto) 0.1, Absolute Neuts (auto) 7.6, Absolute Lymphs (auto) 0.30 L, Nucleated RBC % 1.0, Differential Comment SCANNED, Polychromasia RARE, Hypochromasia 2+, Anisocytosis 1+, Microcytosis RARE, Macrocytosis RARE Current Medications Acetaminophen (Acetaminophen 325 Mg Tablet) 650 mg PO Q6H PRN PRN PRN Reason: Pain Score 1-10/Temp > 100.7 F Al Hydroxide/Mg Hydroxide (Mag Hydrox/Al Hydrox/Simeth 30 Ml Udc) 30 ml PO Q6H PRN PRN PRN Reason: Gastric Burning Albuterol Sulfate (Albuterol 2.5 Mg/3 Ml Vial.Neb.) 2.5 mg INHALATION Q2H PRN PRN PRN Reason: SOB/Wheezing Albuterol/Ipratropium (Ipratropium/Albuterol Sulfate 3 Ml Ampul.Neb) 3 ml INHALATION Q4H.RT [facility] Last Admin: 07/17/20 19:16 Dose: 3 ml Documented by: Apixaban (Apixaban 2.5 Mg Tablet) 2.5 mg PO BID [facility] Last Admin: 07/17/20 21:16 Dose: 2.5 mg Documented by: Cholecalciferol (Cholecalciferol (Vit D3) 1,000 Unit (25mcg)) [facility] Last Admin: 07/17/20 07:46 Dose: 2,000 unit Documented by: Furosemide (Furosemide 40 Mg/4 Ml Vial) 40 mg IV BID@1000,1800 [facility] Last Admin: 07/17/20 18:23 Dose: 40 mg Documented by: Guaifenesin (Guaifenesin 10 Ml Udc (200mg/10ml)) 20 ml PO Q4H PRN PRN PRN Reason: COUGH Diltiazem HCl 125 mg/ Dextrose 125 mls @ 5 mls/hr IV .Q25H [facility]; Protocol Last Admin: 07/18/20 06:30 Dose: 5 mg/hr, 5 mls/hr Documented by: Melatonin (Melatonin 3 Mg Tablet) 3 mg PO QHS PRN PRN PRN Reason: INSOMNIA Last Admin: 07/17/20 21:15 Dose: 3 mg Documented by: Nitroglycerin (Nitroglycerin (Inpatient Use) 0.4 Mg Tab.Subl) 0.4 mg SUBLINGUAL Q5M PRN PRN Reason: CARDIAC/CHEST PAIN Last Admin: 07/17/20 07:28 Dose: 0.4 mg Documented by: Ondansetron HCl (Ondansetron 4 Mg/2 Ml Vial) 4 mg IV Q8H PRN PRN PRN Reason: NAUSEA/VOMITING Oxycodone HCl (Oxycodone 5 Mg Tablet) 5 mg PO Q4H PRN PRN PRN Reason: Pain Score 4-10 Pravastatin Sodium (Pravastatin 20 Mg Tablet) 20 mg PO DAILY@2200 [facility] Last Admin: 07/17/20 21:16 Dose: 20 mg Documented by: Prednisone (Prednisone 20 Mg Tablet) 40 mg PO DAILY@0800 [facility] Last Admin: 07/17/20 07:46 Dose: 40 mg Documented by: Senna/Docusate Sodium (Senna/Docusate Sodium 1 Tablet) 2 tablet PO BID PRN PRN PRN Reason: Constipation Sertraline HCl (Sertraline 50 Mg Tablet) 50 mg PO DAILY [facility] Last Admin: 07/17/20 07:46 Dose: 50 mg Documented by: Sodium Chloride (0.9% Saline Lock 10 Ml Syringe) 10 - 40 ml IV UD PRN PRN Reason: SALINE FLUSH Last Admin: 07/17/20 09:51 Dose: 10 ml Documented by: Medical Necessity - Tobacco Use Smoking Status: Former smoker Assessment/Plan All Active Problems Respiratory failure with hypoxia and hypercapnia (Acute) Right lower lobe pulmonary infiltrate (Resolved) COPD with exacerbation (Acute) Acute bronchospasm (Acute) Severe sepsis (Resolved) Shortness of breath (Acute) RECOMMENDATIONS: 1. Continue bronchodilators and steroids. Doubt antibiotics indicated 2. Continue diuretic challenge 3. Wean oxygen as tolerated 4. Walking oximetry prior to discharge 5. Repeat complete PFT as an outpatient 6. Recommend AVAPS with sleep as this can be continued as an outpatient. IMPRESSIONS: 1. Acute hypoxic respiratory failure secondary to probable cor pulmonale Clinical suspicion patient has cor pulmonale leading to recurrent exacerbations. Patient is recovering quickly and has not had any fevers or leukocytosis noted. Clinical suspicion patient is desaturating at home and not adjusting supplemental oxygen leading to elevated pulmonary artery pressures with extravasation. Agree with diuretic therapy. Patient with significant desaturation with sleep. This will lead to increased pulmonary artery pressures. Stressed to the patient that Airvo cannot be continued at home, but AVAPS could be arranged. Patient appears to be tolerating diuresis well at the current dosing. Patient would be a good candidate for AVAPS at home as this could control oxygenation with addressing CO2 retention. 2. Descending aortic thrombus Unclear etiology. This can be followed up as an outpatient and likely does not require inpatient intervention. Patient is not showing any signs or symptoms of peripheral embolization on my exam. Patient does have a decreased hemoglobin and this will exacerbate underlying lung disease. Patient is a very poor operative candidate from known history. 3. A. fib/aortic stenosis/advanced age/hypertension/hyperlipidemia/depression Complicates care, management, recovery and prognosis. Likely okay to continue with baseline medications except for lisinopril may need to be held secondary to active diuresis. Okay to continue statin Zoloft from my perspective. Inpatient E&M: [id number] [facility] H[facility] L3
[2020-07-18] MEDS: Ipratropium/Albuterol Sulfate 3 ML AMPUL.NEB INHALATION ×5 (07:17→22:57)
[2020-07-18] MEDS: Sertraline 50 MG Tablet PO (09:30)
[2020-07-18] MEDS: predniSONE 20 MG Tablet 40 MG PO (09:30)
[2020-07-18] MEDS: APIXABAN 2.5 MG TABLET PO ×2 (09:30→22:48)
[2020-07-18] MEDS: Furosemide 40 MG/4 ML Vial IV ×2 (09:31→18:32)
[2020-07-18] MEDS: dilTIAZem CD 300 MG Capsule PO (10:37)
--- NOTE | 2020-07-18 15:19 | PN_ITS ---
Patient Problems: Active and Suspected Problems Respiratory failure with hypoxia and hypercapnia (Acute) COPD with exacerbation (Acute) Acute bronchospasm (Acute) Shortness of breath (Acute) acute on chronic Subjective: Breathing well. HR controlled. Vitals/I&O's: Vital Signs Temp Pulse Resp BP Pulse Ox 36.9 C 91 22 H 123/84 H 94 07/18/20 10:49 07/18/20 11:21 07/18/20 11:21 07/18/20 10:49 07/18/20 10:49 Oxygen Flow Rate (L/min) 40 Oxygen Delivery Method Airvo Weight: 79.6 kg Body Mass Index (BMI) 31.1 Intake and Output for Last 24 Hours 07/16/20 07/17/20 07/18/20 23:59 23:59 23:59 Intake Total 1155 / 1355 1044.83 / 1049.83 52.5 / 52.5 Output Total 1150 / 1750 1650 / 2300 1600 / 1600 Balance 5 / -395 -605.17 / -1250.17 -1547.5 / -1547.5 General: Alert, No apparent distress HEENT: Atraumatic, Normocephalic Oral: Moist Mucosa, No Gingival or Mucosal Lesions/ Ulcerations Neck: No Nodes, Thyroid Normal Size and Texture Lungs: Diminished, - - coarse breath sounds Cardiovascular: Regular rate, Regular Rhythm, Normal S1, Normal S2, No murmurs Abdomen: Bowel Sounds Present, Soft, Non Tender, Non-Distended, No Hepato- splenomegaly Extremities: No edema, No Calf Tenderness Skin: No rashes, No breakdown Psych/Mental Status: Normal Affect, Appropriate Microbiology Past 72 Hours 07/15/20 11:16 Blood Culture (Wb) #2 - Left Wrist Blood Culture - Preliminary No growth in 48 hours. 07/15/20 10:50 Blood Culture (Wb) - Anticubital Left Blood Culture - Preliminary No growth in 48 hours. 07/15/20 11:07 Mucosa - Nose SARS-CoV-2 Antigen (Rapid) - Final Laboratory Results 07/18/20 05:25: Sodium 141, Potassium 3.7, Chloride 91 L, Carbon Dioxide > 45.0 H*, Anion Gap TNP, BUN 42 H, Creatinine 1.00, Estim Creat Clear Calc 36.50, Est GFR (MDRD) Af Amer 69, Est GFR (MDRD) Non-Af 57 L, BUN/Creatinine Ratio 42.1 H, Glucose 144 H, Calcium 8.8 07/18/20 05:25: WBC 8.7, RBC 2.80 L, Hgb 7.9 L, Hct 28.2 L, MCV 100.7 H, MCH 28.2, MCHC 28.0 L, RDW Std Deviation 74.4 H, RDW Coeff of Ismael 20.1 H, Plt Count 248, MPV 11.0, Immature Gran % (Auto) 2.300 H, Neut % (Auto) 87.5 H, Lymph % (Auto) 3.5 L, [place] % (Auto) 6.6, Eos % (Auto) 0.0, Baso % (Auto) 0.1, Absolute Neuts (auto) 7.6, Absolute Lymphs (auto) 0.30 L, Nucleated RBC % 1.0, D ifferential Comment SCANNED, Polychromasia RARE, Hypochromasia 2+, Anisocytosis 1+, Microcytosis RARE, Macrocytosis RARE Current Medications Acetaminophen (Acetaminophen 325 Mg Tablet) 650 mg PO Q6H PRN PRN PRN Reason: Pain Score 1-10/Temp > 100.7 F Al Hydroxide/Mg Hydroxide (Mag Hydrox/Al Hydrox/Simeth 30 Ml Udc) 30 ml PO Q6H PRN PRN PRN Reason: Gastric Burning Albuterol Sulfate (Albuterol 2.5 Mg/3 Ml Vial.Neb.) 2.5 mg INHALATION Q2H PRN PRN PRN Reason: SOB/Wheezing Albuterol/Ipratropium (Ipratropium/Albuterol Sulfate 3 Ml Ampul.Neb) 3 ml INHALATION Q4H.RT [facility] Last Admin: 07/18/20 15:05 Dose: 3 ml Documented by: Apixaban (Apixaban 2.5 Mg Tablet) 2.5 mg PO BID [facility] Last Admin: 07/18/20 09:30 Dose: 2.5 mg Documented by: Cholecalciferol (Cholecalciferol (Vit D3) 1,000 Unit (25mcg)) 2,000 unit PO DAILYCM [facility] Last Admin: 07/18/20 09:30 Dose: 2,000 unit Documented by: Diltiazem HCl (Diltiazem Cd 300 Mg Capsule) 300 mg PO DAILY [facility] Furosemide (Furosemide 40 Mg/4 Ml Vial) 40 mg IV BID@1000,1800 [facility] Last Admin: 07/18/20 09:31 Dose: 40 mg Documented by: Guaifenesin (Guaifenesin 10 Ml Udc (200mg/10ml)) 20 ml PO Q4H PRN PRN PRN Reason: COUGH Melatonin (Melatonin 3 Mg Tablet) 3 mg PO QHS PRN PRN PRN Reason: INSOMNIA Last Admin: 07/17/20 21:15 Dose: 3 mg Documented by: Nitroglycerin (Nitroglycerin (Inpatient Use) 0.4 Mg Tab.Subl) 0.4 mg SUBLINGUAL Q5M PRN PRN Reason: CARDIAC/CHEST PAIN Last Admin: 07/17/20 07:28 Dose: 0.4 mg Documented by: Ondansetron HCl (Ondansetron 4 Mg/2 Ml Vial) 4 mg IV Q8H PRN PRN PRN Reason: NAUSEA/VOMITING Oxycodone HCl (Oxycodone 5 Mg Tablet) 5 mg PO Q4H PRN PRN PRN Reason: Pain Score 4-10 Pravastatin Sodium (Pravastatin 20 Mg Tablet) 20 mg PO DAILY@2200 [facility] Last Admin: 07/17/20 21:16 Dose: 20 mg Documented by: Prednisone (Prednisone 20 Mg Tablet) 40 mg PO DAILY@0800 [facility] Last Admin: 07/18/20 09:30 Dose: 40 mg Documented by: Senna/Docusate Sodium (Senna/Docusate Sodium 1 Tablet) 2 tablet PO BID PRN PRN PRN Reason: Constipation Sertraline HCl (Sertraline 50 Mg Tablet) 50 mg PO DAILY [facility] Last Admin: 07/18/20 09:30 Dose: 50 mg Documented by: Sodium Chloride (0.9% Saline Lock 10 Ml Syringe) 10 - 40 ml IV UD PRN PRN Reason: SALINE FLUSH Last Admin: 07/17/20 09:51 Dose: 10 ml Documented by: STROKE Vital Signs/Narrative: Vital Signs Pulse Resp 07/18/20 11:21 91 22 H Medical Necessity - Tobacco Use Smoking Status: Former smoker Assessment/Plan All Active Problems Respiratory failure with hypoxia and hypercapnia (Acute) Right lower lobe pulmonary infiltrate (Resolved) COPD with exacerbation (Acute) Acute bronchospasm (Acute) Severe sepsis (Resolved) Shortness of breath (Acute) 1. Acute hypoxic and hypercapnic respiratory failure * multifactorial: AECOPD + Ac HFpEF +/- pulmonary HTN (last echo unable to assess RV pressures) * wean oxygen as tolerated * treat the underlying processes * follow up with pulm as outpt * pulm following * AVAPS as outpt through pulmonology 2. COPD with acute exacerbation * continue BDs and steroids, changed to prednisone 3. Acute congestive heart failure with preserved ejection fraction * 2D echo obtained on 06/06/2020 demonstrated EF of 65% with moderate concentric left ventricular hypertrophy. * fluid restriction strict input and output, daily weight as well as treatment with IV Lasix with subsequent monitoring of electrolyte * complicated by severe * -3.6 liters 4. aflutter w RVR * improved with dilt bolus and gtt, rate-controlled in aflutter * DC gtt and observe with PO dilt (07/17, accidently DC'd PO and not gtt, 07/18 DC'd gtt and resumed PO) * if recurs, consult cardiology for further recs (amio). Avoid BBs if able given COPD. 5. Valvular heart disease * Echo demonstrated evidence of moderate to severe aortic stenosis during patient previous admission. * follow up with cards as outpt. 6. Descending thoracic aortic thrombus * CT of the chest was negative for PE patient placed on Eliquis. Did continue 7. Severe iron deficiency anemia * Patient underwent endoscopic evaluation on 06/09/2020 colonoscopy demonstrated nonbleeding internal hemorrhoids and diverticulosis in the sigmoid colon, EGD revealed normal duodenum and stomach and grade 2 esophageal varices no evidence of bleeding. * With patient presented with symptomatic anemia and order was given for patient to be transfused with 1 unit PRBC with subsequent monitoring of H&H ordered * keep Hg around 8 * 07/16: venofer 8. History of colon cancer * Status post colon resection with subsequent chemotherapy patient has since remained in remission since 2002 9. Paroxysmal atrial fibrillation * Rate controlled; on systemic with Eliquis 10. Dyslipidemia * Patient is on statin therapy, continued at home dose 11. Essential hypertension * Antihypertensives on hold patient blood pressure relatively stable 12. Depression * Patient is on SSRI 13. DVT prophylaxis * On Eliquis Inpatient E&M: [id number] Subs Hosp L2
--- NOTE | 2020-07-18 15:50 | CASEMGMT ---
Social Work SW spoke with TCU and they would be able to accept pt if she chooses to go to TCU at time of discharge. OLESYA will continue to follow for discharge planning. RONNIE Lux
[2020-07-18] MEDS: Pravastatin 20 MG Tablet PO (22:48)
[2020-07-19] VITALS (23 sets, daily range): BP systolic 95–118; BP diastolic 53–60; PULSE 60–87; RESP 12–20; TEMP 36.5–36.8; O2SAT 93–100
[2020-07-19 06:08] LABS: Absolute Lymphocyte Count 0.33 X10^3/uL (0.83-4.51); Absolute Neutrophil Count 6.6 X10^3/uL (2.0-7.7); Basophil# 0.04 X10^3/uL; Basophil% 0.5 % (0-1); Eosinophil# 0.01 X10^3/uL; Eosinophils% 0.1 % (0-5); Hematocrit 30.2 % (37-47); Hemoglobin 8.5 g/dL (12.0-15.0); Lymphocyte # 0.33 X10^3/ul (4.0); Lymphocyte % 4.2 % (19-41); Mean Corp Hgb Conc 28.1 g/dL (32-36); Mean Corpuscular Hgb 28.1 pg (27.0-32.0); Mean Platelet Vol. 10.5 fl (6.2-12.0); Monocyte# 0.67 X10^3/uL; Monocyte% 8.4 % (0-10); NRBC Flagged by Analyzer 1.4 % (0-5); Neutrophil # 6.63 X10^3/uL (2.7-7.7); Neutrophil % 83.5 % (47-70); POSITIVE DIFFERENTIAL YES; POSITIVE MORPHOLOGY YES; Platelet Count 249 K/mm3 (150-450); RBC Distribution Width CV 19.9 % (11.6-14.6); RBC Distribution Width SD 72.7 fl (35.1-43.9); Red Blood Count 3.02 M/mm3 (4.2-5.4); White Blood Count 7.9 K/mm3 (4.4-11.0)
[2020-07-19 06:23] LABS: Differential Indicated SCAN CRITERIA MET
[2020-07-19 06:38] LABS: Differential Comment SCANNED; Hypochromasia 2+; Macrocytosis 1+; Polychromasia RARE; Schistocytes RARE
[2020-07-19 06:39] LABS: Anisocytosis 2+; Microcytosis 1+
[2020-07-19 06:43] LABS: BUN 52 mg/dL (7-18); BUN/Creat Ratio 44.1 RATIO (10-20); Calcium,Total 8.6 mg/dL (8.5-10.1); Carbon Dioxide > 45.0 mmol/L (21.0-32.0); Chloride 92 mmol/L (98-107); Creatinine, Serum 1.18 mg/dL (0.55-1.02); EST Glomerular Filtration Rate 47 mL/min (>60); Est Glom Filt Rate - Afr Amer 57 mL/min (>60); Estimated Creatinine Clearance 30.93 ml/min; Glucose 120 mg/dL (74-106); Potassium 3.7 mmol/L (3.5-5.1); Sodium Level 141 mmol/L (136-145)
--- NOTE | 2020-07-19 07:34 | PN_ITS ---
Patient Problems: Active and Suspected Problems Respiratory failure with hypoxia and hypercapnia (Acute) COPD with exacerbation (Acute) Acute bronchospasm (Acute) Shortness of breath (Acute) acute on chronic Subjective: Patient did well overnight. No acute issues were reported. Patient was able to tolerate BiPAP overnight. On Airvo at this time. - Physical Exam Vitals/I&O's: Vital Signs Temp Pulse Resp BP Pulse Ox 36.6 C 74 19 H 118/60 95 07/19/20 04:16 07/19/20 04:16 07/19/20 04:16 07/19/20 04:16 07/19/20 04:16 Oxygen Flow Rate (L/min) 40 Oxygen Delivery Method Bi-pap Weight: 79.6 kg Body Mass Index (BMI) 31.1 Intake and Output for Last 24 Hours 07/17/20 07/18/20 07/19/20 23:59 23:59 23:59 Intake Total 1044.83 / 1049.83 152.5 / 152.5 0 / 0 Output Total 1650 / 2300 2500 / 2500 150 / 150 Balance -605.17 / -1250.17 -2347.5 / -2347.5 -150 / -150 General: Alert, Oriented x3, Cooperative, No apparent distress, - - Mild conversational dyspnea HEENT: Atraumatic, PERRLA, EOMI, Normocephalic Oral: Moist Mucosa, No Gingival or Mucosal Lesions/ Ulcerations Neck: Supple, No Nodes, Trachea Midline Lungs: No rhonchi, No wheeze, No rales, Diminished Cardiovascular: Normal S1, Normal S2, No murmurs, Irregular Rate, No rub noted, No Gallop Abdomen: Bowel Sounds Present, Soft, Non Tender, Non-Distended Extremities: No clubbing, No cyanosis, Edema Skin: No rashes, No breakdown Musculoskeletal: No Tenderness to Palpation of Joints or Extremities Lymphatic: No Cervical, Supraclavicular, or Inguinal Adenopathy Neurological: Cranial nerves II-XII grossly intact, Neuro grossly intact, Motor Exam 5/5 strength throughout Psych/Mental Status: Alert and oriented to time, place, person, mood and affect Microbiology Past 72 Hours 07/15/20 11:16 Blood Culture (Wb) #2 - Left Wrist Blood Culture - Preliminary No growth in 48 hours. 07/15/20 10:50 Blood Culture (Wb) - Anticubital Left Blood Culture - Preliminary No growth in 48 hours. Laboratory Results 07/19/20 05:50: WBC 7.9, RBC 3.02 L, Hgb 8.5 L, Hct 30.2 L, MCV 100.0 H, MCH 28.1, MCHC 28.1 L, RDW Std Deviation 72.7 H, RDW Coeff of Ismael 19.9 H, Plt Count 249, MPV 10.5, Immature Gran % (Auto) 3.300 H, Neut % (Auto) 83.5 H, Lymph % (Auto) 4.2 L, [place] % (Auto) 8.4, Eos % (Auto) 0.1, Baso % (Auto) 0.5, Absolute Neuts (auto) 6.6, Absolute Lymphs (auto) 0.33 L, Nucleated RBC % 1.4, Differential Comment SCANNED, Polychromasia RARE, Hypochromasia 2+, Anisocytosis 2+, Microcytosis 1+, Macrocytosis 1+, Schistocytes RARE 07/19/20 05:50: Sodium 141, Potassium 3.7, Chloride 92 L, Carbon Dioxide > 45.0 H*, Anion Gap TNP, BUN 52 H, Creatinine 1.18 H, Estim Creat Clear Calc 30.93, Est GFR (MDRD) Af Amer 57 L, Est GFR (MDRD) Non-Af 47 L, BUN/Creatinine Ratio 44.1 H, Glucose 120 H, Calcium 8.6 Current Medications Acetaminophen (Acetaminophen 325 Mg Tablet) 650 mg PO Q6H PRN PRN PRN Reason: Pain Score 1-10/Temp > 100.7 F Al Hydroxide/Mg Hydroxide (Mag Hydrox/Al Hydrox/Simeth 30 Ml Udc) 30 ml PO Q6H PRN PRN PRN Reason: Gastric Burning Albuterol Sulfate (Albuterol 2.5 Mg/3 Ml Vial.Neb.) 2.5 mg INHALATION Q2H PRN PRN PRN Reason: SOB/Wheezing Albuterol/Ipratropium (Ipratropium/Albuterol Sulfate 3 Ml Ampul.Neb) 3 ml INHALATION Q4H.RT [facility] Last Admin: 07/18/20 22:57 Dose: 3 ml Documented by: Apixaban (Apixaban 2.5 Mg Tablet) 2.5 mg PO BID [facility] Last Admin: 07/18/20 22:48 Dose: 2.5 mg Documented by: Cholecalciferol (Cholecalciferol (Vit D3) 1,000 Unit (25mcg)) [facility] Last Admin: 07/18/20 09:30 Dose: 2,000 unit Documented by: Diltiazem HCl (Diltiazem Cd 300 Mg Capsule) 300 mg PO DAILY [facility] BEDS [facility] Furosemide (Furosemide 40 Mg/4 Ml Vial) 40 mg IV BID@1000,1800 [facility]CLUDE 234 BEDS AT [facility] Last Admin: 07/18/20 18:32 Dose: 40 mg Documented by: Guaifenesin (Guaifenesin 10 Ml Udc (200mg/10ml)) 20 ml PO Q4H PRN PRN PRN Reason: COUGH Melatonin (Melatonin 3 Mg Tablet) 3 mg PO QHS PRN PRN PRN Reason: INSOMNIA Last Admin: 07/17/20 21:15 Dose: 3 mg Documented by: Nitroglycerin (Nitroglycerin (Inpatient Use) 0.4 Mg Tab.Subl) 0.4 mg SUBLINGUAL Q5M PRN PRN Reason: CARDIAC/CHEST PAIN Last Admin: 07/17/20 07:28 Dose: 0.4 mg Documented by: Ondansetron HCl (Ondansetron 4 Mg/2 Ml Vial) 4 mg IV Q8H PRN PRN PRN Reason: NAUSEA/VOMITING Oxycodone HCl (Oxycodone 5 Mg Tablet) 5 mg PO Q4H PRN PRN PRN Reason: Pain Score 4-10 Pravastatin Sodium (Pravastatin 20 Mg Tablet) 20 mg PO DAILY@2200 [facility]S [facility]CLUDE 234 BEDS AT [facility] Last Admin: 07/18/20 22:48 Dose: 20 mg Documented by: Prednisone (Prednisone 20 Mg Tablet) 40 mg PO DAILY@0800 [facility]S INCLUDE 234 BEDS AT [facility] Last Admin: 07/18/20 09:30 Dose: 40 mg Documented by: Senna/Docusate Sodium (Senna/Docusate Sodium 1 Tablet) 2 tablet PO BID PRN PRN PRN Reason: Constipation Sertraline HCl (Sertraline 50 Mg Tablet) 50 mg PO DAILY COUNTS INCLUDE 234 BEDS AT [facility] Last Admin: 07/18/20 09:30 Dose: 50 mg Documented by: Sodium Chloride (0.9% Saline Lock 10 Ml Syringe) 10 - 40 ml IV UD PRN PRN Reason: SALINE FLUSH Last Admin: 07/17/20 09:51 Dose: 10 ml Documented by: Medical Necessity - Tobacco Use Smoking Status: Former smoker Assessment/Plan All Active Problems Respiratory failure with hypoxia and hypercapnia (Acute) Right lower lobe pulmonary infiltrate (Resolved) COPD with exacerbation (Acute) Acute bronchospasm (Acute) Severe sepsis (Resolved) Shortness of breath (Acute) RECOMMENDATIONS: 1. Continue bronchodilators and wean steroids. Doubt antibiotics indicated 2. Continue diuretic challenge as tolerated 3. Wean oxygen as tolerated. Attempt low flow cannula 4. Walking oximetry prior to discharge 5. Repeat complete PFT as an outpatient 6. Recommend AVAPS with sleep as this can be continued as an outpatient. IMPRESSIONS: 1. Acute hypoxic respiratory failure secondary to probable cor pulmonale Clinical suspicion patient has cor pulmonale leading to recurrent exacerbations. Patient is recovering quickly and has not had any fevers or leukocytosis noted. Clinical suspicion patient is desaturating at home and not adjusting supplemental oxygen leading to elevated pulmonary artery pressures with extravasation. Agree with diuretic therapy. Patient with significant de saturation with sleep. This will lead to increased pulmonary artery pressures. Patient agreeable to AVAPS. If able to tolerate low flow then may be able to transfer to TCU 2. Descending aortic thrombus Unclear etiology. This can be followed up as an outpatient and likely does not require inpatient intervention. Patient is not showing any signs or symptoms of peripheral embolization on my exam. Patient does have a decreased hemoglobin and this will exacerbate underlying lung disease. Patient is a very poor operative candidate from known history. 3. A. fib/aortic stenosis/advanced age/hypertension/hyperlipidemia/depression Complicates care, management, recovery and prognosis. Rate controlled. Likely okay to continue with baseline medications except for lisinopril may need to be held secondary to active diuresis. Okay to continue statin Zoloft from my perspective. Inpatient E&M: [id number] [facility] Hosp L3
[2020-07-19] MEDS: Ipratropium/Albuterol Sulfate 3 ML AMPUL.NEB INHALATION ×5 (07:43→23:37)
[2020-07-19] MEDS: 0.9% Saline Lock 10 ML Syringe IV ×2 (08:42→17:17)
[2020-07-19] MEDS: Sertraline 50 MG Tablet PO (08:42)
[2020-07-19] MEDS: predniSONE 20 MG Tablet 40 MG PO (08:42)
[2020-07-19] MEDS: Furosemide 40 MG/4 ML Vial IV ×2 (08:42→17:17)
[2020-07-19] MEDS: APIXABAN 2.5 MG TABLET PO ×2 (08:42→22:50)
--- NOTE | 2020-07-19 09:00 | PN_ITS ---
Patient Problems: Active and Suspected Problems Respiratory failure with hypoxia and hypercapnia (Acute) COPD with exacerbation (Acute) Acute bronchospasm (Acute) Shortness of breath (Acute) acute on chronic Subjective: Got up with PT on NC and sats dropped into 40% range. RT called to place back on Airvo. Patients feels somewhat SOB with this, but in no respiratory distress. Feels better overall. Objective: Back to reevaluate the patient and the pulse oximeter was replaced on another finger and the patient continues to be in the chair and is now back up nasal cannula and sats are now 96% Vitals/I&O's: Vital Signs Temp Pulse Resp BP Pulse Ox 36.6 C 87 20 H 102/56 L 94 07/19/20 08:40 07/19/20 08:40 07/19/20 08:40 07/19/20 08:40 07/19/20 08:40 Oxygen Flow Rate (L/min) 6 Oxygen Delivery Method Nasal Cannula Weight: 79.6 kg Body Mass Index (BMI) 31.1 Intake and Output for Last 24 Hours 07/17/20 07/18/20 07/19/20 23:59 23:59 23:59 Intake Total 1044.83 / 1049.83 152.5 / 152.5 0 / 0 Output Total 1650 / 2300 2500 / 2500 150 / 150 Balance -605.17 / -1250.17 -2347.5 / -2347.5 -150 / -150 General: Alert, No apparent distress, - - Sats on the continuous pulse oximeter reading in the 50s but the patient is up in her chair, in no respiratory distress and with no conversational dyspnea and appears very comfortable. HEENT: Atraumatic, Normocephalic Oral: Moist Mucosa, No Gingival or Mucosal Lesions/ Ulcerations Neck: No Nodes, Thyroid Normal Size and Texture Lungs: Clear to auscultation, Diminished Cardiovascular: Regular rate, Regular Rhythm, Normal S1, Normal S2 Abdomen: Bowel Sounds Present, Soft, Non Tender, Non-Distended, No Hepato- splenomegaly Extremities: No edema, No Calf Tenderness, - - no cyanosis Skin: No rashes, No breakdown Musculoskeletal: No Tenderness to Palpation of Joints or Extremities, No Muscle Wasting Neurological: Muscle tone normal, Coordination normal Psych/Mental Status: Normal Affect, Appropriate Microbiology Past 72 Hours 07/15/20 11:16 Blood Culture (Wb) #2 - Left Wrist Blood Culture - Preliminary No growth in 48 hours. 07/15/20 10:50 Blood Culture (Wb) - Anticubital Left Blood Culture - Preliminary No growth in 48 hours. Laboratory Results 07/19/20 05:50: WBC 7.9, RBC 3.02 L, Hgb 8.5 L, Hct 30.2 L, MCV 100.0 H, MCH 28.1, MCHC 28.1 L, RDW Std Deviation 72.7 H, RDW Coeff of Ismael 19.9 H, Plt Count 249, MPV 10.5, Immature Gran % (Auto) 3.300 H, Neut % (Auto) 83.5 H, Lymph % (Auto) 4.2 L, Coffee % (Auto) 8.4, Eos % (Auto) 0.1, Baso % (Auto) 0.5, Absolute Neuts (auto) 6.6, Absolute Lymphs (auto) 0.33 L, Nucleated RBC % 1.4, Differential Comment SCANNED, Polychromasia RARE, Hypochromasia 2+, Anisocytosis 2+, Microcytosis 1+, Macrocytosis 1+, Schistocytes RARE 07/19/20 05:50: Sodium 141, Potassium 3.7, Chloride 92 L, Carbon Dioxide > 45.0 H*, Anion Gap TNP, BUN 52 H, Creatinine 1.18 H, Estim Creat Clear Calc 30.93, Est GFR (MDRD) Af Amer 57 L, Est GFR (MDRD) Non-Af 47 L, BUN/Creatinine Ratio 44.1 H, Glucose 120 H, Calcium 8.6 Current Medications Acetaminophen (Acetaminophen 325 Mg Tablet) 650 mg PO Q6H PRN PRN PRN Reason: Pain Score 1-10/Temp > 100.7 F Al Hydroxide/Mg Hydroxide (Mag Hydrox/Al Hydrox/Simeth 30 Ml Udc) 30 ml PO Q6H PRN PRN PRN Reason: Gastric Burning Albuterol Sulfate (Albuterol 2.5 Mg/3 Ml Vial.Neb.) 2.5 mg INHALATION Q2H PRN PRN PRN Reason: SOB/Wheezing Albuterol/Ipratropium (Ipratropium/Albuterol Sulfate 3 Ml Ampul.Neb) 3 ml INHALATION Q4H.RT [facility] Last Admin: 07/19/20 07:43 Dose: 3 ml Documented by: Apixaban (Apixaban 2.5 Mg Tablet) 2.5 mg PO BID [facility] Last Admin: 07/19/20 08:42 Dose: 2.5 mg Documented by: Cholecalciferol (Cholecalciferol (Vit D3) 1,000 Unit (25mcg)) [facility] Last Admin: 07/19/20 08:42 Dose: 2,000 unit Documented by: Diltiazem HCl (Diltiazem Cd 300 Mg Capsule) 300 mg PO DAILY [facility] Furosemide (Furosemide 40 Mg/4 Ml Vial) 40 mg IV BID@1000,1800 [facility] Last Admin: 07/19/20 08:42 Dose: 40 mg Documented by: Guaifenesin (Guaifenesin 10 Ml Udc (200mg/10ml)) 20 ml PO Q4H PRN PRN PRN Reason: COUGH Melatonin (Melatonin 3 Mg Tablet) 3 mg PO QHS PRN PRN PRN Reason: INSOMNIA Last Admin: 07/17/20 21:15 Dose: 3 mg Documented by: Nitroglycerin (Nitroglycerin (Inpatient Use) 0.4 Mg Tab.Subl) 0.4 mg SUBLINGUAL Q5M PRN PRN Reason: CARDIAC/CHEST PAIN Last Admin: 07/17/20 07:28 Dose: 0.4 mg Documented by: Ondansetron HCl (Ondansetron 4 Mg/2 Ml Vial) 4 mg IV Q8H PRN PRN PRN Reason: NAUSEA/VOMITING Oxycodone HCl (Oxycodone 5 Mg Tablet) 5 mg PO Q4H PRN PRN PRN Reason: Pain Score 4-10 Pravastatin Sodium (Pravastatin 20 Mg Tablet) 20 mg PO DAILY@2200 [facility] Last Admin: 07/18/20 22:48 Dose: 20 mg Documented by: Prednisone (Prednisone 20 Mg Tablet) 40 mg PO DAILY@0800 [facility] Last Admin: 07/19/20 08:42 Dose: 40 mg Documented by: Senna/Docusate Sodium (Senna/Docusate Sodium 1 Tablet) 2 tablet PO BID PRN PRN PRN Reason: Constipation Sertraline HCl (Sertraline 50 Mg Tablet) 50 mg PO DAILY [facility] Last Admin: 07/19/20 08:42 Dose: 50 mg Documented by: Sodium Chloride (0.9% Saline Lock 10 Ml Syringe) 10 - 40 ml IV UD PRN PRN Reason: SALINE FLUSH Last Admin: 07/19/20 08:42 Dose: 10 ml Documented by: STROKE Vital Signs/Narrative: Vital Signs Temp Pulse Resp BP Pulse Ox 07/19/20 08:40 36.6 C 87 20 H 102/56 L 94 07/19/20 08:09 99 07/19/20 07:43 83 17 94 07/19/20 07:00 79 Medical Necessity - Tobacco Use Smoking Status: Former smoker Assessment/Plan All Active Problems Respiratory failure with hypoxia and hypercapnia (Acute) Right lower lobe pulmonary infiltrate (Resolved) COPD with exacerbation (Acute) Acute bronchospasm (Acute) Severe sepsis (Resolved) Shortness of breath (Acute) 1. Acute hypoxic and hypercapnic respiratory failure * multifactorial: AECOPD + Ac HFpEF +/- pulmonary HTN (last echo unable to assess RV pressures) * wean oxygen as tolerated * treat the underlying processes * follow up with pulm as outpt * pulm following * AVAPS as outpt through pulmonology * 07/19: Patient got up with therapy nasal cannula and sats dropped down into the 40 to 50% range. This was with continuous pulse oximeter. This was verified by the physical therapists: Pulse oximeter. Clinically patient does not appear to be in any duress whatsoever. I am concerned that the pulse oximeter on her finger may not be reading properly and it was replaced. Reevaluation patient was back on nasal cannula with sats of 96%. I feel that the 40 to 50% pulse ox was an accurate as patient clinically did not look in any duress. 2. COPD with acute exacerbation * continue BDs and steroids, changed to prednisone 3. Acute congestive heart failure with preserved ejection fraction * 2D echo obtained on 06/06/2020 demonstrated EF of 65% with moderate concentric left ventricular hypertrophy. * fluid restriction strict input and output, daily weight as well as treatment with IV Lasix with subsequent monitoring of electrolyte * complicated by severe * -4.5 liters 4. aflutter w RVR * improved with dilt bolus and gtt, rate-controlled in aflutter * DC gtt and observe with PO dilt (07/17, accidently DC'd PO and not gtt, 07/18 DC'd gtt and resumed PO) * if recurs, consult cardiology for further recs (amio). Avoid BBs if able given COPD. 5. Valvular heart disease * Echo demonstrated evidence of moderate to severe aortic stenosis during patient previous admission. * follow up with cards as outpt. 6. Descending thoracic aortic thrombus * CT of the chest was negative for PE patient placed on Eliquis. Did continue 7. Severe iron deficiency anemia * Patient underwent endoscopic evaluation on 06/09/2020 colonoscopy demonstrated nonbleeding internal hemorrhoids and diverticulosis in the sigmoid colon, EGD revealed normal duodenum and stomach and grade 2 esophageal varices no evidence of bleeding. * With patient presented with symptomatic anemia and order was given for patient to be transfused with 1 unit PRBC with subsequent monitoring of H&H ordered * keep Hg around 8 * 07/16: IV ferric gluconate * 07/19: ferrous sulfate QOD 8. History of colon cancer * Status post colon resection with subsequent chemotherapy patient has since remained in remission since 2002 9. Paroxysmal atrial fibrillation * Rate controlled; on systemic with Eliquis 10. Dyslipidemia * Patient is on statin therapy, continued at home dose 11. Essential hypertension * Antihypertensives on hold patient blood pressure relatively stable 12. Depression * Patient is on SSRI 13. DVT prophylaxis * On Eliquis Inpatient E&M: 86644 Subs Hosp L3
[2020-07-19] MEDS: dilTIAZem CD 300 MG Capsule PO (10:43)
[2020-07-19] MEDS: Ferrous Sulfate 325 MG Tablet PO (10:44)
--- NOTE | 2020-07-19 13:45 | CASEMGMT ---
This RN CM to room to speak with pt at this time. Pt is currently 90-91% on 5L at rest at this time. Pt states her plan is still to go to TCU whenever she is ready for discharge. Pt voices no further questions/concerns/needs at this time. SStaten ANASTASIIA CM
[2020-07-19] MEDS: Pravastatin 20 MG Tablet PO (22:50)
[2020-07-20] VITALS (12 sets, daily range): BP systolic 110–132; BP diastolic 64–71; PULSE 79–88; RESP 12–20; TEMP 36.3–36.8; O2SAT 91–97
[2020-07-20 06:13] LABS: Absolute Lymphocyte Count 0.32 X10^3/uL (0.83-4.51); Absolute Neutrophil Count 6.7 X10^3/uL (2.0-7.7); Basophil# 0.03 X10^3/uL; Basophil% 0.4 % (0-1); Hemoglobin 8.5 g/dL (12.0-15.0); Lymphocyte # 0.32 X10^3/ul (4.0); Mean Corp Hgb Conc 28.3 g/dL (32-36); Mean Corpuscular Hgb 27.7 pg (27.0-32.0); Mean Corpuscular Volume 97.7 fL (81-99); Mean Platelet Vol. 11.3 fl (6.2-12.0); Monocyte# 0.69 X10^3/uL; Monocyte% 8.5 % (0-10); NRBC Flagged by Analyzer 1.9 % (0-5); Neutrophil # 6.71 X10^3/uL (2.7-7.7); Neutrophil % 82.8 % (47-70); POSITIVE DIFFERENTIAL YES; POSITIVE MORPHOLOGY YES; Platelet Count 258 K/mm3 (150-450); RBC Distribution Width CV 20.8 % (11.6-14.6); RBC Distribution Width SD 73.8 fl (35.1-43.9); Red Blood Count 3.07 M/mm3 (4.2-5.4); White Blood Count 8.1 K/mm3 (4.4-11.0)
[2020-07-20 06:31] LABS: Anion Gap 3 (5-15); BUN 57 mg/dL (7-18); Calcium,Total 8.8 mg/dL (8.5-10.1); Chloride 90 mmol/L (98-107); Creatinine, Serum 1.24 mg/dL (0.55-1.02); EST Glomerular Filtration Rate 44 mL/min (>60); Est Glom Filt Rate - Afr Amer 53 mL/min (>60); Estimated Creatinine Clearance 29.43 ml/min; Glucose 115 mg/dL (74-106); Potassium 4.6 mmol/L (3.5-5.1); Sodium Level 137 mmol/L (136-145)
--- NOTE | 2020-07-20 06:45 | NURSING ---
tolerated bipap all night. no c/o chest pain or sob.
[2020-07-20] MEDS: Ipratropium/Albuterol Sulfate 3 ML AMPUL.NEB INHALATION ×3 (06:52→15:06)
[2020-07-20 06:58] LABS: Differential Indicated SCAN CRITERIA MET
[2020-07-20 07:05] LABS: Anisocytosis 1+; Differential Comment SCANNED
[2020-07-20 07:07] LABS: Macrocytosis 1+; Microcytosis RARE
[2020-07-20 07:08] LABS: Hypochromasia 1+; Polychromasia RARE
[2020-07-20 07:10] LABS: Crenated RBC RARE
--- NOTE | 2020-07-20 08:47 | PN_ITS ---
Patient Problems: Active and Suspected Problems Respiratory failure with hypoxia and hypercapnia (Acute) COPD with exacerbation (Acute) Acute bronchospasm (Acute) Shortness of breath (Acute) acute on chronic Subjective: Patient did okay overnight. Patient was able to tolerate AVAPS without difficulty. Patient was also able to tolerate nasal cannula through the day yesterday and feels subjectively improved from a dyspnea standpoint. No chest pain, nausea, vomiting or diarrhea has been reported. - Physical Exam Vitals/I&O's: Vital Signs Temp Pulse Resp BP Pulse Ox 36.3 C L 83 19 H 124/71 H 94 07/20/20 03:26 07/20/20 07:07 07/20/20 06:52 07/20/20 03:26 07/20/20 06:52 Oxygen Flow Rate (L/min) 4 Oxygen Delivery Method Bi-pap Weight: 79.6 kg Body Mass Index (BMI) 31.1 Intake and Output for Last 24 Hours 07/18/20 07/19/20 07/20/20 23:59 23:59 23:59 Intake Total 152.5 / 152.5 500 / 600 100 / 100 Output Total 2500 / 2500 925 / 1375 550 / 550 Balance -2347.5 / -2347.5 -425 / -775 -450 / -450 General: Alert, Oriented x3, Cooperative, No apparent distress, - - Good BiPAP synchrony noted. Obese. HEENT: Atraumatic, PERRLA, EOMI, Normocephalic, - - No scleral icterus or injec tion noted Oral: Moist Mucosa, No Gingival or Mucosal Lesions/ Ulcerations, - - Crowded posterior pharynx Neck: Supple, No Nodes, Trachea Midline, - - Difficult to assess BiPAP Lungs: No rhonchi, No wheeze, No rales, Diminished Cardiovascular: Regular rate, Regular Rhythm, Normal S1, Normal S2, No rub noted, No Gallop Abdomen: Bowel Sounds Present, Soft, Non Tender, Non-Distended, Obese Extremities: No clubbing, No cyanosis, Edema - Improving Skin: - - Dermal atrophy. No significant change compared to previous Musculoskeletal: No Tenderness to Palpation of Joints or Extremities Lymphatic: No Cervical, Supraclavicular, or Inguinal Adenopathy Neurological: Cranial nerves II-XII grossly intact, Neuro grossly intact, Motor Exam 5/5 strength throughout Psych/Mental Status: Alert and oriented to time, place, person, mood and affect Microbiology Past 72 Hours 07/15/20 11:16 Blood Culture (Wb) #2 - Left Wrist Blood Culture - Preliminary No growth in 48 hours. 07/15/20 10:50 Blood Culture (Wb) - Anticubital Left Blood Culture - Preliminary No growth in 48 hours. Laboratory Results 07/20/20 05:32: WBC 8.1, RBC 3.07 L, Hgb 8.5 L, Hct 30.0 L, MCV 97.7, MCH 27.7, MCHC 28.3 L, RDW Std Deviation 73.8 H, RDW Coeff of Ismael 20.8 H, Plt Count 258, MPV 11.3, Immature Gran % (Auto) 4.300 H, Neut % (Auto) 82.8 H, Lymph % (Auto) 4.0 L, [place] % (Auto) 8.5, Eos % (Auto) 0.0, Baso % (Auto) 0.4, Absolute Neuts (auto) 6.7, Absolute Lymphs (auto) 0.32 L, Nucleated RBC % 1.9, Differential Comment SCANNED, Polychromasia RARE, Hypochromasia 1+, Anisocytosis 1+, M icrocytosis RARE, Macrocytosis 1+, Crenated Cell RARE 07/20/20 05:32: Sodium 137, Potassium 4.6, Chloride 90 L, Carbon Dioxide 44.0 H, Anion Gap 3 L, BUN 57 H, Creatinine 1.24 H, Estim Creat Clear Calc 29.43, Est GFR (MDRD) Af Amer 53 L, Est GFR (MDRD) Non-Af 44 L, BUN/Creatinine Ratio 46.0 H , Glucose 115 H, Calcium 8.8 Current Medications Acetaminophen (Acetaminophen 325 Mg Tablet) 650 mg PO Q6H PRN PRN PRN Reason: Pain Score 1-10/Temp > 100.7 F Al Hydroxide/Mg Hydroxide (Mag Hydrox/Al Hydrox/Simeth 30 Ml Udc) 30 ml PO Q6H PRN PRN PRN Reason: Gastric Burning Albuterol Sulfate (Albuterol 2.5 Mg/3 Ml Vial.Neb.) 2.5 mg INHALATION Q2H PRN PRN PRN Reason: SOB/Wheezing Albuterol/Ipratropium (Ipratropium/Albuterol Sulfate 3 Ml Ampul.Neb) 3 ml INHALATION Q4H.RT [facility] Last Admin: 07/20/20 06:52 Dose: 3 ml Documented by: Apixaban (Apixaban 2.5 Mg Tablet) 2.5 mg PO BID [facility] Last Admin: 07/19/20 22:50 Dose: 2.5 mg Documented by: Cholecalciferol (Cholecalciferol (Vit D3) 1,000 Unit (25mcg)) 2,000 unit PO DAILYCM [facility] Last Admin: 07/19/20 08:42 Dose: 2,000 unit Documented by: Diltiazem HCl (Diltiazem Cd 300 Mg Capsule) 300 mg PO DAILY [facility] Last Admin: 07/19/20 10:43 Dose: 300 mg Documented by: Ferrous Sulfate (Ferrous Sulfate 325 Mg Tablet) 325 mg PO QODAY@1200 [facility] Last Admin: 07/19/20 10:44 Dose: 325 mg Documented by: Furosemide (Furosemide 40 Mg/4 Ml Vial) 40 mg IV BID@1000,1800 [facility] Last Admin: 07/19/20 17:17 Dose: 40 mg Documented by: Guaifenesin (Guaifenesin 10 Ml Udc (200mg/10ml)) 20 ml PO Q4H PRN PRN PRN Reason: COUGH Melatonin (Melatonin 3 Mg Tablet) 3 mg PO QHS PRN PRN PRN Reason: INSOMNIA Last Admin: 07/17/20 21:15 Dose: 3 mg Documented by: Nitroglycerin (Nitroglycerin (Inpatient Use) 0.4 Mg Tab.Subl) 0.4 mg SUBLINGUAL Q5M PRN PRN Reason: CARDIAC/CHEST PAIN Last Admin: 07/17/20 07:28 Dose: 0.4 mg Documented by: Ondansetron HCl (Ondansetron 4 Mg/2 Ml Vial) 4 mg IV Q8H PRN PRN PRN Reason: NAUSEA/VOMITING Oxycodone HCl (Oxycodone 5 Mg Tablet) 5 mg PO Q4H PRN PRN PRN Reason: Pain Score 4-10 Pravastatin Sodium (Pravastatin 20 Mg Tablet) 20 mg PO DAILY@2200 [facility] Last Admin: 07/19/20 22:50 Dose: 20 mg Documented by: Prednisone (Prednisone 20 Mg Tablet) 40 mg PO DAILY@0800 [facility] Last Admin: 07/19/20 08:42 Dose: 40 mg Documented by: Senna/Docusate Sodium (Senna/Docusate Sodium 1 Tablet) 2 tablet PO BID PRN PRN PRN Reason: Constipation Sertraline HCl (Sertraline 50 Mg Tablet) 50 mg PO DAILY [facility] Last Admin: 07/19/20 08:42 Dose: 50 mg Documented by: Sodium Chloride (0.9% Saline Lock 10 Ml Syringe) 10 - 40 ml IV UD PRN PRN Reason: SALINE FLUSH Last Admin: 07/19/20 17:17 Dose: 10 ml Documented by: Medical Necessity - Tobacco Use Smoking Status: Former smoker Assessment/Plan All Active Problems Respiratory failure with hypoxia and hypercapnia (Acute) Right lower lobe pulmonary infiltrate (Resolved) COPD with exacerbation (Acute) Acute bronchospasm (Acute) Severe sepsis (Resolved) Shortness of breath (Acute) RECOMMENDATIONS: 1. Continue bronchodilators and wean steroids over the next 9 days 2. Continue diuretic challenge as tolerated. Possibly decrease Lasix tomorrow 3. Wean oxygen as tolerated. Continue low flow cannula during the day 4. Walking oximetry prior to discharge 5. Repeat complete PFT as an outpatient 6. Continue AVAPS indefinitely 7. Likely okay to go to the TCU from my perspective IMPRESSIONS: 1. Acute hypoxic respiratory failure secondary to probable cor pulmonale Clinical suspicion patient has cor pulmonale leading to recurrent exacerbations. Patient is recovering quickly and has not had any fevers or leukocytosis noted. Clinical suspicion patient is desaturating at home and not adjusting supplemental oxygen leading to elevated pulmonary artery pressures with extravasation. Agree with diuretic therapy. Patient with significant desaturation with sleep. This will lead to increased pulmonary artery pressures. Patient has responded well to using AVAPS overnight. Tolerating low flow nasal cannula during the day. Anticipate another 24 to 48 hours of diuresis at the current levels. Okay to go to the TCU from my perspective. Patient should follow-up with nurse practitioner 2 weeks after discharge from the TCU. Do anticipate AVAPS to be continued indefinitely. 2. Descending aortic thrombus Unclear etiology. This can be followed up as an outpatient and likely does not require inpatient intervention. Patient is not showing any signs or symptoms of peripheral embolization on my exam. Patient does have a decreased hemoglobin and this will exacerbate underlying lung disease. Patient is a very poor operative candidate from known history. 3. A. fib/aortic stenosis/advanced age/hypertension/hyperlipidemia/depression Complicates care, management, recovery and prognosis. Rate controlled. Likely okay to continue with baseline medications except for lisinopril may need to be held secondary to active diuresis. Okay to continue statin Zoloft from my perspective. Inpatient E&M: 92035 Subs Hosp L2
--- NOTE | 2020-07-20 09:14 | PCM.TXEXTCAR ---
- Diet 07/15/20 13:00 Diet: Cardiac - Heart Healthy Food consistency:: Regular Liquid Consistency:: Regular/Thin Dietary Modifications:: Sodium Restricted Fluid restriction:: 1500 mL - Routine Orders/Code Status O2 Liters per Minute: 4 O2 Frequency: Continuous Keep PO Greater than or Equal to (%): 90 Routine Lab Work: CBC, BMP Code Status: DNRCC-A - Therapies Weight Bearing: Full weight bearing Physical Therapy: Eval and Treat Occupational Therapy: Eval and Treat - Allergies/Procedures Done in Hospital Allergies/Adverse Reactions: Allergies No Known Allergies Allergy (Verified 07/15/20 10:35) - Type of Care/Length of Stay Estimated LOS: Convalescent Care Less Than 30 days Type of Care Needed: Skilled Rehab Potential: Fair Prognosis: Fair - Additional Orders/Day of Discharge Additional Orders: AVAPS with sleep, naps and as needed. Day of Discharge: 07/20/20 - Dietary and Speech Recommendations Dietitian Recommendations/Changes: Will change diet to Cardiac/sodium-restricted with 1500 ml FR. Monitor need to restrict carbs if blood glucose remains elevated. ONS if intake fails at meals--will defer for now. - Follow Up Care Primary Care Physician: Bryan Tolbert III, MD [Primary Care Provider] - Within 2 Weeks Please Follow Up With: Ciaran Becerra MD When: 2-4 weeks
--- NOTE | 2020-07-20 09:18 | DS.PCM_ITS ---
Discharge Date and Diagnosis - Problem List Patient Problems: Active and Suspected Problems Respiratory failure with hypoxia and hypercapnia (Acute) COPD with exacerbation (Acute) Acute bronchospasm (Acute) Shortness of breath (Acute) acute on chronic Date of Admission: 07/17/20 Date of Discharge: 07/20/20 - Primary Discharge Diagnosis Acute Problems: Active Problems Respiratory failure with hypoxia and hypercapnia (Acute) COPD with exacerbation (Acute) Acute bronchospasm (Acute) Acute HFpEF aflutter with RVR - Secondary Discharge Diagnosis Chronic Problems: Chronic Problems History of hypertension (Chronic) History of breast cancer (Chronic) History of colon cancer (Chronic) History of COPD (Chronic) Iron deficiency anemia (Chronic) CHF (congestive heart failure) (Chronic) Hospital Course and Treatment Imaging Results: Clinical Impression(s) from Imaging Studies Chest X-Ray 07/15/20 10:39 IMPRESSION: Emphysema with chronic interstitial lung disease. There does appear a very small right pleural effusion and superimposed mild pulmonary vascular congestion also considered. No significant interval change. Electronically Signed: Elsa Eubanks MD at 11:39 EST , Service support , [facility] Operations: None Summary of Care Provided: The patient is a 80 year old F presents with shortness of breath.. Combination of acute COPD exacerbation as well as acute heart failure exacerbation complicated by cor pulmonale. Patient was on BiPAP alternating with air Vo. Patient steadily improved with steroids, bronchodilators and furosemide. Patient's status steadily improved during the course of her hospitalization and patient was able to tolerate nasal cannula. Patient diuresed over 5 L. Patient will be discharged to the transitional care unit in stable condition. Patient will require AVAPS indefinitely. Patient need follow-up with pulmonology for further testing and PFTs. 1. Acute hypoxic and hypercapnic respiratory failure * multifactorial: AECOPD + Ac HFpEF +/- pulmonary HTN (last echo unable to assess RV pressures) * wean oxygen as tolerated * treat the underlying processes * follow up with pulm as outpt * pulm following * AVAPS as outpt through pulmonology * 07/19: Patient got up with therapy nasal cannula and sats dropped down into the 40 to 50% range. This was with continuous pulse oximeter. This was verified by the physical therapists: Pulse oximeter. Clinically patient does not appear to be in any duress whatsoever. I am concerned that the pulse oximeter on her finger may not be reading properly and it was replaced. Reevaluation patient was back on nasal cannula with sats of 96%. I feel that the 40 to 50% pulse ox was an accurate as patient clinically did not look in any duress. 2. COPD with acute exacerbation * continue BDs and steroids, changed to prednisone 3. Acute congestive heart failure with preserved ejection fraction * 2D echo obtained on 06/06/2020 demonstrated EF of 65% with moderate concentric left ventricular hypertrophy. * fluid restriction strict input and output, daily weight as well as treatment with IV Lasix with subsequent monitoring of electrolyte * complicated by severe * -5.3 liters * change to PO furosemide 4. aflutter w RVR * improved with dilt bolus and gtt, rate-controlled in aflutter * DC gtt and observe with PO dilt (07/17, accidently DC'd PO and not gtt, 07/18 DC'd gtt and resumed PO) * if recurs, consult cardiology for further recs (amio). Avoid BBs if able given COPD. 5. Valvular heart disease * Echo demonstrated evidence of moderate to severe aortic stenosis during patient previous admission. * follow up with cards as outpt. 6. Descending thoracic aortic thrombus * CT of the chest was negative for PE patient placed on Eliquis. Did continue 7. Severe iron deficiency anemia * Patient underwent endoscopic evaluation on 06/09/2020 colonoscopy demonstrated nonbleeding internal hemorrhoids and diverticulosis in the sigmoid colon, EGD revealed normal duodenum and stomach and grade 2 esophageal varices no evidence of bleeding. * With patient presented with symptomatic anemia and order was given for patient to be transfused with 1 unit PRBC with subsequent monitoring of H&H ordered * keep Hg around 8 * 07/16: IV ferric gluconate * 07/19: ferrous sulfate QOD 8. History of colon cancer * Status post colon resection with subsequent chemotherapy patient has since remained in remission since 2002 9. Paroxysmal atrial fibrillation * Rate controlled; on systemic with Eliquis 10. Dyslipidemia * Patient is on statin therapy, continued at home dose 11. Essential hypertension * Antihypertensives on hold patient blood pressure relatively stable 12. Depression * Patient is on SSRI [] Patient Problems: Active and Suspected Problems Respiratory failure with hypoxia and hypercapnia (Acute) COPD with exacerbation (Acute) Acute bronchospasm (Acute) Shortness of breath (Acute) acute on chronic - Physical Exam Vitals/I&O's: Vital Signs Temp Pulse Resp BP Pulse Ox 36.3 C L 83 19 H 124/71 H 94 07/20/20 03:26 07/20/20 07:07 07/20/20 06:52 07/20/20 03:26 07/20/20 06:52 Oxygen Flow Rate (L/min) 4 Oxygen Delivery Method Bi-pap Weight: 79.6 kg Body Mass Index (BMI) 31.1 Intake and Output for Last 24 Hours 07/18/20 07/19/20 07/20/20 23:59 23:59 23:59 Intake Total 152.5 / 152.5 500 / 600 100 / 100 Output Total 2500 / 2500 925 / 1375 550 / 550 Balance -2347.5 / -2347.5 -425 / -775 -450 / -450 General: Alert, No apparent distress HEENT: Atraumatic, Normocephalic Oral: Moist Mucosa, No Gingival or Mucosal Lesions/ Ulcerations Neck: No Nodes, Thyroid Normal Size and Texture Lungs: Clear to auscultation, Diminished Cardiovascular: Regular rate, Regular Rhythm, Normal S1, Normal S2 Abdomen: Bowel Sounds Present, Soft, Non Tender, Non-Distended, No Hepato- splenomegaly Extremities: No edema, No Calf Tenderness Psych/Mental Status: Normal Affect, Appropriate Microbiology Past 72 Hours 07/15/20 11:16 Blood Culture (Wb) #2 - Left Wrist Blood Culture - Preliminary No growth in 48 hours. 07/15/20 10:50 Blood Culture (Wb) - Anticubital Left Blood Culture - Preliminary No growth in 48 hours. Laboratory Results 07/20/20 05:32: WBC 8.1, RBC 3.07 L, Hgb 8.5 L, Hct 30.0 L, MCV 97.7, MCH 27.7, MCHC 28.3 L, RDW Std Deviation 73.8 H, RDW Coeff of Ismael 20.8 H, Plt Count 258, MPV 11.3, Immature Gran % (Auto) 4.300 H, Neut % (Auto) 82.8 H, Lymph % (Auto) 4.0 L, Gallia % (Auto) 8.5, Eos % (Auto) 0.0, Baso % (Auto) 0.4, Absolute Neuts (auto) 6.7, Absolute Lymphs (auto) 0.32 L, Nucleated RBC % 1.9, Differential Comment SCANNED, Polychromasia RARE, Hypochromasia 1+, Anisocytosis 1+, Microcytosis RARE, Macrocytosis 1+, Crenated Cell RARE 07/20/20 05:32: Sodium 137, Potassium 4.6, Chloride 90 L, Carbon Dioxide 44.0 H, Anion Gap 3 L, BUN 57 H, Creatinine 1.24 H, Estim Creat Clear Calc 29.43, Est GFR (MDRD) Af Amer 53 L, Est GFR (MDRD) Non-Af 44 L, BUN/Creatinine Ratio 46.0 H , Glucose 115 H, Calcium 8.8 Current Medications Acetaminophen (Acetaminophen 325 Mg Tablet) 650 mg PO Q6H PRN PRN PRN Reason: Pain Score 1-10/Temp > 100.7 F Al Hydroxide/Mg Hydroxide (Mag Hydrox/Al Hydrox/Simeth 30 Ml Udc) 30 ml PO Q6H PRN PRN PRN Reason: Gastric Burning Albuterol Sulfate (Albuterol 2.5 Mg/3 Ml Vial.Neb.) 2.5 mg INHALATION Q2H PRN PRN PRN Reason: SOB/Wheezing Albuterol/Ipratropium (Ipratropium/Albuterol Sulfate 3 Ml Ampul.Neb) 3 ml INHALATION Q4H.RT [facility] Last Admin: 07/20/20 06:52 Dose: 3 ml Documented by: Apixaban (Apixaban 2.5 Mg Tablet) 2.5 mg PO BID [facility] Last Admin: 07/19/20 22:50 Dose: 2.5 mg Documented by: Cholecalciferol (Cholecalciferol (Vit D3) 1,000 Unit (25mcg)) 2,000 unit PO DAILYCM [facility] Last Admin: 07/19/20 08:42 Dose: 2,000 unit Documented by: Diltiazem HCl (Diltiazem Cd 300 Mg Capsule) 300 mg PO DAILY [facility] Last Admin: 07/19/20 10:43 Dose: 300 mg Documented by: Ferrous Sulfate (Ferrous Sulfate 325 Mg Tablet) 325 mg PO QODAY@1200 [facility] Last Admin: 07/19/20 10:44 Dose: 325 mg Documented by: Furosemide (Furosemide 40 Mg/4 Ml Vial) 40 mg IV BID@1000,1800 [facility] Last Admin: 07/19/20 17:17 Dose: 40 mg Documented by: Guaifenesin (Guaifenesin 10 Ml Udc (200mg/10ml)) 20 ml PO Q4H PRN PRN PRN Reason: COUGH Melatonin (Melatonin 3 Mg Tablet) 3 mg PO QHS PRN PRN PRN Reason: INSOMNIA Last Admin: 07/17/20 21:15 Dose: 3 mg Documented by: Nitroglycerin (Nitroglycerin (Inpatient Use) 0.4 Mg Tab.Subl) 0.4 mg SUBLINGUAL Q5M PRN PRN Reason: CARDIAC/CHEST PAIN Last Admin: 07/17/20 07:28 Dose: 0.4 mg Documented by: Ondansetron HCl (Ondansetron 4 Mg/2 Ml Vial) 4 mg IV Q8H PRN PRN PRN Reason: NAUSEA/VOMITING Oxycodone HCl (Oxycodone 5 Mg Tablet) 5 mg PO Q4H PRN PRN PRN Reason: Pain Score 4-10 Pravastatin Sodium (Pravastatin 20 Mg Tablet) 20 mg PO DAILY@2200 [facility] Last Admin: 07/19/20 22:50 Dose: 20 mg Documented by: Prednisone (Prednisone 20 Mg Tablet) 30 mg PO DAILY@0800 [facility] Senna/Docusate Sodium (Senna/Docusate Sodium 1 Tablet) 2 tablet PO BID PRN PRN PRN Reason: Constipation Sertraline HCl (Sertraline 50 Mg Tablet) 50 mg PO DAILY [facility] Last Admin: 07/19/20 08:42 Dose: 50 mg Documented by: Sodium Chloride (0.9% Saline Lock 10 Ml Syringe) 10 - 40 ml IV UD PRN PRN Reason: SALINE FLUSH Last Admin: 07/19/20 17:17 Dose: 10 ml Documented by: Discharge Diet: Low fat/ Low Cholesterol Discharge Activity: Return to Normal Activity Call your doctor if you observe: Shortness of breath Home Medications: Medications to take at Discharge Diltiazem HCl [Cartia Xt] 300 mg PO DAILY 03/17/17 Oxygen, Home [Home Oxygen] 4 - 6 lpm NASAL DAILY 03/17/17 Pravastatin [Pravachol] 20 mg PO DAILY 03/17/17 Sertraline HCl [Zoloft] 50 mg PO DAILY 03/17/17 Cholecalciferol (Vitamin D3) [Vitamin D3] 1 tab PO DAILY 06/05/20 Apixaban [Eliquis] 2.5 mg PO BID #120 tab 06/12/20 Aspirin [Aspirin, Baby] 81 mg PO DAILY@0800 06/12/20 Furosemide [Lasix] 40 mg PO DAILY #60 tab 06/12/20 Acetaminophen [Tylenol Tablet] 650 mg PO Q6H PRN PRN tablet 07/20/20 Albuterol Aerosols [Ventolin Aerosols] 2.5 mg INHALATION Q2H PRN PRN vial.neb. 07/20/20 Ferrous Sulfate 325 mg PO QODAY@1200 tablet 07/20/20 Guaifenesin [Robitussin] 20 ml PO Q4H PRN PRN udc 07/20/20 Ipratropium/Albuterol Sulfate [Duoneb] 3 ml INHALATION Q4H.RT ampul.neb 07/20/20 Mag Hydrox/Al Hydrox/Simeth [Mylanta II] 30 ml PO Q6H PRN PRN udc 07/20/20 Melatonin 3 mg PO QHS PRN PRN tablet 07/20/20 Prednisone 10 mg PO DAILY #18 tablet 07/20/20 Following Prescriptions Were Given to Patient: Prednisone 10 mg PO DAILY #18 tablet Primary Care Physician: Bryan Tolbert III, MD [Primary Care Provider] - Within 2 Weeks Please Follow Up With: Ciaran Becerra MD When: 2-4 weeks Disposition: Long Term facility Minutes spent on discharge:: 35 Patient Condition:: Fair Medical Necessity - Tobacco Use Smoking Status: Former smoker Meaningful Use Info Meaningful Use Diagnoses (Choose all that apply): CHF - CHF JOSESITO/ARB ordered at discharge?: No Reason JOSESITO/ARB not ordered?: Hypotension Documented LVEF (%): 65 Inpatient E&M: [id number] Disch Hosp
[2020-07-20] MEDS: APIXABAN 2.5 MG TABLET PO (09:51)
[2020-07-20] MEDS: dilTIAZem CD 300 MG Capsule PO (09:51)
[2020-07-20] MEDS: Sertraline 50 MG Tablet PO (09:52)
[2020-07-20] MEDS: Furosemide 40 MG/4 ML Vial IV (09:52)
[2020-07-20] MEDS: predniSONE 20 MG Tablet 30 MG PO (09:53)
[2020-07-20] MEDS: predniSONE 20 MG Tablet 40 MG PO (09:58)
--- NOTE | 2020-07-20 10:00 | PHA.DC.MR ---
Pharmacy Service has performed discharge medication reconciliation for this patient. The patient's discharge medication list was reviewed for discrepancies and discrepancies were resolved. Home Medications Diltiazem HCl [Cartia Xt] 300 mg PO DAILY 03/17/17 Oxygen, Home [Home Oxygen] 4 - 6 lpm NASAL DAILY 03/17/17 Pravastatin [Pravachol] 20 mg PO DAILY 03/17/17 Sertraline HCl [Zoloft] 50 mg PO DAILY 03/17/17 Cholecalciferol (Vitamin D3) [Vitamin D3] 1 tab PO DAILY 06/05/20 Apixaban [Eliquis] 2.5 mg PO BID #120 tab 06/12/20 Aspirin [Aspirin, Baby] 81 mg PO DAILY@0800 06/12/20 Furosemide [Lasix] 40 mg PO DAILY #60 tab 06/12/20 Acetaminophen [Tylenol Tablet] 650 mg PO Q6H PRN PRN tab 07/20/20 Albuterol Aerosols [Ventolin Aerosols] 2.5 mg INHALATION Q2H PRN PRN vial.neb. 07/20/20 Ferrous Sulfate 325 mg PO QODAY@1200 tab 07/20/20 Guaifenesin [Robitussin] 20 ml PO Q4H PRN PRN udc 07/20/20 Ipratropium/Albuterol Sulfate [Duoneb] 3 ml INHALATION Q4H.RT ampul.neb 07/20/20 Mag Hydrox/Al Hydrox/Simeth [Mylanta II] 30 ml PO Q6H PRN PRN udc 07/20/20 Melatonin 3 mg PO QHS PRN PRN tab 07/20/20 Prednisone 10 mg PO DAILY #18 tab 07/20/20
--- NOTE | 2020-07-20 10:15 | CASEMGMT ---
TCU has a bed for patient. Patient is ready for discharge today. SW spoke with patient and let her know. SW asked if she would like any family to be called. She wanted her daughter called. SW told her SW will talk with her to see if she would like to come see her before she goes as there are no visitors in TCU. She wanted SW to call her daughter. SW did call patient's daughter and left her a voice mail requesting a return call. Plan: [facility] TCU under skilled level of care. Palliative Care did talk with patient while at [facility] and she was in agreement with services. Yi MONTEZ MSW
--- NOTE | 2020-07-20 10:51 | CASEMGMT ---
SW received a call from patient's daughter. She said she will be here in 30-45 minutes. SW notified patient. Plan: D/c to [facility] TCU under skilled level of care. Yi DUNCAN
--- NOTE | 2020-07-20 11:33 | CASEMGMT ---
Emma at [facility] is aware that pt to discharge to TCU today, voices understanding. Amber LAURENT CM
--- NOTE | 2020-07-20 11:35 | CASEMGMT ---
KAYA Prado, updated on palliative referral and recent [facility] HHC as well. Amber LAURENT CM
--- NOTE | 2020-07-20 16:00 | NURSING ---
Called [facility] report to TCU. Questions answered. Will transfer [facility] per their request.
== END 2020-07-20 16:28 | disposition skilled nursing facility (03) | DRG 291 ==
LOC: ED 11:35 → PCU 12:17
PROVIDERS: Internal Medicine Critical Care Medicine; Admitting Provider Internal Medicine; Emergency Provider Emergency Medicine; PCP Family Medicine
DX: I11.0 Hypertensive heart disease with heart failure (principal); I50.31 Acute diastolic (congestive) heart failure; J96.21 Acute and chronic respiratory failure with hypoxia; J96.22 Acute and chronic respiratory failure with hypercapnia; J44.1 Chronic obstructive pulmonary disease with (acute) exacerbation; I48.92 Unspecified atrial flutter; I74.11 Embolism and thrombosis of thoracic aorta; I85.00 Esophageal varices without bleeding; D68.9 Coagulation defect, unspecified; D50.9 Iron deficiency anemia, unspecified; I27.81 Cor pulmonale (chronic); I27.29 Other secondary pulmonary hypertension; I35.0 Nonrheumatic aortic (valve) stenosis; K64.8 Other hemorrhoids; K57.30 Diverticulosis of large intestine without perforation or abscess without bleeding; Z66 Do not resuscitate; F32.9 Major depressive disorder, single episode, unspecified; F41.9 Anxiety disorder, unspecified; I48.0 Paroxysmal atrial fibrillation; E78.5 Hyperlipidemia, unspecified; Z90.49 Acquired absence of other specified parts of digestive tract; Z85.3 Personal history of malignant neoplasm of breast; Z85.038 Personal history of other malignant neoplasm of large intestine; Z79.01 Long term (current) use of anticoagulants; Z87.891 Personal history of nicotine dependence
CPT/HCPCS: 36415; 36600; 71045; 80048; 80053; 82803; 83605; 83735; 83880; 84100; 84484; 85025; 86850; 86900; 86901; 86920; 87040; 87426; 93005; 94002; 94003; 94640; 94660; 94762; 97110; 97162; 97166; 97530; 97535; 99251; 99285; J7040; J7050; P9016; A4216; G0463; J1940; J2916

== ENCOUNTER 2020-07-20 16:38 | Inpatient (IN) | payer MEDICARE, OTHER, SELFPAY ==
[2020-07-15 13:18] VITALS: BMI 31.1
[2020-07-20 16:41] VITALS: BP 124/88; PULSE 78; RESP 18; TEMP 36.3; O2SAT 93
[2020-07-20 17:49] VITALS: BMI 30.7
[2020-07-20 17:51] VITALS: BMI 78.8
[2020-07-20] MEDS: APIXABAN 2.5 MG TABLET PO (18:01)
--- NOTE | 2020-07-20 18:59 | HP.PCM_ITS ---
Problem List (1) Debility Status: Acute (2) Acute on chronic diastolic congestive heart failure Status: Acute (3) Aortic stenosis, severe Status: Chronic (4) Atrial fibrillation Status: Chronic (5) Hypertension Status: Chronic (6) Hyperlipidemia Status: Chronic (7) Vitamin D deficiency Status: Chronic (8) Depression Status: Chronic (9) History of breast cancer Status: Chronic (10) History of colon cancer Status: Chronic (11) COPD with exacerbation Status: Acute (12) Iron deficiency anemia Status: Chronic Qualifiers: (13) Shortness of breath Status: Acute Comment: acute on chronic History of Present Illness Date of Admission: 07/20/20 Chief Complaint: Here for rehabilitation, strengthening, prior to discharge home with family. 07/15/2020 The patient is a 80 year old Female with below past medical history presented to [facility] Emergency Department with shortness of breath. 07/15/2020 Chest X-ray emphysema, chronic interstitial lung disease, small right pleural effusion, mild pulmonary vascular congestion. 07/15/2020 EKG sinus bradycardia with premature atrial contractions, ST ab normality, abnormal EKG. Short of breath x 2-3 days, gradually worse, severe with exertion, dry cough. Worse lying flat, nebulizer not helpful, oxygen not helpful. Pulsox 78% on 8 liters oxygen per nasal cannula at home. Solu-Medrol IV, Duoneb given, Pulsox 99% on nonrebreather. Hemoglobin 7.1. 07/15/2020 Admit to Hospital. Steroids, aerosols, oxygen for COPD exacerbation. IV Lasix for acute on chronic diastolic congestive heart failure. Transfuse 1 unit PRBC for iron deficiency anemia. 07/16/2020 Pulmonary recommended steroids, aerosols, diuretics. Wean oxygen, Pulmonary function test as outpatient. CT chest negative pulmonary embolism, on Eliquis. 07/16/2020 Venofer given. 07/17/2020 Atrial fibrillation with rapid ventricular response improved with cardizem drip, changed to oral cardizem. 07/17/2020 Palliative recommended considering Roxanol 2.5MG Q4H as needed for shortness of breath. 07/19/2020 Pulsox dropped with therapy. Negative 4.5 liters for acute on chronic diastolic congestive heart failure. Iron oral every other day. 07/20/2020 Negative 5.3 liters for acute on chronic diastolic congestive heart failure. IV Lasix changed to PO Lasix. 07/20/2020 Admit to TCU with debility, here for rehabilitation, strengthening, prior to discharge home with family. Past Medical History Past Medical History (Chronic Problems): Chronic Problems History of hypertension (Chronic) History of breast cancer (Chronic) History of colon cancer (Chronic) History of COPD (Chronic) Iron deficiency anemia (Chronic) CHF (congestive heart failure) (Chronic) Aortic stenosis, severe (Chronic) Atrial fibrillation (Chronic) Hypertension (Chronic) Hyperlipidemia (Chronic) Vitamin D deficiency (Chronic) Depression (Chronic) Allergies No Known Allergies Allergy (Verified 07/15/20 10:35) Home Medications: Ambulatory Orders Medication Instructions Recorded Diltiazem HCl [Cartia Xt] 300 mg PO DAILY 03/17/17 Oxygen, Home [Home Oxygen] 4 - 6 lpm NASAL DAILY 03/17/17 Pravastatin [Pravachol] 20 mg PO DAILY 03/17/17 Sertraline HCl [Zoloft] 50 mg PO DAILY 03/17/17 Cholecalciferol (Vitamin D3) 1 tab PO DAILY 06/05/20 [Vitamin D3] Aspirin [Aspirin, Baby] 81 mg PO DAILY@0800 06/12/20 Acetaminophen [Tylenol Tablet] 650 mg PO Q6H PRN PRN tab 07/20/20 Albuterol Aerosols [Ventolin 2.5 mg INHALATION Q2H PRN PRN 07/20/20 Aerosols] vial.neb. Apixaban [Eliquis] 2.5 mg PO BID 07/20/20 Ferrous Sulfate 325 mg PO QODAY@1200 07/20/20 Furosemide [Lasix] 40 mg PO DAILY 07/20/20 Guaifenesin [Robitussin] 20 ml PO Q4H PRN PRN udc 07/20/20 Ipratropium/Albuterol Sulfate 3 ml INHALATION Q4H.RT 07/20/20 [Duoneb] Mag Hydrox/Al Hydrox/Simeth 30 ml PO Q6H PRN PRN udc 07/20/20 [Mylanta II] Melatonin 3 mg PO QHS PRN PRN tab 07/20/20 Prednisone 10 mg PO DAILY 07/20/20 Surgical History: colectomy, mastectomy Psychiatric History: Anxiety, Depression [employer] History: No pertinent [employer] history Lives: Alone Smoking Status: Former smoker Tobacco Use: Cigarettes Alcohol: None Drugs: None - *Family History Maternal Family History: Family History (Last Updated 07/17/20 @ 18:28 by MARTY Jordan) Sister Alzheimer disease Mother Colon cancer Father CAD (coronary artery disease) History Items: Cancer - colon Paternal Family History: Family History (Last Updated 07/17/20 @ 18:28 by MARTY Jordan) Sister Alzheimer disease Mother Colon cancer Father CAD (coronary artery disease) History Items: Unknown Review of Systems Constitutional: Denies: Chills, Fever, Weight Change HEENT: Denies: Head Aches, Sinus Congestion, Sinus Drainage Cardiovascular: Denies: Chest Pain, Palpitations Respiratory: Denies: Cough, Shortness of breath at rest, Sputum production Gastrointestinal: Denies: Abdominal Pain, Nausea, Vomiting Genitourinary: Denies: Dysuria Musculoskeletal: Denies: Joint Pain, Joint Tenderness Skin: Denies: Rash, Wounds Neurological: Denies: Numbness, Tingling, Focal weakness Psychiatric: Denies: Anxiety, Depression, Homicidal Ideations, Suicidal Ideations Hematologic/ Lymphatic: Denies: Easy Bruising, Easy Bleeding VTE Information - Inpt Only VTE Present on Admission: No VTE Mechan Device Prophylaxis: Knee High MITA Hose VTE Pharm Prophylaxis ordered?: No Reason prophylaxis not ordered:: Treatment Not Indicated Patient Problems: Active and Suspected Problems COPD with exacerbation (Acute) Shortness of breath (Acute) acute on chronic Debility (Acute) Acute on chronic diastolic congestive heart failure (Acute) - Physical Exam Vitals/I&O's: Vital Signs Temp Pulse Resp BP Pulse Ox 97.4 F L 78 18 124/88 H 93 07/20/20 16:41 07/20/20 16:41 07/20/20 16:41 07/20/20 16:41 07/20/20 16:41 Oxygen Delivery Method Nasal Cannula Weight: 78.83 kg Body Mass Index (BMI) 30.7 General: Alert, Oriented x3, Cooperative HEENT: Atraumatic, PERRLA, EOMI, Normocephalic Neck: Supple, No JVD, Negative Carotid Bruits Lungs: Normal air movement, Diminished - Bibasilar. Cardiovascular: Regular rate, No murmurs Abdomen: Bowel Sounds Present, Soft, Non Tender Extremities: Capillary Refill Less than 3 Seconds, Edema - 1+ pitting edema. Skin: No rashes, No breakdown Musculoskeletal: No Tenderness to Palpation of Joints or Extremities Neurological: Cranial nerves II-XII grossly intact Psych/Mental Status: Normal Affect, Appropriate Current Medications Acetaminophen (Acetaminophen 325 Mg Tablet) 650 mg PO Q6H PRN PRN PRN Reason: Pain Score 1-10/Temp > 100.7 F Al Hydroxide/Mg Hydroxide (Mag Hydrox/Al Hydrox/Simeth 30 Ml Udc) 30 ml PO Q6H PRN PRN PRN Reason: Gastric Burning Albuterol Sulfate (Albuterol 2.5 Mg/3 Ml Vial.Neb.) 2.5 mg INHALATION Q2H PRN PRN PRN Reason: SOB/Wheezing Albuterol/Ipratropium (Ipratropium/Albuterol Sulfate 3 Ml Ampul.Neb) 3 ml INHALATION Q4H.RT SHANE Apixaban (Apixaban 2.5 Mg Tablet) 2.5 mg PO BID [facility] Last Admin: 07/20/20 18:01 Dose: 2.5 mg Documented by: Aspirin (Aspirin 81 Mg Tab.Chew) 81 mg PO DAILY@0800 [facility] Cholecalciferol (Cholecalciferol (Vit D3) 1,000 Unit (25mcg)) 2,000 unit PO DAILY [facility] Diltiazem HCl (Diltiazem Cd 300 Mg Capsule) 300 mg PO DAILY [facility] Ferrous Sulfate (Ferrous Sulfate 325 Mg Tablet) 325 mg PO QODAY@1200 [facility] Furosemide (Furosemide 40 Mg Tablet) 40 mg PO DAILY [facility] Guaifenesin (Guaifenesin 10 Ml Udc (200mg/10ml)) 20 ml PO Q4H PRN PRN PRN Reason: COUGH Melatonin (Melatonin 3 Mg Tablet) 3 mg PO QHS PRN PRN PRN Reason: INSOMNIA Pravastatin Sodium (Pravastatin 20 Mg Tablet) 20 mg PO DAILY@2200 [facility] Prednisone (Prednisone 10 Mg Tablet) 30 mg PO DAILY@0800 [facility]; Taper Stop: 07/30/20 07:59 Sertraline HCl (Sertraline 50 Mg Tablet) 50 mg PO DAILY [facility] Tuberculin PPD (Tuberculin,Purif.Prot.Deriv. 50 Tu/Ml Vial) 5 tu ID [id number] ONE Stop: 07/21/20 10:01 Tuberculin PPD (Tuberculin,Purif.Prot.Deriv. 50 Tu/Ml Vial) 5 tu ID [id number] ONE Stop: 07/28/20 10:01 Assessment/Plan All Active Problems Respiratory failure with hypoxia and hypercapnia (Acute) Right lower lobe pulmonary infiltrate (Resolved) COPD with exacerbation (Acute) Acute bronchospasm (Acute) Severe sepsis (Resolved) Shortness of breath (Acute) Debility (Acute) Acute on chronic diastolic congestive heart failure (Acute) 80 year old female with below past medical history hospitalized for acute respiratory failure with hypoxia, secondary to COPD exacerbation, acute on chronic diastolic heart failure, complicated by iron deficiency anemia, atrial fibrillation with rapid ventricular response, admitted to TCU with debility, here for rehabilitation, strengthening, prior to discharge home with family. * Debility - PT/OT. * Pain - Tylenol 1000MG Q6H PRN pain (1-10). * Bowel - Miralax 17GM daily, Senna/colace 1 tablet BID, MOM 30ML daily PRN, Dulcolax 10MG PO daily PRN. * Adult immunization - Administer Prevnar 13, Pneumovax 23, Fluzone, COVID19 vaccine as appropriate. * DVT prophylaxis - Not necessary, on Eliquis. * COPD - Duoneb 3ML Q4H RT, Albuterol 2.5MG Q2H PRN, Prednisone 30MG daily thru 07/30/2020. * Atrial fibrillation - Diltiazem 300MG daily, Eliquis 2.5MG BID. * Vitamin D deficiency - D3 2000IU daily. * Iron deficiency anemia - Iron 325MG every other day. * Chronic diastolic congestive heart failure - Lasix 40MG daily. * Cough - Robitussin 20ML Q4H PRN. * Indigestion - Mylanta II 30ML Q6H PRN. * Insomnia - Melatonin 3MG QHS PRN. * Hyperlipidemia - Pravastatin 20MG QHS. * Depression - Sertraline 50MG daily, stable chronic shelter use, GDR not recommended.
[2020-07-20] MEDS: Pravastatin 20 MG Tablet PO (19:38)
[2020-07-20 19:50] VITALS: PULSE 78; RESP 22; O2SAT 92
[2020-07-20] MEDS: Ipratropium/Albuterol Sulfate 3 ML AMPUL.NEB INHALATION ×2 (19:50→22:47)
[2020-07-20 22:47] VITALS: PULSE 83; RESP 18
[2020-07-20 22:57] VITALS: PULSE 83; RESP 12; RESP 18; O2SAT 96
--- NOTE | 2020-07-20 23:44 | CPS ---
Pt.'s AVAP settings: 450VT/12RR/8 PEEP/1.15 I-TIME/24 MAX SC/12 MIN SC/40% FIO2/
[2020-07-21] VITALS (10 sets, daily range): BP systolic 114–122; BP diastolic 61–66; PULSE 71–91; RESP 12–22; TEMP 36.3–36.6; O2SAT 88–98
[2020-07-21] MEDS: Ipratropium/Albuterol Sulfate 3 ML AMPUL.NEB INHALATION ×5 (03:35→23:10)
[2020-07-21] MEDS: Sertraline 50 MG Tablet PO (05:45)
[2020-07-21] MEDS: Polyethylene Glycol 3350 17 GM PACKET PO (05:45)
[2020-07-21] MEDS: dilTIAZem CD 300 MG Capsule PO (05:45)
[2020-07-21] MEDS: Menthol/Lanolin/Calamine/Znox 113 GM Tube 1 APPLIC TOPICAL ×2 (05:45→17:50)
[2020-07-21] MEDS: APIXABAN 2.5 MG TABLET PO ×2 (05:45→17:49)
[2020-07-21] MEDS: Senna/Docusate Sodium 1 Tablet PO ×2 (05:45→17:49)
[2020-07-21] MEDS: Furosemide 40 MG Tablet PO (05:45)
[2020-07-21] MEDS: Nystatin Powder 15gm Bottle 1 APPLIC TOPICAL ×2 (05:46→17:50)
[2020-07-21 07:32] LABS: Absolute Lymphocyte Count 0.42 X10^3/uL (0.83-4.51); Absolute Neutrophil Count 6.2 X10^3/uL (2.0-7.7); Basophil# 0.03 X10^3/uL; Basophil% 0.4 % (0-1); Eosinophil# 0.01 X10^3/uL; Eosinophils% 0.1 % (0-5); Hematocrit 30.3 % (37-47); Hemoglobin 8.8 g/dL (12.0-15.0); Lymphocyte # 0.42 X10^3/ul (4.0); Lymphocyte % 5.6 % (19-41); Mean Corpuscular Hgb 28.4 pg (27.0-32.0); Mean Corpuscular Volume 97.7 fL (81-99); Mean Platelet Vol. 11.3 fl (6.2-12.0); Monocyte# 0.55 X10^3/uL; Monocyte% 7.4 % (0-10); NRBC Flagged by Analyzer 0.7 % (0-5); Neutrophil % 83.4 % (47-70); POSITIVE DIFFERENTIAL YES; POSITIVE MORPHOLOGY YES; Platelet Count 263 K/mm3 (150-450); RBC Distribution Width CV 21.2 % (11.6-14.6); White Blood Count 7.4 K/mm3 (4.4-11.0)
[2020-07-21 07:58] LABS: Differential Indicated SCAN CRITERIA MET
[2020-07-21 08:21] LABS: BUN 55 mg/dL (7-18); BUN/Creat Ratio 45.5 RATIO (10-20); Calcium,Total 9.1 mg/dL (8.5-10.1); Carbon Dioxide > 45.0 mmol/L (21.0-32.0); Chloride 91 mmol/L (98-107); Creatinine, Serum 1.21 mg/dL (0.55-1.02); EST Glomerular Filtration Rate 45 mL/min (>60); Est Glom Filt Rate - Afr Amer 55 mL/min (>60); Estimated Creatinine Clearance 30.16 ml/min; Glucose 101 mg/dL (74-106); Potassium 4.2 mmol/L (3.5-5.1); Sodium Level 140 mmol/L (136-145)
--- NOTE | 2020-07-21 08:24 | NURSING ---
Addendum entered by Manisha Montenegro 07/21/20 11:05: Titrate Oxygen to maintain SPO2 between 88-90%. Pt's Spo2 90% on 2.5L at this time at rest. Original Note: Updated Dr. Bender of critical lab of Co2 >45. Checked Pulse ox 96% on 5L NC. Dr. Bender wants her to stay between 88%-90% Spo2. Turned oxygen down to 3L and pt at 91%. Will continue to monitor pt.
[2020-07-21] MEDS: predniSONE 10 MG Tablet PO (08:31)
[2020-07-21 08:41] LABS: Anisocytosis 1+; Basophilic Stippling 1+; Hypochromasia 2+; Platelet Estimate ADEQUATE (ADEQ); Polychromasia 1+
[2020-07-21] MEDS: Tuberculin,Purif.prot.deriv. 50 TU/ML Vial 5 ML ID (10:26)
[2020-07-21] MEDS: Ferrous Sulfate 325 MG Tablet PO (11:03)
[2020-07-21] MEDS: Pravastatin 20 MG Tablet PO (20:13)
[2020-07-22] VITALS (10 sets, daily range): BP systolic 102–128; BP diastolic 54–67; PULSE 72–105; RESP 12–24; TEMP 36.7–36.8; O2SAT 89–97
[2020-07-22] MEDS: Ipratropium/Albuterol Sulfate 3 ML AMPUL.NEB INHALATION ×6 (02:45→23:00)
[2020-07-22] MEDS: Menthol/Lanolin/Calamine/Znox 113 GM Tube 1 APPLIC TOPICAL ×2 (06:54→17:21)
[2020-07-22] MEDS: Senna/Docusate Sodium 1 Tablet PO ×2 (06:55→17:20)
[2020-07-22] MEDS: Sertraline 50 MG Tablet PO (06:55)
[2020-07-22] MEDS: dilTIAZem CD 300 MG Capsule PO (06:55)
[2020-07-22] MEDS: Furosemide 40 MG Tablet PO (06:55)
[2020-07-22] MEDS: APIXABAN 2.5 MG TABLET PO ×2 (06:56→17:21)
[2020-07-22] MEDS: Polyethylene Glycol 3350 17 GM PACKET PO (06:57)
[2020-07-22] MEDS: Nystatin Powder 15gm Bottle 1 APPLIC TOPICAL ×2 (06:58→17:21)
[2020-07-22 07:51] LABS: BUN 50 mg/dL (7-18); Calcium,Total 8.8 mg/dL (8.5-10.1); Carbon Dioxide > 45.0 mmol/L (21.0-32.0); Chloride 92 mmol/L (98-107); Creatinine, Serum 1.25 mg/dL (0.55-1.02); EST Glomerular Filtration Rate 44 mL/min (>60); Est Glom Filt Rate - Afr Amer 53 mL/min (>60); Glucose 114 mg/dL (74-106); Potassium 4.3 mmol/L (3.5-5.1); Sodium Level 140 mmol/L (136-145)
[2020-07-22] MEDS: predniSONE 10 MG Tablet PO (08:01)
--- NOTE | 2020-07-22 08:06 | NURSING ---
pt 93% on 2.5 liters pt, O2 lowered to 2 liters at this time pt's Spo2 fluctuating between 89% and 90%.
--- NOTE | 2020-07-22 09:48 | NURSING ---
updated Dr. Bender on pt critical lab value Co2 <45. Dr. Bender would like us to continue to monitor Spo2.
[2020-07-22] MEDS: Pravastatin 20 MG Tablet PO (20:42)
[2020-07-23] VITALS (10 sets, daily range): BP systolic 106–114; BP diastolic 59–71; PULSE 74–102; RESP 12–22; TEMP 36.8–36.9; O2SAT 4–95
[2020-07-23] MEDS: Ipratropium/Albuterol Sulfate 3 ML AMPUL.NEB INHALATION ×6 (03:50→23:00)
[2020-07-23] MEDS: Sertraline 50 MG Tablet PO (06:29)
[2020-07-23] MEDS: Furosemide 40 MG Tablet PO (06:29)
[2020-07-23] MEDS: Polyethylene Glycol 3350 17 GM PACKET PO (06:30)
[2020-07-23] MEDS: APIXABAN 2.5 MG TABLET PO ×2 (06:30→17:42)
[2020-07-23] MEDS: dilTIAZem CD 300 MG Capsule PO (06:30)
[2020-07-23] MEDS: Senna/Docusate Sodium 1 Tablet PO ×2 (06:31→17:42)
[2020-07-23] MEDS: Menthol/Lanolin/Calamine/Znox 113 GM Tube 1 APPLIC TOPICAL ×2 (06:39→17:42)
[2020-07-23] MEDS: Nystatin Powder 15gm Bottle 1 APPLIC TOPICAL ×2 (06:39→17:42)
[2020-07-23] MEDS: predniSONE 10 MG Tablet PO (08:08)
[2020-07-23] MEDS: Ferrous Sulfate 325 MG Tablet PO (12:42)
--- NOTE | 2020-07-23 14:43 | CASEMGMT ---
Social Work Met with pt for initial assessment. Discussed code status with pt. Pt confirmed DNR-CCA, no intubation. No changes to MOLST form. Pt has HCPOA paperwork on file naming Meghana rutledge. Acute CM spoke with pt about Palliative Care- pt agreeable. Will notify [facility] at [place]. Explained Medicare benefit. Encouraged to contact secondary insurance to ensure copay coverage. SW to continue to follow. Eve Collado, [employer] CLERK
--- NOTE | 2020-07-23 15:28 | PHA.CONS_ITS ---
<Omar Englei - Last Filed: 07/23/20 15:28> Progress Note - Pharmacy Subjective: TCU Admission Objective: Allergies No Known Allergies Allergy (Verified 07/15/20 10:35) Current Medications Generic Name Dose Route Start Last Admin Trade Name Freq PRN Reason Stop Dose Admin Acetaminophen 1,000 mg 07/20/20 19:21 Acetaminophen 500 Mg Tablet PO Q6H PRN PRN Pain Score 1-10 Al Hydroxide/Mg Hydroxide 30 ml 07/20/20 16:49 Mag Hydrox/Al Hydrox/Simeth 30 Ml Udc PO Q6H PRN PRN Gastric Burning Albuterol Sulfate 2.5 mg 07/20/20 16:49 Albuterol 2.5 Mg/3 Ml Vial.Neb. INHALATION Q2H PRN PRN SOB/Wheezing Albuterol/Ipratropium 3 ml 07/20/20 17:00 07/23/20 10:45 Ipratropium/Albuterol Sulfate 3 Ml Ampul.Neb INHALATION 3 ml Q4H.RT SHANE Administration Apixaban 2.5 mg 07/20/20 18:00 07/23/20 06:30 Apixaban 2.5 Mg Tablet PO 2.5 mg BID SHANE Administration Bisacodyl 10 mg 07/20/20 19:20 Bisacodyl 5 Mg Tablet PO DAILY PRN Constipation Calamine/Phenol 1 applic 07/21/20 06:00 07/23/20 06:39 Menthol/Lanolin/Calamine/Znox 113 Gm Tube TOPICAL 1 applicatio BID SHANE Administration Protocol Cholecalciferol 2,000 unit 07/21/20 06:00 07/23/20 06:29 Cholecalciferol (Vit D3) 1,000 Unit (25mcg) PO 2,000 unit DAILY SHANE Administration Diltiazem HCl 300 mg 07/21/20 06:00 07/23/20 06:30 Diltiazem Cd 300 Mg Capsule PO 300 mg DAILY SHANE Administration Ferrous Sulfate 325 mg 07/21/20 12:00 07/23/20 12:42 Ferrous Sulfate 325 Mg Tablet PO 325 mg QODAY@1200 SHANE Administration Furosemide 40 mg 07/21/20 06:00 07/23/20 06:29 Furosemide 40 Mg Tablet PO 40 mg DAILY SHANE Administration Guaifenesin 20 ml 07/20/20 16:49 Guaifenesin 10 Ml Udc (200mg/10ml) PO Q4H PRN PRN COUGH Magnesium Hydroxide 30 ml 07/20/20 19:20 Magnesium Hydroxide 30 Ml Udc PO DAILY PRN Constipation Melatonin 3 mg 07/20/20 16:49 Melatonin 3 Mg Tablet PO QHS PRN PRN INSOMNIA Nystatin 1 applic 07/21/20 06:00 07/23/20 06:39 Nystatin Powder 15gm Bottle TOPICAL 1 applicatio BID SHANE Administration Protocol Polyethylene Glycol 17 gm 07/21/20 06:00 07/23/20 06:30 Polyethylene Glycol 3350 17 Gm Packet PO 17 gm DAILY SHANE Administration Pravastatin Sodium 20 mg 07/20/20 22:00 07/22/20 20:42 Pravastatin 20 Mg Tablet PO 20 mg DAILY@2200 SHANE Administration Prednisone 30 mg 07/21/20 08:00 07/23/20 08:08 Prednisone 10 Mg Tablet PO 07/30/20 07:59 30 mg DAILY@0800 SHANE Administration Taper Senna/Docusate Sodium 1 tablet 07/21/20 06:00 07/23/20 06:31 Senna/Docusate Sodium 1 Tablet PO 1 tablet BID SHANE Administration Sertraline HCl 50 mg 07/21/20 06:00 07/23/20 06:29 Sertraline 50 Mg Tablet PO 50 mg DAILY SHANE Administration Tuberculin PPD 5 tu 07/28/20 10:00 Tuberculin,Purif.Prot.Deriv. 50 Tu/Ml Vial ID 07/28/20 10:01 X1 ONE Problem List History of breast cancer (Chronic) History of colon cancer (Chronic) COPD with exacerbation (Acute) Iron deficiency anemia (Chronic) Shortness of breath (Acute) Debility (Acute) Acute on chronic diastolic congestive heart failure (Acute) Aortic stenosis, severe (Chronic) Atrial fibrillation (Chronic) Hypertension (Chronic) Hyperlipidemia (Chronic) Vitamin D deficiency (Chronic) Depression (Chronic) Vital Signs Temp Pulse Resp BP Pulse Ox 98.3 F 82 18 114/71 93 07/23/20 15:08 07/23/20 15:08 07/23/20 15:08 07/23/20 15:08 07/23/20 15:08 Oxygen Flow Rate (L/min) 4 Oxygen Delivery Method Nasal Cannula Weight: 80.5 kg Body Mass Index (BMI) 30.7 Sodium 140 mmol/L (136-145) 07/22/20 07:00 Potassium 4.3 mmol/L (3.5-5.1) 07/22/20 07:00 Chloride 92 mmol/L (98-107) L 07/22/20 07:00 Carbon Dioxide > 45.0 mmol/L (21.0-32.0) H* 07/22/20 07:00 Anion Gap TNP 07/22/20 07:00 BUN 50 mg/dL (7-18) H 07/22/20 07:00 Creatinine 1.25 mg/dL (0.55-1.02) H 07/22/20 07:00 Est GFR (MDRD) Af Amer 53 mL/min (>60) L 07/22/20 07:00 Est GFR (MDRD) Non-Af 44 mL/min (>60) L 07/22/20 07:00 BUN/Creatinine Ratio 40.0 RATIO (10-20) H 07/22/20 07:00 Glucose 114 mg/dL (74-106) H 07/22/20 07:00 Assessment/Plan: 1. Pain: acetaminophen 1000mg PO Q6H PRN pain (1-10). Please continue to monitor for increased pain and PRN usage. 2. COPD: Ipratropium/albuterol 3mL inhalation Q4H.RT, albuterol 2.5mg inhalation Q2H PRN SOB/wheezing, Prednisone taper through 07/30/2020. Please continue to monitor HR (last 82 bpm), BP (last 106/59 mmHg), blood sugars (last 114mg/dL), S/S of infection and PRN usage. *3. Atrial fibrillation: diltiazem CD 300mg PO daily and apixaban 2.5mg PO BID. Based on SCr <1.5mg/dL and weight >60kg patient qualifies for regular strength apixaban. Please consider increased apixaban to 5mg PO BID if clinically appropriate. Thanks. Please continue to monitor BP (last 106/59 mmHg), H/H, renal function and S/S of bleeding. 4. Chronic diastolic CHF: furosemide 40mg PO daily. Please continue to monitor renal function and serum potassium (last 4.3 mmol/L). *5. Hyperlipidemia: pravastatin 20mg PO QHS. Please continue to monitor LFTs (last WNL), lipid panel (last unknown) and for muscle pain. Please consider ordering a lipid panel as clinically appropriate. Thanks. 6. Iron deficiency anemia: ferrous sulfate 325mg PO QOD. Please continue to monitor hemoglobin (last 8.8 g/dL), hematocrit (last 30.3%), RBC (last 3.10 M/mm3) and for dark stools. 7. Indigestion: Mylanta II 30 mL Q6H PRN indigestion. Please continue to monitor for increased indigestion and PRN usage. 8. Insomnia: melatonin 3mg PO QHS PRN insomnia. Please continue to monitor for daytime drowsiness and PRN usage. If not adequately working, consider giving melatonin 2 hours before bedtime before dose adjustment. 9. Cough: guaifenesin 20mL PO Q4H PRN cough. Please continue to monitor for increased coughing and PRN usage. *10. Vitamin D deficiency: cholecalciferol 2000units PO daily. Please monitor serum Vitamin D levels (last unknown). Please consider ordering a serum Vitamin D level. Psychotropic Medications: 1. Depression: sertraline 50mg PO daily. Per physician note, GDR not recommended. Please continue to monitor for worsened depression, change in mental status, and GI side effects. Unnecessary Medications: None Bowel Regimen: Miralax 17gm PO daily, senna/docusate 1T PO BID, MOM 30ML PO daily PRN constipation, bisacodyl 10mg PO daily PRN constipation. Please continue to monitor for constipation and PRN usage. Date of Note:: 07/23/20 - Provider Comments Provider responsibility: Provider responsible to enter orders to implement re commendations <Aquilino Bender Chi - Last Filed: 07/23/20 17:26> Progress Note - Pharmacy Subjective: [] Objective: Allergies No Known Allergies Allergy (Verified 07/15/20 10:35) Current Medications Generic Name Dose Route Start Last Admin Trade Name Freq PRN Reason Stop Dose Admin Acetaminophen 1,000 mg 07/20/20 19:21 Acetaminophen 500 Mg Tablet PO Q6H PRN PRN Pain Score 1-10 Al Hydroxide/Mg Hydroxide 30 ml 07/20/20 16:49 Mag Hydrox/Al Hydrox/Simeth 30 Ml Udc PO Q6H PRN PRN Gastric Burning Albuterol Sulfate 2.5 mg 07/20/20 16:49 Albuterol 2.5 Mg/3 Ml Vial.Neb. INHALATION Q2H PRN PRN SOB/Wheezing Albuterol/Ipratropium 3 ml 07/20/20 17:00 07/23/20 15:30 Ipratropium/Albuterol Sulfate 3 Ml Ampul.Neb INHALATION 3 ml Q4H.RT SHANE Administration Apixaban 2.5 mg 07/20/20 18:00 07/23/20 06:30 Apixaban 2.5 Mg Tablet PO 2.5 mg BID SHANE Administration Bisacodyl 10 mg 07/20/20 19:20 Bisacodyl 5 Mg Tablet PO DAILY PRN Constipation Calamine/Phenol 1 applic 07/21/20 06:00 07/23/20 06:39 Menthol/Lanolin/Calamine/Znox 113 Gm Tube TOPICAL 1 applicatio BID SHANE Administration Protocol Cholecalciferol 2,000 unit 07/21/20 06:00 07/23/20 06:29 Cholecalciferol (Vit D3) 1,000 Unit (25mcg) PO 2,000 unit DAILY SHANE Administration Diltiazem HCl 300 mg 07/21/20 06:00 07/23/20 06:30 Diltiazem Cd 300 Mg Capsule PO 300 mg DAILY SHANE Administration Ferrous Sulfate 325 mg 07/21/20 12:00 07/23/20 12:42 Ferrous Sulfate 325 Mg Tablet PO 325 mg QODAY@1200 SHANE Administration Furosemide 40 mg 07/21/20 06:00 07/23/20 06:29 Furosemide 40 Mg Tablet PO 40 mg DAILY SHANE Administration Guaifenesin 20 ml 07/20/20 16:49 Guaifenesin 10 Ml Udc (200mg/10ml) PO Q4H PRN PRN COUGH Magnesium Hydroxide 30 ml 07/20/20 19:20 Magnesium Hydroxide 30 Ml Udc PO DAILY PRN Constipation Melatonin 3 mg 07/20/20 16:49 Melatonin 3 Mg Tablet PO QHS PRN PRN INSOMNIA Nystatin 1 applic 07/21/20 06:00 07/23/20 06:39 Nystatin Powder 15gm Bottle TOPICAL 1 applicatio BID SHANE Administration Protocol Polyethylene Glycol 17 gm 07/21/20 06:00 07/23/20 06:30 Polyethylene Glycol 3350 17 Gm Packet PO 17 gm DAILY SHANE Administration Pravastatin Sodium 20 mg 07/20/20 22:00 07/22/20 20:42 Pravastatin 20 Mg Tablet PO 20 mg DAILY@2200 SHANE Administration Prednisone 30 mg 07/21/20 08:00 07/23/20 08:08 Prednisone 10 Mg Tablet PO 07/30/20 07:59 30 mg DAILY@0800 SHANE Administration Taper Senna/Docusate Sodium 1 tablet 07/21/20 06:00 07/23/20 06:31 Senna/Docusate Sodium 1 Tablet PO 1 tablet BID SHANE Administration Sertraline HCl 50 mg 07/21/20 06:00 07/23/20 06:29 Sertraline 50 Mg Tablet PO 50 mg DAILY SHANE Administration Tuberculin PPD 5 tu 07/28/20 10:00 Tuberculin,Purif.Prot.Deriv. 50 Tu/Ml Vial ID 07/28/20 10:01 X1 ONE Problem List History of breast cancer (Chronic) History of colon cancer (Chronic) COPD with exacerbation (Acute) Iron deficiency anemia (Chronic) Shortness of breath (Acute) Debility (Acute) Acute on chronic diastolic congestive heart failure (Acute) Aortic stenosis, severe (Chronic) Atrial fibrillation (Chronic) Hypertension (Chronic) Hyperlipidemia (Chronic) Vitamin D deficiency (Chronic) Depression (Chronic) Vital Signs Temp Pulse Resp BP Pulse Ox 98.3 F 98 20 H 114/71 93 07/23/20 15:08 07/23/20 15:30 07/23/20 15:30 07/23/20 15:08 07/23/20 15:08 Oxygen Flow Rate (L/min) 4 Oxygen Delivery Method Nasal Cannula Weight: 80.5 kg Body Mass Index (BMI) 30.7 Sodium 140 mmol/L (136-145) 07/22/20 07:00 Potassium 4.3 mmol/L (3.5-5.1) 07/22/20 07:00 Chloride 92 mmol/L (98-107) L 07/22/20 07:00 Carbon Dioxide > 45.0 mmol/L (21.0-32.0) H* 07/22/20 07:00 Anion Gap TNP 07/22/20 07:00 BUN 50 mg/dL (7-18) H 07/22/20 07:00 Creatinine 1.25 mg/dL (0.55-1.02) H 07/22/20 07:00 Est GFR (MDRD) Af Amer 53 mL/min (>60) L 07/22/20 07:00 Est GFR (MDRD) Non-Af 44 mL/min (>60) L 07/22/20 07:00 BUN/Creatinine Ratio 40.0 RATIO (10-20) H 07/22/20 07:00 Glucose 114 mg/dL (74-106) H 07/22/20 07:00 Assessment/Plan: Psychotropic Medications: Unnecessary Medications: Bowel Regimen: - Provider Comments Provider responsibility: Provider responsible to enter orders to implement recommendations Provider Comments to Recommendations by Pharmacy: Agree
[2020-07-23] MEDS: Pravastatin 20 MG Tablet PO (20:03)
[2020-07-24] VITALS (10 sets, daily range): BP systolic 117–132; BP diastolic 46–78; PULSE 72–103; RESP 12–22; TEMP 36.3–36.7; O2SAT 89–96
[2020-07-24] MEDS: Senna/Docusate Sodium 1 Tablet PO ×2 (05:37→17:12)
[2020-07-24] MEDS: Sertraline 50 MG Tablet PO (05:37)
[2020-07-24] MEDS: APIXABAN 2.5 MG TABLET PO ×2 (05:37→17:13)
[2020-07-24] MEDS: Furosemide 40 MG Tablet PO (05:37)
[2020-07-24] MEDS: Polyethylene Glycol 3350 17 GM PACKET PO (05:37)
[2020-07-24] MEDS: Menthol/Lanolin/Calamine/Znox 113 GM Tube 1 APPLIC TOPICAL ×2 (05:38→17:14)
[2020-07-24] MEDS: dilTIAZem CD 300 MG Capsule PO (05:38)
[2020-07-24] MEDS: Nystatin Powder 15gm Bottle 1 APPLIC TOPICAL ×2 (05:38→17:13)
[2020-07-24] MEDS: Ipratropium/Albuterol Sulfate 3 ML AMPUL.NEB INHALATION ×4 (06:40→22:46)
[2020-07-24] MEDS: predniSONE 10 MG Tablet PO (08:35)
[2020-07-24] MEDS: Pravastatin 20 MG Tablet PO (21:53)
--- NOTE | 2020-07-24 23:03 | CPS ---
Same AVAPS settings as before; increased to 35% FiO2 per pt.'s oxygen needs at this time
[2020-07-25] VITALS (9 sets, daily range): BP systolic 106–121; BP diastolic 57–74; PULSE 78–100; RESP 12–20; TEMP 36.4–36.6; O2SAT 90–98
[2020-07-25] MEDS: Menthol/Lanolin/Calamine/Znox 113 GM Tube 1 APPLIC TOPICAL ×2 (06:55→17:17)
[2020-07-25] MEDS: Sertraline 50 MG Tablet PO (06:55)
[2020-07-25] MEDS: APIXABAN 2.5 MG TABLET PO ×2 (06:55→17:17)
[2020-07-25] MEDS: Furosemide 40 MG Tablet PO (06:55)
[2020-07-25] MEDS: Senna/Docusate Sodium 1 Tablet PO ×2 (06:55→17:17)
[2020-07-25] MEDS: dilTIAZem CD 300 MG Capsule PO (06:55)
[2020-07-25] MEDS: Nystatin Powder 15gm Bottle 1 APPLIC TOPICAL ×2 (06:56→17:17)
[2020-07-25] MEDS: Polyethylene Glycol 3350 17 GM PACKET PO (07:06)
[2020-07-25] MEDS: Ipratropium/Albuterol Sulfate 3 ML AMPUL.NEB INHALATION ×4 (07:20→19:05)
[2020-07-25] MEDS: predniSONE 10 MG Tablet PO (08:32)
[2020-07-25] MEDS: Ferrous Sulfate 325 MG Tablet PO (11:39)
--- NOTE | 2020-07-25 12:57 | CASEMGMT ---
Social Work IDT met with patient and dtr via conference call for care plan meeting. Discussed patient's progress in therapy and nursing. Explained Medicare benefit and encouraged pt/dtr to contact secondary insurance to ensure copay coverage. The goal is for pt to return home with 3 steps to enter. Pt inquired about hospital bed. Explained insurance will pay for 80% and pt would be responsible for about $20 copay monthly. Pt states she sleeps in a lift chair but also sits in it during the day. Educated to bed sores and change in position/sleeping arrangements. Pt to consider hosp. bed at [place]. SW to assist with [place] planning. Will continue to follow. DAKOTA CardozoW
[2020-07-25] MEDS: Pravastatin 20 MG Tablet PO (20:34)
[2020-07-26] VITALS (9 sets, daily range): BP systolic 118–139; BP diastolic 61–81; PULSE 73–97; RESP 12–20; TEMP 36.7–37.1; O2SAT 90–99
[2020-07-26] MEDS: Furosemide 40 MG Tablet PO (06:43)
[2020-07-26] MEDS: Senna/Docusate Sodium 1 Tablet PO (06:43)
[2020-07-26] MEDS: Sertraline 50 MG Tablet PO (06:43)
[2020-07-26] MEDS: dilTIAZem CD 300 MG Capsule PO (06:43)
[2020-07-26] MEDS: APIXABAN 2.5 MG TABLET PO ×2 (06:43→17:08)
[2020-07-26] MEDS: Nystatin Powder 15gm Bottle 1 APPLIC TOPICAL ×2 (06:44→17:09)
[2020-07-26] MEDS: Menthol/Lanolin/Calamine/Znox 113 GM Tube 1 APPLIC TOPICAL ×2 (06:44→17:10)
[2020-07-26] MEDS: Ipratropium/Albuterol Sulfate 3 ML AMPUL.NEB INHALATION ×3 (07:00→19:25)
[2020-07-26] MEDS: predniSONE 10 MG Tablet PO (08:45)
--- NOTE | 2020-07-26 13:09 | MDS.RN ---
Completed pain interview for BLANCA 07/27/20.
[2020-07-26] MEDS: Pravastatin 20 MG Tablet PO (20:11)
[2020-07-27] VITALS (8 sets, daily range): BP systolic 125–130; BP diastolic 55–78; PULSE 70–109; RESP 12–22; TEMP 36.3–36.6; O2SAT 89–99
--- NOTE | 2020-07-27 04:03 | CPS ---
decreased fio2 to 30, spo2 was 98 on last check
[2020-07-27] MEDS: Menthol/Lanolin/Calamine/Znox 113 GM Tube 1 APPLIC TOPICAL ×2 (06:47→18:19)
[2020-07-27] MEDS: Furosemide 40 MG Tablet PO (06:47)
[2020-07-27] MEDS: dilTIAZem CD 300 MG Capsule PO (06:47)
[2020-07-27] MEDS: APIXABAN 2.5 MG TABLET PO ×2 (06:47→18:17)
[2020-07-27] MEDS: Nystatin Powder 15gm Bottle 1 APPLIC TOPICAL ×2 (06:48→18:19)
[2020-07-27] MEDS: Sertraline 50 MG Tablet PO (06:55)
[2020-07-27] MEDS: Ipratropium/Albuterol Sulfate 3 ML AMPUL.NEB INHALATION ×3 (07:30→15:28)
[2020-07-27] MEDS: predniSONE 10 MG Tablet PO (08:21)
[2020-07-27] MEDS: Ferrous Sulfate 325 MG Tablet PO (11:03)
[2020-07-27] MEDS: Pravastatin 20 MG Tablet PO (22:10)
[2020-07-28] VITALS (9 sets, daily range): BP systolic 115–116; BP diastolic 56–65; PULSE 75–100; RESP 12–21; TEMP 36.3–37.1; O2SAT 94–96
[2020-07-28] MEDS: Menthol/Lanolin/Calamine/Znox 113 GM Tube 1 APPLIC TOPICAL ×2 (05:47→17:23)
[2020-07-28] MEDS: Furosemide 40 MG Tablet PO (05:48)
[2020-07-28] MEDS: APIXABAN 2.5 MG TABLET PO ×2 (05:48→17:23)
[2020-07-28] MEDS: Nystatin Powder 15gm Bottle 1 APPLIC TOPICAL ×2 (05:48→17:23)
[2020-07-28] MEDS: dilTIAZem CD 300 MG Capsule PO (05:49)
[2020-07-28] MEDS: Sertraline 50 MG Tablet PO (05:49)
[2020-07-28] MEDS: Ipratropium/Albuterol Sulfate 3 ML AMPUL.NEB INHALATION ×3 (06:40→18:55)
[2020-07-28 07:26] LABS: Absolute Lymphocyte Count 0.47 X10^3/uL (0.83-4.51); Absolute Neutrophil Count 7.9 X10^3/uL (2.0-7.7); Basophil# 0.01 X10^3/uL; Basophil% 0.1 % (0-1); Eosinophil# 0.03 X10^3/uL; Eosinophils% 0.3 % (0-5); Hematocrit 31.9 % (37-47); Hemoglobin 8.9 g/dL (12.0-15.0); Lymphocyte # 0.47 X10^3/ul (4.0); Lymphocyte % 5.2 % (19-41); Mean Corp Hgb Conc 27.9 g/dL (32-36); Mean Corpuscular Hgb 28.5 pg (27.0-32.0); Mean Corpuscular Volume 102.2 fL (81-99); Mean Platelet Vol. 10.8 fl (6.2-12.0); Monocyte# 0.52 X10^3/uL; Monocyte% 5.8 % (0-10); NRBC Flagged by Analyzer 0.2 % (0-5); Neutrophil % 87.7 % (47-70); POSITIVE DIFFERENTIAL YES; POSITIVE MORPHOLOGY YES; Platelet Count 313 K/mm3 (150-450); RBC Distribution Width CV 21.2 % (11.6-14.6); RBC Distribution Width SD 80.3 fl (35.1-43.9); Red Blood Count 3.12 M/mm3 (4.2-5.4)
[2020-07-28 07:28] LABS: Differential Indicated SCAN CRITERIA MET
[2020-07-28 07:43] LABS: Anion Gap 2 (5-15); BUN 47 mg/dL (7-18); BUN/Creat Ratio 46.1 RATIO (10-20); Calcium,Total 8.7 mg/dL (8.5-10.1); Chloride 101 mmol/L (98-107); Creatinine, Serum 1.02 mg/dL (0.55-1.02); EST Glomerular Filtration Rate 55 mL/min (>60); Est Glom Filt Rate - Afr Amer 67 mL/min (>60); Estimated Creatinine Clearance 35.78 ml/min; Glucose 98 mg/dL (74-106); Potassium 4.2 mmol/L (3.5-5.1); Sodium Level 144 mmol/L (136-145)
[2020-07-28 07:57] LABS: Anisocytosis 2+; Hypochromasia 1+
[2020-07-28] MEDS: predniSONE 10 MG Tablet PO (08:10)
[2020-07-28] MEDS: Tuberculin,Purif.prot.deriv. 50 TU/ML Vial 5 ML ID (12:04)
[2020-07-28] MEDS: Pravastatin 20 MG Tablet PO (19:54)
[2020-07-29] VITALS (10 sets, daily range): BP systolic 106–108; BP diastolic 58–71; PULSE 76–88; RESP 12–25; TEMP 36.7; O2SAT 94–97
[2020-07-29] MEDS: Sertraline 50 MG Tablet PO (05:28)
[2020-07-29] MEDS: Furosemide 40 MG Tablet PO (05:29)
[2020-07-29] MEDS: Menthol/Lanolin/Calamine/Znox 113 GM Tube 1 APPLIC TOPICAL ×2 (05:29→17:43)
[2020-07-29] MEDS: dilTIAZem CD 300 MG Capsule PO (05:29)
[2020-07-29] MEDS: APIXABAN 2.5 MG TABLET PO ×2 (05:29→17:42)
[2020-07-29] MEDS: Nystatin Powder 15gm Bottle 1 APPLIC TOPICAL ×2 (05:30→17:43)
[2020-07-29] MEDS: predniSONE 10 MG Tablet PO (09:11)
[2020-07-29] MEDS: Ipratropium/Albuterol Sulfate 3 ML AMPUL.NEB INHALATION ×2 (10:21→19:05)
[2020-07-29] MEDS: Ferrous Sulfate 325 MG Tablet PO (11:51)
[2020-07-29] MEDS: Pravastatin 20 MG Tablet PO (19:49)
[2020-07-30] VITALS (9 sets, daily range): BP systolic 112–121; BP diastolic 58–73; PULSE 76–100; RESP 12–22; TEMP 36.3–37.2; O2SAT 90–99
[2020-07-30] MEDS: Sertraline 50 MG Tablet PO (06:42)
[2020-07-30] MEDS: Furosemide 40 MG Tablet PO (06:42)
[2020-07-30] MEDS: APIXABAN 2.5 MG TABLET PO ×2 (06:42→17:36)
[2020-07-30] MEDS: Nystatin Powder 15gm Bottle 1 APPLIC TOPICAL ×2 (06:42→17:38)
[2020-07-30] MEDS: dilTIAZem CD 300 MG Capsule PO (06:42)
[2020-07-30] MEDS: Menthol/Lanolin/Calamine/Znox 113 GM Tube 1 APPLIC TOPICAL ×2 (06:43→17:39)
[2020-07-30] MEDS: Ipratropium/Albuterol Sulfate 3 ML AMPUL.NEB INHALATION ×4 (07:01→20:18)
--- NOTE | 2020-07-30 19:38 | NURSING ---
Pt was suppose to have 2nd Covid vaccine today did not receive. Called and left message with Elana.
[2020-07-30] MEDS: Pravastatin 20 MG Tablet PO (20:18)
[2020-07-31] VITALS (10 sets, daily range): BP systolic 95–113; BP diastolic 60–70; PULSE 63–97; RESP 12–21; TEMP 36.1–36.3; O2SAT 91–94
[2020-07-31] MEDS: Furosemide 40 MG Tablet PO (06:12)
[2020-07-31] MEDS: dilTIAZem CD 300 MG Capsule PO (06:12)
[2020-07-31] MEDS: APIXABAN 2.5 MG TABLET PO ×2 (06:12→17:30)
[2020-07-31] MEDS: Sertraline 50 MG Tablet PO (06:12)
[2020-07-31] MEDS: Nystatin Powder 15gm Bottle 1 APPLIC TOPICAL ×2 (06:14→17:30)
[2020-07-31] MEDS: Menthol/Lanolin/Calamine/Znox 113 GM Tube 1 APPLIC TOPICAL ×2 (06:14→17:31)
[2020-07-31] MEDS: Ipratropium/Albuterol Sulfate 3 ML AMPUL.NEB INHALATION ×4 (07:30→18:55)
--- NOTE | 2020-07-31 09:19 | MDS.RN ---
Information for the mds was obtained from review of the clinical record, interview of resident, staff, and direct observation of resident's care.
[2020-07-31] MEDS: Ferrous Sulfate 325 MG Tablet PO (11:53)
[2020-07-31] MEDS: Pravastatin 20 MG Tablet PO (20:29)
[2020-08-01] VITALS (8 sets, daily range): BP systolic 111–120; BP diastolic 60–70; PULSE 63–101; RESP 12–22; TEMP 35.8–36.6; O2SAT 92–94
[2020-08-01] MEDS: APIXABAN 2.5 MG TABLET PO ×2 (06:26→17:07)
[2020-08-01] MEDS: Furosemide 40 MG Tablet PO (06:26)
[2020-08-01] MEDS: Sertraline 50 MG Tablet PO (06:26)
[2020-08-01] MEDS: Menthol/Lanolin/Calamine/Znox 113 GM Tube 1 APPLIC TOPICAL ×2 (06:26→17:08)
[2020-08-01] MEDS: dilTIAZem CD 300 MG Capsule PO (06:26)
[2020-08-01] MEDS: Nystatin Powder 15gm Bottle 1 APPLIC TOPICAL ×2 (06:27→17:08)
[2020-08-01] MEDS: Ipratropium/Albuterol Sulfate 3 ML AMPUL.NEB INHALATION ×4 (06:45→19:09)
[2020-08-01] MEDS: Pravastatin 20 MG Tablet PO (20:52)
[2020-08-02] VITALS (8 sets, daily range): BP systolic 107–133; BP diastolic 58–67; PULSE 70–87; RESP 12–27; TEMP 36.4–36.8; O2SAT 91–97
[2020-08-02] MEDS: dilTIAZem CD 300 MG Capsule PO (05:07)
[2020-08-02] MEDS: Nystatin Powder 15gm Bottle 1 APPLIC TOPICAL ×2 (05:07→16:34)
[2020-08-02] MEDS: APIXABAN 2.5 MG TABLET PO ×2 (05:07→16:34)
[2020-08-02] MEDS: Menthol/Lanolin/Calamine/Znox 113 GM Tube 1 APPLIC TOPICAL ×2 (05:07→16:35)
[2020-08-02] MEDS: Furosemide 40 MG Tablet PO (05:07)
[2020-08-02] MEDS: Sertraline 50 MG Tablet PO (05:08)
[2020-08-02] MEDS: Ipratropium/Albuterol Sulfate 3 ML AMPUL.NEB INHALATION ×3 (07:30→19:05)
[2020-08-02] MEDS: Ferrous Sulfate 325 MG Tablet PO (12:56)
[2020-08-02] MEDS: Pravastatin 20 MG Tablet PO (20:00)
[2020-08-03] VITALS (7 sets, daily range): BP systolic 105; BP diastolic 53; PULSE 72–78; RESP 12–25; TEMP 35.8; O2SAT 89–96
[2020-08-03] MEDS: Furosemide 40 MG Tablet PO (05:48)
[2020-08-03] MEDS: Sertraline 50 MG Tablet PO (05:48)
[2020-08-03] MEDS: Menthol/Lanolin/Calamine/Znox 113 GM Tube 1 APPLIC TOPICAL ×2 (05:49→17:09)
[2020-08-03] MEDS: Nystatin Powder 15gm Bottle 1 APPLIC TOPICAL ×2 (05:49→17:08)
[2020-08-03] MEDS: dilTIAZem CD 300 MG Capsule PO (05:49)
[2020-08-03] MEDS: APIXABAN 2.5 MG TABLET PO ×2 (05:49→17:08)
[2020-08-03] MEDS: Ipratropium/Albuterol Sulfate 3 ML AMPUL.NEB INHALATION ×4 (06:56→18:33)
[2020-08-03] MEDS: Senna/Docusate Sodium 1 Tablet PO (17:08)
[2020-08-03] MEDS: Pravastatin 20 MG Tablet PO (20:30)
[2020-08-04] VITALS (9 sets, daily range): BP systolic 117–119; BP diastolic 49–66; PULSE 67–84; RESP 12–22; TEMP 36.8–36.9; O2SAT 90–95
[2020-08-04] MEDS: Menthol/Lanolin/Calamine/Znox 113 GM Tube 1 APPLIC TOPICAL ×2 (05:47→17:39)
[2020-08-04] MEDS: dilTIAZem CD 300 MG Capsule PO (05:47)
[2020-08-04] MEDS: Nystatin Powder 15gm Bottle 1 APPLIC TOPICAL ×2 (05:48→17:38)
[2020-08-04] MEDS: Furosemide 40 MG Tablet PO (05:48)
[2020-08-04] MEDS: Sertraline 50 MG Tablet PO (05:48)
[2020-08-04] MEDS: APIXABAN 2.5 MG TABLET PO ×2 (05:48→17:37)
[2020-08-04 07:11] LABS: Absolute Lymphocyte Count 0.32 X10^3/uL (0.83-4.51); Absolute Neutrophil Count 6.2 X10^3/uL (2.0-7.7); Basophil# 0.01 X10^3/uL; Basophil% 0.1 % (0-1); Eosinophil# 0.08 X10^3/uL; Eosinophils% 1.1 % (0-5); Hematocrit 29.9 % (37-47); Hemoglobin 8.5 g/dL (12.0-15.0); Lymphocyte # 0.32 X10^3/ul (4.0); Lymphocyte % 4.5 % (19-41); Mean Corp Hgb Conc 28.4 g/dL (32-36); Mean Corpuscular Hgb 28.6 pg (27.0-32.0); Mean Corpuscular Volume 100.7 fL (81-99); Mean Platelet Vol. 11.3 fl (6.2-12.0); Monocyte# 0.41 X10^3/uL; Monocyte% 5.8 % (0-10); NRBC Flagged by Analyzer 0 % (0-5); Neutrophil # 6.23 X10^3/uL (2.7-7.7); Neutrophil % 88.2 % (47-70); POSITIVE DIFFERENTIAL YES; POSITIVE MORPHOLOGY YES; Platelet Count 216 K/mm3 (150-450); RBC Distribution Width CV 19.7 % (11.6-14.6); RBC Distribution Width SD 74.3 fl (35.1-43.9); Red Blood Count 2.97 M/mm3 (4.2-5.4); White Blood Count 7.1 K/mm3 (4.4-11.0)
[2020-08-04 07:32] LABS: Anion Gap 3 (5-15); BUN 32 mg/dL (7-18); BUN/Creat Ratio 35.7 RATIO (10-20); Calcium,Total 8.9 mg/dL (8.5-10.1); Chloride 99 mmol/L (98-107); Differential Indicated SCAN CRITERIA MET; EST Glomerular Filtration Rate 64 mL/min (>60); Est Glom Filt Rate - Afr Amer 78 mL/min (>60); Estimated Creatinine Clearance 40.55 ml/min; Glucose 115 mg/dL (74-106); Potassium 3.5 mmol/L (3.5-5.1); Sodium Level 142 mmol/L (136-145)
[2020-08-04] MEDS: Ipratropium/Albuterol Sulfate 3 ML AMPUL.NEB INHALATION ×4 (07:35→19:15)
[2020-08-04] MEDS: Acetaminophen 500 MG Tablet 1000 MG PO (08:00)
[2020-08-04 09:12] LABS: Anisocytosis 2+; Differential Comment SCANNED; Macrocytosis 1+; Microcytosis 1+
[2020-08-04] MEDS: Ferrous Sulfate 325 MG Tablet PO (12:00)
[2020-08-04] MEDS: Senna/Docusate Sodium 1 Tablet PO (17:38)
[2020-08-04] MEDS: Pravastatin 20 MG Tablet PO (19:57)
[2020-08-05 02:19] VITALS: RESP 12; O2SAT 93
[2020-08-05 05:00] VITALS: BP 112/44; PULSE 61; RESP 18; TEMP 36.7; O2SAT 91
[2020-08-05] MEDS: Polyethylene Glycol 3350 17 GM PACKET PO (06:13)
[2020-08-05] MEDS: Sertraline 50 MG Tablet PO (06:13)
[2020-08-05] MEDS: Furosemide 40 MG Tablet PO (06:13)
[2020-08-05] MEDS: APIXABAN 2.5 MG TABLET PO ×2 (06:13→16:36)
[2020-08-05] MEDS: dilTIAZem CD 300 MG Capsule PO (06:13)
[2020-08-05] MEDS: Menthol/Lanolin/Calamine/Znox 113 GM Tube 1 APPLIC TOPICAL ×2 (06:20→16:39)
[2020-08-05] MEDS: Nystatin Powder 15gm Bottle 1 APPLIC TOPICAL ×2 (06:21→16:39)
[2020-08-05 06:49] VITALS: PULSE 48; RESP 20; O2SAT 96
[2020-08-05] MEDS: Ipratropium/Albuterol Sulfate 3 ML AMPUL.NEB INHALATION ×4 (06:49→19:15)
--- NOTE | 2020-08-05 11:27 | PCA ---
charted daily weight for wrong day. was meant for 08/05/20
[2020-08-05 15:44] VITALS: PULSE 68; RESP 20
[2020-08-05 19:15] VITALS: PULSE 70; RESP 18
[2020-08-05] MEDS: Pravastatin 20 MG Tablet PO (21:52)
[2020-08-05 22:25] VITALS: PULSE 71; RESP 12; RESP 18; O2SAT 93
[2020-08-06] VITALS (9 sets, daily range): BP systolic 103–127; BP diastolic 59–62; PULSE 59–82; RESP 12–22; TEMP 35.9–36.9; O2SAT 93–99
[2020-08-06 05:37] LABS: Hematocrit 27.9 % (37-47); Hemoglobin 7.7 g/dL (12.0-15.0)
[2020-08-06] MEDS: Menthol/Lanolin/Calamine/Znox 113 GM Tube 1 APPLIC TOPICAL ×2 (06:39→16:20)
[2020-08-06] MEDS: APIXABAN 2.5 MG TABLET PO ×2 (06:41→16:18)
[2020-08-06] MEDS: Furosemide 40 MG Tablet PO (06:41)
[2020-08-06] MEDS: Sertraline 50 MG Tablet PO (06:42)
[2020-08-06] MEDS: Nystatin Powder 15gm Bottle 1 APPLIC TOPICAL ×2 (06:42→16:20)
[2020-08-06] MEDS: dilTIAZem CD 300 MG Capsule PO (06:43)
[2020-08-06] MEDS: Ipratropium/Albuterol Sulfate 3 ML AMPUL.NEB INHALATION ×4 (07:15→18:55)
[2020-08-06] MEDS: Ferrous Sulfate 325 MG Tablet PO (11:35)
[2020-08-06] MEDS: Acetaminophen 500 MG Tablet 1000 MG PO (20:56)
[2020-08-06] MEDS: Pravastatin 20 MG Tablet PO (20:57)
[2020-08-07] VITALS (9 sets, daily range): BP systolic 121–151; BP diastolic 61–69; PULSE 57–70; RESP 12–23; TEMP 36–36.6; O2SAT 89–97
[2020-08-07] MEDS: dilTIAZem CD 300 MG Capsule PO (06:17)
[2020-08-07] MEDS: APIXABAN 2.5 MG TABLET PO ×2 (06:17→17:27)
[2020-08-07] MEDS: Sertraline 50 MG Tablet PO (06:17)
[2020-08-07] MEDS: Furosemide 40 MG Tablet PO (06:17)
[2020-08-07] MEDS: Nystatin Powder 15gm Bottle 1 APPLIC TOPICAL ×2 (06:19→17:28)
[2020-08-07] MEDS: Menthol/Lanolin/Calamine/Znox 113 GM Tube 1 APPLIC TOPICAL ×2 (06:19→17:27)
[2020-08-07] MEDS: Ipratropium/Albuterol Sulfate 3 ML AMPUL.NEB INHALATION ×3 (06:53→18:37)
[2020-08-07] MEDS: Pravastatin 20 MG Tablet PO (21:06)
[2020-08-08] VITALS (9 sets, daily range): BP systolic 100–111; BP diastolic 46–50; PULSE 55–96; RESP 12–22; TEMP 36.8–36.9; O2SAT 3–96
[2020-08-08 05:59] LABS: Hemoglobin 7.5 g/dL (12.0-15.0)
[2020-08-08] MEDS: Furosemide 40 MG Tablet PO ×2 (06:05→18:35)
[2020-08-08] MEDS: APIXABAN 2.5 MG TABLET PO ×2 (06:05→17:17)
[2020-08-08] MEDS: dilTIAZem CD 300 MG Capsule PO (06:05)
[2020-08-08] MEDS: Sertraline 50 MG Tablet PO (06:05)
[2020-08-08] MEDS: Acetaminophen 500 MG Tablet 1000 MG PO (06:08)
[2020-08-08] MEDS: Nystatin Powder 15gm Bottle 1 APPLIC TOPICAL ×2 (06:14→17:17)
[2020-08-08] MEDS: Menthol/Lanolin/Calamine/Znox 113 GM Tube 1 APPLIC TOPICAL ×2 (06:14→17:18)
[2020-08-08] MEDS: Ipratropium/Albuterol Sulfate 3 ML AMPUL.NEB INHALATION ×3 (07:30→19:05)
[2020-08-08] MEDS: Ferrous Sulfate 325 MG Tablet PO (11:21)
--- NOTE | 2020-08-08 11:25 | PCA ---
charted on wrong patient
--- NOTE | 2020-08-08 11:37 | NURSING ---
Pt states she is more SOB than usual and even though her numbers are ok she feels like she can not catch her breath and fells she is not getting better. SPO2 92% on 3 liters at this time, RT called and stated they will be up to administer breathing tx, increased swelling noted to BLE with 2lb weight gain overnight, pt supposed to have F/U with Dr. Becerra on discharge but feels she may need to consult with him sooner. Message left for Dr. Bender and RN updated.
[2020-08-08] MEDS: Pravastatin 20 MG Tablet PO (20:53)
[2020-08-09] VITALS (7 sets, daily range): BP systolic 121–131; BP diastolic 53–63; PULSE 55–67; RESP 12–24; TEMP 36.2–36.7; O2SAT 93–95
[2020-08-09] MEDS: Menthol/Lanolin/Calamine/Znox 113 GM Tube 1 APPLIC TOPICAL ×2 (06:14→17:10)
[2020-08-09] MEDS: Nystatin Powder 15gm Bottle 1 APPLIC TOPICAL ×2 (06:14→17:11)
[2020-08-09] MEDS: dilTIAZem CD 300 MG Capsule PO (06:16)
[2020-08-09] MEDS: Sertraline 50 MG Tablet PO (06:16)
[2020-08-09] MEDS: APIXABAN 2.5 MG TABLET PO ×2 (06:16→17:10)
[2020-08-09] MEDS: Ipratropium/Albuterol Sulfate 3 ML AMPUL.NEB INHALATION ×3 (07:39→18:55)
[2020-08-09] MEDS: Furosemide 40 MG Tablet PO ×2 (09:20→17:10)
[2020-08-09] MEDS: Pravastatin 20 MG Tablet PO (20:16)
[2020-08-10] VITALS (8 sets, daily range): BP systolic 102–108; BP diastolic 47–51; PULSE 57–85; RESP 12–21; TEMP 35.6–36.2; O2SAT 88–97
[2020-08-10] MEDS: MELATONIN 3 MG TABLET PO (00:56)
[2020-08-10 05:43] LABS: Hematocrit 27.5 % (37-47); Hemoglobin 7.7 g/dL (12.0-15.0)
[2020-08-10] MEDS: APIXABAN 2.5 MG TABLET PO ×2 (06:09→17:51)
[2020-08-10] MEDS: dilTIAZem CD 300 MG Capsule PO (06:09)
[2020-08-10] MEDS: Nystatin Powder 15gm Bottle 1 APPLIC TOPICAL ×2 (06:10→17:52)
[2020-08-10] MEDS: Menthol/Lanolin/Calamine/Znox 113 GM Tube 1 APPLIC TOPICAL ×2 (06:10→17:52)
[2020-08-10] MEDS: Sertraline 50 MG Tablet PO (06:10)
[2020-08-10] MEDS: Ipratropium/Albuterol Sulfate 3 ML AMPUL.NEB INHALATION ×4 (06:50→19:46)
[2020-08-10] MEDS: Furosemide 40 MG Tablet PO ×2 (09:48→17:51)
[2020-08-10] MEDS: Ferrous Sulfate 325 MG Tablet PO (12:03)
[2020-08-10] MEDS: Pravastatin 20 MG Tablet PO (20:30)
[2020-08-11] VITALS (10 sets, daily range): BP systolic 105–116; BP diastolic 56–62; PULSE 60–71; RESP 12–24; TEMP 36.4–36.6; O2SAT 88–95
[2020-08-11] MEDS: Menthol/Lanolin/Calamine/Znox 113 GM Tube 1 APPLIC TOPICAL ×2 (05:31→17:39)
[2020-08-11] MEDS: dilTIAZem CD 300 MG Capsule PO (05:32)
[2020-08-11] MEDS: Sertraline 50 MG Tablet PO (05:32)
[2020-08-11] MEDS: APIXABAN 2.5 MG TABLET PO ×2 (05:32→17:37)
[2020-08-11] MEDS: Nystatin Powder 15gm Bottle 1 APPLIC TOPICAL ×2 (05:33→17:38)
[2020-08-11 07:15] LABS: Absolute Lymphocyte Count 0.39 X10^3/uL (0.83-4.51); Absolute Neutrophil Count 2.7 X10^3/uL (2.0-7.7); Basophil# 0.01 X10^3/uL; Basophil% 0.3 % (0-1); Eosinophil# 0.13 X10^3/uL; Eosinophils% 3.6 % (0-5); Hemoglobin 8.1 g/dL (12.0-15.0); Lymphocyte # 0.39 X10^3/ul (4.0); Lymphocyte % 10.9 % (19-41); Mean Corp Hgb Conc 28.9 g/dL (32-36); Mean Corpuscular Hgb 28.1 pg (27.0-32.0); Mean Corpuscular Volume 97.2 fL (81-99); Mean Platelet Vol. 10.5 fl (6.2-12.0); Monocyte# 0.29 X10^3/uL; Monocyte% 8.1 % (0-10); NRBC Flagged by Analyzer 0 % (0-5); Neutrophil # 2.74 X10^3/uL (2.7-7.7); Neutrophil % 76.8 % (47-70); POSITIVE DIFFERENTIAL YES; POSITIVE MORPHOLOGY YES; Platelet Count 177 K/mm3 (150-450); RBC Distribution Width SD 67.6 fl (35.1-43.9); Red Blood Count 2.88 M/mm3 (4.2-5.4); White Blood Count 3.6 K/mm3 (4.4-11.0)
[2020-08-11] MEDS: Ipratropium/Albuterol Sulfate 3 ML AMPUL.NEB INHALATION ×4 (07:18→19:15)
[2020-08-11 07:26] LABS: Differential Indicated SCAN CRITERIA MET
[2020-08-11 07:37] LABS: Anion Gap 3 (5-15); BUN 15 mg/dL (7-18); BUN/Creat Ratio 19.2 RATIO (10-20); Calcium,Total 9.2 mg/dL (8.5-10.1); Chloride 97 mmol/L (98-107); Creatinine, Serum 0.78 mg/dL (0.55-1.02); EST Glomerular Filtration Rate 75 mL/min (>60); Est Glom Filt Rate - Afr Amer 91 mL/min (>60); Glucose 99 mg/dL (74-106); Potassium 3.4 mmol/L (3.5-5.1); Sodium Level 143 mmol/L (136-145)
[2020-08-11 07:44] LABS: Anisocytosis 1+; Hypochromasia 2+; Platelet Estimate ADEQUATE (ADEQ); Polychromasia RARE
[2020-08-11] MEDS: Furosemide 40 MG Tablet PO ×2 (09:32→17:37)
[2020-08-11] MEDS: Pravastatin 20 MG Tablet PO (22:00)
[2020-08-12] VITALS (8 sets, daily range): BP systolic 114; BP diastolic 53; PULSE 69–72; RESP 12–24; TEMP 36.4; O2SAT 90–96
[2020-08-12] MEDS: dilTIAZem CD 300 MG Capsule PO (07:21)
[2020-08-12] MEDS: APIXABAN 2.5 MG TABLET PO ×2 (07:21→17:23)
[2020-08-12] MEDS: Sertraline 50 MG Tablet PO (07:22)
[2020-08-12] MEDS: Nystatin Powder 15gm Bottle 1 APPLIC TOPICAL ×2 (07:23→17:24)
[2020-08-12] MEDS: Menthol/Lanolin/Calamine/Znox 113 GM Tube 1 APPLIC TOPICAL ×2 (07:24→17:25)
[2020-08-12] MEDS: Ipratropium/Albuterol Sulfate 3 ML AMPUL.NEB INHALATION ×4 (07:40→19:15)
[2020-08-12] MEDS: Furosemide 40 MG Tablet PO ×2 (10:55→17:23)
[2020-08-12] MEDS: Ferrous Sulfate 325 MG Tablet PO (10:59)
[2020-08-12] MEDS: Pravastatin 20 MG Tablet PO (21:17)
[2020-08-13] VITALS (9 sets, daily range): BP systolic 110–126; BP diastolic 53–55; PULSE 63–75; RESP 12–25; TEMP 36.4–36.7; O2SAT 90–93
[2020-08-13] MEDS: dilTIAZem CD 300 MG Capsule PO (06:36)
[2020-08-13] MEDS: APIXABAN 2.5 MG TABLET PO ×2 (06:36→16:56)
[2020-08-13] MEDS: Senna/Docusate Sodium 1 Tablet PO (06:36)
[2020-08-13] MEDS: Sertraline 50 MG Tablet PO (06:36)
[2020-08-13] MEDS: Menthol/Lanolin/Calamine/Znox 113 GM Tube 1 APPLIC TOPICAL ×2 (06:37→17:00)
[2020-08-13] MEDS: Nystatin Powder 15gm Bottle 1 APPLIC TOPICAL ×2 (06:37→16:59)
[2020-08-13] MEDS: Ipratropium/Albuterol Sulfate 3 ML AMPUL.NEB INHALATION ×3 (07:14→19:14)
[2020-08-13] MEDS: Furosemide 40 MG Tablet PO ×2 (11:44→16:56)
--- NOTE | 2020-08-13 11:54 | NURSING ---
Addendum entered by Celia Stone 08/16/20 17:13: Called Nat Askew [employer] office to check on orders. No answer left a message still waiting on orders. Original Note: Contacted Nat Askew, [employer] office, to make them aware that pharmacy does not carry Budesonide 1mg/2.5 nebulized in that dose and also does not carry Revefenacin. Spoke with Lili. Waiting for return call.
[2020-08-13 12:14] LABS: Pathologist Review Reviewed
--- NOTE | 2020-08-13 16:17 | NURSING ---
called and updated daughter.
[2020-08-13] MEDS: guaiFENesin 1,200 MG Tablet 1200 MG PO (16:56)
--- NOTE | 2020-08-13 18:50 | PCM.TCUNOT ---
Subjective: Resident seen for regulatory visit. She is sitting in chair, eating supper. Last week, she noted increasing shortness of breath, swelling in her legs. Her furosemide was increased to 40MG twice daily, she appears to be tolerating higher dose diuretic, the swelling in her legs is improved. Although she does not feel her shortness of breath is improved, she appears less short of breath to me today. She has iron deficiency anemia, but her hemoglobin has been steady, slightly increasing. Vitals/I&O's: Vital Signs Temp Pulse Resp BP Pulse Ox 98.1 F 66 20 H 126/53 H 93 08/13/20 14:10 08/13/20 15:25 08/13/20 15:25 08/13/20 14:10 08/13/20 14:10 Oxygen Flow Rate (L/min) 2 Oxygen Delivery Method Nasal Cannula Weight: 79.061 kg Body Mass Index (BMI) 30.7 Intake and Output for Last 24 Hours 08/11/20 08/12/20 08/13/20 22:59 23:59 23:59 Intake Total 720 / 720 Output Total 1100 / 1100 Balance -380 / -380 Laboratory Results 08/11/20 06:38: Diff Path Review Reviewed Past Medical History Past Medical History (Chronic Problems): Chronic Problems (Last Reviewed 08/13/20 @ 10:04 by Nat Askew FELT MACHINE MECHANIC, FELT MACHINE MECHANIC-C) History of hypertension (Chronic) History of breast cancer (Chronic) History of colon cancer (Chronic) History of COPD (Chronic) Iron deficiency anemia (Chronic) CHF (congestive heart failure) (Chronic) Aortic stenosis, severe (Chronic) Atrial fibrillation (Chronic) Hypertension (Chronic) Hyperlipidemia (Chronic) Vitamin D deficiency (Chronic) Depression (Chronic) Medical History: Medical History (Last Reviewed 08/13/20 @ 10:04 by Nat Askew FELT MACHINE MECHANIC, FELT MACHINE MECHANIC-C) History of hypertension (Chronic) Z86.79 History of breast cancer (Chronic) Z85.3 History of colon cancer (Chronic) Z85.038 History of COPD (Chronic) Z87.09 History of end stage renal disease (Inactive) Z87.448 Respiratory failure with hypoxia and hypercapnia (Acute) J96.91, J96.92 Right lower lobe pulmonary infiltrate (Resolved) R91.8 COPD with exacerbation (Acute) J44.1 Acute bronchospasm (Acute) J98.01 Severe sepsis (Resolved) A41.9, R65.20 Iron deficiency anemia (Chronic) D50.9 Shortness of breath (Acute) R06.02 acute on chronic CHF (congestive heart failure) (Chronic) I50.9 Debility (Acute) R53.81 Acute on chronic diastolic congestive heart failure (Acute) I50.33 Aortic stenosis, severe (Chronic) I35.0 Atrial fibrillation (Chronic) I48.91 Hypertension (Chronic) I10 Hyperlipidemia (Chronic) E78.5 Vitamin D deficiency (Chronic) E55.9 Depression (Chronic) F32.9 Allergies No Known Allergies Allergy (Verified 08/13/20 09:44) Home Medications: Ambulatory Orders Medication Instructions Recorded Diltiazem HCl [Cartia Xt] 300 mg PO DAILY 03/17/17 Oxygen, Home [Home Oxygen] 4 - 6 lpm NASAL DAILY 03/17/17 Pravastatin [Pravachol] 20 mg PO DAILY 03/17/17 Sertraline HCl [Zoloft] 50 mg PO DAILY 03/17/17 Cholecalciferol (Vitamin D3) 1 tab PO DAILY 06/05/20 [Vitamin D3] Aspirin [Aspirin, Baby] 81 mg PO DAILY@0800 06/12/20 Acetaminophen [Tylenol Tablet] 650 mg PO Q6H PRN PRN tab 07/20/20 Albuterol Aerosols [Ventolin 2.5 mg INHALATION Q2H PRN PRN 07/20/20 Aerosols] vial.neb. Apixaban [Eliquis] 2.5 mg PO BID 07/20/20 Ferrous Sulfate 325 mg PO QODAY@1200 07/20/20 Furosemide [Lasix] 40 mg PO DAILY 07/20/20 Guaifenesin [Robitussin] 20 ml PO Q4H PRN PRN udc 07/20/20 Ipratropium/Albuterol Sulfate 3 ml INHALATION Q4H.RT 07/20/20 [Duoneb] Mag Hydrox/Al Hydrox/Simeth 30 ml PO Q6H PRN PRN udc 07/20/20 [Mylanta II] Melatonin 3 mg PO QHS PRN PRN tab 07/20/20 Surgical History: Surgical History (Last Reviewed 08/13/20 @ 10:04 by Nat Askew FELT MACHINE MECHANIC, FELT MACHINE MECHANIC-C) H/O mastectomy (Resolved) Z90.10 Surgical History: colectomy, mastectomy Psychiatric History: Anxiety, Depression NEONATAL DOCTOR History: No pertinent NEONATAL DOCTOR history Lives: Alone Smoking Status: Former smoker Tobacco Use: Cigarettes Alcohol: None Drugs: None - *Family History Maternal Family History: Family History (Last Reviewed 08/13/20 @ 10:04 by Nat Askew NP, FELT MACHINE MECHANIC-C) Sister Alzheimer disease Mother Colon cancer Father CAD (coronary artery disease) History Items: Cancer - colon Paternal Family History: Family History (Last Reviewed 08/13/20 @ 10:04 by Nat Askew NP, FELT MACHINE MECHANIC-C) Sister Alzheimer disease Mother Colon cancer Father CAD (coronary artery disease) History Items: Unknown Capacity - Capacity Assessment Tool Can the patient make a choice & communicate that choice?: Yes Can the patient understand benefits, risks and alternatives?: Yes Can the patient make a logical, rational choice?: Yes Is the choice the patient makes consistent w/ their values?: Yes Is there an impending, emergent risk to the patient?: No Does the patient have an Advance Directive?: Yes Is there a Surrogate Available?: Yes i.e. HCPOA: Yes i.e. close relative (spouse, child, parent, sibling)?: Yes Review of Systems Constitutional: Denies: Chills, Fever, Weight Change HEENT: Denies: Head Aches, Sinus Congestion, Sinus Drainage Cardiovascular: Denies: Chest Pain, Palpitations Respiratory: Denies: Cough, Shortness of breath at rest, Sputum production Gastrointestinal: Denies: Abdominal Pain, Nausea, Vomiting Genitourinary: Denies: Dysuria Musculoskeletal: Denies: Joint Pain, Joint Tenderness Skin: Denies: Rash, Wounds Neurological: Denies: Numbness, Tingling, Focal weakness Psychiatric: Denies: Anxiety, Depression, Homicidal Ideations, Suicidal Ideations Hematologic/ Lymphatic: Denies: Easy Bruising, Easy Bleeding Patient Problems: Active and Suspected Problems (Last Reviewed 08/13/20 @ 10:04 by Nat Askew FELT MACHINE MECHANIC, FELT MACHINE MECHANIC-C) COPD with exacerbation (Acute) Shortness of breath (Acute) acute on chronic Debility (Acute) Acute on chronic diastolic congestive heart failure (Acute) - Physical Exam Vitals/I&O's: Vital Signs Temp Pulse Resp BP Pulse Ox 98.1 F 66 20 H 126/53 H 93 08/13/20 14:10 08/13/20 15:25 08/13/20 15:25 08/13/20 14:10 08/13/20 14:10 Oxygen Flow Rate (L/min) 2 Oxygen Delivery Method Nasal Cannula Weight: 79.061 kg Body Mass Index (BMI) 30.7 Intake and Output for Last 24 Hours 08/11/20 08/12/20 08/13/20 22:59 23:59 23:59 Intake Total 720 / 720 Output Total 1100 / 1100 Balance -380 / -380 General: Alert, Oriented x3, Cooperative HEENT: Atraumatic, PERRLA, EOMI, Normocephalic Neck: Supple, No JVD, Negative Carotid Bruits Lungs: Clear to auscultation, Normal air movement Cardiovascular: Regular rate, No murmurs Abdomen: Bowel Sounds Present, Soft, Non Tender Extremities: No edema, Capillary Refill Less than 3 Seconds, Edema - 1+ pitting edema bilateral lower extremities. Skin: No rashes, No breakdown Musculoskeletal: No Tenderness to Palpation of Joints or Extremities Neurological: Cranial nerves II-XII grossly intact Psych/Mental Status: Normal Affect, Appropriate Laboratory Results 08/11/20 06:38: Diff Path Review Reviewed Current Medications Acetaminophen (Acetaminophen 500 Mg Tablet) 1,000 mg PO Q6H PRN PRN PRN Reason: Pain Score 1-10 Last Admin: 08/08/20 06:08 Dose: 1,000 mg Documented by: Al Hydroxide/Mg Hydroxide (Mag Hydrox/Al Hydrox/Simeth 30 Ml Udc) 30 ml PO Q6H PRN PRN PRN Reason: Gastric Burning Albuterol Sulfate (Albuterol 2.5 Mg/3 Ml Vial.Neb.) 2.5 mg INHALATION Q2H PRN PRN PRN Reason: SOB/Wheezing Albuterol/Ipratropium (Ipratropium/Albuterol Sulfate 3 Ml Ampul.Neb) 3 ml INHALATION Q4HWA.RT SHANE Last Admin: 08/13/20 15:25 Dose: 3 ml Documented by: Apixaban (Apixaban 2.5 Mg Tablet) 2.5 mg PO BID [facility] Last Admin: 08/13/20 16:56 Dose: 2.5 mg Documented by: Bisacodyl (Bisacodyl 5 Mg Tablet) 10 mg PO DAILY PRN PRN Reason: Constipation Calamine/Phenol (Menthol/Lanolin/Calamine/Znox 113 Gm Tube) 1 applic TOPICAL BID [facility]; Protocol Last Admin: 08/13/20 17:00 Dose: 1 applicatio Documented by: Cholecalciferol (Cholecalciferol (Vit D3) 1,000 Unit (25mcg)) 2,000 unit PO DAILY [facility] Last Admin: 08/13/20 06:36 Dose: 2,000 unit Documented by: Diltiazem HCl (Diltiazem Cd 300 Mg Capsule) 300 mg PO DAILY [facility] Last Admin: 08/13/20 06:36 Dose: 300 mg Documented by: Ferrous Sulfate (Ferrous Sulfate 325 Mg Tablet) 325 mg PO QODAY@1200 [facility] Last Admin: 08/12/20 10:59 Dose: 325 mg Documented by: Furosemide (Furosemide 40 Mg Tablet) 40 mg PO BID@1000,1800 [facility] Last Admin: 08/13/20 16:56 Dose: 40 mg Documented by: Guaifenesin (Guaifenesin 1,200 Mg Tablet) 1,200 mg PO BID [facility] Last Admin: 08/13/20 16:56 Dose: 1,200 mg Documented by: Magnesium Hydroxide (Magnesium Hydroxide 30 Ml Udc) 30 ml PO DAILY PRN PRN Reason: Constipation Melatonin (Melatonin 3 Mg Tablet) 3 mg PO QHS PRN PRN PRN Reason: INSOMNIA Last Admin: 08/10/20 00:56 Dose: 3 mg Documented by: Nystatin (Nystatin Powder 15gm Bottle) 1 applic TOPICAL BID [facility]; Protocol Last Admin: 08/13/20 16:59 Dose: 1 applicatio Documented by: Polyethylene Glycol (Polyethylene Glycol 3350 17 Gm Packet) 17 gm PO DAILY [facility] Last Admin: 08/13/20 06:36 Dose: Not Given Documented by: Pravastatin Sodium (Pravastatin 20 Mg Tablet) 20 mg PO DAILY@2200 [facility] Last Admin: 08/12/20 21:17 Dose: 20 mg Documented by: Senna/Docusate Sodium (Senna/Docusate Sodium 1 Tablet) 1 tablet PO BID [facility] Last Admin: 08/13/20 17:00 Dose: Not Given Documented by: Sertraline HCl (Sertraline 50 Mg Tablet) 50 mg PO DAILY [facility] Last Admin: 08/13/20 06:36 Dose: 50 mg Documented by: Assessment/Plan All Active Problems (Last Reviewed 08/13/20 @ 10:04 by Nat Askew FELT MACHINE MECHANIC, FELT MACHINE MECHANIC-C) H/O mastectomy (Resolved) Respiratory failure with hypoxia and hypercapnia (Acute) Right lower lobe pulmonary infiltrate (Resolved) COPD with exacerbation (Acute) Acute bronchospasm (Acute) Severe sepsis (Resolved) Shortness of breath (Acute) Debility (Acute) Acute on chronic diastolic congestive heart failure (Acute) 80 year old female with below past medical history hospitalized for acute respiratory failure with hypoxia, secondary to COPD exacerbation, acute on chronic diastolic heart failure, complicated by iron deficiency anemia, atrial fibrillation with rapid ventricular response, admitted to TCU with debility, here for rehabilitation, strengthening, prior to discharge home with family. Debility - PT/OT. Pain - Tylenol 1000MG Q6H PRN pain (1-10). Bowel - Miralax 17GM daily, Senna/colace 1 tablet BID, MOM 30ML daily PRN, Dulcolax 10MG PO daily PRN. Adult immunization - Administer Prevnar 13, Pneumovax 23, Fluzone, COVID19 vaccine as appropriate. DVT prophylaxis - Not necessary, on Eliquis. COPD - Duoneb 3ML Q4H RT, Albuterol 2.5MG Q2H PRN. Atrial fibrillation - Diltiazem 300MG daily, Eliquis 2.5MG BID. Vitamin D deficiency - D3 2000IU daily. Iron deficiency anemia - Iron 325MG every other day, CBC with diff tomorrow. Chronic diastolic congestive heart failure - Lasix 40MG twice daily. Cough - Mucinex 1200MG BID. Indigestion - Mylanta II 30ML Q6H PRN. Insomnia - Melatonin 3MG QHS PRN. Hyperlipidemia - Pravastatin 20MG QHS. 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 Skin irritation - Calmoseptine topical BID. Tinea corporis - Nystatin powder topical BID. Hypokalemia - K 3.4 08/11/2020, check BMP tomorrow.
[2020-08-13] MEDS: Pravastatin 20 MG Tablet PO (20:42)
[2020-08-14] VITALS (9 sets, daily range): BP systolic 107–110; BP diastolic 57–58; PULSE 59–80; RESP 12–22; TEMP 36–36.1; O2SAT 90–94
[2020-08-14 05:48] LABS: Absolute Lymphocyte Count 0.51 X10^3/uL (0.83-4.51); Absolute Neutrophil Count 3.3 X10^3/uL (2.0-7.7); Basophil# 0.01 X10^3/uL; Basophil% 0.2 % (0-1); Eosinophil# 0.15 X10^3/uL; Eosinophils% 3.4 % (0-5); Hematocrit 29.2 % (37-47); Hemoglobin 8.3 g/dL (12.0-15.0); Lymphocyte # 0.51 X10^3/ul (4.0); Lymphocyte % 11.6 % (19-41); Mean Corp Hgb Conc 28.4 g/dL (32-36); Mean Corpuscular Hgb 27.8 pg (27.0-32.0); Mean Corpuscular Volume 97.7 fL (81-99); Mean Platelet Vol. 10.5 fl (6.2-12.0); Monocyte# 0.41 X10^3/uL; Monocyte% 9.3 % (0-10); NRBC Flagged by Analyzer 0 % (0-5); Neutrophil # 3.27 X10^3/uL (2.7-7.7); Neutrophil % 74.6 % (47-70); POSITIVE DIFFERENTIAL YES; POSITIVE MORPHOLOGY YES; Platelet Count 257 K/mm3 (150-450); RBC Distribution Width CV 19.3 % (11.6-14.6); RBC Distribution Width SD 68.4 fl (35.1-43.9); Red Blood Count 2.99 M/mm3 (4.2-5.4); White Blood Count 4.4 K/mm3 (4.4-11.0)
[2020-08-14 05:49] LABS: Differential Indicated SCAN CRITERIA MET
[2020-08-14 06:15] LABS: BUN 21 mg/dL (7-18); BUN/Creat Ratio 19.4 RATIO (10-20); Calcium,Total 9.2 mg/dL (8.5-10.1); Carbon Dioxide > 45.0 mmol/L (21.0-32.0); Chloride 99 mmol/L (98-107); Creatinine, Serum 1.08 mg/dL (0.55-1.02); EST Glomerular Filtration Rate 52 mL/min (>60); Est Glom Filt Rate - Afr Amer 63 mL/min (>60); Estimated Creatinine Clearance 33.79 ml/min; Glucose 103 mg/dL (74-106); Potassium 3.6 mmol/L (3.5-5.1); Sodium Level 144 mmol/L (136-145)
[2020-08-14 06:28] LABS: Differential Comment SCANNED
[2020-08-14 06:29] LABS: Anisocytosis 1+; Hypochromasia 1+; Microcytosis 1+; Schistocytes RARE
[2020-08-14] MEDS: dilTIAZem CD 300 MG Capsule PO (06:47)
[2020-08-14] MEDS: Menthol/Lanolin/Calamine/Znox 113 GM Tube 1 APPLIC TOPICAL ×2 (06:47→17:08)
[2020-08-14] MEDS: APIXABAN 2.5 MG TABLET PO ×2 (06:47→17:07)
[2020-08-14] MEDS: guaiFENesin 1,200 MG Tablet 1200 MG PO ×2 (06:48→17:07)
[2020-08-14] MEDS: Nystatin Powder 15gm Bottle 1 APPLIC TOPICAL ×2 (06:48→17:07)
[2020-08-14] MEDS: Senna/Docusate Sodium 1 Tablet PO (06:49)
[2020-08-14] MEDS: Sertraline 50 MG Tablet PO (06:50)
[2020-08-14] MEDS: Ipratropium/Albuterol Sulfate 3 ML AMPUL.NEB INHALATION ×3 (06:50→20:09)
[2020-08-14] MEDS: Furosemide 40 MG Tablet PO ×2 (09:18→17:07)
--- NOTE | 2020-08-14 10:50 | CASEMGMT ---
Addendum entered by Eve Collado 08/14/20 15:22: Spoke with [facility], [facility] respiratory and sleep lab to discuss qualifications for bipap for pt at DC. Pt requires sleep study. Sleep study scheduled for 08/24. Pt to DC from TCU 08/24 to sleep lab and DC home 08/25. Updated pt on information and pt agreeable. Plan: DC to sleep lab 08/24 Original Note: Social Work Spoke with pt about DC plans. Explained IDT recommending DC 08/25 after pt receives COVID vaccine 08/23. Pt agreeable. Inquired about hospital bed at DC - pt agreeable. Pt has had increase in O2 and is now using bipap. Referral for all DME to [facility] as pt is active with their services. Pt remains agreeable to Palliative - notified [facility] of DC date. Inquired about HHC services. Provided [facility] list of providers including quality and resource use data and consistent with the patient?s preferred geographic region, medical needs, and insurance network. [facility] prior and prefers to use again. Referral made for PT/OT/SN. No other DME needs. Family to transport. Plan: DC home 08/25 with [facility] PT/OT/SN, [facility] - O2, bipap, hospital bed. DAKOTA CardozoW
--- NOTE | 2020-08-14 11:03 | CPS ---
Changed BIPAP circuit and R.T. cleaned mask, pt was concerned since she cleans her own at home.
[2020-08-14] MEDS: Ferrous Sulfate 325 MG Tablet PO (12:06)
--- NOTE | 2020-08-14 19:45 | DCINST_ITS ---
- Discharge Diagnoses Current Active Problems: Current Active and Chronic Problems (Last Reviewed 08/13/20 @ 10:04 by Nat Askew WOODWIND INSTRUMENT REPAIRER, WOODWIND INSTRUMENT REPAIRER-C) History of breast cancer (Chronic) History of colon cancer (Chronic) COPD with exacerbation (Acute) Iron deficiency anemia (Chronic) Shortness of breath (Acute) acute on chronic Debility (Acute) Acute on chronic diastolic congestive heart failure (Acute) Aortic stenosis, severe (Chronic) Atrial fibrillation (Chronic) Hypertension (Chronic) Hyperlipidemia (Chronic) Vitamin D deficiency (Chronic) Depression (Chronic) You will use the following diet at home:: No restrictions, Regular Your food should be the consistency of: Regular Your liquids should be the consistency of: Regular/Thin Discharge Activity: Return to Normal Activity, May Shower, Use Walker Weight Bearing Status: Weight bearing as tolerated Call your doctor if you observe: Fever of 101 or Higher, Inability to urinate, Inability to have a bowel movement, Shortness of breath, Chest pain, Uncontrolled pain Allergies/Adverse Reactions: Allergies No Known Allergies Allergy (Verified 08/13/20 09:44) Medications to take at Discharge Diltiazem HCl [Cartia Xt] 300 mg PO DAILY 03/17/17 Oxygen, Home [Home Oxygen] 4 - 6 lpm NASAL DAILY 03/17/17 Pravastatin [Pravachol] 20 mg PO DAILY 03/17/17 Sertraline HCl [Zoloft] 50 mg PO DAILY 03/17/17 Cholecalciferol (Vitamin D3) [Vitamin D3] 1 tab PO DAILY 06/05/20 Apixaban [Eliquis] 2.5 mg PO BID 07/20/20 Melatonin 3 mg PO QHS PRN PRN tab 07/20/20 Acetaminophen [Tylenol] 1,000 mg PO Q6H PRN PRN tablet 08/14/20 Ferrous Sulfate 325 mg PO QODAY@1200 #30 tablet 08/14/20 Furosemide [Lasix] 40 mg PO BID@1000,1800 #60 tablet 08/14/20 Guaifenesin [Mucinex] 1,200 mg PO BID tablet 08/14/20 Ipratropium/Albuterol Sulfate [Duoneb] 3 ml INHALATION Q4H.RT #120 08/14/20 Menthol/Lanolin/Calamine/Znox [Calmoseptine Ointment] 1 applic TOPICAL BID tube 03/16/21 Nystatin Powder [Mycostatin Powder] 1 applic TOPICAL BID bottle 08/14/20 The following prescriptions were given: Ipratropium/Albuterol Sulfate [Duoneb] 3 ml INHALATION Q4H.RT #120 Ferrous Sulfate 325 mg PO QODAY@1200 #30 tablet Transmission Status: Pending to [facility] Furosemide [Lasix] 40 mg PO BID@1000,1800 #60 tablet Transmission Status: Pending to [facility] Primary Care Physician: Bryan Tolbert III, MD [Primary Care Provider] - Please follow up with your Primary Care Physician in: 1 week. Test Results: Test results from this visit will be discussed in further detail at your follow- up appointment, if applicable. Please Follow Up With: Bryan Tolbert III, MD When: when d/c from TCU Please Follow Up With: [facility] Test When: 2-4 weeks Please Follow Up With: Pulmonary Fuction Test Please Follow Up With: Dr Becerra When: 6 weeks. Please Follow Up With: Nat Askew CNP When: 6 weeks Proposed Discharge Date: 08/24/20
[2020-08-14] MEDS: Pravastatin 20 MG Tablet PO (19:46)
--- NOTE | 2020-08-14 19:47 | PCM.DC.SUM ---
Discharge Date and Diagnosis - Problem List Patient Problems: Active and Suspected Problems (Last Reviewed 08/13/20 @ 10:04 by Nat Askew CAR WASH MANAGER, CAR WASH MANAGER-C) COPD with exacerbation (Acute) Shortness of breath (Acute) acute on chronic Debility (Acute) Acute on chronic diastolic congestive heart failure (Acute) Date of Admission: 07/20/20 Date of Discharge: 08/24/20 - Primary Discharge Diagnosis Acute Problems: Active Problems (Last Reviewed 08/13/20 @ 10:04 by Nat Askew CAR WASH MANAGER, CAR WASH MANAGER-C) COPD with exacerbation (Acute) Shortness of breath (Acute) acute on chronic Debility (Acute) Acute on chronic diastolic congestive heart failure (Acute) - Secondary Discharge Diagnosis Chronic Problems: Chronic Problems (Last Reviewed 08/13/20 @ 10:04 by Nat Askew CAR WASH MANAGER, CAR WASH MANAGER-C) History of hypertension (Chronic) History of breast cancer (Chronic) History of colon cancer (Chronic) History of COPD (Chronic) Iron deficiency anemia (Chronic) CHF (congestive heart failure) (Chronic) Aortic stenosis, severe (Chronic) Atrial fibrillation (Chronic) Hypertension (Chronic) Hyperlipidemia (Chronic) Vitamin D deficiency (Chronic) Depression (Chronic) Hospital Course and Treatment Imaging Results: 07/20/20 16:57 Diet: Cardiac - Heart Healthy Food consistency:: Regular Liquid Consistency:: Regular/Thin Dietary Modifications:: Sodium Restricted Fluid restriction:: 1500 mL Labs (Last 48 Hours) 08/11/20 08/14/20 08/14/20 06:38 05:20 05:20 WBC 4.4 RBC 2.99 L Hgb 8.3 L Hct 29.2 L MCV 97.7 MCH 27.8 MCHC 28.4 L RDW Std Deviation 68.4 H RDW Coeff of Ismael 19.3 H Plt Count 257 MPV 10.5 Immature Gran % (Auto) 0.900 Neut % (Auto) 74.6 H Lymph % (Auto) 11.6 L [place] % (Auto) 9.3 Eos % (Auto) 3.4 Baso % (Auto) 0.2 Absolute Neuts (auto) 3.3 Absolute Lymphs (auto) 0.51 L Nucleated RBC % 0 Differential Comment SCANNED Diff Path Review Reviewed Hypochromasia 1+ Anisocytosis 1+ Microcytosis 1+ Schistocytes RARE Sodium 144 Potassium 3.6 Chloride 99 Carbon Dioxide > 45.0 H* Anion Gap TNP BUN 21 H Creatinine 1.08 H Estim Creat Clear Calc 33.79 Est GFR (MDRD) Af Amer 63 Est GFR (MDRD) Non-Af 52 L BUN/Creatinine Ratio 19.4 Glucose 103 Calcium 9.2 Operations: None Procedures: None Summary of Care Provided: The patient is a 80 year old Female with below past medical history hospitalized for acute respiratory failure with hypoxia, secondary to COPD exacerbation, acute on chronic diastolic heart failure, complicated by iron deficiency anemia, atrial fibrillation with rapid ventricular response, admitted to TCU with debility, here for rehabilitation, strengthening, prior to discharge home with family. On TCU, Furosemide was increased to 40MG twice daily, monitor closely as she may become dehydrated. Discharge to sleep lab 08/24/2020. Discharge home with daughter 08/25/2020, [facility] PT/OT/SN, [place] Durable Medical Equipment - O2, BiPAP, Hospital Bed. Patient Problems: Active and Suspected Problems (Last Reviewed 08/13/20 @ 10:04 by Nat Askew CAR WASH MANAGER, CAR WASH MANAGER-C) COPD with exacerbation (Acute) Shortness of breath (Acute) acute on chronic Debility (Acute) Acute on chronic diastolic congestive heart failure (Acute) - Physical Exam Vitals/I&O's: Vital Signs Temp Pulse Resp BP Pulse Ox 96.8 F L 74 21 H 110/58 L 92 08/14/20 13:50 08/14/20 15:40 08/14/20 15:40 08/14/20 13:50 08/14/20 13:50 Oxygen Flow Rate (L/min) 3 Oxygen Delivery Method Nasal Cannula Weight: 79.107 kg Body Mass Index (BMI) 30.7 Intake and Output for Last 24 Hours 08/12/20 08/13/20 08/14/20 23:59 23:59 23:59 Intake Total 720 / 720 1360 / 1360 Output Total 1100 / 1100 500 / 500 Balance -380 / -380 860 / 860 Laboratory Results 08/14/20 05:20: WBC 4.4, RBC 2.99 L, Hgb 8.3 L, Hct 29.2 L, MCV 97.7, MCH 27.8, MCHC 28.4 L, RDW Std Deviation 68.4 H, RDW Coeff of Ismael 19.3 H, Plt Count 257, MPV 10.5, Immature Gran % (Auto) 0.900, Neut % (Auto) 74.6 H, Lymph % (Auto) 11.6 L, [place] % (Auto) 9.3, Eos % (Auto) 3.4, Baso % (Auto) 0.2, Absolute Neuts (auto) 3.3, Absolute Lymphs (auto) 0.51 L, Nucleated RBC % 0, Differential Comment SCANNED, Hypochromasia 1+, Anisocytosis 1+, Microcytosis 1+, Schistocytes RARE 08/14/20 05:20: Sodium 144, Potassium 3.6, Chloride 99, Carbon Dioxide > 45.0 H*, Anion Gap TNP, BUN 21 H, Creatinine 1.08 H, Estim Creat Clear Calc 33.79, Est GFR (MDRD) Af Amer 63, Est GFR (MDRD) Non-Af 52 L, BUN/Creatinine Ratio 19.4, Glucose 103, Calcium 9.2 Current Medications Acetaminophen (Acetaminophen 500 Mg Tablet) 1,000 mg PO Q6H PRN PRN PRN Reason: Pain Score 1-10 Last Admin: 08/08/20 06:08 Dose: 1,000 mg Documented by: Al Hydroxide/Mg Hydroxide (Mag Hydrox/Al Hydrox/Simeth 30 Ml Udc) 30 ml PO Q6H PRN PRN PRN Reason: Gastric Burning Albuterol Sulfate (Albuterol 2.5 Mg/3 Ml Vial.Neb.) 2.5 mg INHALATION Q2H PRN PRN PRN Reason: SOB/Wheezing Albuterol/Ipratropium (Ipratropium/Albuterol Sulfate 3 Ml Ampul.Neb) 3 ml INHALATION Q4HWA.RT SHANE Last Admin: 08/14/20 11:03 Dose: 3 ml Documented by: Apixaban (Apixaban 2.5 Mg Tablet) 2.5 mg PO BID [facility] Last Admin: 08/14/20 17:07 Dose: 2.5 mg Documented by: Bisacodyl (Bisacodyl 5 Mg Tablet) 10 mg PO DAILY PRN PRN Reason: Constipation Calamine/Phenol (Menthol/Lanolin/Calamine/Znox 113 Gm Tube) 1 applic TOPICAL BID [facility]; Protocol Last Admin: 08/14/20 17:08 Dose: 1 applicatio Documented by: Cholecalciferol (Cholecalciferol (Vit D3) 1,000 Unit (25mcg)) 2,000 unit PO DAILY [facility] Last Admin: 08/14/20 06:50 Dose: 2,000 unit Documented by: Diltiazem HCl (Diltiazem Cd 300 Mg Capsule) 300 mg PO DAILY [facility] Last Admin: 08/14/20 06:47 Dose: 300 mg Documented by: Ferrous Sulfate (Ferrous Sulfate 325 Mg Tablet) 325 mg PO QODAY@1200 [facility] Last Admin: 08/14/20 12:06 Dose: 325 mg Documented by: Furosemide (Furosemide 40 Mg Tablet) 40 mg PO BID@1000,1800 [facility] Last Admin: 08/14/20 17:07 Dose: 40 mg Documented by: Guaifenesin (Guaifenesin 1,200 Mg Tablet) 1,200 mg PO BID [facility] Last Admin: 08/14/20 17:07 Dose: 1,200 mg Documented by: Magnesium Hydroxide (Magnesium Hydroxide 30 Ml Udc) 30 ml PO DAILY PRN PRN Reason: Constipation Melatonin (Melatonin 3 Mg Tablet) 3 mg PO QHS PRN PRN PRN Reason: INSOMNIA Last Admin: 08/10/20 00:56 Dose: 3 mg Documented by: Nystatin (Nystatin Powder 15gm Bottle) 1 applic TOPICAL BID [facility]; Protocol Last Admin: 08/14/20 17:07 Dose: 1 applicatio Documented by: Polyethylene Glycol (Polyethylene Glycol 3350 17 Gm Packet) 17 gm PO DAILY [facility] Last Admin: 08/14/20 06:50 Dose: Not Given Documented by: Pravastatin Sodium (Pravastatin 20 Mg Tablet) 20 mg PO DAILY@2200 [facility] Last Admin: 08/14/20 19:46 Dose: 20 mg Documented by: Senna/Docusate Sodium (Senna/Docusate Sodium 1 Tablet) 1 tablet PO BID [facility] Last Admin: 08/14/20 17:04 Dose: Not Given Documented by: Sertraline HCl (Sertraline 50 Mg Tablet) 50 mg PO DAILY [facility] Last Admin: 08/14/20 06:50 Dose: 50 mg Documented by: Discharge Diet: No Restrictions Discharge Activity: Return to Normal Activity, May Shower, Use Walker Weight Bearing Status: Weight bearing as tolerated Call your doctor if you observe: Fever of 101 or Higher, Inability to urinate, Inability to have a bowel movement, Shortness of breath, Chest pain, Uncontrolled pain Home Medications: Medications to take at Discharge Diltiazem HCl [Cartia Xt] 300 mg PO DAILY 03/17/17 Oxygen, Home [Home Oxygen] 4 - 6 lpm NASAL DAILY 03/17/17 Pravastatin [Pravachol] 20 mg PO DAILY 03/17/17 Sertraline HCl [Zoloft] 50 mg PO DAILY 03/17/17 Cholecalciferol (Vitamin D3) [Vitamin D3] 1 tab PO DAILY 06/05/20 Apixaban [Eliquis] 2.5 mg PO BID 07/20/20 Melatonin 3 mg PO QHS PRN PRN tab 07/20/20 Acetaminophen [Tylenol] 1,000 mg PO Q6H PRN PRN tablet 08/14/20 Ferrous Sulfate 325 mg PO QODAY@1200 #30 tablet 08/14/20 Furosemide [Lasix] 40 mg PO BID@1000,1800 #60 tablet 08/14/20 Guaifenesin [Mucinex] 1,200 mg PO BID tablet 08/14/20 Ipratropium/Albuterol Sulfate [Duoneb] 3 ml INHALATION Q4H.RT #120 08/14/20 Menthol/Lanolin/Calamine/Znox [Calmoseptine Ointment] 1 applic TOPICAL BID tube 08/14/20 Nystatin Powder [Mycostatin Powder] 1 applic TOPICAL BID bottle 08/14/20 Following Prescriptions Were Given to Patient: Ipratropium/Albuterol Sulfate [Duoneb] 3 ml INHALATION Q4H.RT #120 Ferrous Sulfate 325 mg PO QODAY@1200 #30 tablet Transmission Status: Pending to [id number] Furosemide [Lasix] 40 mg PO BID@1000,1800 #60 tablet Transmission Status: Pending to [facility] Primary Care Physician: Bryan Tolbert III, MD [Primary Care Provider] - Please follow up with your Primary Care Physician in: 1 week. Please Follow Up With: Bryan Tolbert III, MD When: when d/c from TCU Please Follow Up With: Pulmonary Fuction Test When: 2-4 weeks Please Follow Up With: Pulmonary Fuction Test Please Follow Up With: Dr Becerra When: 6 weeks. Please Follow Up With: Nat Askew CNP When: 6 weeks Disposition: Home with Home Health Minutes spent on discharge:: 35 Patient Condition:: Stable Medical Necessity - Tobacco Use Smoking Status: Former smoker Tobacco Use: Cigarettes Meaningful Use Info Meaningful Use Diagnoses (Choose all that apply): None applicable
--- NOTE | 2020-08-14 23:34 | CPS ---
Overnight POX performed on 3L O2 per physician request
[2020-08-15] VITALS (7 sets, daily range): BP systolic 132–140; BP diastolic 65–67; PULSE 57–68; RESP 12–24; TEMP 36.1–36.3; O2SAT 90–96
[2020-08-15] MEDS: Sertraline 50 MG Tablet PO (05:31)
[2020-08-15] MEDS: dilTIAZem CD 300 MG Capsule PO (05:31)
[2020-08-15] MEDS: guaiFENesin 1,200 MG Tablet 1200 MG PO ×2 (05:31→17:32)
[2020-08-15] MEDS: APIXABAN 2.5 MG TABLET PO ×2 (05:31→17:32)
[2020-08-15] MEDS: Nystatin Powder 15gm Bottle 1 APPLIC TOPICAL ×2 (05:32→17:32)
[2020-08-15] MEDS: Menthol/Lanolin/Calamine/Znox 113 GM Tube 1 APPLIC TOPICAL ×2 (05:32→17:33)
[2020-08-15] MEDS: Acetaminophen 500 MG Tablet 1000 MG PO (05:35)
[2020-08-15] MEDS: Ipratropium/Albuterol Sulfate 3 ML AMPUL.NEB INHALATION ×4 (07:01→19:45)
[2020-08-15] MEDS: Furosemide 40 MG Tablet PO ×2 (11:33→17:32)
[2020-08-15] MEDS: Pravastatin 20 MG Tablet PO (19:34)
[2020-08-15] MEDS: MELATONIN 3 MG TABLET PO (21:56)
[2020-08-16] VITALS (10 sets, daily range): BP systolic 118–128; BP diastolic 54–60; PULSE 54–67; RESP 12–22; TEMP 36.3–36.6; O2SAT 90–96
[2020-08-16] MEDS: dilTIAZem CD 300 MG Capsule PO (05:32)
[2020-08-16] MEDS: Senna/Docusate Sodium 1 Tablet PO ×2 (05:32→17:54)
[2020-08-16] MEDS: guaiFENesin 1,200 MG Tablet 1200 MG PO ×2 (05:32→17:54)
[2020-08-16] MEDS: Sertraline 50 MG Tablet PO (05:32)
[2020-08-16] MEDS: APIXABAN 2.5 MG TABLET PO ×2 (05:32→17:53)
[2020-08-16] MEDS: Menthol/Lanolin/Calamine/Znox 113 GM Tube 1 APPLIC TOPICAL ×2 (05:33→17:53)
[2020-08-16] MEDS: Nystatin Powder 15gm Bottle 1 APPLIC TOPICAL ×2 (05:34→17:56)
[2020-08-16] MEDS: Ipratropium/Albuterol Sulfate 3 ML AMPUL.NEB INHALATION ×4 (07:02→19:30)
[2020-08-16] MEDS: Furosemide 40 MG Tablet PO ×2 (09:43→17:53)
[2020-08-16] MEDS: Ferrous Sulfate 325 MG Tablet PO (13:11)
[2020-08-16] MEDS: Pravastatin 20 MG Tablet PO (20:05)
[2020-08-16] MEDS: MELATONIN 3 MG TABLET PO (22:15)
[2020-08-17] VITALS (8 sets, daily range): BP systolic 112–113; BP diastolic 63–68; PULSE 55–71; RESP 12–34; TEMP 35.7–36.6; O2SAT 92–100
[2020-08-17] MEDS: guaiFENesin 1,200 MG Tablet 1200 MG PO ×2 (05:52→16:51)
[2020-08-17] MEDS: dilTIAZem CD 300 MG Capsule PO (05:52)
[2020-08-17] MEDS: Sertraline 50 MG Tablet PO (05:52)
[2020-08-17] MEDS: APIXABAN 2.5 MG TABLET PO ×2 (05:52→16:51)
[2020-08-17] MEDS: Nystatin Powder 15gm Bottle 1 APPLIC TOPICAL ×2 (05:54→20:15)
[2020-08-17] MEDS: Menthol/Lanolin/Calamine/Znox 113 GM Tube 1 APPLIC TOPICAL ×2 (05:54→16:51)
--- NOTE | 2020-08-17 08:50 | NURSING ---
Addendum entered by Zari Gipson 08/17/20 16:23: office returned call & want pt to take budesonide 0.5mg BID while here on TCU but start Revefenacin 175mcg/3 ml nebulizer BID along with Budesonide 1m/2.5ml Nebulizer BID at home on Discharge. Dr young aware and send script to pharmacy of pt choice. Original Note: Pulmonary returned call regarding aerosal treatment orders, staff still trying to verify orders from Nat Askew CNP. awaiting another return call.
[2020-08-17] MEDS: Furosemide 40 MG Tablet PO ×2 (10:19→16:51)
[2020-08-17] MEDS: Ipratropium/Albuterol Sulfate 3 ML AMPUL.NEB INHALATION ×3 (10:30→19:07)
[2020-08-17] MEDS: Senna/Docusate Sodium 1 Tablet PO (16:51)
[2020-08-17] MEDS: Acetaminophen 500 MG Tablet 1000 MG PO (20:13)
[2020-08-17] MEDS: Pravastatin 20 MG Tablet PO (20:14)
[2020-08-18] VITALS (9 sets, daily range): BP systolic 105–107; BP diastolic 55–58; PULSE 61–71; RESP 12–25; TEMP 35.8–36.4; O2SAT 88–95
[2020-08-18] MEDS: Sertraline 50 MG Tablet PO (05:27)
[2020-08-18] MEDS: dilTIAZem CD 300 MG Capsule PO (05:27)
[2020-08-18] MEDS: APIXABAN 2.5 MG TABLET PO ×2 (05:27→18:02)
[2020-08-18] MEDS: Ferrous Sulfate 325 MG Tablet PO (05:28)
[2020-08-18] MEDS: Nystatin Powder 15gm Bottle 1 APPLIC TOPICAL ×2 (05:29→20:56)
[2020-08-18] MEDS: Senna/Docusate Sodium 1 Tablet PO (05:29)
[2020-08-18] MEDS: guaiFENesin 1,200 MG Tablet 1200 MG PO ×2 (05:30→18:02)
[2020-08-18] MEDS: Menthol/Lanolin/Calamine/Znox 113 GM Tube 1 APPLIC TOPICAL ×2 (05:34→18:02)
[2020-08-18 07:34] LABS: Absolute Lymphocyte Count 0.51 X10^3/uL (0.83-4.51); Absolute Neutrophil Count 3.6 X10^3/uL (2.0-7.7); Basophil# 0.01 X10^3/uL; Basophil% 0.2 % (0-1); Eosinophil# 0.11 X10^3/uL; Eosinophils% 2.3 % (0-5); Hematocrit 30.9 % (37-47); Hemoglobin 8.6 g/dL (12.0-15.0); Lymphocyte # 0.51 X10^3/ul (4.0); Lymphocyte % 10.7 % (19-41); Mean Corp Hgb Conc 27.8 g/dL (32-36); Mean Corpuscular Volume 96.9 fL (81-99); Mean Platelet Vol. 10.1 fl (6.2-12.0); Monocyte# 0.55 X10^3/uL; Monocyte% 11.5 % (0-10); NRBC Flagged by Analyzer 0 % (0-5); Neutrophil # 3.55 X10^3/uL (2.7-7.7); Neutrophil % 74.5 % (47-70); POSITIVE DIFFERENTIAL YES; POSITIVE MORPHOLOGY YES; Platelet Count 422 K/mm3 (150-450); RBC Distribution Width CV 18.7 % (11.6-14.6); RBC Distribution Width SD 66.7 fl (35.1-43.9); Red Blood Count 3.19 M/mm3 (4.2-5.4); White Blood Count 4.8 K/mm3 (4.4-11.0)
[2020-08-18] MEDS: Ipratropium/Albuterol Sulfate 3 ML AMPUL.NEB INHALATION ×3 (07:38→20:00)
[2020-08-18] MEDS: Budesonide Respules 0.5 MG/2 ML AMPUL.NEB. INHALATION (07:38)
[2020-08-18 07:40] LABS: Differential Indicated SCAN CRITERIA MET
[2020-08-18 08:00] LABS: Anion Gap 2 (5-15); BUN 23 mg/dL (7-18); BUN/Creat Ratio 24.1 RATIO (10-20); Calcium,Total 9.1 mg/dL (8.5-10.1); Chloride 95 mmol/L (98-107); Creatinine, Serum 0.95 mg/dL (0.55-1.02); EST Glomerular Filtration Rate 60 mL/min (>60); Est Glom Filt Rate - Afr Amer 72 mL/min (>60); Estimated Creatinine Clearance 38.42 ml/min; Glucose 98 mg/dL (74-106); Potassium 3.2 mmol/L (3.5-5.1); Sodium Level 142 mmol/L (136-145)
[2020-08-18 08:11] LABS: Anisocytosis 1+; Hypochromasia 1+
[2020-08-18] MEDS: Furosemide 40 MG Tablet PO ×2 (10:53→18:02)
[2020-08-18] MEDS: Potassium Chloride Oral Tablet 20 MEQ 40 MEQ PO (13:57)
[2020-08-18] MEDS: Acetaminophen 500 MG Tablet 1000 MG PO (20:49)
[2020-08-18] MEDS: Pravastatin 20 MG Tablet PO (20:52)
[2020-08-19] VITALS (9 sets, daily range): BP systolic 125–154; BP diastolic 64–70; PULSE 60–71; RESP 12–22; TEMP 36.2–36.7; O2SAT 92–98
[2020-08-19] MEDS: Sertraline 50 MG Tablet PO (06:45)
[2020-08-19] MEDS: dilTIAZem CD 300 MG Capsule PO (06:45)
[2020-08-19] MEDS: Senna/Docusate Sodium 1 Tablet PO ×2 (06:45→19:11)
[2020-08-19] MEDS: guaiFENesin 1,200 MG Tablet 1200 MG PO ×2 (06:45→19:09)
[2020-08-19] MEDS: APIXABAN 2.5 MG TABLET PO ×2 (06:46→19:09)
[2020-08-19] MEDS: Menthol/Lanolin/Calamine/Znox 113 GM Tube 1 APPLIC TOPICAL ×2 (06:49→19:07)
[2020-08-19] MEDS: Nystatin Powder 15gm Bottle 1 APPLIC TOPICAL ×2 (06:49→20:07)
[2020-08-19] MEDS: Budesonide Respules 0.5 MG/2 ML AMPUL.NEB. INHALATION ×2 (07:20→18:53)
[2020-08-19] MEDS: Ipratropium/Albuterol Sulfate 3 ML AMPUL.NEB INHALATION ×4 (07:20→18:53)
[2020-08-19] MEDS: Furosemide 40 MG Tablet PO ×2 (10:27→19:09)
[2020-08-19] MEDS: Potassium Chloride Oral Tablet 20 MEQ PO (10:27)
[2020-08-19] MEDS: Pravastatin 20 MG Tablet PO (20:07)
[2020-08-20] VITALS (9 sets, daily range): BP systolic 110–116; BP diastolic 52–63; PULSE 60–80; RESP 12–23; TEMP 35.8–36.9; O2SAT 91–97
[2020-08-20] MEDS: APIXABAN 2.5 MG TABLET PO ×2 (05:42→17:49)
[2020-08-20] MEDS: guaiFENesin 1,200 MG Tablet 1200 MG PO ×2 (05:42→17:49)
[2020-08-20] MEDS: dilTIAZem CD 300 MG Capsule PO (05:42)
[2020-08-20] MEDS: Sertraline 50 MG Tablet PO (05:42)
[2020-08-20] MEDS: Nystatin Powder 15gm Bottle 1 APPLIC TOPICAL ×2 (05:43→20:39)
[2020-08-20] MEDS: Menthol/Lanolin/Calamine/Znox 113 GM Tube 1 APPLIC TOPICAL ×2 (05:43→17:49)
[2020-08-20] MEDS: Senna/Docusate Sodium 1 Tablet PO ×2 (05:44→17:49)
[2020-08-20 06:03] LABS: Anion Gap 4 (5-15); BUN 12 mg/dL (7-18); BUN/Creat Ratio 12.7 RATIO (10-20); Chloride 103 mmol/L (98-107); Creatinine, Serum 0.95 mg/dL (0.55-1.02); EST Glomerular Filtration Rate 60 mL/min (>60); Est Glom Filt Rate - Afr Amer 73 mL/min (>60); Estimated Creatinine Clearance 38.42 ml/min; Glucose 84 mg/dL (74-106); Potassium 3.5 mmol/L (3.5-5.1); Sodium Level 141 mmol/L (136-145)
[2020-08-20] MEDS: Ipratropium/Albuterol Sulfate 3 ML AMPUL.NEB INHALATION ×3 (06:58→14:30)
[2020-08-20] MEDS: Budesonide Respules 0.5 MG/2 ML AMPUL.NEB. INHALATION (06:59)
[2020-08-20] MEDS: Potassium Chloride Oral Tablet 20 MEQ PO (08:28)
[2020-08-20] MEDS: Furosemide 40 MG Tablet PO ×2 (10:13→17:49)
[2020-08-20] MEDS: Ferrous Sulfate 325 MG Tablet PO (11:38)
[2020-08-20] MEDS: Acetaminophen 500 MG Tablet 1000 MG PO (20:38)
[2020-08-20] MEDS: Pravastatin 20 MG Tablet PO (20:38)
[2020-08-21] VITALS (7 sets, daily range): BP systolic 117–123; BP diastolic 56–70; PULSE 60–76; RESP 12–21; TEMP 36.3–36.4; O2SAT 92–93
[2020-08-21] MEDS: dilTIAZem CD 300 MG Capsule PO (05:16)
[2020-08-21] MEDS: APIXABAN 2.5 MG TABLET PO ×2 (05:16→16:54)
[2020-08-21] MEDS: Sertraline 50 MG Tablet PO (05:16)
[2020-08-21] MEDS: Nystatin Powder 15gm Bottle 1 APPLIC TOPICAL ×2 (05:16→19:33)
[2020-08-21] MEDS: guaiFENesin 1,200 MG Tablet 1200 MG PO ×2 (05:16→16:54)
[2020-08-21] MEDS: Senna/Docusate Sodium 1 Tablet PO (05:16)
[2020-08-21] MEDS: Menthol/Lanolin/Calamine/Znox 113 GM Tube 1 APPLIC TOPICAL ×2 (05:25→16:54)
[2020-08-21] MEDS: Budesonide Respules 0.5 MG/2 ML AMPUL.NEB. INHALATION ×2 (06:45→18:44)
[2020-08-21] MEDS: Ipratropium/Albuterol Sulfate 3 ML AMPUL.NEB INHALATION ×4 (06:45→18:44)
[2020-08-21] MEDS: Potassium Chloride Oral Tablet 20 MEQ PO (08:29)
[2020-08-21] MEDS: Cholecalciferol (VIT D3) 25 MCG TABLET (1,000 UNITS) 2000 MCG PO (08:31)
[2020-08-21] MEDS: Furosemide 40 MG Tablet PO ×2 (09:53→16:54)
[2020-08-21] MEDS: Pravastatin 20 MG Tablet PO (19:33)
[2020-08-21] MEDS: MELATONIN 3 MG TABLET PO (21:45)
[2020-08-22] VITALS (9 sets, daily range): BP systolic 121–123; BP diastolic 53–63; PULSE 61–71; RESP 12–25; TEMP 36.3–36.6; O2SAT 91–96
[2020-08-22] MEDS: dilTIAZem CD 300 MG Capsule PO (05:08)
[2020-08-22] MEDS: Sertraline 50 MG Tablet PO (05:08)
[2020-08-22] MEDS: guaiFENesin 1,200 MG Tablet 1200 MG PO ×2 (05:09→17:06)
[2020-08-22] MEDS: APIXABAN 2.5 MG TABLET PO ×2 (05:09→17:07)
[2020-08-22] MEDS: Menthol/Lanolin/Calamine/Znox 113 GM Tube 1 APPLIC TOPICAL ×2 (05:10→17:07)
[2020-08-22] MEDS: Nystatin Powder 15gm Bottle 1 APPLIC TOPICAL ×2 (05:11→19:35)
[2020-08-22] MEDS: Ipratropium/Albuterol Sulfate 3 ML AMPUL.NEB INHALATION ×3 (06:50→19:00)
[2020-08-22] MEDS: Potassium Chloride Oral Tablet 20 MEQ PO (08:25)
[2020-08-22] MEDS: Cholecalciferol (VIT D3) 25 MCG TABLET (1,000 UNITS) 2000 MCG PO (08:26)
[2020-08-22] MEDS: Furosemide 40 MG Tablet PO ×2 (11:05→17:07)
[2020-08-22] MEDS: Ferrous Sulfate 325 MG Tablet PO (11:05)
--- NOTE | 2020-08-22 19:34 | CPS ---
Pulmicort not given to pt. due to no Pulmicort in med room; pharmacy informed
[2020-08-22] MEDS: Pravastatin 20 MG Tablet PO (19:35)
[2020-08-23] VITALS (9 sets, daily range): BP systolic 106–114; BP diastolic 56–65; PULSE 55–74; RESP 12–23; TEMP 36.3–36.6; O2SAT 75–96
[2020-08-23] MEDS: Acetaminophen 500 MG Tablet 1000 MG PO ×2 (03:29→21:54)
[2020-08-23] MEDS: Sertraline 50 MG Tablet PO (05:08)
[2020-08-23] MEDS: APIXABAN 2.5 MG TABLET PO ×2 (05:08→17:13)
[2020-08-23] MEDS: dilTIAZem CD 300 MG Capsule PO (05:08)
[2020-08-23] MEDS: guaiFENesin 1,200 MG Tablet 1200 MG PO ×2 (05:08→17:13)
[2020-08-23] MEDS: Menthol/Lanolin/Calamine/Znox 113 GM Tube 1 APPLIC TOPICAL ×2 (05:08→17:14)
[2020-08-23] MEDS: Nystatin Powder 15gm Bottle 1 APPLIC TOPICAL ×2 (05:09→23:00)
[2020-08-23] MEDS: Budesonide Respules 0.5 MG/2 ML AMPUL.NEB. INHALATION ×2 (06:50→19:30)
[2020-08-23] MEDS: Ipratropium/Albuterol Sulfate 3 ML AMPUL.NEB INHALATION ×4 (06:50→19:30)
[2020-08-23] MEDS: Potassium Chloride Oral Tablet 20 MEQ PO (08:31)
[2020-08-23] MEDS: Cholecalciferol (VIT D3) 25 MCG TABLET (1,000 UNITS) 2000 MCG PO (08:32)
[2020-08-23] MEDS: Furosemide 40 MG Tablet PO ×2 (09:16→17:13)
--- NOTE | 2020-08-23 09:57 | NURSING ---
PT RECEIVED 2ND COVID SHOT TODAY IN THE LEFT DELT.
--- NOTE | 2020-08-23 14:12 | MDS.RN ---
Pain interview completed for chinyere 08/24/20
--- NOTE | 2020-08-23 14:46 | NURSING ---
HOME QUALIFICATION OXYGEN TEST DONE, SEE MAR FOR RESULTS. IT TAKES PT 3-5 MINS TO RECOVER IF OXYGEN IS BELOW 90%.
[2020-08-23] MEDS: Pravastatin 20 MG Tablet PO (21:54)
[2020-08-24] VITALS (9 sets, daily range): BP systolic 118–126; BP diastolic 57–66; PULSE 64–76; RESP 12–25; TEMP 36–36.5; O2SAT 91–97
[2020-08-24] MEDS: Sertraline 50 MG Tablet PO (05:27)
[2020-08-24] MEDS: dilTIAZem CD 300 MG Capsule PO (05:27)
[2020-08-24] MEDS: APIXABAN 2.5 MG TABLET PO ×2 (05:28→17:26)
[2020-08-24] MEDS: guaiFENesin 1,200 MG Tablet 1200 MG PO ×2 (05:28→17:27)
[2020-08-24] MEDS: Nystatin Powder 15gm Bottle 1 APPLIC TOPICAL (05:32)
[2020-08-24] MEDS: Menthol/Lanolin/Calamine/Znox 113 GM Tube 1 APPLIC TOPICAL ×2 (05:33→17:25)
[2020-08-24] MEDS: Ipratropium/Albuterol Sulfate 3 ML AMPUL.NEB INHALATION ×4 (06:58→19:17)
[2020-08-24] MEDS: Budesonide Respules 0.5 MG/2 ML AMPUL.NEB. INHALATION ×2 (06:58→19:17)
[2020-08-24] MEDS: Potassium Chloride Oral Tablet 20 MEQ PO (08:22)
[2020-08-24] MEDS: Cholecalciferol (VIT D3) 25 MCG TABLET (1,000 UNITS) 2000 MCG PO (08:23)
[2020-08-24] MEDS: Furosemide 40 MG Tablet PO ×2 (10:38→17:26)
[2020-08-24] MEDS: Ferrous Sulfate 325 MG Tablet PO (11:59)
[2020-08-24] MEDS: Pravastatin 20 MG Tablet PO (19:41)
== END 2020-08-24 20:00 | disposition home health service (06) | DRG 292 ==
PROVIDERS: Admitting Provider Family Medicine Geriatric Medicine; PCP Family Medicine; Referring Provider Family Medicine Geriatric Medicine; Visit Provider Family Medicine Geriatric Medicine
DX: I11.0 Hypertensive heart disease with heart failure (principal); J44.1 Chronic obstructive pulmonary disease with (acute) exacerbation; I48.20 Chronic atrial fibrillation, unspecified; I50.32 Chronic diastolic (congestive) heart failure; E78.5 Hyperlipidemia, unspecified; E55.9 Vitamin D deficiency, unspecified; F41.9 Anxiety disorder, unspecified; F32.9 Major depressive disorder, single episode, unspecified; D50.9 Iron deficiency anemia, unspecified; Z85.3 Personal history of malignant neoplasm of breast; Z85.038 Personal history of other malignant neoplasm of large intestine; Z87.891 Personal history of nicotine dependence; Z79.899 Other long term (current) drug therapy; Z79.82 Long term (current) use of aspirin; Z79.01 Long term (current) use of anticoagulants; B35.4 Tinea corporis; E87.6 Hypokalemia
CPT/HCPCS: 36415; 80048; 85014; 85018; 85025; 87635; 94002; 94003; 94618; 94640; 94660; 94762; 97110; 97116; 97162; 97166; 97530; 97535; 97802; U0005; U0003

== ENCOUNTER 2020-08-02 14:13 | Outpatient (RCR) | payer MEDICARE, OTHER, SELFPAY ==
[2020-08-02] MEDS: COVID-19 VACC, MRNA(PFIZER)/PF 30 MCG/0.3 ML SYRINGE IM (11:23)
[2020-08-23] MEDS: COVID-19 VACC, MRNA(PFIZER)/PF 30 MCG/0.3 ML SYRINGE IM (09:16)
== END 2020-11-06 23:59 ==
LOC: IMMUN 14:13
PROVIDERS: PCP Family Medicine; Visit Provider Family Medicine
DX: Z23 Encounter for immunization (principal)
CPT/HCPCS: 0001A; 0002A; 91300

== ENCOUNTER → 2020-08-16 08:38 | Outpatient (CLI) | payer MEDICARE, OTHER, SELFPAY ==
[2020-08-13 09:43] VITALS: BMI 31.1
[2020-08-16 08:15] VITALS: PULSE 66; PULSE 73; PULSE 76; PULSE 78; PULSE 83; PULSE 84; PULSE 90; O2SAT 83; O2SAT 94; O2SAT 95; O2SAT 96; O2SAT 98
--- NOTE | 2020-08-16 09:24 | CPS ---
Room air at rest pt was 85%. Walk started on 4 lpm. At 1 min pt 83%. Pt was increased to 6 lpm. At rest on 6 lpm pt only came up to 90% with no improvement in her S.O.B. Pt was increased to 15 lpm and walk restarted. Pt stopped on her own at 3min for increased work of breathing. Pt was unable to restart walk due to S.O.B.
--- NOTE | 2020-08-17 05:49 | PCM.PSN.6M ---
PSN 6 Minute Walk Test - 6 Minute Walk Test 6 Minute Walk Test: 6 Minute Walk Test PSN:6-Minute Walk Test Start: 08/16/20 09:17 Freq: Status: Active Protocol: [id number] Document 08/16/20 08:15 [facility] (Rec: 08/16/20 09:29 [facility] [id number]) 6 Minute Walk Test Date Performed 08/16/20 Time Performed 08:15 Height 5 ft 3 in Weight: 79.379 kg Weight in Pounds 175.[address]: Karen FIO2 (% Oxygen) 4 Assistive device used: Walker Pre-test Oxygen Flow Rate (L/min) (L/min) 4 Oxygen Delivery Method Nasal Cannula Pulse Ox (%) 94 Pulse Rate (60-100 beats/min) 66 Dyspnea Eveline Scale (0-10) 0.5 Exertion Eveline Scale (6-20) 6 1st minute Oxygen Flow Rate (L/min) (L/min) 4 Oxygen Delivery Method Nasal Cannula Pulse Ox (%) 83 Pulse Rate (60-100 beats/min) 78 Dyspnea Eveline Scale (0-10) 3 Exertion Eveline Scale (6-20) 11 2nd minute Oxygen Flow Rate (L/min) (L/min) 15 Oxygen Delivery Method Nasal Cannula Pulse Ox (%) 96 Pulse Rate (60-100 beats/min) 84 3rd minute Oxygen Flow Rate (L/min) (L/min) 15 Oxygen Delivery Method Nasal Cannula Pulse Ox (%) 95 Pulse Rate (60-100 beats/min) 90 Dyspnea Eveline Scale (0-10) 5 Exertion Eveline Scale (6-20) 13 Number of Rests Taken 1 Reported Symptoms Increased Work of Breathing 4th minute Oxygen Flow Rate (L/min) (L/min) 15 Oxygen Delivery Method Nasal Cannula Pulse Ox (%) 94 Pulse Rate (60-100 beats/min) 83 Dyspnea Eveline Scale (0-10) 3 Number of Rests Taken 1 Reported Symptoms Increased Work of Breathing 5th minute Oxygen Flow Rate (L/min) (L/min) 15 Oxygen Delivery Method Nasal Cannula Pulse Ox (%) 98 Pulse Rate (60-100 beats/min) 78 Dyspnea Eveline Scale (0-10) 3 Number of Rests Taken 1 Reported Symptoms Increased Work of Breathing 6th minute Oxygen Flow Rate (L/min) (L/min) 15 Oxygen Delivery Method Nasal Cannula Pulse Ox (%) 98 Pulse Rate (60-100 beats/min) 76 Dyspnea Eveline Scale (0-10) 2 Number of Rests Taken 1 Reported Symptoms Increased Work of Breathing Post-test Oxygen Flow Rate (L/min) (L/min) 4 Oxygen Delivery Method Nasal Cannula Pulse Ox (%) 98 Pulse Rate (60-100 beats/min) 73 Dyspnea Eveline Scale (0-10) 0.5 Full Laps Walked 3 Partial Lap, Number of Tiles Walked 0 Total Distance Walked (ft) 177 08/16/20 09:24 Cardiopulmonary Services by Dayna Winn Room air at rest pt was 85%. Walk started on 4 lpm. At 1 min pt 83%. Pt was increased to 6 lpm. At rest on 6 lpm pt only came up to 90% with no improvement in her S.O.B. Pt was increased to 15 lpm and walk restarted. Pt stopped on her own at 3min for increased work of breathing. Pt was unable to restart walk due to S.O.B. Initialized on 08/16/20 09:24 - END OF NOTE - Interpretation Interpretation: The patient was noted to be 85% on room air at rest. The patient was then placed on 4 L nasal cannula with improvement to 94%. The patient then desaturated to 83% in the first minute of ambulation. The patient was then placed on 15 L/min to complete testing. In total, the patient traveled only 177 feet over the course of 6 minutes with the assistance of a walker and for breaks. These findings are consistent with severe limitation secondary to respiratory status. - Recommendations Recommendations: The patient requires 6 L nasal cannula at baseline, but measures should be taken to limit exertional consumption of oxygen including assistive devices such as a power wheelchair.
== END ==
PROVIDERS: PCP Family Medicine; Referring Provider Nurse Practitioner Acute Care; Visit Provider Nurse Practitioner Acute Care
DX: J44.9 Chronic obstructive pulmonary disease, unspecified (principal)
CPT/HCPCS: 94618

== ENCOUNTER → 2020-08-24 20:47 | Outpatient (CLI) | payer MEDICARE, OTHER, SELFPAY ==
[2020-08-13 09:43] VITALS: BMI 31.1
== END ==
PROVIDERS: PCP Family Medicine; Referring Provider Family Medicine Geriatric Medicine; Visit Provider Family Medicine Geriatric Medicine
DX: G47.10 Hypersomnia, unspecified (principal)
CPT/HCPCS: 95810

== ENCOUNTER 2020-09-20 05:40 | Inpatient (IN) | payer MEDICARE, OTHER, SELFPAY ==
[2020-08-13 09:43] VITALS: BMI 31.1
[2020-09-20] VITALS (26 sets, daily range): BP systolic 100–168; BP diastolic 51–76; PULSE 22–89; RESP 12–26; TEMP 36.1–37; O2SAT 91–100; BMI 28.5; BMI 28.7
--- NOTE | 2020-09-20 05:42 | RAD_ITS ---
STUDY: X-RAY CHEST REASON FOR EXAM: Female, 80 years old. dyspnea TECHNIQUE: Single AP portable view of the chest. COMPARISON: 07/15/2020. 06/05/2020 FINDINGS: There is mild interstitial prominence in the lungs which appears to be chronic. There are no confluent pulmonary infiltrates. There is no demonstrated pleural abnormality. Normal size heart. Normal mediastinum and steven. There is atherosclerotic calcification of the aortic arch. There are no demonstrated acute fractures or destructive bone lesions. There is no demonstrated abnormality of the visualized soft tissue structures of the upper abdomen. RAD/Chest 1 View (Portable) IMPRESSION: Chronic interstitial changes. No evidence for acute cardiopulmonary pathology. Electronically Signed: Sinan Beaver MD at 6:24 EDT , Service support ,
--- NOTE | 2020-09-20 05:42 | EKG12_ITS ---
Test Reason : SOB Blood Pressure : / mmHG Vent. Rate : 071 BPM Atrial Rate : 071 BPM P-R Int : 152 ms QRS Dur : 120 ms QT Int : 362 ms P-R-T Axes : 104 -10 039 degrees QTc Int : 393 ms Sinus rhythm with Premature supraventricular complexes Otherwise normal ECG Confirmed by MELVIN HAWKINS, ANTHONY ([id number]), food expeditor RY PATTERSON ([id number]) on 09/21/2020 8:20:19 AM Referred By: CHELY Confirmed By:JUSTIN CHARLES MD
--- NOTE | 2020-09-20 05:50 | ED.VIS.GEN ---
History of Present Illness Chief Complaint: Shortness of Breath Informant: Patient Narrative: 80-year-old female presents with concern for shortness of breath. Patient began getting short of breath while watching television last night. Called EMS this morning who brought her in after finding her with a pulse oximetry of 77%. Patient is in respiratory distress and cannot provide extensive medical history at this time. Past Medical History - Allergies and Home Meds Allergies/Adverse Reactions: Allergies No Known Allergies Allergy (Verified 08/13/20 09:44) Primary Care Physician: Bryan Tolbert III, MD [Primary Care Provider] - Prior records reviewed: Yes Past Medical History: - - COPD, CHF Surgical History: colectomy, mastectomy Lives: Alone Smoking Status: Former smoker Alcohol: None Drugs: None - Family History Maternal Family History: Family History (Last Reviewed 08/13/20 @ 10:04 by Nat Askew NP, [employer]ASE PURCHASE TRUCK DRIVER-C) Sister Alzheimer disease Mother Colon cancer Father CAD (coronary artery disease) Family History: Reports: Cancer - colon Paternal Family History: Family History (Last Reviewed 08/13/20 @ 10:04 by Nat Askew NP, [employer] PURCHASE TRUCK DRIVER-C) Sister Alzheimer disease Mother Colon cancer Father CAD (coronary artery disease) Family History: Reports: Unknown Review of Systems General: Denies: Chills, Fever, Sweats Eyes: Denies: Visual changes - bilaterally, Diplopia ENT: Denies: Rhinorrhea, Sore throat Cardiovascular: Denies: Chest pain, Palpitations Respiratory: Reports: Dyspnea. Denies: Cough, Dyspnea on exertion Gastrointestinal: Denies: Abdominal pain, Nausea, Vomiting, Diarrhea, Melena, Hematochezia Genitourinary: Denies: Dysuria, Hematuria, Frequency Musculoskeletal: Denies: Back pain, Extremity Pain Skin: Denies: Rash, Wounds Neurological: Denies: Headache, Weakness, Numbness Physical Exam Vital Signs/Narrative: Vital Signs Temp Pulse Resp BP Pulse Ox 09/20/20 05:41 97.2 F L 73 20 H 168/76 H 91 Inital Vital Signs reviewed: Yes General: Well nourished, Acute Distress Head: Normocephalic, Atraumatic Eyes: Perrl, EOMI ENT: No rhinorrhea, Dry mucous membranes Neck: Supple, Nontender Cardiovascular: Regular rate, Regular rhythm, No murmurs Respiratory: Chest nontender, Wheezing, Diminished, Decreased Air Movement Abdomen: Soft, Nontender, Nondistended, Normal bowel sounds Back: Nontender, Normal Inspection Extremities: Nontender, No edema Skin: Normal color, No rash Neurological: Alert, Oriented x3, Cranial nerves II-XII grossly intact, Normal Strength, Normal Sensation Psychological: Normal affect, Normal Mood Diagnostic/Tx/Re-eval Chest X-Ray - ED: 1 View, Read by ED Physician, Read by Radiologist, Normal Clinical Impression(s) from Imaging Studies Chest X-Ray 09/20/20 05:42 IMPRESSION: Chronic interstitial changes. No evidence for acute cardiopulmonary pathology. Electronically Signed: Sinan Beaver MD at 6:24 EDT , Service support , Laboratory Data 09/20/20 09/20/20 06:00 06:00 WBC 12.4 H RBC 4.25 Hgb 11.2 L Hct 41.6 MCV 97.9 MCH 26.4 L MCHC 26.9 L RDW Std Deviation 66.4 H RDW Coeff of Ismael 18.1 H Plt Count 234 MPV 10.6 Immature Gran % (Auto) 0.900 Neut % (Auto) 85.0 H Lymph % (Auto) 1.8 L [place] % (Auto) 6.4 Eos % (Auto) 5.7 H Baso % (Auto) 0.2 Absolute Neuts (auto) 10.5 H Absolute Lymphs (auto) 0.22 L Nucleated RBC % 0 Sodium 143 Potassium 3.2 L Chloride 91 L Carbon Dioxide > 45.0 H* Anion Gap TNP BUN 37 H Creatinine 1.11 H Estim Creat Clear Calc 34.32 Est GFR (MDRD) Af Amer 61 Est GFR (MDRD) Non-Af 50 L BUN/Creatinine Ratio 33.3 H Glucose 168 H Calcium 10.0 Troponin I < 0.015 - Rhythm Strip Rhythm Strip: Sinus Rhythm Rate: 71 Ectopy: PAC(s) - EKG Initial EKG Interpretation: Sinus Rhythm - Sinus rhythm at 71 bpm. WI interval of 152 ms. QTC of 393 ms. PACs. No evidence of acute depression or elevation. - Medical Decision Making Patient presents in respiratory distress. Patient's eyes are closed however she can answer my questions on arrival. Does not wish to be intubated. Patient placed on BiPAP. Patient was given aerosols as well as Solu-Medrol. Chest x-ray shows chronic changes without acute infiltrate. Interpreted by myself. Radiology concurs. Patient also has a hypokalemia which was replaced IV. Patient is on Lasix with concern for volume overload given significant peripheral edema. Patient's mentation improves on AVAPS. Patient will be admitted to progressive care unit for continued treatment and evaluation. Impression: 1. Acute on chronic hypercapnic and hypoxemic respiratory failure 2. COPD exacerbation 3. CHF exacerbation 4. Hypokalemia - Critical Care Time Critical care time (excluding procedures): 30-74 minutes, Discussing w/Patient &/or Family/Child Life Assistant, Discussing w/Consultants, Performing Direct Patient Care at Bedside ED Disposition - Plan for ED Patient: Disposition: Acute Care [facility] Referrals: Bryan Tolbert III, MD [Primary Care Provider] -
[2020-09-20] MEDS: Albuterol 2.5 MG/3 ML VIAL.NEB. INHALATION ×2 (05:57→05:58)
[2020-09-20] MEDS: Ipratropium/Albuterol Sulfate 3 ML AMPUL.NEB INHALATION ×5 (05:58→23:08)
[2020-09-20 06:05] LABS: Absolute Lymphocyte Count 0.22 X10^3/uL (0.83-4.51); Absolute Neutrophil Count 10.5 X10^3/uL (2.0-7.7); Basophil# 0.03 X10^3/uL; Basophil% 0.2 % (0-1); Eosinophil# 0.71 X10^3/uL; Eosinophils% 5.7 % (0-5); Hematocrit 41.6 % (37-47); Hemoglobin 11.2 g/dL (12.0-15.0); Lymphocyte # 0.22 X10^3/ul (0.83-4.51); Lymphocyte % 1.8 % (19-41); Mean Corp Hgb Conc 26.9 g/dL (32-36); Mean Corpuscular Hgb 26.4 pg (27.0-32.0); Mean Corpuscular Volume 97.9 fL (81-99); Mean Platelet Vol. 10.6 fl (6.2-12.0); Monocyte% 6.4 % (0-10); NRBC Flagged by Analyzer 0 % (0-5); Neutrophil # 10.54 X10^3/uL (2.7-7.7); POSITIVE DIFFERENTIAL YES; POSITIVE MORPHOLOGY YES; Platelet Count 234 K/mm3 (150-450); RBC Distribution Width CV 18.1 % (11.6-14.6); RBC Distribution Width SD 66.4 fl (35.1-43.9); Red Blood Count 4.25 M/mm3 (4.2-5.4); White Blood Count 12.4 K/mm3 (4.4-11.0)
[2020-09-20] MEDS: MethylPREDNISolone 125 MG/2 ML Vial IV (06:05)
[2020-09-20 06:07] LABS: Differential Indicated SCAN CRITERIA MET
[2020-09-20 06:49] LABS: BUN 37 mg/dL (7-18); BUN/Creat Ratio 33.3 RATIO (10-20); Carbon Dioxide > 45.0 mmol/L (21.0-32.0); Chloride 91 mmol/L (98-107); Creatinine, Serum 1.11 mg/dL (0.55-1.02); EST Glomerular Filtration Rate 50 mL/min (>60); Est Glom Filt Rate - Afr Amer 61 mL/min (>60); Estimated Creatinine Clearance 34.32 ml/min; Glucose 168 mg/dL (74-106); Potassium 3.2 mmol/L (3.5-5.1); Sodium Level 143 mmol/L (136-145)
--- NOTE | 2020-09-20 06:49 | ED.RN ---
CO2 >45 REPORTED TO
[2020-09-20] MEDS: Furosemide 40 MG/4 ML Vial IV (07:01)
--- NOTE | 2020-09-20 07:07 | NURSING ---
pcu respiratory failure tereletsky
[2020-09-20 07:22] LABS: Allen Test Positive; Base Excess > 30 mmol/L (-2 to +2); Blood Gas Specimen Type ART; FI02 100; Mode avaps; O2 Delivery Device BiPAP; PEEP 10; PO2 236 mmHG (75-100); RR 12; SITE L Radial; SO2 100 % (95-99); Total Carbon Dioxide > 50 mmol/L; Vt 450; pH 7.27 (7.35-7.45)
[2020-09-20] MEDS: 0.9% Normal Saline 1,000 ML 30 ML IV (07:23)
[2020-09-20 07:24] LABS: pCO2 158.4 mmHg (35-45)
[2020-09-20 07:24] LABS: BNP,B-Type NATRIURETIC PEPTIDE 233.7 pg/mL (0-100)
[2020-09-20] MEDS: Potassium Chloride 10mEq/100mL 10 MEQ/100 ML IV.SOLN. 100 MEQ IV BOLUS ×4 (07:25→10:42)
--- NOTE | 2020-09-20 07:39 | CPS ---
Dr. David Carson aware of critical blood gas results at 0710. Mirela TRANSPORTATION MAINTENANCE OPERATOR
--- NOTE | 2020-09-20 08:14 | HP.PCM_ITS ---
Problem List (1) Shortness of breath Status: Acute Comment: acute on chronic History of Present Illness Date of Admission: 09/20/20 Chief Complaint: Shortness of breath The patient is a 80 year old F who was seen in the emergency room at [facility] after being brought in with complaints of shortness of breath which started early this morning, her pulse ox was low at home, she has chronic respiratory failure and is on home O2 at 8 L. She also has a history of CHF in the past. Patient lives with her daughter. Evaluation in the emergency room showed the patient to be dyspneic and lethargic, and arterial blood gas was obtained which showed a pH of 7.27 PCO2 of 158 and a PO2 of 236. Labs were obtained which showed an elevated white count at 12.4, hemoglobin was 11.2, and was 3 profile showed a slightly low potassium at 3.2, bicarbonate which was over 45, glucose of 168, and a beta natruretic peptide of 233. Chest x-ray showed no evidence for acute cardiopulmonary pathology, there was chronic interstitial changes noted. Patient's Covid antigen test was negative On examination, patient was alert and appropriate I talked with both the patient and her daughter, she desired to be a DNR CC arrest with no intubation. Patient will be transferred to PCU for further care for acute on chronic combined respiratory failure, COPD exacerbation, and hypokalemia- she will be seen in consultation by pulmonary medicine, she will be given IV Solu-Medrol and aggressive aerosol treatments. Prognosis is guarded due to the patient's severe lung disease. Past Medical History Past Medical History (Chronic Problems): Chronic Problems (Last Reviewed 08/13/20 @ 10:04 by Nat Askew INTERCHANGE AGENT, INTERCHANGE AGENT-C) History of hypertension (Chronic) History of breast cancer (Chronic) History of colon cancer (Chronic) History of COPD (Chronic) Iron deficiency anemia (Chronic) CHF (congestive heart failure) (Chronic) Aortic stenosis, severe (Chronic) Atrial fibrillation (Chronic) Hypertension (Chronic) Hyperlipidemia (Chronic) Vitamin D deficiency (Chronic) Depression (Chronic) Medical History: Medical History (Last Reviewed 08/13/20 @ 10:04 by Nat Askew NP, INTERCHANGE AGENT-C) History of hypertension (Chronic) Z86.79 History of breast cancer (Chronic) Z85.3 History of colon cancer (Chronic) Z85.038 History of COPD (Chronic) Z87.09 History of end stage renal disease (Inactive) Z87.448 Respiratory failure with hypoxia and hypercapnia (Acute) J96.91, J96.92 Right lower lobe pulmonary infiltrate (Resolved) R91.8 COPD with exacerbation (Acute) J44.1 Acute bronchospasm (Acute) J98.01 Severe sepsis (Resolved) A41.9, R65.20 Iron deficiency anemia (Chronic) D50.9 Shortness of breath (Acute) R06.02 acute on chronic CHF (congestive heart failure) (Chronic) I50.9 Debility (Acute) R53.81 Acute on chronic diastolic congestive heart failure (Acute) I50.33 Aortic stenosis, severe (Chronic) I35.0 Atrial fibrillation (Chronic) I48.91 Hypertension (Chronic) I10 Hyperlipidemia (Chronic) E78.5 Vitamin D deficiency (Chronic) E55.9 Depression (Chronic) F32.9 Allergies No Known Allergies Allergy (Verified 08/13/20 09:44) Home Medications: Ambulatory Orders Medication Instructions Recorded Diltiazem HCl [Cartia Xt] 300 mg PO DAILY 03/17/17 Oxygen, Home [Home Oxygen] 4 - 6 lpm NASAL DAILY 03/17/17 Pravastatin [Pravachol] 20 mg PO DAILY 03/17/17 Sertraline HCl [Zoloft] 50 mg PO DAILY 03/17/17 Cholecalciferol (Vitamin D3) 1 tab PO DAILY 06/05/20 [Vitamin D3] Apixaban [Eliquis] 2.5 mg PO BID 07/20/20 Acetaminophen [Tylenol] 1,000 mg PO Q6H PRN PRN tablet 08/14/20 Ferrous Sulfate 325 mg PO QODAY@1200 #30 tablet 08/14/20 Furosemide [Lasix] 40 mg PO BID@1000,1800 #60 tablet 08/14/20 Ipratropium/Albuterol Sulfate 3 ml INHALATION Q4H.RT #120 08/14/20 [Duoneb] Menthol/Lanolin/Calamine/Znox 1 applic TOPICAL BID tube 08/14/20 [Calmoseptine Ointment] Budesonide Aerosol [Pulmicort 1 mg INHALATION Q12H #60 unit 08/17/20 Respules] Surgical History: Surgical History (Last Reviewed 08/13/20 @ 10:04 by Nat Askew INTERCHANGE AGENT, INTERCHANGE AGENT-C) H/O mastectomy (Resolved) Z90.10 Surgical History: colectomy, mastectomy Psychiatric History: Anxiety, Depression 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 CUTTER 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: No pertinent HAND FABRIC CUTTER history Lives: With Family Smoking Status: Former smoker Tobacco Use: Non-smoker Alcohol: None Drugs: None - *Family History Maternal Family History: Family History (Last Reviewed 08/13/20 @ 10:04 by Nat Askew NP, INTERCHANGE AGENT-C) Sister Alzheimer disease Mother Colon cancer Father CAD (coronary artery disease) History Items: Cancer - colon Paternal Family History: Family History (Last Reviewed 08/13/20 @ 10:04 by Nat Askew NP, INTERCHANGE AGENT-C) Sister Alzheimer disease Mother Colon cancer Father CAD (coronary artery disease) History Items: Unknown Review of Systems Constitutional: Reports: Weakness, Fatigue. Denies: Anorexia, Chills, Fever, Night Sweats, Weight Change Eyes: Denies: Conjunctivae Inflammation, Double vision, Drainage HEENT: Denies: Dysphasia, Ear Pain, Eye Pain, Nasal bleeding, Nasal Congestion Cardiovascular: Denies: Chest Pain, Claudication, Chest Pressure, Chest Tightness, Edema, Palpitations Respiratory: Reports: Shortness of Breath, Shortness of breath at rest, Shortness of breath upon exertion. Denies: Cough, Hemoptysis Gastrointestinal: Denies: Abdominal Pain, Constipation, Diarrhea, Hematemesis, Hematochezia, Nausea, Melena, Vomiting Genitourinary: Denies: Dysuria, Frequency, Hematuria, Hesitancy, Nocturia, Retention, Urgency Musculoskeletal: Denies: Back Pain, Foot Pain, Hand Pain, Joint Pain, Joint stiffness, Joint swelling, Joint Tenderness Skin: Denies: Dryness, Jaundice, Pruritis, Rash Neurological: Denies: Blurred vision, Double vision, Change in Speech, Slurred speech, Difficulty swallowing, Focal weakness, Headaches, Incoordination, Numbness, Tingling Psychiatric: Denies: Anxiety, Depression, Homicidal Ideations, Suicidal Ideations Endocrine: Denies: Change in Body Habitus, Heat/ Cold Intolerance, Polydipsia, Polyuria Hematologic/ Lymphatic: Denies: Adenopathy, Anemia, Easy Bruising, Easy Bleeding, Petechiae, Purpura VTE Information - Inpt Only VTE Present on Admission: No VTE Mechan Device Prophylaxis: None VTE Pharm Prophylaxis ordered?: No Reason prophylaxis not ordered:: Treatment Not Indicated - Patient on Eliquis - Physical Exam Vitals/I&O's: Vital Signs Temp Pulse Resp BP Pulse Ox 97.0 F L 63 16 111/61 94 09/20/20 08:04 09/20/20 08:04 09/20/20 08:04 09/20/20 08:04 09/20/20 08:04 Oxygen Delivery Method Bi-pap Weight: 75.6 kg Body Mass Index (BMI) 28.5 General: Alert, Oriented x3, Cooperative, Well developed, Well nourished HEENT: Atraumatic, PERRLA, EOMI, Normocephalic Oral: Moist Mucosa Neck: Supple, No JVD, Trachea Midline, Thyroid Normal Size and Texture Lungs: Normal air movement, Diminished, Wheezes - Expiratory wheezes are scattered over both lungs Cardiovascular: Regular rate, Regular Rhythm, Normal S1, Normal S2, PMI Normal, Murmur - 2/6 systolic murmur is noted at the left sternal border and apex, No rub noted Abdomen: Bowel Sounds Present, Soft, Non Tender, Non-Distended Extremities: Capillary Refill Less than 3 Seconds, Edema - Generalized edema is noted over the lower legs bilaterally. Skin: No rashes, No breakdown Musculoskeletal: No Tenderness to Palpation of Joints or Extremities, No Muscle Wasting Neurological: Cranial nerves II-XII grossly intact, Neuro grossly intact, Coordination normal Psych/Mental Status: Normal Affect, Appropriate, Alert and oriented to time, place, person, mood and affect Microbiology Past 72 Hours 09/20/20 05:50 Nasal Secretion SARS-CoV-2 Antigen (Rapid) - Final Laboratory Results 09/20/20 06:00: WBC 12.4 H, RBC 4.25, Hgb 11.2 L, Hct 41.6, MCV 97.9, MCH 26.4 L , MCHC 26.9 L, RDW Std Deviation 66.4 H, RDW Coeff of Ismael 18.1 H, Plt Count 234, MPV 10.6, Immature Gran % (Auto) 0.900, Neut % (Auto) 85.0 H, Lymph % (Auto) 1.8 L, [place] % (Auto) 6.4, Eos % (Auto) 5.7 H, Baso % (Auto) 0.2, Absolute Neuts (auto) 10.5 H, Absolute Lymphs (auto) 0.22 L, Nucleated RBC % 0 09/20/20 06:00: Sodium 143, Potassium 3.2 L, Chloride 91 L, Carbon Dioxide > 45.0 H*, Anion Gap TNP, BUN 37 H, Creatinine 1.11 H, Estim Creat Clear Calc 34.32, Est GFR (MDRD) Af Amer 61, Est GFR (MDRD) Non-Af 50 L, BUN/Creatinine Ratio 33.3 H, Glucose 168 H, Calcium 10.0, Troponin I < 0.015 09/20/20 06:00: B-Natriuretic Peptide 233.7 H 09/20/20 07:06: Specimen Type ART, Sample Site L Radial, pH 7.27 L, Bicarbonate Actual 73.0 H, Total CO2 > 50, Base Excess > 30 H, O2 Saturation 100 H, O2 % 100, ABG pCO2 158.4 H*, ABG pO2 236 H, Eliot Test Positive, Respiration Rate 12, O2 Delivery Device BiPAP, Vent Mode avaps, Tidal Volume 450, POC PEEP 10, Crit Call To/Read Back Yes Current Medications Potassium Chloride () 10 meq in 100 mls @ 100 mls/hr IV BOLUS Q1H [facility] Stop: 09/20/20 10:59 Last Admin: 09/20/20 07:25 Dose: 100 mls/hr Documented by: Sodium Chloride () 1,000 mls @ 30 mls/hr IV .[id number] [facility] Last Admin: 09/20/20 07:23 Dose: 30 mls/hr Documented by: Assessment/Plan All Active Problems (Last Reviewed 08/13/20 @ 10:04 by Nat Askew INTERCHANGE AGENT, INTERCHANGE AGENT- C) H/O mastectomy (Resolved) Respiratory failure with hypoxia and hypercapnia (Acute) Right lower lobe pulmonary infiltrate (Resolved) COPD with exacerbation (Acute) Acute bronchospasm (Acute) Severe sepsis (Resolved) Shortness of breath (Acute) Debility (Acute) Acute on chronic diastolic congestive heart failure (Acute) #1 acute on chronic combined respiratory failure-patient will be admitted to PCU, aerosol treatments will be given, patient will be given IV Solu-Medrol and O2 sat will be monitored, she will be seen in consultation by pulmonary medicine, again patient is a DNR CC arrest with no intubation. #2 acute exacerbation of COPD-patient will be placed on IV Solu-Medrol and aggressive aerosol treatments #3 hypokalemia-patient will be given potassium replacement #4 chronic diastolic congestive heart failure-patient will remain on oral Lasix #5 proximal atrial fibrillation-patient is on Eliquis #6 stage IIIa chronic kidney disease #7 hyperlipidemia #8 chronic anxiety/depression #9 iron deficiency anemia-chronic Inpatient E&M: 45145 Init Hosp L3
--- NOTE | 2020-09-20 08:30 | PCM.CONS.PUL ---
Reason for Consult Date of Consultation: 09/20/20 Reason for Consultation: Acute on chronic combined respiratory failure History of Present Illness: The patient is an 80-year-old female, with a history as outlined below, who presented to the emergency department on September 20 with complaints of shortness of breath. This is now the patient's third hospitalization for breathing related issues since the beginning of the year. The patient did follow-up in the pulmonary medicine clinic in mid July, at which time, a 6-minute walk test and PFTs were ordered. The patient did complete a 6-minute walk test in July which did reveal the need for a minimum of 6 L/min with exertion. PFTs were never completed. The patient did recently complete a diagnostic polysomnogram at the end of July 2020, which revealed evidence of moderate obstructive sleep apnea with an overall AHI of 18.6 events per hour. It is unclear as to whether her primary care provider who ordered the test, provided her with any form of nocturnal Pap therapy. On presentation to the emergency department, the patient was noted to be afebrile and hemodynamically stable. Laboratory evaluation revealed a white blood cell count of 12,000. Chemistry profile was notable for a potassium of 3.2 and bicarbonate of greater than 45. Creatinine was noted to be 1.1. Troponin was negative. BNP was mildly elevated to 233. Chest x-ray was concerning for chronic interstitial changes. The patient was eventually [facility] to [facility] and an arterial blood gas was obtained which revealed a pH of 7.27 with a PCO2 of 159 and PO2 of 236. The patient received aerosol treatments, steroids and IV diuretics. Given that her CODE STATUS was confirmed to be DNR CCA without intubation, she was admitted to the progressive care unit for further management. Upon interviewing the patient at the bedside this morning, she was notably drowsy, making it difficult to obtain any information pertinent to her hospitalization. Past Medical History Past Medical History (Chronic Problems): Chronic Problems (Last Reviewed 08/13/20 @ 10:04 by Nat Askew NP, CHAINSTITCH PANTS OUTSEAMER-C) History of hypertension (Chronic) History of breast cancer (Chronic) History of colon cancer (Chronic) History of COPD (Chronic) Iron deficiency anemia (Chronic) CHF (congestive heart failure) (Chronic) Aortic stenosis, severe (Chronic) Atrial fibrillation (Chronic) Hypertension (Chronic) Hyperlipidemia (Chronic) Vitamin D deficiency (Chronic) Depression (Chronic) Medical History: Medical History (Last Reviewed 08/13/20 @ 10:04 by Nat Askew CHAINSTITCH PANTS OUTSEAMER, CHAINSTITCH PANTS OUTSEAMER-C) History of hypertension (Chronic) Z86.79 History of breast cancer (Chronic) Z85.3 History of colon cancer (Chronic) Z85.038 History of COPD (Chronic) Z87.09 History of end stage renal disease (Inactive) Z87.448 Respiratory failure with hypoxia and hypercapnia (Acute) J96.91, J96.92 Right lower lobe pulmonary infiltrate (Resolved) R91.8 COPD with exacerbation (Acute) J44.1 Acute bronchospasm (Acute) J98.01 Severe sepsis (Resolved) A41.9, R65.20 Iron deficiency anemia (Chronic) D50.9 Shortness of breath (Acute) R06.02 acute on chronic CHF (congestive heart failure) (Chronic) I50.9 Debility (Acute) R53.81 Acute on chronic diastolic congestive heart failure (Acute) I50.33 Aortic stenosis, severe (Chronic) I35.0 Atrial fibrillation (Chronic) I48.91 Hypertension (Chronic) I10 Hyperlipidemia (Chronic) E78.5 Vitamin D deficiency (Chronic) E55.9 Depression (Chronic) F32.9 Allergies No Known Allergies Allergy (Verified 08/13/20 09:44) Home Medications: Ambulatory Orders Medication Instructions Recorded Diltiazem HCl [Cartia Xt] 300 mg PO DAILY 03/17/17 Oxygen, Home [Home Oxygen] 4 - 6 lpm NASAL DAILY 03/17/17 Pravastatin [Pravachol] 20 mg PO DAILY 03/17/17 Sertraline HCl [Zoloft] 50 mg PO DAILY 03/17/17 Cholecalciferol (Vitamin D3) 1 tab PO DAILY 06/05/20 [Vitamin D3] Apixaban [Eliquis] 2.5 mg PO BID 07/20/20 Acetaminophen [Tylenol] 1,000 mg PO Q6H PRN PRN tablet 08/14/20 Ferrous Sulfate 325 mg PO QODAY@1200 #30 tablet 08/14/20 Furosemide [Lasix] 40 mg PO BID@1000,1800 #60 tablet 08/14/20 Ipratropium/Albuterol Sulfate 3 ml INHALATION Q4H.RT #120 08/14/20 [Duoneb] Menthol/Lanolin/Calamine/Znox 1 applic TOPICAL BID tube 08/14/20 [Calmoseptine Ointment] Fluticasone Propion/Salmeterol 1 each IH BID 09/20/20 [[place]ela 250-50 Inhub] Tiotropium [place] [Spiriva] 1 puff INHALATION DAILY 09/20/20 Surgical History: Surgical History (Last Reviewed 08/13/20 @ 10:04 by Nat Askew CHAINSTITCH PANTS OUTSEAMER, CHAINSTITCH PANTS OUTSEAMER-C) H/O mastectomy (Resolved) Z90.10 Surgical History: colectomy, mastectomy Psychiatric History: Anxiety, Depression 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: No pertinent YOUNG ADULT LIBRARIAN history Lives: With Family Smoking Status: Former smoker Tobacco Use: Non-smoker Alcohol: None Drugs: None - *Family History Maternal Family History: Family History (Last Reviewed 08/13/20 @ 10:04 by Nat Askew CHAINSTITCH PANTS OUTSEAMER, CHAINSTITCH PANTS OUTSEAMER-C) Sister Alzheimer disease Mother Colon cancer Father CAD (coronary artery disease) History Items: Cancer - colon Paternal Family History: Family History (Last Reviewed 08/13/20 @ 10:04 by Nat Askew CHAINSTITCH PANTS OUTSEAMER, CHAINSTITCH PANTS OUTSEAMER-C) Sister Alzheimer disease Mother Colon cancer Father CAD (coronary artery disease) History Items: Unknown Review of Systems Unable to obtain accurate/complete ROS d/t: Due to encephalopathy Patient Problems: Active and Suspected Problems (Last Reviewed 08/13/20 @ 10:04 by Nat Askew CHAINSTITCH PANTS OUTSEAMER, CHAINSTITCH PANTS OUTSEAMER-C) Shortness of breath (Acute) acute on chronic Objective: The patient's most recent lab work, culture data and imaging studies have all been personally reviewed. - Physical Exam Vitals/I&O's: Vital Signs Temp Pulse Resp BP Pulse Ox 97.0 F L 64 16 111/61 92 09/20/20 08:04 09/20/20 08:28 09/20/20 08:28 09/20/20 08:04 09/20/20 08:28 Oxygen Delivery Method Bi-pap Weight: 166 lb 10.711 oz Body Mass Index (BMI) 28.5 General: Lethargic, - - Opens eyes transiently to verbal stimulation and then falls quickly back to sleep. HEENT: Atraumatic, Normocephalic Oral: Dry Mucosa, - - Poor dentition Neck: Supple, No Nodes, Trachea Midline Lungs: - - Globally diminished air movement throughout all lung grider Cardiovascular: Regular rate, Regular Rhythm, Murmur Abdomen: Bowel Sounds Present, Soft, Non Tender Extremities: No clubbing, No cyanosis, Edema Skin: No breakdown Musculoskeletal: No Tenderness to Palpation of Joints or Extremities Lymphatic: No Cervical, Supraclavicular, or Inguinal Adenopathy Neurological: - - No focal neurological deficits. Psych/Mental Status: Flat Affect Labs (Last 48 Hours) 09/20/20 09/20/20 09/20/20 06:00 06:00 06:00 WBC 12.4 H RBC 4.25 Hgb 11.2 L Hct 41.6 MCV 97.9 MCH 26.4 L MCHC 26.9 L RDW Std Deviation 66.4 H RDW Coeff of Ismael 18.1 H Plt Count 234 MPV 10.6 Immature Gran % (Auto) 0.900 Neut % (Auto) 85.0 H Lymph % (Auto) 1.8 L [place] % (Auto) 6.4 Eos % (Auto) 5.7 H Baso % (Auto) 0.2 Absolute Neuts (auto) 10.5 H Absolute Lymphs (auto) 0.22 L Nucleated RBC % 0 Specimen Type Sample Site pH Bicarbonate Actual Total CO2 Base Excess O2 Saturation O2 % ABG pCO2 ABG pO2 Eliot Test Respiration Rate O2 Delivery Device Vent Mode Tidal Volume POC PEEP Crit Call To/Read Back Sodium 143 Potassium 3.2 L Chloride 91 L Carbon Dioxide > 45.0 H* Anion Gap TNP BUN 37 H Creatinine 1.11 H Estim Creat Clear Calc 34.32 Est GFR (MDRD) Af Amer 61 Est GFR (MDRD) Non-Af 50 L BUN/Creatinine Ratio 33.3 H Glucose 168 H Calcium 10.0 Troponin I < 0.015 B-Natriuretic Peptide 233.7 H 09/20/20 07:06 WBC RBC Hgb Hct MCV MCH MCHC RDW Std Deviation RDW Coeff of Ismael Plt Count MPV Immature Gran % (Auto) Neut % (Auto) Lymph % (Auto) [place] % (Auto) Eos % (Auto) Baso % (Auto) Absolute Neuts (auto) Absolute Lymphs (auto) Nucleated RBC % Specimen Type ART Sample Site L Radial pH 7.27 L Bicarbonate Actual 73.0 H Total CO2 > 50 Base Excess > 30 H O2 Saturation 100 H O2 % 100 ABG pCO2 158.4 H* ABG pO2 236 H Eliot Test Positive Respiration Rate 12 O2 Delivery Device BiPAP Vent Mode avaps Tidal Volume 450 POC PEEP 10 Crit Call To/Read Back Yes Sodium Potassium Chloride Carbon Dioxide Anion Gap BUN Creatinine Estim Creat Clear Calc Est GFR (MDRD) Af Amer Est GFR (MDRD) Non-Af BUN/Creatinine Ratio Glucose Calcium Troponin I B-Natriuretic Peptide Microbiology 09/20/20 05:50 Nasal Secretion SARS-CoV-2 Antigen (Rapid) - Final Clinical Impression(s) from Imaging Studies Chest X-Ray 09/20/20 05:42 IMPRESSION: Chronic interstitial changes. No evidence for acute cardiopulmonary pathology. Electronically Signed: Sinan Beaver MD at 6:24 EDT , Service support , Current Medications Acetaminophen (Acetaminophen 325 Mg Tablet) 650 mg PO Q6H PRN PRN PRN Reason: Pain Score 1-10/Temp > 100.7 F Albuterol Sulfate (Albuterol 2.5 Mg/3 Ml Vial.Neb.) 2.5 mg INHALATION Q2H PRN PRN PRN Reason: SOB/Wheezing Albuterol/Ipratropium (Ipratropium/Albuterol Sulfate 3 Ml Ampul.Neb) 3 ml INHALATION Q4H.RT SHANE Apixaban (Apixaban 2.5 Mg Tablet) 2.5 mg PO BID SHANE Diltiazem HCl (Diltiazem Cd 300 Mg Capsule) 300 mg PO DAILY SHANE Ferrous Sulfate (Ferrous Sulfate 325 Mg Tablet) 325 mg PO QODAY@1200 SHANE Furosemide (Furosemide 40 Mg Tablet) 40 mg PO BID@1000,1800 SHANE Potassium Chloride () 10 meq in 100 mls @ 100 mls/hr IV BOLUS Q1H [facility] Stop: 09/20/20 10:59 Last Admin: 09/20/20 07:25 Dose: 100 mls/hr Documented by: Sodium Chloride () 1,000 mls @ 30 mls/hr IV .[id number] SHANE Last Admin: 09/20/20 07:23 Dose: 30 mls/hr Documented by: Sodium Chloride () 250 mls @ 15 mls/hr IV .[id number] PRN PRN Reason: Saline Flush Sodium Chloride () 250 mls @ 15 mls/hr IV .[id number] PRN PRN Reason: Additional IVPB Infusion Methylprednisolone (Methylprednisolone 40 Mg/Ml Vial) 40 mg IV Q8 SHANE Ondansetron HCl (Ondansetron 4 Mg/2 Ml Vial) 4 mg IV Q8H PRN PRN PRN Reason: NAUSEA/VOMITING Pravastatin Sodium (Pravastatin 20 Mg Tablet) 20 mg PO DAILY SHANE Sertraline HCl (Sertraline 50 Mg Tablet) 50 mg PO DAILY SHANE Sodium Chloride (0.9% Saline Lock 10 Ml Syringe) 10 - 40 ml IV UD PRN PRN Reason: SALINE FLUSH Assessment/Plan All Active Problems (Last Reviewed 08/13/20 @ 10:04 by Nat Askew CHAINSTITCH PANTS OUTSEAMER, CHAINSTITCH PANTS OUTSEAMER-C) H/O mastectomy (Resolved) Respiratory failure with hypoxia and hypercapnia (Acute) Right lower lobe pulmonary infiltrate (Resolved) COPD with exacerbation (Acute) Acute bronchospasm (Acute) Severe sepsis (Resolved) Shortness of breath (Acute) Debility (Acute) Acute on chronic diastolic congestive heart failure (Acute) RECOMMENDATIONS: 1. Continue patient on AVAPS and obtain repeat ABG. 2. Wean oxygen to maintain saturations 88 to 92%. 3. Continue scheduled bronchodilators and steroids for now. 4. Continue IV diuretic therapy as tolerated by hemodynamics and renal function. 5. Potassium repletion. IMPRESSIONS: 1. Acute on chronic combined respiratory failure The patient has a presumptive history of COPD and appears to be prescribed a triple therapy inhaler regimen as an outpatient. However, I do not have any objective data in the form of PFTs to confirm the presence of obstructive lung disease and its severity. Nevertheless, in the interim, the patient will be treated with bronchodilator therapy along with IV steroids. Plan to continue noninvasive positive pressure ventilatory support. Given encephalopathy noted this morning at the bedside, will obtain repeat arterial blood gas. Avoid sedating medications. Wean FiO2 to maintain oxygen saturations 88 to 92%. Ultimately, the patient needs close follow-up in the pulmonary medicine clinic and undoubtedly needs to complete her pulmonary function studies. 2. Heart failure with preserved ejection fraction/aortic valve disease Prior echocardiogram from June did reveal diastolic dysfunction. The patient was also noted to have moderately severe aortic valve stenosis. Agree with continuing diuretic therapy as tolerated by hemodynamics and renal function. 3. Encephalopathy Likely metabolic in etiology with acute CO2 retention noted. Given depressed mentation noted this morning on AVAPS, we will plan to obtain a repeat arterial blood gas and alter noninvasive positive pressure ventilatory support settings as needed. Again, CODE STATUS is DNR CCA without intubation. 4. Obstructive sleep apnea The patient recently completed a diagnostic polysomnogram, ordered by her PCP, in July 2020, which did reveal evidence of moderate obstructive sleep apnea. Therefore, the patient would be a candidate for home PAP therapy, once she has completed a titration study. 5. Depression/anxiety/hyperlipidemia/advanced age Complicates care, management, recovery and prognosis. Continue home medications as indicated. This note was generated with [employer] dictation software. It may contain incorrect words, spelling, and punctuation that were not noted in checking the note before signing. Inpatient E&M: 32964 Init Hosp L3
[2020-09-20] MEDS: dilTIAZem CD 300 MG Capsule PO (10:45)
[2020-09-20] MEDS: APIXABAN 2.5 MG TABLET PO ×2 (10:45→20:21)
[2020-09-20] MEDS: Sertraline 50 MG Tablet PO (10:45)
[2020-09-20] MEDS: Furosemide 40 MG Tablet PO ×2 (10:46→17:14)
[2020-09-20] MEDS: Ferrous Sulfate 325 MG Tablet PO (10:46)
--- NOTE | 2020-09-20 11:02 | CPS ---
pt had critical values on ABG. Nurse Dyer was notified along with Dr. Cortez.
--- NOTE | 2020-09-20 11:45 | CASEMGMT ---
ANASTASIIA SHEN assessment: Face to Face with patient for initial transition planning/care coordination assessment. ANASTASIIA SHEN introduced self and role at [facility], pt voices understanding and consents to assessment. Pt is lying in bed on bipap. Pt is A/Ox4 and answers all questions appropriately but has difficulty d/t bipap in place. Care providers, pharmacy, and demographics verified/updated. Presentation: SOB starting last pm Admitting dx: Combined resp failure PCP: Didi SULLIVAN Specialists: [facility] leroy Preferred Pharmacy: [facility] Insurance: MCR A/B, [employer] Prescription Benefit: Yes Living Will/HPOA: Pt states has HPOA and is aware that they are on file. Pt's daughter, Meghana Carrillo, is HPOA. LNOK: Meghana Carrillo, daughter/HPOA; Denys Sullivan, son; Yamil Sullivan, son Living Arrangements: Pt states lives with daughter in 1 story home with 3 steps in and states no concerns at home. Pt states her daughter just moved in with her 2 weeks ago. Pt states daughter assists with ADL's but does work M-F during the day. Transportation: Pt states daughter drives and states no transportation concerns. DME/HHC: Pt states has the following DME: cane, walker, w/c, grab bars, shower chair, and 3-4L nc home oxygen thru [facility]. Pt had sleep study upon leaving TCU on 08/24/20 and they are working on bipap/cpap for pt. Pt states no need for any further DME. Pt states is current with [facility] for SN. Pt has been to [facility]. Pt is active with [facility]. Pt states no concerns with going home at time of discharge. Pt is retired. Pt states does not smoke cigarettes or drink ETOH. Pt states no further concerns/needs. CM to follow for any further discharge planning/needs. Advised pt to ask for CM if any further questions/concerns/needs arise, voices understanding. Pt Goal: Home Plan: [place] ANASTASIIA SHEN
[2020-09-20] MEDS: Menthol/Lanolin/Calamine/Znox 113 GM Tube 1 APPLIC TOPICAL (13:27)
--- NOTE | 2020-09-20 14:26 | PCM.NTREPORT ---
Nutrition Therapy Report - History Current diet / nutrition support order:: regular - Anthropometric Measurements Height:: 5 ft 3 in Weight:: 73.5 kg Body Mass Index (BMI):: 28.7 - Relevant Labs Relevant Labs:: WBC 12.4 K/mm3 (4.4-11.0) H 09/20/20 06:00 Hgb 11.2 g/dL (12.0-15.0) L 09/20/20 06:00 MCH 26.4 pg (27.0-32.0) L 09/20/20 06:00 MCHC 26.9 g/dL (32-36) L 09/20/20 06:00 RDW Std Deviation 66.4 fl (35.1-43.9) H 09/20/20 06:00 RDW Coeff of Ismael 18.1 % (11.6-14.6) H 09/20/20 06:00 Neut % (Auto) 85.0 % (47-70) H 09/20/20 06:00 Lymph % (Auto) 1.8 % (19-41) L 09/20/20 06:00 Eos % (Auto) 5.7 % (0-5) H 09/20/20 06:00 Absolute Neuts (auto) 10.5 X10^3/uL (2.0-7.7) H 09/20/20 06:00 Absolute Lymphs (auto) 0.22 X10^3/uL (0.83-4.51) L 09/20/20 06:00 Potassium 3.2 mmol/L (3.5-5.1) L 09/20/20 06:00 Chloride 91 mmol/L (98-107) L 09/20/20 06:00 Carbon Dioxide > 45.0 mmol/L (21.0-32.0) H* 09/20/20 06:00 BUN 37 mg/dL (7-18) H 09/20/20 06:00 Creatinine 1.11 mg/dL (0.55-1.02) H 09/20/20 06:00 Est GFR (MDRD) Non-Af 50 mL/min (>60) L 09/20/20 06:00 BUN/Creatinine Ratio 33.3 RATIO (10-20) H 09/20/20 06:00 Glucose 168 mg/dL (74-106) H 09/20/20 06:00 B-Natriuretic Peptide 233.7 pg/mL (0-100) H 09/20/20 06:00 - Assessment Food / Nutrition-Related History:: Pt reports fair, sometimes poor PO intake/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 States she has been limiting salt and not hungry for much other than applesauce and yogurt. Intake this admission to be established. Per EMR, wt was 171.5# on 08/23/20 and CBW 162# suggesting a 9.5#/5.5% wt loss ~1 month. Pt w/ hx of wt fluctuations d/t CHF, fluid status (noted wt was 192# on 06/06/20) and pt states she is not edematous at this time. - Nutrition Diagnosis Problem / Etiology / Signs & Symptoms (PES):: moderate, chronic malnutrition r/t decreased energy intake while trying to follow low sodium diet as evidenced by estimated PO intake meeting <75% of nutritional needs >1 month, unintentional wt loss of 9.5#/5.5% x 1 month. Evidence of Malnutrition Exists:: Yes Moderate PCM:: Chronic Illness - Nutrition Intervention Nutrition Prescription:: [id number] calories/day (1.3xRMR). 55-65 g protein/day (0.8g/kg). 1500mL (1mL/calorie) - Food / Nutrient Delivery Interventions Summary of nutrition intervention:: Pt not hungry at time of assessment- states she may order dinner later. Discussed diet order-will change to regular, no added salt d/t hx of tenuous fluid status. Pt verbalized understanding. Pt is not drinking ONS at home- discussed w/ pt/family that ONS may be appropriate if PO intake remains limited and unintentional wt loss continues. Will defer at this time and provide if appropriate once PO intake is established. Nutrition support ordered as / adjusted to:: will change to regular, no added salt; recommend fluid restriction as indicated; will monitor need for ONS pending PO intake. Nutrition education provided?: Yes - MNT Monitoring Further MNT monitoring and evaluation required?: Yes MNT Follow-up in:: 3-5 days
[2020-09-20 15:10] LABS: Allen Test Positive; Blood Gas Specimen Type ART; Mode AVAPS; O2 Delivery Device BIPAP; SITE L Radial
[2020-09-20 15:11] LABS: FI02 50; RR 12; Vt 450
[2020-09-20 15:12] LABS: EPAP 10; pH 7.26 (7.35-7.45)
[2020-09-20 15:13] LABS: Base Excess 29 mmol/L (-2 to +2); Bicarbonate 56.1 mmol/L (22-26); PO2 72 mmHG (75-100); SO2 89 % (95-99); Total Carbon Dioxide 50 mmol/L
[2020-09-20] MEDS: 0.9% Saline Lock 10 ML Syringe IV (20:21)
[2020-09-20] MEDS: Pravastatin 20 MG Tablet PO (20:21)
--- NOTE | 2020-09-20 20:23 | NURSING ---
Pt requesting to have HS meds at this time, early.
[2020-09-21] VITALS (21 sets, daily range): BP systolic 109–142; BP diastolic 44–68; PULSE 47–80; RESP 12–25; TEMP 35.9–36.9; O2SAT 90–99
[2020-09-21] MEDS: 0.9% Normal Saline 1,000 ML 30 ML IV (02:14)
[2020-09-21] MEDS: Ipratropium/Albuterol Sulfate 3 ML AMPUL.NEB INHALATION ×6 (03:16→23:11)
[2020-09-21] MEDS: Menthol/Lanolin/Calamine/Znox 113 GM Tube 1 APPLIC TOPICAL ×3 (05:22→21:03)
[2020-09-21] MEDS: 0.9% Saline Lock 10 ML Syringe IV ×3 (05:23→21:02)
[2020-09-21 07:01] LABS: Absolute Lymphocyte Count 0.13 X10^3/uL (0.83-4.51); Absolute Neutrophil Count 9.9 X10^3/uL (2.0-7.7); Basophil# 0.01 X10^3/uL; Basophil% 0.1 % (0-1); Hematocrit 34.2 % (37-47); Hemoglobin 9.4 g/dL (12.0-15.0); Lymphocyte # 0.13 X10^3/ul (0.83-4.51); Lymphocyte % 1.2 % (19-41); Mean Corp Hgb Conc 27.5 g/dL (32-36); Mean Corpuscular Hgb 26.8 pg (27.0-32.0); Mean Corpuscular Volume 97.4 fL (81-99); Mean Platelet Vol. 11.3 fl (6.2-12.0); Monocyte# 0.35 X10^3/uL; Monocyte% 3.4 % (0-10); NRBC Flagged by Analyzer 0 % (0-5); Neutrophil # 9.88 X10^3/uL (2.7-7.7); Neutrophil % 94.7 % (47-70); POSITIVE DIFFERENTIAL YES; POSITIVE MORPHOLOGY YES; Platelet Count 221 K/mm3 (150-450); RBC Distribution Width CV 18.5 % (11.6-14.6); RBC Distribution Width SD 65.8 fl (35.1-43.9); Red Blood Count 3.51 M/mm3 (4.2-5.4); White Blood Count 10.4 K/mm3 (4.4-11.0)
[2020-09-21 07:02] LABS: Differential Indicated SCAN CRITERIA MET
[2020-09-21 07:29] LABS: BUN 52 mg/dL (7-18); BUN/Creat Ratio 39.4 RATIO (10-20); Calcium,Total 9.7 mg/dL (8.5-10.1); Carbon Dioxide > 45.0 mmol/L (21.0-32.0); Chloride 95 mmol/L (98-107); Creatinine, Serum 1.32 mg/dL (0.55-1.02); EST Glomerular Filtration Rate 41 mL/min (>60); Est Glom Filt Rate - Afr Amer 50 mL/min (>60); Estimated Creatinine Clearance 27.65 ml/min; Glucose 158 mg/dL (74-106); Potassium 3.7 mmol/L (3.5-5.1); Sodium Level 143 mmol/L (136-145)
[2020-09-21] MEDS: dilTIAZem CD 300 MG Capsule PO (09:40)
[2020-09-21] MEDS: Sertraline 50 MG Tablet PO (09:40)
[2020-09-21] MEDS: Furosemide 40 MG Tablet PO ×2 (09:40→17:27)
[2020-09-21] MEDS: APIXABAN 2.5 MG TABLET PO ×2 (09:40→21:03)
--- NOTE | 2020-09-21 10:18 | CASEMGMT ---
Addendum entered by Marybeth Cabrera 09/21/20 14:42: Per Dr. Cortez, he is agreeable to autopap at discharge. Luz Elena in sleep lab aware, voices understanding and states they have [employer] autopap that they can set up for pt. Pt most likely here through weekend as she was on continuous bipap most of day and is currently on 5L while sitting in chair. This RN CM to room and pt is agreeable to [employer] for autopap and states concerns without going home with anything or even over the weekend as she states she does not feel much better at this time. Pt states she would consider going back to TCU at discharge, if she feels she needs to and if there is no co-pay. Dr. Godfrey updated on all, voices understanding. Per Luz Elena in sleep lab, pulmonary should sign for the autopap as they will need to follow with notes to keep it up to date. CM to follow. Amber LAURENT CM Original Note: Pt is in the process of being set up for PAP therapy as OP and still needs titration study and f/u with pulm. Call to Luz Elena in Sleep lab and she states that pt can be set up with autopap for now if Dr. Cortez agreeable until titration can be done or we can try to facilitate titration study appt/pulm f/u. This RN CM to discuss with Dr. Cortez when he comes to see pt. Dr. Godfrey updated, voices understanding. Amber LAURENT CM
--- NOTE | 2020-09-21 11:06 | CPS ---
Patient taken off BiPAP and placed on Nasal cannula at 4lpm. Dr Cortez at bedside.
--- NOTE | 2020-09-21 12:37 | PCM.PN.PUL ---
Patient Problems: Active and Suspected Problems (Last Reviewed 08/13/20 @ 10:04 by Nat Askew RETAIL SALES ASSISTANT, RETAIL SALES ASSISTANT-C) Shortness of breath (Acute) acute on chronic Subjective: The patient was seen and examined at the bedside this morning. Events from the last 24 hours have been reviewed. The patient is currently afebrile, hemodynamically stable and maintaining appropriate oxygen saturations on 4 L/min via nasal cannula. The patient has been maintained on AVAPS throughout the night and most of the morning. The patient does report the continued presence of shortness of breath. She believes that she got a cold from her granddaughter. After being discharged from the TCU recently, the patient was only sent home with an albuterol nebulizer. 1 to 2 days prior to her hospital admission she apparently had a phone call with her primary care provider who placed her on Spiriva and Advair. Objective: The patient's most recent lab work, culture data and imaging studies have all been personally reviewed. Surface echocardiogram from June 2020 revealed moderate concentric LVH with an ejection fraction of 65% and evidence of diastolic dysfunction. Moderately severe aortic stenosis was also noted. Rapid coronavirus antigen testing was negative. - Physical Exam Vitals/I&O's: Vital Signs Temp Pulse Resp BP Pulse Ox 97.2 F L 57 L 25 H 121/68 H 94 09/21/20 08:38 09/21/20 11:41 09/21/20 11:41 09/21/20 08:38 09/21/20 11:41 Oxygen Flow Rate (L/min) 4 Oxygen Delivery Method Bi-pap Weight: 162 lb 0.636 oz Body Mass Index (BMI) 28.7 Intake and Output for Last 24 Hours 09/19/20 09/20/20 09/21/20 23:59 23:59 23:59 Intake Total 1200 / 1200 1596.5 / 1596.5 Output Total 535 / 535 450 / 450 Balance 665 / 665 1146.5 / 1146.5 General: Alert, Cooperative HEENT: Atraumatic, Normocephalic Oral: Moist Mucosa Neck: Supple, No Nodes, Trachea Midline Lungs: No rhonchi, No wheeze, No rales, Diminished, Tachypneic Cardiovascular: Normal S1, Normal S2, Bradycardic, Murmur Abdomen: Bowel Sounds Present, Soft, Non Tender, Obese Extremities: No clubbing, No cyanosis, Edema Skin: No breakdown Musculoskeletal: No Tenderness to Palpation of Joints or Extremities Lymphatic: No Cervical, Supraclavicular, or Inguinal Adenopathy Neurological: Neuro grossly intact Psych/Mental Status: Flat Affect Labs (Last 48 Hours) 09/20/20 09/20/20 09/20/20 06:00 06:00 06:00 WBC 12.4 H RBC 4.25 Hgb 11.2 L Hct 41.6 MCV 97.9 MCH 26.4 L MCHC 26.9 L RDW Std Deviation 66.4 H RDW Coeff of Ismael 18.1 H Plt Count 234 MPV 10.6 Immature Gran % (Auto) 0.900 Neut % (Auto) 85.0 H Lymph % (Auto) 1.8 L [place] % (Auto) 6.4 Eos % (Auto) 5.7 H Baso % (Auto) 0.2 Absolute Neuts (auto) 10.5 H Absolute Lymphs (auto) 0.22 L Nucleated RBC % 0 Specimen Type Sample Site pH Bicarbonate Actual Total CO2 Base Excess O2 Saturation O2 % ABG pCO2 ABG pO2 Eliot Test Respiration Rate O2 Delivery Device Vent Mode Tidal Volume POC PEEP Pressure High Pressure Low EPAP Crit Call To/Read Back Sodium 143 Potassium 3.2 L Chloride 91 L Carbon Dioxide > 45.0 H* Anion Gap TNP BUN 37 H Creatinine 1.11 H Estim Creat Clear Calc 34.32 Est GFR (MDRD) Af Amer 61 Est GFR (MDRD) Non-Af 50 L BUN/Creatinine Ratio 33.3 H Glucose 168 H Calcium 10.0 Troponin I < 0.015 B-Natriuretic Peptide 233.7 H 09/20/20 09/20/20 09/21/20 07:06 11:02 06:50 WBC 10.4 RBC 3.51 L Hgb 9.4 L Hct 34.2 L MCV 97.4 MCH 26.8 L MCHC 27.5 L RDW Std Deviation 65.8 H RDW Coeff of Ismael 18.5 H Plt Count 221 MPV 11.3 Immature Gran % (Auto) 0.600 Neut % (Auto) 94.7 H Lymph % (Auto) 1.2 L [place] % (Auto) 3.4 Eos % (Auto) 0.0 Baso % (Auto) 0.1 Absolute Neuts (auto) 9.9 H Absolute Lymphs (auto) 0.13 L Nucleated RBC % 0 Specimen Type ART ART Sample Site L Radial L Radial pH 7.27 L 7.26 L Bicarbonate Actual 73.0 H 56.1 H Total CO2 > 50 50 Base Excess > 30 H 29 H O2 Saturation 100 H 89 L O2 % 100 50 ABG pCO2 158.4 H* 125.0 H* ABG pO2 236 H 72 L Eliot Test Positive Positive Respiration Rate 12 12 O2 Delivery Device BiPAP BIPAP Vent Mode avaps AVAPS Tidal Volume 450 450 POC PEEP 10 Pressure High 24.0 Pressure Low 12.0 EPAP 10 Crit Call To/Read Back Yes Sodium Potassium Chloride Carbon Dioxide Anion Gap BUN Creatinine Estim Creat Clear Calc Est GFR (MDRD) Af Amer Est GFR (MDRD) Non-Af BUN/Creatinine Ratio Glucose Calcium Troponin I B-Natriuretic Peptide 09/21/20 06:50 WBC RBC Hgb Hct MCV MCH MCHC RDW Std Deviation RDW Coeff of Ismael Plt Count MPV Immature Gran % (Auto) Neut % (Auto) Lymph % (Auto) [place] % (Auto) Eos % (Auto) Baso % (Auto) Absolute Neuts (auto) Absolute Lymphs (auto) Nucleated RBC % Specimen Type Sample Site pH Bicarbonate Actual Total CO2 Base Excess O2 Saturation O2 % ABG pCO2 ABG pO2 Eliot Test Respiration Rate O2 Delivery Device Vent Mode Tidal Volume POC PEEP Pressure High Pressure Low EPAP Crit Call To/Read Back Sodium 143 Potassium 3.7 Chloride 95 L Carbon Dioxide > 45.0 H* Anion Gap TNP BUN 52 H Creatinine 1.32 H Estim Creat Clear Calc 27.65 Est GFR (MDRD) Af Amer 50 L Est GFR (MDRD) Non-Af 41 L BUN/Creatinine Ratio 39.4 H Glucose 158 H Calcium 9.7 Troponin I B-Natriuretic Peptide Microbiology 09/20/20 05:50 Nasal Secretion SARS-CoV-2 Antigen (Rapid) - Final Clinical Impression(s) from Imaging Studies Chest X-Ray 09/20/20 05:42 IMPRESSION: Chronic interstitial changes. No evidence for acute cardiopulmonary pathology. Electronically Signed: Sinan Beaver MD at 6:24 EDT , Service support , Current Medications Acetaminophen (Acetaminophen 325 Mg Tablet) 650 mg PO Q6H PRN PRN PRN Reason: Pain Score 1-10/Temp > 100.7 F Albuterol Sulfate (Albuterol 2.5 Mg/3 Ml Vial.Neb.) 2.5 mg INHALATION Q2H PRN PRN PRN Reason: SOB/Wheezing Albuterol/Ipratropium (Ipratropium/Albuterol Sulfate 3 Ml Ampul.Neb) 3 ml INHALATION Q4H.RT [facility] Last Admin: 09/21/20 11:39 Dose: 3 ml Documented by: Apixaban (Apixaban 2.5 Mg Tablet) 2.5 mg PO BID [facility] Last Admin: 09/21/20 09:40 Dose: 2.5 mg Documented by: Calamine/Phenol (Menthol/Lanolin/Calamine/Znox 113 Gm Tube) 1 applic TOPICAL TID [facility]; Protocol Last Admin: 09/21/20 05:22 Dose: 1 applic Documented by: Diltiazem HCl (Diltiazem Cd 300 Mg Capsule) 300 mg PO DAILY [facility] Last Admin: 09/21/20 09:40 Dose: 300 mg Documented by: Ferrous Sulfate (Ferrous Sulfate 325 Mg Tablet) 325 mg PO QODAY@1200 [facility] Last Admin: 09/20/20 10:46 Dose: 325 mg Documented by: Furosemide (Furosemide 40 Mg Tablet) 40 mg PO BID@1000,1800 [facility] Last Admin: 09/21/20 09:40 Dose: 40 mg Documented by: Sodium Chloride () 250 mls @ 15 mls/hr IV .[id number] PRN PRN Reason: Saline Flush Sodium Chloride () 250 mls @ 15 mls/hr IV .[id number] PRN PRN Reason: Additional IVPB Infusion Methylprednisolone (Methylprednisolone 40 Mg/Ml Vial) 40 mg IV Q8 [facility] Last Admin: 09/21/20 05:23 Dose: 40 mg Documented by: Ondansetron HCl (Ondansetron 4 Mg/2 Ml Vial) 4 mg IV Q8H PRN PRN PRN Reason: NAUSEA/VOMITING Pravastatin Sodium (Pravastatin 20 Mg Tablet) 20 mg PO QHS [facility] Last Admin: 09/20/20 20:21 Dose: 20 mg Documented by: Sertraline HCl (Sertraline 50 Mg Tablet) 50 mg PO DAILY [facility] Last Admin: 09/21/20 09:40 Dose: 50 mg Documented by: Sodium Chloride (0.9% Saline Lock 10 Ml Syringe) 10 - 40 ml IV UD PRN PRN Reason: SALINE FLUSH Last Admin: 09/21/20 05:23 Dose: 10 ml Documented by: Medical Necessity - Tobacco Use Smoking Status: Former smoker Tobacco Use: Non-smoker Assessment/Plan All Active Problems (Last Reviewed 08/13/20 @ 10:04 by Nat Askew RETAIL SALES ASSISTANT, RETAIL SALES ASSISTANT-C) H/O mastectomy (Resolved) Respiratory failure with hypoxia and hypercapnia (Acute) Right lower lobe pulmonary infiltrate (Resolved) COPD with exacerbation (Acute) Acute bronchospasm (Acute) Severe sepsis (Resolved) Shortness of breath (Acute) Debility (Acute) Acute on chronic diastolic congestive heart failure (Acute) RECOMMENDATIONS: 1. Wean patient to nasal cannula supplemental oxygen as tolerated. Goal to maintain oxygen saturations 88 to 92%. 2. Continue patient on AVAPS, at a minimum, on a nightly basis. 3. Continue scheduled bronchodilator therapy and IV steroids. 4. Recommend de-escalation in diuretic regimen given increasing creatinine. 5. Close outpatient pulmonary follow-up is recommended. The patient will need to obtain baseline pulmonary function studies. 6. Set patient up with nocturnal AutoPap therapy at discharge. IMPRESSIONS: 1. Acute on chronic combined respiratory failure The patient has a presumptive history of COPD and appears to be prescribed a triple therapy inhaler regimen as an outpatient. However, I do not have any objective data in the form of PFTs to confirm the presence of obstructive lung disease and its severity. Nevertheless, in the interim, the patient will be treated with bronchodilator therapy along with IV steroids. Plan to continue noninvasive positive pressure ventilatory support. Wean to supplemental oxygen as tolerated with a goal to maintain saturations 88 to 92%. Ultimately, the patient needs close follow-up in the pulmonary medicine clinic and undoubtedly needs to complete her pulmonary function studies. 2. Heart failure with preserved ejection fraction/aortic valve disease Prior echocardiogram from June did reveal diastolic dysfunction. The patient was also noted to have moderately severe aortic valve stenosis. May wish to consider dose de-escalation and diuretic regimen, given increasing creatinine. 3. Obstructive sleep apnea The patient recently completed a diagnostic polysomnogram, ordered by her PCP, in July 2020, which did reveal evidence of moderate obstructive sleep apnea. Therefore, the patient would be a candidate for home PAP therapy. She can be set up with nocturnal AutoPap therapy at the time of her discharge from the hospital. 4. Depression/anxiety/hyperlipidemia/advanced age Complicates care, management, recovery and prognosis. Continue home medications as indicated. This note was generated with [employer] dictation software. It may contain incorrect words, spelling, and punctuation that were not noted in checking the note before signing. Inpatient E&M: 60906 Subs Hosp L3
--- NOTE | 2020-09-21 13:15 | CPS ---
Patient taken off BiPAP and placed on 4lpm Nasal Cannula, PT and OT at bedside.
--- NOTE | 2020-09-21 16:50 | CPS ---
FiO2 decreased to 45%, sats remained around 98%. FiO2 decreased again to 40%, will recheck.
--- NOTE | 2020-09-21 17:25 | CPS ---
Patient off BiPAP on 4lpm nasal cannula.
--- NOTE | 2020-09-21 18:01 | PCM.PROGNOTE ---
Patient Problems: Active and Suspected Problems (Last Reviewed 08/13/20 @ 10:04 by Nat Askew BRASS AND WIND INSTRUMENT REPAIRER, BRASS AND WIND INSTRUMENT REPAIRER-C) Shortness of breath (Acute) acute on chronic Subjective: Patient was seen and examined today, I asked her if she would consider going to an extended care facility for rehab services, she stated she would not be against it if it was necessary. Patient is on 4 L of oxygen presently, her creatinine bumped up this morning, I changed her Lasix to once daily. Patient does not complain of any shortness of breath this examiner, she denies any fevers or chills. Objective: General: Alert, Oriented x3, Cooperative, Well developed, Well nourished HEENT: Atraumatic, PERRLA, EOMI, Normocephalic Oral: Moist Mucosa Neck: Supple, No JVD, Trachea Midline, Thyroid Normal Size and Texture Lungs: Diminished lung sounds are present bilaterally, no expiratory wheezes were noted today Cardiovascular: Regular rate, Regular Rhythm, Normal S1, Normal S2, PMI Normal, Murmur - 2/6 systolic murmur is noted at the left sternal border and apex, No rub noted Abdomen: Bowel Sounds Present, Soft, Non Tender, Non-Distended Extremities: Capillary Refill Less than 3 Seconds, Edema - Generalized edema is noted over the lower legs bilaterally. Skin: No rashes, No breakdown Musculoskeletal: No Tenderness to Palpation of Joints or Extremities, No Muscle Wasting Neurological: Cranial nerves II-XII grossly intact, Neuro grossly intact, Coordination normal Psych/Mental Status: Normal Affect, Appropriate, Alert and oriented to time, place, person, mood and affect - Physical Exam Vitals/I&O's: Vital Signs Temp Pulse Resp BP Pulse Ox 97.2 F L 55 L 21 H 133/44 H 99 09/21/20 15:17 09/21/20 16:50 09/21/20 16:50 09/21/20 15:17 09/21/20 16:50 Oxygen Flow Rate (L/min) 4 Oxygen Delivery Method Nasal Cannula Weight: 73.5 kg Body Mass Index (BMI) 28.7 Intake and Output for Last 24 Hours 09/19/20 09/20/20 09/21/20 23:59 23:59 23:59 Intake Total 1200 / 1200 1995.5 / 1995.5 Output Total 535 / 535 450 / 450 Balance 665 / 665 1546.5 / 1546.5 Microbiology Past 72 Hours 09/20/20 05:50 Nasal Secretion SARS-CoV-2 Antigen (Rapid) - Final Laboratory Results 09/21/20 06:50: WBC 10.4, RBC 3.51 L, Hgb 9.4 L, Hct 34.2 L, MCV 97.4, MCH 26.8 L, MCHC 27.5 L, RDW Std Deviation 65.8 H, RDW Coeff of Ismael 18.5 H, Plt Count 221, MPV 11.3, Immature Gran % (Auto) 0.600, Neut % (Auto) 94.7 H, Lymph % (Auto) 1.2 L, [place] % (Auto) 3.4, Eos % (Auto) 0.0, Baso % (Auto) 0.1, Absolute Neuts (auto) 9.9 H, Absolute Lymphs (auto) 0.13 L, Nucleated RBC % 0 09/21/20 06:50: Sodium 143, Potassium 3.7, Chloride 95 L, Carbon Dioxide > 45.0 H*, Anion Gap TNP, BUN 52 H, Creatinine 1.32 H, Estim Creat Clear Calc 27.65, Est GFR (MDRD) Af Amer 50 L, Est GFR (MDRD) Non-Af 41 L, BUN/Creatinine Ratio 39.4 H, Glucose 158 H, Calcium 9.7 Current Medications Acetaminophen (Acetaminophen 325 Mg Tablet) 650 mg PO Q6H PRN PRN PRN Reason: Pain Score 1-10/Temp > 100.7 F Albuterol Sulfate (Albuterol 2.5 Mg/3 Ml Vial.Neb.) 2.5 mg INHALATION Q2H PRN PRN PRN Reason: SOB/Wheezing Albuterol/Ipratropium (Ipratropium/Albuterol Sulfate 3 Ml Ampul.Neb) 3 ml INHALATION Q4H.RT [facility] Last Admin: 09/21/20 15:12 Dose: 3 ml Documented by: Apixaban (Apixaban 2.5 Mg Tablet) 2.5 mg PO BID [facility] Last Admin: 09/21/20 09:40 Dose: 2.5 mg Documented by: Calamine/Phenol (Menthol/Lanolin/Calamine/Znox 113 Gm Tube) 1 applic TOPICAL TID [facility]; Protocol Last Admin: 09/21/20 13:37 Dose: 1 applic Documented by: Diltiazem HCl (Diltiazem Cd 300 Mg Capsule) 300 mg PO DAILY [facility] Last Admin: 09/21/20 09:40 Dose: 300 mg Documented by: Ferrous Sulfate (Ferrous Sulfate 325 Mg Tablet) 325 mg PO QODAY@1200 [facility] Last Admin: 09/20/20 10:46 Dose: 325 mg Documented by: Furosemide (Furosemide 40 Mg Tablet) 40 mg PO DAILY [facility] Sodium Chloride () 250 mls @ 15 mls/hr IV .[id number] PRN PRN Reason: Saline Flush Sodium Chloride () 250 mls @ 15 mls/hr IV .[id number] PRN PRN Reason: Additional IVPB Infusion Methylprednisolone (Methylprednisolone 40 Mg/Ml Vial) 40 mg IV Q8 [facility] Last Admin: 09/21/20 13:37 Dose: 40 mg Documented by: Ondansetron HCl (Ondansetron 4 Mg/2 Ml Vial) 4 mg IV Q8H PRN PRN PRN Reason: NAUSEA/VOMITING Pravastatin Sodium (Pravastatin 20 Mg Tablet) 20 mg PO QHS [facility] Last Admin: 09/20/20 20:21 Dose: 20 mg Documented by: Sertraline HCl (Sertraline 50 Mg Tablet) 50 mg PO DAILY [facility] Last Admin: 09/21/20 09:40 Dose: 50 mg Documented by: Sodium Chloride (0.9% Saline Lock 10 Ml Syringe) 10 - 40 ml IV UD PRN PRN Reason: SALINE FLUSH Last Admin: 09/21/20 13:37 Dose: 10 ml Documented by: Medical Necessity - Tobacco Use Smoking Status: Former smoker Tobacco Use: Non-smoker Assessment/Plan All Active Problems (Last Reviewed 08/13/20 @ 10:04 by Nat Askew BRASS AND WIND INSTRUMENT REPAIRER, BRASS AND WIND INSTRUMENT REPAIRER-C) H/O mastectomy (Resolved) Respiratory failure with hypoxia and hypercapnia (Acute) Right lower lobe pulmonary infiltrate (Resolved) COPD with exacerbation (Acute) Acute bronchospasm (Acute) Severe sepsis (Resolved) Shortness of breath (Acute) Debility (Acute) Acute on chronic diastolic congestive heart failure (Acute) #1 acute on chronic combined respiratory failure-continue present treatment on PCU, pulmonary is participating in her care #2 acute exacerbation of COPD-continue IV Solu-Medrol and aggressive aerosol treatments #3 hypokalemia-corrected at this time #4 chronic diastolic congestive heart failure-patient will remain on oral Lasix, I have decreased the dose to once a day due to elevated creatinine #5 Paroxysmal atrial fibrillation-patient is on Eliquis #6 stage IIIa chronic kidney disease #7 hyperlipidemia #8 chronic anxiety/depression #9 iron deficiency anemia-chronic #10 chronic debility-PT and OT will continue to work with the patient, she may need to go to an extended care facility for short-term rehab services. #11 obstructive sleep apnea-patient will be set up with nocturnal AutoPap therapy at discharge #12 moderate caloric and protein malnutrition Inpatient E&M: 58878 Subs Hosp L2
[2020-09-21] MEDS: Acetaminophen 325 MG Tablet 650 MG PO (21:02)
[2020-09-21] MEDS: Pravastatin 20 MG Tablet PO (21:03)
[2020-09-22] VITALS (17 sets, daily range): BP systolic 130–144; BP diastolic 53–65; PULSE 48–93; RESP 12–26; TEMP 36.6–37.1; O2SAT 92–97
[2020-09-22] MEDS: Ipratropium/Albuterol Sulfate 3 ML AMPUL.NEB INHALATION ×6 (03:28→23:11)
[2020-09-22] MEDS: 0.9% Saline Lock 10 ML Syringe IV ×2 (05:59→13:45)
[2020-09-22] MEDS: Menthol/Lanolin/Calamine/Znox 113 GM Tube 1 APPLIC TOPICAL ×3 (05:59→21:52)
[2020-09-22 08:00] LABS: BUN 61 mg/dL (7-18); BUN/Creat Ratio 52.6 RATIO (10-20); Calcium,Total 9.6 mg/dL (8.5-10.1); Carbon Dioxide > 45.0 mmol/L (21.0-32.0); Chloride 95 mmol/L (98-107); Creatinine, Serum 1.16 mg/dL (0.55-1.02); EST Glomerular Filtration Rate 48 mL/min (>60); Est Glom Filt Rate - Afr Amer 58 mL/min (>60); Estimated Creatinine Clearance 31.46 ml/min; Glucose 167 mg/dL (74-106); Potassium 3.9 mmol/L (3.5-5.1); Sodium Level 142 mmol/L (136-145)
--- NOTE | 2020-09-22 08:39 | PN_ITS ---
Patient Problems: Active and Suspected Problems (Last Reviewed 08/13/20 @ 10:04 by Nat Askew CONSTRUCTION EQUIPMENT TECHNICIAN, CONSTRUCTION EQUIPMENT TECHNICIAN-C) Shortness of breath (Acute) acute on chronic Subjective: The patient was seen and examined at the bedside this morning. Events from the last 24 hours have been reviewed. The patient is currently afebrile, hemodynamically stable and maintaining appropriate oxygen saturations on BiPAP at the current time with an FiO2 of 40%. The patient does report that she feels as if she is more short of breath this morning. Objective: The patient's most recent lab work, culture data and imaging studies have all been personally reviewed. Surface echocardiogram from June 2020 revealed moderate concentric LVH with an ejection fraction of 65% and evidence of diastolic dysfunction. Moderately severe aortic stenosis was also noted. Rapid coronavirus antigen testing was negative. - Physical Exam Vitals/I&O's: Vital Signs Temp Pulse Resp BP Pulse Ox 97.8 F 48 L 18 144/60 H 93 09/22/20 03:00 09/22/20 06:30 09/22/20 03:28 09/22/20 03:00 09/22/20 03:28 Oxygen Flow Rate (L/min) 4 Oxygen Delivery Method Bi-pap Weight: 162 lb 0.636 oz Body Mass Index (BMI) 28.7 Intake and Output for Last 24 Hours 09/20/20 09/21/20 09/22/20 23:59 23:59 23:59 Intake Total 1200 / 1200 1996.5 / 2236.5 240 / 240 Output Total 535 / 535 450 / 450 Balance 665 / 665 1546.5 / 1786.5 240 / 240 General: Alert, Cooperative, - - Tolerating BiPAP without issue. HEENT: Atraumatic, PERRLA, Normocephalic Oral: Dry Mucosa Neck: Supple, No Nodes, Trachea Midline Lungs: Diminished, Tachypneic Cardiovascular: Regular rate, Regular Rhythm, Murmur Abdomen: Bowel Sounds Present, Soft, Non Tender Extremities: No clubbing, No cyanosis Skin: No breakdown Musculoskeletal: No Tenderness to Palpation of Joints or Extremities Lymphatic: No Cervical, Supraclavicular, or Inguinal Adenopathy Neurological: Cranial nerves II-XII grossly intact, Neuro grossly intact Psych/Mental Status: Anxious Labs (Last 48 Hours) 09/20/20 09/21/20 09/21/20 11:02 06:50 06:50 WBC 10.4 RBC 3.51 L Hgb 9.4 L Hct 34.2 L MCV 97.4 MCH 26.8 L MCHC 27.5 L RDW Std Deviation 65.8 H RDW Coeff of Ismael 18.5 H Plt Count 221 MPV 11.3 Immature Gran % (Auto) 0.600 Neut % (Auto) 94.7 H Lymph % (Auto) 1.2 L Walton % (Auto) 3.4 Eos % (Auto) 0.0 Baso % (Auto) 0.1 Absolute Neuts (auto) 9.9 H Absolute Lymphs (auto) 0.13 L Nucleated RBC % 0 Specimen Type ART Sample Site L Radial pH 7.26 L Bicarbonate Actual 56.1 H Total CO2 50 Base Excess 29 H O2 Saturation 89 L O2 % 50 ABG pCO2 125.0 H* ABG pO2 72 L Eliot Test Positive Respiration Rate 12 O2 Delivery Device BIPAP Vent Mode AVAPS Tidal Volume 450 Pressure High 24.0 Pressure Low 12.0 EPAP 10 Sodium 143 Potassium 3.7 Chloride 95 L Carbon Dioxide > 45.0 H* Anion Gap TNP BUN 52 H Creatinine 1.32 H Estim Creat Clear Calc 27.65 Est GFR (MDRD) Af Amer 50 L Est GFR (MDRD) Non-Af 41 L BUN/Creatinine Ratio 39.4 H Glucose 158 H Calcium 9.7 09/22/20 07:00 WBC RBC Hgb Hct MCV MCH MCHC RDW Std Deviation RDW Coeff of Ismael Plt Count MPV Immature Gran % (Auto) Neut % (Auto) Lymph % (Auto) Walton % (Auto) Eos % (Auto) Baso % (Auto) Absolute Neuts (auto) Absolute Lymphs (auto) Nucleated RBC % Specimen Type Sample Site pH Bicarbonate Actual Total CO2 Base Excess O2 Saturation O2 % ABG pCO2 ABG pO2 Eliot Test Respiration Rate O2 Delivery Device Vent Mode Tidal Volume Pressure High Pressure Low EPAP Sodium 142 Potassium 3.9 Chloride 95 L Carbon Dioxide > 45.0 H* Anion Gap TNP BUN 61 H Creatinine 1.16 H Estim Creat Clear Calc 31.46 Est GFR (MDRD) Af Amer 58 L Est GFR (MDRD) Non-Af 48 L BUN/Creatinine Ratio 52.6 H Glucose 167 H Calcium 9.6 Microbiology 09/20/20 05:50 Nasal Secretion SARS-CoV-2 Antigen (Rapid) - Final Clinical Impression(s) from Imaging Studies Chest X-Ray 09/20/20 05:42 IMPRESSION: Chronic interstitial changes. No evidence for acute cardiopulmonary pathology. Electronically Signed: Sinan Beaver MD at 6:24 EDT , Service support , Current Medications Acetaminophen (Acetaminophen 325 Mg Tablet) 650 mg PO Q6H PRN PRN PRN Reason: Pain Score 1-10/Temp > 100.7 F Last Admin: 09/21/20 21:02 Dose: 650 mg Documented by: Albuterol Sulfate (Albuterol 2.5 Mg/3 Ml Vial.Neb.) 2.5 mg INHALATION Q2H PRN PRN PRN Reason: SOB/Wheezing Albuterol/Ipratropium (Ipratropium/Albuterol Sulfate 3 Ml Ampul.Neb) 3 ml INHALATION Q4H.RT [facility] Last Admin: 09/22/20 06:51 Dose: 3 ml Documented by: Apixaban (Apixaban 2.5 Mg Tablet) 2.5 mg PO BID [facility] Last Admin: 09/21/20 21:03 Dose: 2.5 mg Documented by: Calamine/Phenol (Menthol/Lanolin/Calamine/Znox 113 Gm Tube) 1 applic TOPICAL TID [facility]; Protocol Last Admin: 09/22/20 05:59 Dose: 1 applic Documented by: Diltiazem HCl (Diltiazem Cd 300 Mg Capsule) 300 mg PO DAILY [facility] Last Admin: 09/21/20 09:40 Dose: 300 mg Documented by: Ferrous Sulfate (Ferrous Sulfate 325 Mg Tablet) 325 mg PO QODAY@1200 [facility] Last Admin: 09/20/20 10:46 Dose: 325 mg Documented by: Furosemide (Furosemide 40 Mg Tablet) 40 mg PO DAILY [facility] Sodium Chloride () 250 mls @ 15 mls/hr IV .[id number] PRN PRN Reason: Saline Flush Sodium Chloride () 250 mls @ 15 mls/hr IV .[id number] PRN PRN Reason: Additional IVPB Infusion Methylprednisolone (Methylprednisolone 40 Mg/Ml Vial) 40 mg IV Q8 [facility] Last Admin: 09/22/20 06:00 Dose: 40 mg Documented by: Ondansetron HCl (Ondansetron 4 Mg/2 Ml Vial) 4 mg IV Q8H PRN PRN PRN Reason: NAUSEA/VOMITING Pravastatin Sodium (Pravastatin 20 Mg Tablet) 20 mg PO QHS [facility] Last Admin: 09/21/20 21:03 Dose: 20 mg Documented by: Sertraline HCl (Sertraline 50 Mg Tablet) 50 mg PO DAILY [facility] Last Admin: 09/21/20 09:40 Dose: 50 mg Documented by: Sodium Chloride (0.9% Saline Lock 10 Ml Syringe) 10 - 40 ml IV UD PRN PRN Reason: SALINE FLUSH Last Admin: 09/22/20 05:59 Dose: 10 ml Documented by: Medical Necessity - Tobacco Use Smoking Status: Former smoker Tobacco Use: Non-smoker Assessment/Plan All Active Problems (Last Reviewed 08/13/20 @ 10:04 by Nat Askew CONSTRUCTION EQUIPMENT TECHNICIAN, CONSTRUCTION EQUIPMENT TECHNICIAN- C) H/O mastectomy (Resolved) Respiratory failure with hypoxia and hypercapnia (Acute) Right lower lobe pulmonary infiltrate (Resolved) COPD with exacerbation (Acute) Acute bronchospasm (Acute) Severe sepsis (Resolved) Shortness of breath (Acute) Debility (Acute) Acute on chronic diastolic congestive heart failure (Acute) RECOMMENDATIONS: 1. Wean patient to nasal cannula supplemental oxygen as tolerated. Goal to maintain oxygen saturations 88 to 92%. 2. Continue patient on AVAPS, at a minimum, on a nightly basis. 3. Continue scheduled bronchodilator therapy and IV steroids. 4. Continue diuretic regimen as tolerated by hemodynamics and renal function. 5. Close outpatient pulmonary follow-up is recommended. The patient will need to obtain baseline pulmonary function studies. 6. Set patient up with nocturnal AutoPap therapy at discharge. 7. Obtain repeat plain film chest x-ray this morning. IMPRESSIONS: 1. Acute on chronic combined respiratory failure The patient has a presumptive history of COPD and appears to be prescribed a triple therapy inhaler regimen as an outpatient. However, I do not have any objective data in the form of PFTs to confirm the presence of obstructive lung disease and its severity. Nevertheless, in the interim, the patient will be treated with bronchodilator therapy along with IV steroids. Plan to continue noninvasive positive pressure ventilatory support. Wean to supplemental oxygen as tolerated with a goal to maintain saturations 88 to 92%. Ultimately, the patient needs close follow-up in the pulmonary medicine clinic and undoubtedly needs to complete her pulmonary function studies. 2. Heart failure with preserved ejection fraction/aortic valve disease Prior echocardiogram from June did reveal diastolic dysfunction. The patient was also noted to have moderately severe aortic valve stenosis. Continue diuretic regimen as tolerated by hemodynamics and renal function. 3. Obstructive sleep apnea The patient recently completed a diagnostic polysomnogram, ordered by her PCP, in July 2020, which did reveal evidence of moderate obstructive sleep apnea. Therefore, the patient would be a candidate for home PAP therapy. She can be set up with nocturnal AutoPap therapy at the time of her discharge from the hospital. 4. Depression/anxiety/hyperlipidemia/advanced age Complicates care, management, recovery and prognosis. Continue home medications as indicated. This note was generated with Moondo dictation software. It may contain incorrect words, spelling, and punctuation that were not noted in checking the note before signing. Inpatient E&M: [id number] [facility] Hosp L3
[2020-09-22] MEDS: APIXABAN 2.5 MG TABLET PO ×2 (09:11→21:52)
[2020-09-22] MEDS: Furosemide 40 MG Tablet PO (09:11)
[2020-09-22] MEDS: Sertraline 50 MG Tablet PO (09:12)
[2020-09-22] MEDS: dilTIAZem CD 300 MG Capsule PO (09:12)
--- NOTE | 2020-09-22 09:40 | RAD_ITS ---
STUDY: X-RAY CHEST REASON FOR EXAM: Female, 80 years old. Respiratory Failure TECHNIQUE: Single AP portable view of the chest. COMPARISON: 09/20/2020 FINDINGS: The lungs are clear and expanded. There is no demonstrated pleural abnormality. Normal size heart. Normal mediastinum and steven. Normal visualized pulmonary arteries. Normal visualized aortic arch and descending thoracic aorta. Normal visualized thoracic spine. Normal visualized ribs, clavicles, and shoulders. There is no demonstrated abnormality of the visualized soft tissue structures of the upper abdomen. RAD/Chest 1 View (Portable) IMPRESSION: Normal x-ray examination of the chest. Electronically Signed: Kian Robledo MD at 9:55 EDT Tel , Service support ,
[2020-09-22] MEDS: Ferrous Sulfate 325 MG Tablet PO (12:21)
--- NOTE | 2020-09-22 16:22 | PCM.PROGNOTE ---
Patient Problems: Active and Suspected Problems (Last Reviewed 08/13/20 @ 10:04 by Nat Askew FIXED INTEREST DEALER, FIXED INTEREST DEALER-C) Shortness of breath (Acute) acute on chronic Subjective: Patient was seen and examined today, she was currently on BiPAP when I examined her earlier today and did not appear in any respiratory distress. - Physical Exam Vitals/I&O's: Vital Signs Temp Pulse Resp BP Pulse Ox 98.6 F 60 18 144/53 H 92 09/22/20 15:46 09/22/20 15:46 09/22/20 15:46 09/22/20 15:46 09/22/20 15:46 Oxygen Flow Rate (L/min) 4 Oxygen Delivery Method Room Air Weight: 73.5 kg Body Mass Index (BMI) 28.7 Intake and Output for Last 24 Hours 09/20/20 09/21/20 09/22/20 23:59 23:59 23:59 Intake Total 1200 / 1200 1996.5 / 2236.5 440 / 440 Output Total 535 / 535 450 / 450 Balance 665 / 665 1546.5 / 1786.5 440 / 440 General: Alert, Oriented x3, Cooperative, No apparent distress, Well developed HEENT: Atraumatic, PERRLA, EOMI, Normocephalic Oral: Moist Mucosa Neck: Supple, No JVD, Trachea Midline, Thyroid Normal Size and Texture Lungs: No rhonchi, No wheeze, No rales, Diminished Cardiovascular: Regular rate, Regular Rhythm, Normal S1, Normal S2, No murmurs, PMI Normal, No rub noted Abdomen: Bowel Sounds Present, Soft, Non Tender, Non-Distended Extremities: Capillary Refill Less than 3 Seconds, Edema - Generalized lower extremity edema was noted Skin: No rashes, No breakdown Neurological: Cranial nerves II-XII grossly intact, Neuro grossly intact, Sensory exam intact to light touch and pain Psych/Mental Status: Normal Affect, Appropriate Microbiology Past 72 Hours 09/20/20 05:50 Nasal Secretion SARS-CoV-2 Antigen (Rapid) - Final Laboratory Results 09/22/20 07:00: Sodium 142, Potassium 3.9, Chloride 95 L, Carbon Dioxide > 45.0 H*, Anion Gap TNP, BUN 61 H, Creatinine 1.16 H, Estim Creat Clear Calc 31.46, Est GFR (MDRD) Af Amer 58 L, Est GFR (MDRD) Non-Af 48 L, BUN/Creatinine Ratio 52.6 H, Glucose 167 H, Calcium 9.6 Current Medications Acetaminophen (Acetaminophen 325 Mg Tablet) 650 mg PO Q6H PRN PRN PRN Reason: Pain Score 1-10/Temp > 100.7 F Last Admin: 09/21/20 21:02 Dose: 650 mg Documented by: Albuterol Sulfate (Albuterol 2.5 Mg/3 Ml Vial.Neb.) 2.5 mg INHALATION Q2H PRN PRN PRN Reason: SOB/Wheezing Albuterol/Ipratropium (Ipratropium/Albuterol Sulfate 3 Ml Ampul.Neb) 3 ml INHALATION Q4H.RT [facility] Last Admin: 09/22/20 14:30 Dose: 3 ml Documented by: Apixaban (Apixaban 2.5 Mg Tablet) 2.5 mg PO BID [facility] Last Admin: 09/22/20 09:11 Dose: 2.5 mg Documented by: Calamine/Phenol (Menthol/Lanolin/Calamine/Znox 113 Gm Tube) 1 applic TOPICAL TID [facility]; Protocol Last Admin: 09/22/20 13:45 Dose: 1 applic Documented by: Diltiazem HCl (Diltiazem Cd 300 Mg Capsule) 300 mg PO DAILY [facility] Last Admin: 09/22/20 09:12 Dose: 300 mg Documented by: Ferrous Sulfate (Ferrous Sulfate 325 Mg Tablet) 325 mg PO QODAY@1200 [facility] Last Admin: 09/22/20 12:21 Dose: 325 mg Documented by: Furosemide (Furosemide 40 Mg Tablet) 40 mg PO DAILY [facility] Last Admin: 09/22/20 09:11 Dose: 40 mg Documented by: Sodium Chloride () 250 mls @ 15 mls/hr IV .[id number] PRN PRN Reason: Saline Flush Sodium Chloride () 250 mls @ 15 mls/hr IV .[id number] PRN PRN Reason: Additional IVPB Infusion Methylprednisolone (Methylprednisolone 40 Mg/Ml Vial) 40 mg IV Q8 [facility] Last Admin: 09/22/20 13:44 Dose: 40 mg Documented by: Ondansetron HCl (Ondansetron 4 Mg/2 Ml Vial) 4 mg IV Q8H PRN PRN PRN Reason: NAUSEA/VOMITING Pravastatin Sodium (Pravastatin 20 Mg Tablet) 20 mg PO QHS [facility] Last Admin: 09/21/20 21:03 Dose: 20 mg Documented by: Sertraline HCl (Sertraline 50 Mg Tablet) 50 mg PO DAILY [facility] Last Admin: 09/22/20 09:12 Dose: 50 mg Documented by: Sodium Chloride (0.9% Saline Lock 10 Ml Syringe) 10 - 40 ml IV UD PRN PRN Reason: SALINE FLUSH Last Admin: 09/22/20 13:45 Dose: 10 ml Documented by: Medical Necessity - Tobacco Use Smoking Status: Former smoker Tobacco Use: Non-smoker Assessment/Plan All Active Problems (Last Reviewed 08/13/20 @ 10:04 by Nat Askew FIXED INTEREST DEALER, FIXED INTEREST DEALER-C) H/O mastectomy (Resolved) Respiratory failure with hypoxia and hypercapnia (Acute) Right lower lobe pulmonary infiltrate (Resolved) COPD with exacerbation (Acute) Acute bronchospasm (Acute) Severe sepsis (Resolved) Shortness of breath (Acute) Debility (Acute) Acute on chronic diastolic congestive heart failure (Acute) #1 acute on chronic combined respiratory failure-continue present treatment on PCU, pulmonary is participating in her care #2 acute exacerbation of COPD-continue IV Solu-Medrol and aggressive aerosol treatments #3 hypokalemia-corrected at this time #4 chronic diastolic congestive heart failure-patient will remain on oral Lasix #5 Paroxysmal atrial fibrillation-patient is on Eliquis #6 stage IIIa chronic kidney disease-patient's creatinine is improved today #7 hyperlipidemia #8 chronic anxiety/depression #9 iron deficiency anemia-chronic #10 chronic debility-PT and OT will continue to work with the patient, she may need to go to an extended care facility for short-term rehab services. #11 obstructive sleep apnea-patient will be set up with nocturnal AutoPap therapy at discharge #12 moderate caloric and protein malnutrition Inpatient E&M: [id number] Subs Hosp L2
[2020-09-22] MEDS: Pravastatin 20 MG Tablet PO (21:52)
[2020-09-23] VITALS (17 sets, daily range): BP systolic 105–169; BP diastolic 59–83; PULSE 49–78; RESP 12–24; TEMP 36.3–37.1; O2SAT 89–97
[2020-09-23] MEDS: Menthol/Lanolin/Calamine/Znox 113 GM Tube 1 APPLIC TOPICAL ×3 (06:32→21:39)
[2020-09-23] MEDS: Ipratropium/Albuterol Sulfate 3 ML AMPUL.NEB INHALATION ×5 (07:10→22:32)
[2020-09-23] MEDS: dilTIAZem CD 300 MG Capsule PO (08:40)
[2020-09-23] MEDS: APIXABAN 2.5 MG TABLET PO ×2 (08:41→21:39)
[2020-09-23] MEDS: Sertraline 50 MG Tablet PO (08:41)
[2020-09-23] MEDS: Furosemide 40 MG Tablet PO (08:41)
--- NOTE | 2020-09-23 09:48 | PCM.PN.PUL ---
Patient Problems: Active and Suspected Problems (Last Reviewed 08/13/20 @ 10:04 by Nat Askew INVESTMENT ACCOUNTANT, INVESTMENT ACCOUNTANT-C) Shortness of breath (Acute) acute on chronic Subjective: The patient was seen and examined at the bedside this morning. Events from the last 24 hours have been reviewed. The patient is currently afebrile, hemodynamically stable and maintaining appropriate oxygen saturations on 4 L/min via nasal cannula. The patient does still report residual shortness of breath. Objective: The patient's most recent lab work, culture data and imaging studies have all been personally reviewed. Surface echocardiogram from June 2020 revealed moderate concentric LVH with an ejection fraction of 65% and evidence of diastolic dysfunction. Moderately severe aortic stenosis was also noted. Rapid coronavirus antigen testing was negative. - Physical Exam Vitals/I&O's: Vital Signs Temp Pulse Resp BP Pulse Ox 98.0 F 61 18 140/83 H 94 09/23/20 08:39 09/23/20 08:39 09/23/20 08:39 09/23/20 08:39 09/23/20 08:39 Oxygen Flow Rate (L/min) 4 Oxygen Delivery Method Bi-pap Weight: 162 lb 0.636 oz Body Mass Index (BMI) 28.7 Intake and Output for Last 24 Hours 09/21/20 09/22/20 09/23/20 23:59 23:59 23:59 Intake Total 1996.5 / 2236.5 560 / 560 240 / 240 Output Total 450 / 450 150 / 150 275 / 275 Balance 1546.5 / 1786.5 410 / 410 -35 / -35 General: Alert, Cooperative, No apparent distress HEENT: Atraumatic, PERRLA, Normocephalic Oral: Moist Mucosa, No Gingival or Mucosal Lesions/ Ulcerations Neck: Supple, No Nodes, Trachea Midline Lungs: Diminished, Tachypneic Cardiovascular: Regular rate, Regular Rhythm, Murmur Abdomen: Bowel Sounds Present, Soft, Non Tender Extremities: No clubbing, No cyanosis, No edema Skin: No breakdown Musculoskeletal: No Tenderness to Palpation of Joints or Extremities Lymphatic: No Cervical, Supraclavicular, or Inguinal Adenopathy Neurological: Cranial nerves II-XII grossly intact, Neuro grossly intact Psych/Mental Status: Anxious Labs (Last 48 Hours) 09/22/20 07:00 Sodium 142 Potassium 3.9 Chloride 95 L Carbon Dioxide > 45.0 H* Anion Gap TNP BUN 61 H Creatinine 1.16 H Estim Creat Clear Calc 31.46 Est GFR (MDRD) Af Amer 58 L Est GFR (MDRD) Non-Af 48 L BUN/Creatinine Ratio 52.6 H Glucose 167 H Calcium 9.6 Clinical Impression(s) from Imaging Studies Chest X-Ray 09/20/20 05:42 IMPRESSION: Chronic interstitial changes. No evidence for acute cardiopulmonary pathology. Electronically Signed: Sinan Beaver MD at 6:24 EDT , Service support , Chest X-Ray 09/22/20 09:40 IMPRESSION: Normal x-ray examination of the chest. Electronically Signed: Kian Robledo MD at 9:55 EDT Tel , Service support , Current Medications Acetaminophen (Acetaminophen 325 Mg Tablet) 650 mg PO Q6H PRN PRN PRN Reason: Pain Score 1-10/Temp > 100.7 F Last Admin: 09/21/20 21:02 Dose: 650 mg Documented by: Albuterol Sulfate (Albuterol 2.5 Mg/3 Ml Vial.Neb.) 2.5 mg INHALATION Q2H PRN PRN PRN Reason: SOB/Wheezing Albuterol/Ipratropium (Ipratropium/Albuterol Sulfate 3 Ml Ampul.Neb) 3 ml INHALATION Q4H.RT [facility] Last Admin: 09/23/20 07:10 Dose: 3 ml Documented by: Apixaban (Apixaban 2.5 Mg Tablet) 2.5 mg PO BID [facility] Last Admin: 09/23/20 08:41 Dose: 2.5 mg Documented by: Calamine/Phenol (Menthol/Lanolin/Calamine/Znox 113 Gm Tube) 1 applic TOPICAL TID [facility]; Protocol Last Admin: 09/23/20 06:32 Dose: 1 applic Documented by: Diltiazem HCl (Diltiazem Cd 300 Mg Capsule) 300 mg PO DAILY [facility] Last Admin: 09/23/20 08:40 Dose: 300 mg Documented by: Ferrous Sulfate (Ferrous Sulfate 325 Mg Tablet) 325 mg PO QODAY@1200 [facility] Last Admin: 09/22/20 12:21 Dose: 325 mg Documented by: Furosemide (Furosemide 40 Mg Tablet) 40 mg PO DAILY [facility] Last Admin: 09/23/20 08:41 Dose: 40 mg Documented by: Sodium Chloride () 250 mls @ 15 mls/hr IV .[id number] PRN PRN Reason: Saline Flush Sodium Chloride () 250 mls @ 15 mls/hr IV .[id number] PRN PRN Reason: Additional IVPB Infusion Methylprednisolone (Methylprednisolone 40 Mg/Ml Vial) 40 mg IV Q8 [facility] Last Admin: 09/23/20 06:32 Dose: 40 mg Documented by: Ondansetron HCl (Ondansetron 4 Mg/2 Ml Vial) 4 mg IV Q8H PRN PRN PRN Reason: NAUSEA/VOMITING Pravastatin Sodium (Pravastatin 20 Mg Tablet) 20 mg PO QHS [facility] Last Admin: 09/22/20 21:52 Dose: 20 mg Documented by: Sertraline HCl (Sertraline 50 Mg Tablet) 50 mg PO DAILY [facility] Last Admin: 09/23/20 08:41 Dose: 50 mg Documented by: Sodium Chloride (0.9% Saline Lock 10 Ml Syringe) 10 - 40 ml IV UD PRN PRN Reason: SALINE FLUSH Last Admin: 09/22/20 13:45 Dose: 10 ml Documented by: Medical Necessity - Tobacco Use Smoking Status: Former smoker Tobacco Use: Non-smoker Assessment/Plan All Active Problems (Last Reviewed 08/13/20 @ 10:04 by Nat Askew INVESTMENT ACCOUNTANT, INVESTMENT ACCOUNTANT-C) H/O mastectomy (Resolved) Respiratory failure with hypoxia and hypercapnia (Acute) Right lower lobe pulmonary infiltrate (Resolved) COPD with exacerbation (Acute) Acute bronchospasm (Acute) Severe sepsis (Resolved) Shortness of breath (Acute) Debility (Acute) Acute on chronic diastolic congestive heart failure (Acute) RECOMMENDATIONS: 1. Wean patient to nasal cannula supplemental oxygen as tolerated. Goal to maintain oxygen saturations 88 to 92%. 2. Continue patient on AVAPS, at a minimum, on a nightly basis. 3. Continue scheduled bronchodilator therapy and IV steroids. 4. Continue diuretic regimen as tolerated by hemodynamics and renal function. 5. Close outpatient pulmonary follow-up is recommended. The patient will need to obtain baseline pulmonary function studies. 6. Set patient up with nocturnal AutoPap therapy at discharge. IMPRESSIONS: 1. Acute on chronic combined respiratory failure The patient has a presumptive history of COPD and appears to be prescribed a triple therapy inhaler regimen as an outpatient. However, I do not have any objective data in the form of PFTs to confirm the presence of obstructive lung disease and its severity. Nevertheless, in the interim, the patient will be treated with bronchodilator therapy along with IV steroids. Plan to continue noninvasive positive pressure ventilatory support. Wean to supplemental oxygen as tolerated with a goal to maintain saturations 88 to 92%. Ultimately, the patient needs close follow-up in the pulmonary medicine clinic and undoubtedly needs to complete her pulmonary function studies. 2. Heart failure with preserved ejection fraction/aortic valve disease Prior echocardiogram from June did reveal diastolic dysfunction. The patient was also noted to have moderately severe aortic valve stenosis. Continue diuretic regimen as tolerated by hemodynamics and renal function. 3. Obstructive sleep apnea The patient recently completed a diagnostic polysomnogram, ordered by her PCP, in July 2020, which did reveal evidence of moderate obstructive sleep apnea. Therefore, the patient would be a candidate for home PAP therapy. She can be set up with nocturnal AutoPap therapy at the time of her discharge from the hospital. 4. Depression/anxiety/hyperlipidemia/advanced age Complicates care, management, recovery and prognosis. Continue home medications as indicated. This note was generated with Echo itation software. It may contain incorrect words, spelling, and punctuation that were not noted in checking the note before signing. Inpatient E&M: [id number] Subs Hosp L2
--- NOTE | 2020-09-23 17:42 | PN_ITS ---
Patient Problems: Active and Suspected Problems (Last Reviewed 08/13/20 @ 10:04 by Nat Askew FEDERAL LAW CLERK, FEDERAL LAW CLERK-C) Shortness of breath (Acute) acute on chronic Subjective: Patient was seen and examined today, patient states she generally just does not feel good. Patient with nonspecific she denied any fevers or chills. Patient has intermittently been on BiPAP and nasal cannula O2 during the day. Objective: General: Alert, Oriented x3, Cooperative, No apparent distress, Well developed HEENT: Atraumatic, PERRLA, EOMI, Normocephalic Oral: Moist Mucosa Neck: Supple, No JVD, Trachea Midline, Thyroid Normal Size and Texture Lungs: No rhonchi, No wheeze, No rales, Diminished Cardiovascular: Regular rate, Regular Rhythm, Normal S1, Normal S2, PMI Normal, No rub noted Abdomen: Bowel Sounds Present, Soft, Non Tender, Non-Distended Extremities: Capillary Refill Less than 3 Seconds, Edema - Generalized lower extremity edema was noted Skin: No rashes, No breakdown Neurological: Cranial nerves II-XII grossly intact, Neuro grossly intact, Sensory exam intact to light touch and pain Psych/Mental Status: Normal Affect, Appropriate - Physical Exam Vitals/I&O's: Vital Signs Temp Pulse Resp BP Pulse Ox 97.6 F L 78 16 105/67 94 09/23/20 14:15 09/23/20 15:06 09/23/20 15:06 09/23/20 14:15 09/23/20 14:15 Oxygen Flow Rate (L/min) 4 Oxygen Delivery Method Bi-pap Weight: 73.5 kg Body Mass Index (BMI) 28.7 Intake and Output for Last 24 Hours 09/21/20 09/22/20 09/23/20 23:59 23:59 23:59 Intake Total 1996.5 / 2236.5 560 / 560 480 / 480 Output Total 450 / 450 150 / 150 675 / 675 Balance 1546.5 / 1786.5 410 / 410 -195 / -195 Current Medications Acetaminophen (Acetaminophen 325 Mg Tablet) 650 mg PO Q6H PRN PRN PRN Reason: Pain Score 1-10/Temp > 100.7 F Last Admin: 09/21/20 21:02 Dose: 650 mg Documented by: Albuterol Sulfate (Albuterol 2.5 Mg/3 Ml Vial.Neb.) 2.5 mg INHALATION Q2H PRN PRN PRN Reason: SOB/Wheezing Albuterol/Ipratropium (Ipratropium/Albuterol Sulfate 3 Ml Ampul.Neb) 3 ml INHALATION Q4H.RT [facility] Last Admin: 09/23/20 15:06 Dose: 3 ml Documented by: Apixaban (Apixaban 2.5 Mg Tablet) 2.5 mg PO BID [facility] Last Admin: 09/23/20 08:41 Dose: 2.5 mg Documented by: Calamine/Phenol (Menthol/Lanolin/Calamine/Znox 113 Gm Tube) 1 applic TOPICAL TID [facility]; Protocol Last Admin: 09/23/20 14:11 Dose: 1 applic Documented by: Diltiazem HCl (Diltiazem Cd 300 Mg Capsule) 300 mg PO DAILY [facility] Last Admin: 09/23/20 08:40 Dose: 300 mg Documented by: Ferrous Sulfate (Ferrous Sulfate 325 Mg Tablet) 325 mg PO QODAY@1200 [facility] Last Admin: 09/22/20 12:21 Dose: 325 mg Documented by: Furosemide (Furosemide 40 Mg Tablet) 40 mg PO DAILY [facility] Last Admin: 09/23/20 08:41 Dose: 40 mg Documented by: Sodium Chloride () 250 mls @ 15 mls/hr IV .[id number] PRN PRN Reason: Saline Flush Sodium Chloride () 250 mls @ 15 mls/hr IV .[id number] PRN PRN Reason: Additional IVPB Infusion Methylprednisolone (Methylprednisolone 40 Mg/Ml Vial) 40 mg IV Q8 [facility] Last Admin: 09/23/20 14:11 Dose: 40 mg Documented by: Ondansetron HCl (Ondansetron 4 Mg/2 Ml Vial) 4 mg IV Q8H PRN PRN PRN Reason: NAUSEA/VOMITING Pravastatin Sodium (Pravastatin 20 Mg Tablet) 20 mg PO QHS [facility] Last Admin: 09/22/20 21:52 Dose: 20 mg Documented by: Sertraline HCl (Sertraline 50 Mg Tablet) 50 mg PO DAILY [facility] Last Admin: 09/23/20 08:41 Dose: 50 mg Documented by: Sodium Chloride (0.9% Saline Lock 10 Ml Syringe) 10 - 40 ml IV UD PRN PRN Reason: SALINE FLUSH Last Admin: 09/22/20 13:45 Dose: 10 ml Documented by: Medical Necessity - Tobacco Use Smoking Status: Former smoker Tobacco Use: Non-smoker Assessment/Plan All Active Problems (Last Reviewed 08/13/20 @ 10:04 by Nat Askew FEDERAL LAW CLERK, FEDERAL LAW CLERK- C) H/O mastectomy (Resolved) Respiratory failure with hypoxia and hypercapnia (Acute) Right lower lobe pulmonary infiltrate (Resolved) COPD with exacerbation (Acute) Acute bronchospasm (Acute) Severe sepsis (Resolved) Shortness of breath (Acute) Debility (Acute) Acute on chronic diastolic congestive heart failure (Acute) #1 acute on chronic combined respiratory failure-continue present treatment on PCU, pulmonary is participating in her care, patient states she would consider going to an extended care facility for short-term rehab services if it was paid for by my insurance, hospice social worker will talk with patient again tomorrow #2 acute exacerbation of COPD-continue IV Solu-Medrol and aggressive aerosol treatments #3 hypokalemia-corrected at this time #4 chronic diastolic congestive heart failure-patient will remain on oral Lasix #5 Paroxysmal atrial fibrillation-patient is on Eliquis #6 stage IIIa chronic kidney disease #7 hyperlipidemia #8 chronic anxiety/depression #9 iron deficiency anemia-chronic #10 chronic debility-PT and OT will continue to work with the patient, she may need to go to an extended care facility for short-term rehab services. #11 obstructive sleep apnea-patient will be set up with nocturnal AutoPap therapy at discharge #12 moderate caloric and protein malnutrition-nutritional services is seeing patient Inpatient E&M: 71977 Subs Hosp L2
[2020-09-23] MEDS: Pravastatin 20 MG Tablet PO (21:39)
[2020-09-24] VITALS (13 sets, daily range): BP systolic 123–150; BP diastolic 49–70; PULSE 51–123; RESP 12–24; TEMP 36.6–36.9; O2SAT 88–96
[2020-09-24] MEDS: Ipratropium/Albuterol Sulfate 3 ML AMPUL.NEB INHALATION ×4 (03:52→15:42)
[2020-09-24] MEDS: Menthol/Lanolin/Calamine/Znox 113 GM Tube 1 APPLIC TOPICAL ×2 (06:09→14:34)
[2020-09-24 07:42] LABS: BUN 47 mg/dL (7-18); BUN/Creat Ratio 49.4 RATIO (10-20); Calcium,Total 9.5 mg/dL (8.5-10.1); Carbon Dioxide > 45.0 mmol/L (21.0-32.0); Chloride 96 mmol/L (98-107); Creatinine, Serum 0.95 mg/dL (0.55-1.02); EST Glomerular Filtration Rate 60 mL/min (>60); Est Glom Filt Rate - Afr Amer 72 mL/min (>60); Estimated Creatinine Clearance 38.42 ml/min; Glucose 168 mg/dL (74-106); Magnesium 2.3 mg/dL (1.6-2.6); Phosphorus 2.7 mg/dL (2.5-4.9); Potassium 4.3 mmol/L (3.5-5.1); Sodium Level 143 mmol/L (136-145)
[2020-09-24] MEDS: APIXABAN 2.5 MG TABLET PO (09:20)
[2020-09-24] MEDS: dilTIAZem CD 300 MG Capsule PO (09:20)
[2020-09-24] MEDS: Sertraline 50 MG Tablet PO (09:20)
[2020-09-24] MEDS: Furosemide 40 MG Tablet PO (09:20)
--- NOTE | 2020-09-24 11:00 | CASEMGMT ---
OLESYA accompanied by new OLESYA Kowalski met with patient. Introductions made as well as role at [facility]. Patient was wearing bipap so it was a little difficult to understand patient. SW asked if her plan was to go to a jail facility again or go home. She said she was thinking about going home with Hospice. She has not talked with the physician yet. It sounded like she said she did talk with her family about it. OLESYA told her SW will let the physician know she is thinking about Hospice. OLESYA notified Dr Flo ventura is considering Hospice. Yi Cannon ORDER EXPEDITER MELIDA
[2020-09-24] MEDS: Ferrous Sulfate 325 MG Tablet PO (11:10)
--- NOTE | 2020-09-24 11:43 | CASEMGMT ---
Dr Rossi spoke with patient and she wants Hospice. OLESYA and OLESYA Kowalski met with patient again. SW explained how the process works. She would want her daughter with her for the appt. Patient said she did talk with her daughter about wanting Hospice. SW spoke with patient's daughter Meghana. SW let her know that patient is wanting Hospice. SW told her how the process works. SW explained that Hospice will call her to set up an appt. Information was also faxed to Hospice. Yi Cannon AUTOMATION ARCHITECTLori MONTEZ
--- NOTE | 2020-09-24 12:52 | CASEMGMT ---
Pt screened with [facility] Palliative Care Screening Tool due to Str[employer] 4. Pt met criteria, however pt has chosen to be dc'd with hospice.
--- NOTE | 2020-09-24 13:30 | CASEMGMT ---
Sana from Hospice spoke with patient and her daughter and they would like patient to go to the Inpatient Hospice Unit. OLESYA notified Dr Rossi that she would need to call Dr Blackwell at Hospice. Dr Rossi spoke with Dr Blackwell and he approved patient. OLESYA arranged for patient to be picked up at 1600 via cot. OLESYA notified RN and guidance secretary. Patient and her daughter had some questions about visitation at Hospice. OLESYA Kowalski called Hospice to notify them of berry picker time and to ask about visitation per family's request. Meghana then shared this information with patient and her daughter. Plan: d/c to [facility] Inpatient Unit. [facility] transported via cot. Yi MONTEZ
--- NOTE | 2020-09-24 13:36 | CPS ---
Patient has decided she does not want to wear the Bipap any longer and wants to go to Hospice. Patient placed on 6L HFNC.
[2020-09-24] MEDS: 0.9% Saline Lock 10 ML Syringe IV ×2 (13:45→14:33)
--- NOTE | 2020-09-24 14:13 | PN_ITS ---
Patient Problems: Active and Suspected Problems (Last Reviewed 08/13/20 @ 10:04 by Nat Askew COUNSELING AIDE, COUNSELING AIDE-C) Shortness of breath (Acute) acute on chronic Subjective: Patient did okay overnight. Patient has essentially been BiPAP dependent for much of the day. Long discussion with the patient and she states I am done fighting like this. I cannot breathe with the mask and I cannot breathe without it. - Physical Exam Vitals/I&O's: Vital Signs Temp Pulse Resp BP Pulse Ox 36.7 C 63 18 148/49 H 93 09/24/20 11:14 09/24/20 11:15 09/24/20 11:14 09/24/20 11:14 09/24/20 11:14 Oxygen Flow Rate (L/min) 6 Oxygen Delivery Method Nasal Cannula Weight: 73.5 kg Body Mass Index (BMI) 28.7 Intake and Output for Last 24 Hours 09/22/20 09/23/20 09/24/20 23:59 23:59 23:59 Intake Total 560 / 560 720 / 840 580 / 580 Output Total 150 / 150 1075 / 1175 450 / 450 Balance 410 / 410 -355 / -335 130 / 130 General: Alert, Oriented x3, Cooperative, - - Moderate conversational dyspnea. HEENT: Atraumatic, PERRLA, EOMI, Normocephalic, - - No scleral icterus or injection Oral: No Gingival or Mucosal Lesions/ Ulcerations, Dry Mucosa Neck: Supple, No JVD, No Nodes, Trachea Midline Lungs: No rhonchi, No rales, Diminished, Wheezes, - - Symmetric expansion Cardiovascular: Regular rate, Regular Rhythm, Normal S1, Normal S2, Murmur - Grade 3 out of 6 systolic ejection murmur at the right sternal border, No rub noted, No Gallop Abdomen: Bowel Sounds Present, Soft, Non Tender, Non-Distended Extremities: No clubbing, No cyanosis, No edema, Capillary Refill Less than 3 Seconds Skin: No rashes, No breakdown, - - Significant dermal atrophy noted Musculoskeletal: No Tenderness to Palpation of Joints or Extremities Lymphatic: No Cervical, Supraclavicular, or Inguinal Adenopathy Neurological: Cranial nerves II-XII grossly intact, Neuro grossly intact, Motor Exam 5/5 strength throughout Psych/Mental Status: Alert and oriented to time, place, person, mood and affect Laboratory Results 09/24/20 06:20: Sodium 143, Potassium 4.3, Chloride 96 L, Carbon Dioxide > 45.0 H*, Anion Gap TNP, BUN 47 H, Creatinine 0.95, Estim Creat Clear Calc 38.42, Est GFR (MDRD) Af Amer 72, Est GFR (MDRD) Non-Af 60, BUN/Creatinine Ratio 49.4 H, Glucose 168 H, Calcium 9.5, Phosphorus 2.7, Magnesium 2.3 Current Medications Acetaminophen (Acetaminophen 325 Mg Tablet) 650 mg PO Q6H PRN PRN PRN Reason: Pain Score 1-10/Temp > 100.7 F Last Admin: 09/21/20 21:02 Dose: 650 mg Documented by: Albuterol Sulfate (Albuterol 2.5 Mg/3 Ml Vial.Neb.) 2.5 mg INHALATION Q2H PRN PRN PRN Reason: SOB/Wheezing Albuterol/Ipratropium (Ipratropium/Albuterol Sulfate 3 Ml Ampul.Neb) 3 ml INHALATION Q4H.RT [facility] Last Admin: 09/24/20 11:10 Dose: 3 ml Documented by: Apixaban (Apixaban 2.5 Mg Tablet) 2.5 mg PO BID [facility] Last Admin: 09/24/20 09:20 Dose: 2.5 mg Documented by: Calamine/Phenol (Menthol/Lanolin/Calamine/Znox 113 Gm Tube) 1 applic TOPICAL TID [facility]; Protocol Last Admin: 09/24/20 06:09 Dose: 1 applic Documented by: Diltiazem HCl (Diltiazem Cd 300 Mg Capsule) 300 mg PO DAILY [facility] Last Admin: 09/24/20 09:20 Dose: 300 mg Documented by: Ferrous Sulfate (Ferrous Sulfate 325 Mg Tablet) 325 mg PO QODAY@1200 [facility] Last Admin: 09/24/20 11:10 Dose: 325 mg Documented by: Furosemide (Furosemide 40 Mg Tablet) 40 mg PO DAILY [facility] Last Admin: 09/24/20 09:20 Dose: 40 mg Documented by: Sodium Chloride () 250 mls @ 15 mls/hr IV .[id number] PRN PRN Reason: Saline Flush Sodium Chloride () 250 mls @ 15 mls/hr IV .[id number] PRN PRN Reason: Additional IVPB Infusion Methylprednisolone (Methylprednisolone 40 Mg/Ml Vial) 40 mg IV Q8 [facility] Last Admin: 09/24/20 13:45 Dose: 40 mg Documented by: Morphine Sulfate (Morphine 2 Mg/Ml Syringe) 2 mg IV Q3H PRN PRN PRN Reason: dyspnea Ondansetron HCl (Ondansetron 4 Mg/2 Ml Vial) 4 mg IV Q8H PRN PRN PRN Reason: NAUSEA/VOMITING Pravastatin Sodium (Pravastatin 20 Mg Tablet) 20 mg PO QHS [facility] Last Admin: 09/23/20 21:39 Dose: 20 mg Documented by: Sertraline HCl (Sertraline 50 Mg Tablet) 50 mg PO DAILY [facility] Last Admin: 09/24/20 09:20 Dose: 50 mg Documented by: Sodium Chloride (0.9% Saline Lock 10 Ml Syringe) 10 - 40 ml IV UD PRN PRN Reason: SALINE FLUSH Last Admin: 09/24/20 13:45 Dose: 10 ml Documented by: Medical Necessity - Tobacco Use Smoking Status: Former smoker Tobacco Use: Non-smoker Assessment/Plan All Active Problems (Last Reviewed 08/13/20 @ 10:04 by Nat Askew COUNSELING AIDE, COUNSELING AIDE- C) H/O mastectomy (Resolved) Respiratory failure with hypoxia and hypercapnia (Acute) Right lower lobe pulmonary infiltrate (Resolved) COPD with exacerbation (Acute) Acute bronchospasm (Acute) Severe sepsis (Resolved) Shortness of breath (Acute) Debility (Acute) Acute on chronic diastolic congestive heart failure (Acute) RECOMMENDATIONS: 1. Wean patient to nasal cannula supplemental oxygen as tolerated. Goal to maintain oxygen saturations 88 to 92%. 2. Continue patient on AVAPS, at a minimum, on a nightly basis. 3. Continue scheduled bronchodilator therapy and IV steroids. 4. Continue diuretic regimen as tolerated by hemodynamics and renal function. 5. Await hospice discussion 6. Agree with hospice from a pulmonary perspective IMPRESSIONS: 1. Acute on chronic combined respiratory failure Patient with multiple exacerbations in the last 12 months. I do follow the patient as an outpatient and we have had multiple discussions. Patient states that fighting for her current baseline is not worth it. Patient was very appropriate and was discussing with her daughter at the bedside. This is not the first discussion we had regarding this topic. After review of the risks, benefits alternatives, patient is very clear that she would like hospice measures. I support her in this decision. 2. Heart failure with preserved ejection fraction/aortic valve disease Prior echocardiogram from June did reveal diastolic dysfunction. The patient was also noted to have moderately severe aortic valve stenosis. Continue diuretic regimen as tolerated by hemodynamics and renal function. 3. Obstructive sleep apnea The patient recently completed a diagnostic polysomnogram, ordered by her PCP, in July 2020, which did reveal evidence of moderate obstructive sleep apnea. Therefore, the patient would be a candidate for home PAP therapy. She can be set up with nocturnal AutoPap therapy at the time of her discharge from the hospital. 4. Depression/anxiety/hyperlipidemia/advanced age Complicates care, management, recovery and prognosis. Continue home medications as indicated. Inpatient E&M: 62954 Subs Hosp L2
--- NOTE | 2020-09-24 14:21 | DCINST_ITS ---
- Discharge Diagnoses Current Active Problems: Current Active and Chronic Problems (Last Reviewed 08/13/20 @ 10:04 by Nat Askew FILTER PRESS OPERATOR, FILTER PRESS OPERATOR-C) Shortness of breath (Acute) acute on chronic Reason(s) for Visit for Discharge Instructions: Acute COPD exacerbation Allergies/Adverse Reactions: Allergies No Known Allergies Allergy (Verified 08/13/20 09:44) Medications to take at Discharge Ferrous Sulfate 325 mg PO QODAY@1200 #30 tablet 08/14/20 Primary Care Physician: Bryan Tolbert III, MD [Primary Care Provider] - Test Results: Test results from this visit will be discussed in further detail at your follow- up appointment, if applicable. Proposed Discharge Date: 09/24/20
--- NOTE | 2020-09-24 14:21 | PCM.DC.SUM ---
Discharge Date and Diagnosis - Problem List Patient Problems: Active and Suspected Problems (Last Reviewed 08/13/20 @ 10:04 by Nat Askew SOCIAL INSURANCE ADVISER, SOCIAL INSURANCE ADVISER-C) Shortness of breath (Acute) acute on chronic Date of Admission: 09/20/20 Date of Discharge: 09/24/20 - Primary Discharge Diagnosis Acute Problems: Active Problems (Last Reviewed 08/13/20 @ 10:04 by Nat Askew SOCIAL INSURANCE ADVISER, SOCIAL INSURANCE ADVISER-C) Acute on chronic combined respiratory failure Acute COPD exacerbation Hypokalemia Moderate calorie and protein malnutrition Acute kidney injury, present on admission, prerenal secondary to dehydration - Secondary Discharge Diagnosis Chronic Problems: Chronic Problems (Last Reviewed 08/13/20 @ 10:04 by Nat Askew SOCIAL INSURANCE ADVISER, SOCIAL INSURANCE ADVISER-C) History of hypertension (Chronic) History of breast cancer (Chronic) History of colon cancer (Chronic) History of COPD (Chronic) Iron deficiency anemia (Chronic) CHF (congestive heart failure) (Chronic) Aortic stenosis, severe (Chronic) Atrial fibrillation (Chronic) Hypertension (Chronic) Hyperlipidemia (Chronic) Vitamin D deficiency (Chronic) Depression (Chronic) Hospital Course and Treatment Imaging Results: Clinical Impression(s) from Imaging Studies Chest X-Ray 09/20/20 05:42 IMPRESSION: Chronic interstitial changes. No evidence for acute cardiopulmonary pathology. Electronically Signed: Sinan Beaver MD at 6:24 EDT , Service support , Chest X-Ray 09/22/20 09:40 IMPRESSION: Normal x-ray examination of the chest. Electronically Signed: Kian Robledo MD at 9:55 EDT Tel , Service support , Pulmonology Operations: None Procedures: None Summary of Care Provided: The patient is a 80 year old F past medical history of chronic respiratory failure on 8 L of oxygen at home, COPD, CHF who was admitted with progressive shortness of breath. Patient was found to be very dyspneic and lethargic in the emergency room. ABG showed pH of 7.27, PCO2 was 158, PO2 of 236 on BiPAP/AVAPS. Patient was admitted to the telemetry floor and managed on BiPAP with improvement. She was tarted on IV Solu-Medrol, breathing treatments. Pulmonology was consulted. Patient was maintained on nasal cannula oxygen alternating with BiPAP/AVAPS. She continued to remain almost the same and requested for hospice as she felt she was not getting better. She was accepted to the inpatient hospice facility. Patient Problems: Active and Suspected Problems (Last Reviewed 08/13/20 @ 10:04 by Nat Askew SOCIAL INSURANCE ADVISER, SOCIAL INSURANCE ADVISER-C) Shortness of breath (Acute) acute on chronic Subjective: On the day of discharge, patient was seen and examined. She stated that she was tired and wants hospice. She feels like she has been going downhill over the last 3 months with repeated admissions. Objective: Physical exam: General: Alert, Oriented x3, Cooperative, in moderate respiratory distress, on BiPAP HEENT: Atraumatic, PERRLA, EOMI, Normocephalic Oral: Moist Mucosa Neck: Supple, No JVD, Trachea Midline, Thyroid Normal Size and Texture Lungs: Diminished, wheezes plus plus Cardiovascular: Regular rate, Regular Rhythm, Normal S1, Normal S2, PMI Normal, No rub noted Abdomen: Bowel Sounds Present, Soft, Non Tender, Non-Distended Extremities: Bilateral lower extremity edema +1 Skin: No rashes, No breakdown Neurological: Cranial nerves II-XII grossly intact, Neuro grossly intact, Sensory exam intact to light touch and pain Psych/Mental Status: Normal Affect, Appropriate - Physical Exam Vitals/I&O's: Vital Signs Temp Pulse Resp BP Pulse Ox 97.9 F 65 22 H 150/70 H 96 09/24/20 13:52 09/24/20 13:52 09/24/20 13:52 09/24/20 13:52 09/24/20 13:52 Oxygen Flow Rate (L/min) 6 Oxygen Delivery Method Nasal Cannula Weight: 73.5 kg Body Mass Index (BMI) 28.7 Intake and Output for Last 24 Hours 09/22/20 09/23/20 09/24/20 23:59 23:59 23:59 Intake Total 560 / 560 720 / 840 580 / 580 Output Total 150 / 150 1075 / 1175 450 / 450 Balance 410 / 410 -355 / -335 130 / 130 Laboratory Results 09/24/20 06:20: Sodium 143, Potassium 4.3, Chloride 96 L, Carbon Dioxide > 45.0 H*, Anion Gap TNP, BUN 47 H, Creatinine 0.95, Estim Creat Clear Calc 38.42, Est GFR (MDRD) Af Amer 72, Est GFR (MDRD) Non-Af 60, BUN/Creatinine Ratio 49.4 H, Glucose 168 H, Calcium 9.5, Phosphorus 2.7, Magnesium 2.3 Current Medications Acetaminophen (Acetaminophen 325 Mg Tablet) 650 mg PO Q6H PRN PRN PRN Reason: Pain Score 1-10/Temp > 100.7 F Last Admin: 09/21/20 21:02 Dose: 650 mg Documented by: Albuterol Sulfate (Albuterol 2.5 Mg/3 Ml Vial.Neb.) 2.5 mg INHALATION Q2H PRN PRN PRN Reason: SOB/Wheezing Albuterol/Ipratropium (Ipratropium/Albuterol Sulfate 3 Ml Ampul.Neb) 3 ml INHALATION Q4H.RT [facility] Last Admin: 09/24/20 11:10 Dose: 3 ml Documented by: Apixaban (Apixaban 2.5 Mg Tablet) 2.5 mg PO BID [facility] Last Admin: 09/24/20 09:20 Dose: 2.5 mg Documented by: Calamine/Phenol (Menthol/Lanolin/Calamine/Znox 113 Gm Tube) 1 applic TOPICAL TID [facility]; Protocol Last Admin: 09/24/20 06:09 Dose: 1 applic Documented by: Diltiazem HCl (Diltiazem Cd 300 Mg Capsule) 300 mg PO DAILY [facility] Last Admin: 09/24/20 09:20 Dose: 300 mg Documented by: Ferrous Sulfate (Ferrous Sulfate 325 Mg Tablet) 325 mg PO QODAY@1200 [facility] Last Admin: 09/24/20 11:10 Dose: 325 mg Documented by: Furosemide (Furosemide 40 Mg Tablet) 40 mg PO DAILY [facility] Last Admin: 09/24/20 09:20 Dose: 40 mg Documented by: Sodium Chloride () 250 mls @ 15 mls/hr IV .[id number] PRN PRN Reason: Saline Flush Sodium Chloride () 250 mls @ 15 mls/hr IV .[id number] PRN PRN Reason: Additional IVPB Infusion Methylprednisolone (Methylprednisolone 40 Mg/Ml Vial) 40 mg IV Q8 [facility] Last Admin: 09/24/20 13:45 Dose: 40 mg Documented by: Morphine Sulfate (Morphine 2 Mg/Ml Syringe) 2 mg IV Q3H PRN PRN PRN Reason: dyspnea Ondansetron HCl (Ondansetron 4 Mg/2 Ml Vial) 4 mg IV Q8H PRN PRN PRN Reason: NAUSEA/VOMITING Pravastatin Sodium (Pravastatin 20 Mg Tablet) 20 mg PO QHS [facility] Last Admin: 09/23/20 21:39 Dose: 20 mg Documented by: Sertraline HCl (Sertraline 50 Mg Tablet) 50 mg PO DAILY [facility] Last Admin: 09/24/20 09:20 Dose: 50 mg Documented by: Sodium Chloride (0.9% Saline Lock 10 Ml Syringe) 10 - 40 ml IV UD PRN PRN Reason: SALINE FLUSH Last Admin: 09/24/20 13:45 Dose: 10 ml Documented by: Discharge Diet: No Restrictions Home Medications: Medications to take at Discharge Ferrous Sulfate 325 mg PO QODAY@1200 #30 tablet 08/14/20 Primary Care Physician: Bryan Tolbert III, MD [Primary Care Provider] - Disposition: Hospice Medical Facility Minutes spent on discharge:: 45 Patient Condition:: Poor Medical Necessity - Tobacco Use Smoking Status: Former smoker Tobacco Use: Non-smoker Meaningful Use Info Meaningful Use Diagnoses (Choose all that apply): None applicable Inpatient E&M: 79737 [facility] Hosp
--- NOTE | 2020-09-24 14:27 | NURSING ---
This RN called and gave report to Rhonda actuarial trainee.
--- NOTE | 2020-09-24 14:31 | CASEMGMT ---
cafe worker called [facility] [phone]. OLESYA spoke to Michelle. Advised that patient will be picked up today at 4:00pm for transfer to the inpatient hospice unit. Inquired with hospice staff about the current visitation policy, in regards to COVID restrictions. OLESYA was advised by Michelle at [facility] that generally 2 people can visit at a time and can come and go. She advised that if 2 people leave 2 other people can visit. Michelle advised that visiting hours are 8am-8pm unless patient is at end of life. OLESYA went into patient's room and met with patient and her daughter. Updated them on status of transportation and also visitation policy at [facility]. Patient and daughter verbalized understanding and indicated that they had no additional needs or issues beside patient wanting her morphine, which OLESYA will speak to RN about. OLESYA spoke to ANASTASIIA Mooney and advised of transport time and that patient had questions about her morphine. No other issues or concerns at this time by patient, family or medical staff. Meghana GIRARD
[2020-09-24] MEDS: Morphine 2 MG/ML Syringe 0.5 MG IV (14:33)
--- NOTE | 2020-09-24 14:47 | PHA.DC.MR ---
Pharmacy Service has performed discharge medication reconciliation for this patient. The patient's discharge medication list was reviewed for discrepancies and discrepancies were resolved. Home Medications Ferrous Sulfate 325 mg PO QODAY@1200 #30 tablet 08/14/20
--- NOTE | 2020-09-24 15:37 | CHAPLAIN ---
Type of Pastoral Visit _x__ Initial Visit ___ Follow-up Visit ___ On-call Visit ___ General Patient Visit ___ Spiritual Assessment ___ Family Conference ___ Bereavement ___ Rapid Response ___ Code Blue ___ Other (describe below) Pastoral Care Referral From ___ Patient ___ Family ___ Nurse _x__ Physician ___ Financial Operations Analyst ___ Dry Cleaning Counter Clerk ___ Other (describe below) Sacrament/Intervention _x__ Active listening ___ Anointing ___ Congregational ___ Bereavement ___ Communion _x__ Inya exploration ___ ___ Life review _x__ Prayer ___ Reconciliation ___ Sacrament of Sick _x__ Supportive presence ___ Wedding ___ Other (describe below) Pastoral Comments DR recommended support to this patient; pt and daughter are in room and welcoming; pt says I'm not giving up but I am tired and I will leave it in God's hands now; daughter is supportive and gives details; pt is and accepting of hospice at this time; pt is Muslim but not active; pt requests a prayer.
== END 2020-09-24 16:24 | disposition hospice, inpatient (51) | DRG 190 ==
LOC: ED 07:09 → PCU 07:34
PROVIDERS: Internal Medicine Critical Care Medicine; Admitting Provider Internal Medicine; Emergency Provider Emergency Medicine; PCP Family Medicine; Visit Provider Internal Medicine
DX: J44.1 Chronic obstructive pulmonary disease with (acute) exacerbation (principal); J96.21 Acute and chronic respiratory failure with hypoxia; G93.41 Metabolic encephalopathy; J96.22 Acute and chronic respiratory failure with hypercapnia; I13.0 Hypertensive heart and chronic kidney disease with heart failure and stage 1 through stage 4 chronic kidney disease, or unspecified chronic kidney disease; E44.0 Moderate protein-calorie malnutrition; N17.9 Acute kidney failure, unspecified; I50.32 Chronic diastolic (congestive) heart failure; E87.6 Hypokalemia; Z66 Do not resuscitate; I48.0 Paroxysmal atrial fibrillation; E78.5 Hyperlipidemia, unspecified; N18.31 Chronic kidney disease, stage 3a; F32.9 Major depressive disorder, single episode, unspecified; F41.9 Anxiety disorder, unspecified; D50.9 Iron deficiency anemia, unspecified; Z79.01 Long term (current) use of anticoagulants; I35.0 Nonrheumatic aortic (valve) stenosis; G47.33 Obstructive sleep apnea (adult) (pediatric); E86.0 Dehydration; E55.9 Vitamin D deficiency, unspecified; Z87.891 Personal history of nicotine dependence; Z80.0 Family history of malignant neoplasm of digestive organs; Z82.0 Family history of epilepsy and other diseases of the nervous system; Z82.49 Family history of ischemic heart disease and other diseases of the circulatory system; Z85.038 Personal history of other malignant neoplasm of large intestine; Z85.3 Personal history of malignant neoplasm of breast
CPT/HCPCS: 36415; 36600; 51702; 71045; 80048; 82803; 83735; 83880; 84100; 84484; 85025; 87426; 93005; 94002; 94003; 94640; 97110; 97162; 97166; 97530; 97535; 99251; 99285; J7030; A4216; G0463; J1940